=== PATIENT | female | born 1980 | race Caucasian/White ===

== ENCOUNTER 2021-12-17 10:57 | Emergency (ER) | payer OTHER, SELFPAY ==
[2021-12-17 11:07] VITALS: BP 118/85; PULSE 92; RESP 20; TEMP 36.8; O2SAT 98
--- NOTE | 2021-12-17 11:56 | ED.GENADULT ---
HPI - General Adult General Chief complaint: Upper Respiratory Infection Stated complaint: Bleeding tonsils, mouth sores,right side face sore Source: patient Mode of arrival: ambulatory Limitations: no limitations History of Present Illness HPI narrative: Patient presents for evaluation of sore throat since yesterday. She reports right-sided cervical lymphadenopathy and right-sided otalgia. No fever, chills, nausea, vomiting, respiratory symptoms. No recent sick contacts to her knowledge. She has been vaccinated for COVID. She further reports painful sores to the right side of her tongue the past 4 days. She indicates she recently had labs done and it sounds like she had a positive herpes antibody test. She has never had a cold sore or genital herpes outbreak before. She is concerned that tongue lesions were herpes. She has tried several mouthwashes without significant improvement in her symptoms or after. In the past she has had similar symptoms and has gargled with warm salt water which causes symptoms to go away. No additional complaints or concerns. Related Data Home Medications Medication Instructions Recorded Confirmed amitriptyline 100 mg tablet 30 mg PO DAILY 12/17/21 12/17/21 citalopram 20 mg tablet 20 mg PO DAILY 12/17/21 12/17/21 meloxicam 15 mg tablet 15 mg PO DAILY 12/17/21 12/17/21 tizanidine 2 mg tablet 2 mg PO BID 12/17/21 12/17/21 topiramate 50 mg tablet 50 mg PO BID 12/17/21 12/17/21 Allergies Allergy/AdvReac Type Severity Reaction Status Date / Time No Known Allergies Allergy Unknown Unverified 08/07/18 16:12 Review of Systems Review of Systems: CONSTITUTIONAL: Denies fever, chills, or sweats. EYES: Denies visual changes, redness, or discharge. ENT: Reports sore throat and right-sided otalgia. Reports painful sores to the right side of her tongue. Denies rhinorrhea and congestion CARDIOVASCULAR: Denies chest pain, palpitations, or edema. RESPIRATORY: Denies cough or dyspnea. GASTROINTESTINAL: Denies abdominal pain, nausea, vomiting, or diarrhea. GENITOURINARY: Denies dysuria or hematuria. SKIN: Denies rash or itching. MUSCULOSKELETAL: Denies back pain, joint pain, or myalgia. NEUROLOGIC: Denies headache, numbness, dizziness, or weakness. PSYCHIATRIC: Denies anxiety or depression. [facility] Past Medical History Medical History Anxiety Migraine Surgical History Surgical History History of bariatric surgery Family History Family History (Updated 12/17/21 @ 12:01 by FARHAD Garner, ) Mother Breast cancer Father COPD (chronic obstructive pulmonary disease) Social History Social History (Updated 12/17/21 @ 12:02 by FARHAD Garner, ) Substance use: never Living arrangements: with family Gender identity (if verbalized by the patient): Female Sexual Orientation (if Verbalized by the Patient): Straight or Heterosexual Spiritual care concerns: No Exam Narrative: GENERAL: Well-appearing, well-nourished, and in no acute distress. HEAD: Normocephalic, atraumatic. EYES: PERRLA and EOMI. ENT: Nares clear, no rhinorrhea or epistaxis. Mucous membranes moist. There are few raised and ulcerative lesions to the right lateral aspect of her tongue. Bilateral tonsillar enlargement and erythema. No exudate. Uvula is midline. Bilateral TMs pearly [place] nonbulging NECK: Supple. No adenopathy or masses. No carotid bruits or JVD CHEST: Clear to auscultation. No respiratory distress. No wheezes rales or rhonchi HEART: Regular rate and rhythm. No murmur heard. Normal peripheral pulses. ABDOMEN: Soft, nontender, nondistended, normal active bowel sounds. EXTREMITIES: Normal range of motion. No edema. SKIN: Warm, dry, no rash. NEURO: No focal deficits. Alert and oriented x3. PSYCH: Normal mood and affect. Course Course Emergency Course: This is
== END 2021-12-17 11:57 | disposition home or self-care (01) ==
PROVIDERS: Emergency Provider Nurse Practitioner
DX: J02.9 Acute pharyngitis, unspecified (principal); F41.9 Anxiety disorder, unspecified
CPT/HCPCS: 87081; 87255; 87880; 99203; G0463

== ENCOUNTER 2022-05-07 15:04 | Emergency (ER) | payer OTHER, SELFPAY ==
--- NOTE | 2022-05-07 15:09 | ED.URI ---
HPI - URI/Sore Throat General Chief Complaint: Upper Respiratory Infection Stated Complaint: upper respiratory Time Seen by Provider: 05/07/22 15:25 Source: patient and RN notes reviewed Mode of arrival: ambulatory Limitations: no limitations History of Present Illness HPI Narrative: 41-year-old female presents concern for 4 day history of runny nose, stuffy nose, cough. Reports persistent nagging cough. Reports she has taken multiple [id number] medications but relief of her symptoms. Reports exposure to her sister who had bronchitis. She reports chills and sweats. Denies measure temperature MD elicited complaint: cough and sore throat Related Data Home Medications Medication Instructions Recorded Confirmed amitriptyline 100 mg tablet 30 mg PO DAILY 12/17/21 05/07/22 citalopram 20 mg tablet 20 mg PO DAILY 12/17/21 05/07/22 meloxicam 15 mg tablet 15 mg PO DAILY 12/17/21 05/07/22 tizanidine 2 mg tablet 2 mg PO BID 12/17/21 05/07/22 topiramate 50 mg tablet 50 mg PO BID 12/17/21 05/07/22 Allergies Allergy/AdvReac Type Severity Reaction Status Date / Time No Known Allergies Allergy Unknown Unverified 05/07/22 15:31 Review of Systems Review of Systems: CONSTITUTIONAL: Reports malaise, chills, sweats EYES: Denies visual changes, redness, or discharge. ENT: Reports rhinorrhea, congestion, sore throat. Denies sinus pain, otalgia CARDIOVASCULAR: Denies chest pain, palpitations, or edema. RESPIRATORY: Reports cough. Denies dyspnea. GASTROINTESTINAL: Denies abdominal pain, nausea, vomiting, diarrhea SKIN: Denies rash or itching. MUSCULOSKELETAL: Reports myalgia. NEUROLOGIC: Reports headache. All systems reviewed & are unremarkable except as noted in HPI and below PMFSH Past Medical History Medical History (Updated 05/07/22 @ 15:42 by Shiela Bernal NP) Anxiety Migraine Surgical History Surgical History History of bariatric surgery Family History Family History (Updated 12/17/21 @ 12:01 by FARHAD Garner, BC) Mother Breast cancer Father COPD (chronic obstructive pulmonary disease) Social History Social History (Updated 12/17/21 @ 12:02 by Mele Harrell, [facility], ) Substance use: never Gender identity (if verbalized by the patient): Female Sexual Orientation (if Verbalized by the Patient): Straight or Heterosexual Spiritual care concerns: No Comments At time of signature, agree with nursing past medical, surgical, social and family history. There is no relevant family history pertinent to the presenting complaint Exam Narrative: GENERAL: Nontoxic-appearing and in no acute distress. HEAD: Normocephalic EYES: PERRLA, conjunctivae clear ENT: Nares clear, turbinates edematous and erythematous, clear discharge. Mucous membranes moist. TM pearly [place] with dull light reflex bilaterally; no tragal tenderness. Oropharynx not erythematous without lesions. Tonsils not enlarged and without exudate, no drooling, no hoarseness, no trismus, uvula midline. NECK: Supple. No lymphadenopathy CHEST: Scattered expiratory wheeze otherwise Clear to auscultation, breath sounds equal. No rhonchi, rales, or stridor. No respiratory distress, speaks in full sentences. HEART: Regular rate and rhythm. No murmur heard. SKIN: Warm, dry, no rash. NEURO: Alert and oriented x3. PSYCH: Normal mood and affect Course Course Emergency Course: Patient is aware of diagnosis, understands and agrees to treatment plan. Anticipatory guidance given. Patient agrees to follow-up as directed and is aware of reasons to seek care at the emergency department. Portions of this record may have been created with voice recognition software Level of Care: Express Care Visit Vital Signs Vital signs: Reviewed. MDM - URI/Sore Throat MDM Narrative Medical decision making narrative: Differential diagnosis considered: [place] virus, strep pharyngitis, allergic r
[2022-05-07 15:14] VITALS: BP 129/84; PULSE 96; RESP 20; TEMP 36.9; O2SAT 99
== END 2022-05-07 16:04 | disposition home or self-care (01) ==
PROVIDERS: Emergency Provider Nurse Practitioner; PCP Family Medicine
DX: J40 Bronchitis, not specified as acute or chronic (principal); Z20.822 Contact with and (suspected) exposure to COVID-19; F41.9 Anxiety disorder, unspecified
CPT/HCPCS: 87426; 87804; 99213; C9803; G0463

== ENCOUNTER 2022-08-15 19:07 | Emergency (ER) | payer OTHER, SELFPAY ==
--- NOTE | 2022-08-15 19:10 | ED.FEMALEGU ---
HPI - Female Genitourinary General Chief complaint: Urogenital-Female Stated complaint: Poss UTI Time Seen by Provider: 08/15/22 19:10 Source: patient and RN notes reviewed History of Present Illness HPI Narrative: Patient is a 41-year-old female who presents to urgent care with complaints of intermittent urinary frequency, dysuria, suprapubic pressure and urgency. Patient states that she felt like she had blood in the urine with pink colored urine. Patient states has been ongoing for 2 and half weeks however her father was passing and she did not have time to be evaluated. Patient denies any fever, nausea, vomiting, abdominal pain or low back pain. Patient has taken azo for her symptoms. No other acute complaints. Patient states that she ?always gets symptoms like this but improve with the azo and has never treated with antibiotics and ?. No acute distress noted. Patient aware of the plan of care. Some parts of this dictation were generated by voice recognition software and may contain typographical and/or grammatical inaccuracies. Related Data Home Medications Medication Instructions Recorded Confirmed amitriptyline 100 mg tablet 30 mg PO DAILY 12/17/21 08/15/22 citalopram 20 mg tablet 20 mg PO DAILY 12/17/21 08/15/22 tizanidine 2 mg tablet 2 mg PO BID 12/17/21 08/15/22 topiramate 50 mg tablet 50 mg PO BID 12/17/21 08/15/22 meloxicam 7.5 mg tablet 7.5 mg PO DAILY 08/15/22 08/15/22 omeprazole 20 mg capsule,delayed 20 mg PO DAILY 08/15/22 08/15/22 release Allergies Allergy/AdvReac Type Severity Reaction Status Date / Time No Known Allergies Allergy Unknown Unverified 08/15/22 19:13 Review of Systems Review of Systems: CONSTITUTIONAL: Denies fever, chills, or sweats. EYES: Denies visual changes, redness, or discharge. ENT: Denies rhinorrhea, congestion, sore throat, or otalgia. CARDIOVASCULAR: Denies chest pain, palpitations, or edema. RESPIRATORY: Denies cough or dyspnea. GASTROINTESTINAL: Denies abdominal pain, nausea, vomiting, or diarrhea. GENITOURINARY: Reports of urinary frequency dysuria, suprapubic pressure and urgency SKIN: Denies rash or itching. MUSCULOSKELETAL: Denies back pain, joint pain, or myalgia. NEUROLOGIC: Denies headache, numbness, or weakness. All other systems reviewed are negative, except as documented in HPI. [facility] Past Medical History Medical History (Updated 08/15/22 @ 19:39 by FARHAD Dee) Anxiety Migraine Surgical History Surgical History History of bariatric surgery Family History Family History (Updated 12/17/21 @ 12:01 by Mele Harrell, FARHAD, ) Mother Breast cancer Father COPD (chronic obstructive pulmonary disease) Social History Social History (Updated 12/17/21 @ 12:02 by FARHAD Garner, ) Substance use: never Living arrangements: with family Gender identity (if verbalized by the patient): Female Sexual Orientation (if Verbalized by the Patient): Straight or Heterosexual Spiritual care concerns: No Comments At the time of my signature, I reviewed and agree with the nursing past medical, surgical, social, and family history. There is no relevant family history pertinent to the patient complaint. Exam Narrative: GENERAL: This is a well-nourished, well-developed patient, in no apparent distress. HEAD: normocephalic, atraumatic. EYES: PERRL. Sclera clear/white. Vision is grossly intact. EARS: External ears normal NOSE: External nose normal with no obvious nasal discharge, nares without redness, no rhinorrhea. THROAT: Mucous membranes moist NECK: Neck supple GASTROINTESTINAL: Abdomen soft, non-tender, nondistended. Bowel sounds are active. No guarding. SKIN: warm, intact with no suspicious lesions or rash, good texture and turgor. NEURO: awake, alert, and oriented to person, place and time. There were no obvious focal neurologic abnormalities. EXTREMITIES: No c
[2022-08-15 19:12] VITALS: BP 141/89; PULSE 84; RESP 18; TEMP 36.8; O2SAT 99
== END 2022-08-15 20:00 | disposition home or self-care (01) ==
PROVIDERS: Emergency Provider Nurse Practitioner Family; PCP Family Medicine
DX: N30.90 Cystitis, unspecified without hematuria (principal); Z79.1 Long term (current) use of non-steroidal anti-inflammatories (NSAID)
CPT/HCPCS: 81003; 87086; 87088; 99213; G0463

== ENCOUNTER 2022-11-08 14:14 | Emergency (ER) | payer OTHER, SELFPAY ==
[2022-11-08 14:22] VITALS: BP 142/91; PULSE 86; RESP 18; TEMP 36.6; O2SAT 98
--- NOTE | 2022-11-08 14:24 | ED.URI ---
HPI - URI/Sore Throat General Chief Complaint: Upper Respiratory Infection Stated Complaint: Sore Throat Time Seen by Provider: 11/08/22 14:24 Source: patient, RN notes reviewed and old records reviewed Mode of arrival: ambulatory Limitations: no limitations History of Present Illness HPI Narrative: 42-year-old female presents to the [facility] with complaints of a sore throat for 5 days. Reports a small blister to the top of her mouth. Reports a history of fatigue this past week. Onset (ago): week(s) (1) Related Data Home Medications Medication Instructions Recorded Confirmed amitriptyline 100 mg tablet 30 mg PO DAILY 12/17/21 11/08/22 citalopram 20 mg tablet 20 mg PO DAILY 12/17/21 11/08/22 tizanidine 2 mg tablet 2 mg PO BID 12/17/21 11/08/22 topiramate 50 mg tablet 50 mg PO BID 12/17/21 11/08/22 meloxicam 7.5 mg tablet 7.5 mg PO DAILY 08/15/22 11/08/22 omeprazole 20 mg capsule,delayed 20 mg PO DAILY 08/15/22 11/08/22 release Allergies Allergy/AdvReac Type Severity Reaction Status Date / Time No Known Allergies Allergy Unknown Unverified 11/08/22 14:22 Review of Systems Review of Systems: All systems reviewed & are unremarkable except as noted in HPI and below Constitutional: Constitutional: Reports no additional constitutional complaints Eyes: Eyes: Reports no additional eye complaints ENT: Reports as per HPI Cardiovascular: Cardiovascular: Reports no additional cardiovascular complaints, Denies chest pain and Denies dyspnea Respiratory: Respiratory: Reports no additional respiratory complaints, Denies chest congestion, Denies cough and Denies dyspnea Gastrointestinal: Gastrointestinal: Reports no additional gastrointestinal complaints, Denies abdominal pain, Denies nausea and Denies vomiting Musculoskeletal: Musculoskeletal: Reports no additional musculoskeletal complaints Integumentary/Breasts: Skin/Breast: Reports system reviewed and no additional complaints, except as docu Neurologic: Reports system reviewed and no additional complaints, except as documented Psychiatric: Psychiatric: Reports no additional psychiatric complaints Allergic/Immunologic: Allergic/Immunologic: Reports no additional allergic/immunologic complaints PMFSH Past Medical History Medical History Anxiety Migraine Surgical History Surgical History History of bariatric surgery Family History Family History Mother Breast cancer Father COPD (chronic obstructive pulmonary disease) Social History Social History Substance use: never Living arrangements: with family Gender identity (if verbalized by the patient): Female Sexual Orientation (if Verbalized by the Patient): Straight or Heterosexual Spiritual care concerns: No Comments At the time of my signature, I reviewed and agree with the nursing past medical, surgical, social, and family history. There is no relevant family history pertinent to the patient complaint. Exam Const: General: cooperative, healthy appearing, comfortable, no acute distress, well developed, alert and well nourished Nutritional Appearance: well nourished and underweight Orientation/consciousness: patient oriented x3 Limitations: no limitations HENMT: Head: normal to inspection Ears: hearing grossly normal bilaterally, external ears normal, TM's normal bilaterally and EAC's normal Face/Nose/Sinus: Normal external nose present, Normal nares present, Normal nasal mucous membranes and turbinates present and normal facial exam Face and sinus: normal facial exam Mouth: Yes Normal oral and palatal mucosa present, Yes lip normal, Yes tongue normal and Yes moist mucous membranes Throat: uvula midline, posterior oropharynx abnormal erythema; no edema, no exudates and no la
[2022-11-08 14:29] VITALS: BP 142/91; PULSE 86; RESP 18; TEMP 36.6; O2SAT 98
== END 2022-11-08 15:00 | disposition home or self-care (01) ==
PROVIDERS: Emergency Provider Nurse Practitioner; PCP Family Medicine
DX: J02.9 Acute pharyngitis, unspecified (principal); F41.9 Anxiety disorder, unspecified
CPT/HCPCS: 36416; 86308; 87081; 87880; 99213; G0463

== ENCOUNTER 2023-04-30 18:25 | Emergency (ER) | payer OTHER, SELFPAY ==
[2023-04-30 18:37] VITALS: BP 145/100; PULSE 94; RESP 16; TEMP 36.2; O2SAT 100
--- NOTE | 2023-04-30 19:13 | ED.URI ---
HPI - URI/Sore Throat General Chief Complaint: Upper Respiratory Infection Stated Complaint: Sore Throat/Cough/Fever Time Seen by Provider: 04/30/23 19:14 Source: patient, RN notes reviewed and old records reviewed Mode of arrival: ambulatory Limitations: no limitations History of Present Illness HPI Narrative: 42-year-old female presents to the [facility] with 1 week of sore throat, feeling feverish, ear pain. States that she has tried [id number] products with no relief. States that she has been baby-sitting her grandchildren and they all have viruses that are lasting for weeks. She has states she is not any better with using any cold medicine. Related Data Home Medications Medication Instructions Recorded Confirmed amitriptyline 100 mg tablet 30 mg PO DAILY 12/17/21 11/08/22 citalopram 20 mg tablet 20 mg PO DAILY 12/17/21 11/08/22 tizanidine 2 mg tablet 2 mg PO BID 12/17/21 11/08/22 topiramate 50 mg tablet 50 mg PO BID 12/17/21 11/08/22 meloxicam 7.5 mg tablet 7.5 mg PO DAILY 08/15/22 11/08/22 omeprazole 20 mg capsule,delayed 20 mg PO DAILY 08/15/22 11/08/22 release topiramate 100 mg tablet mg 04/30/23 Allergies Allergy/AdvReac Type Severity Reaction Status Date / Time No Known Allergies Allergy Unknown Unverified 04/30/23 18:31 Review of Systems Review of Systems: All systems reviewed & are unremarkable except as noted in HPI and below Constitutional: Constitutional: Reports no additional constitutional complaints Eyes: Eyes: Reports no additional eye complaints ENT: Reports as per HPI and Reports sore throat Cardiovascular: Cardiovascular: Reports no additional cardiovascular complaints, Denies chest pain and Denies dyspnea Respiratory: Respiratory: Reports no additional respiratory complaints, Denies chest congestion, Denies cough and Denies dyspnea Gastrointestinal: Gastrointestinal: Reports no additional gastrointestinal complaints, Denies abdominal pain, Denies nausea and Denies vomiting Musculoskeletal: Musculoskeletal: Reports no additional musculoskeletal complaints Integumentary/Breasts: Skin/Breast: Reports system reviewed and no additional complaints, except as docu Neurologic: Reports system reviewed and no additional complaints, except as documented Psychiatric: Psychiatric: Reports no additional psychiatric complaints Allergic/Immunologic: Allergic/Immunologic: Reports no additional allergic/immunologic complaints PMFSH Past Medical History Medical History Anxiety Migraine Surgical History Surgical History History of bariatric surgery Family History Family History Mother Breast cancer Father COPD (chronic obstructive pulmonary disease) Social History Social History Substance use: never Living arrangements: with family Gender identity (if verbalized by the patient): Female Sexual Orientation (if Verbalized by the Patient): Straight or Heterosexual Spiritual care concerns: No Comments At the time of my signature, I reviewed and agree with the nursing past medical, surgical, social, and family history. There is no relevant family history pertinent to the patient complaint. Exam Const: General: cooperative, healthy appearing, comfortable, no acute distress, well developed, alert and well nourished Nutritional Appearance: well nourished and obese Orientation/consciousness: patient oriented x3 Limitations: no limitations HENMT: Head: normal to inspection Ears: hearing grossly normal bilaterally, external ears normal, TM normal on the left, EAC's normal and TM abnormal bulging on the right and wth effusion serous on the right; not erythematous and with no loss of landmarks Face/Nose/Sinus: Normal external nose present, Normal nares present, Nor
== END 2023-04-30 19:24 | disposition home or self-care (01) ==
PROVIDERS: Emergency Provider Nurse Practitioner; PCP Family Medicine
DX: J06.9 Acute upper respiratory infection, unspecified (principal); H65.01 Acute serous otitis media, right ear; F41.9 Anxiety disorder, unspecified
CPT/HCPCS: 87081; 87880; 99213; G0463

== ENCOUNTER 2024-03-24 13:31 | Emergency (ER) | payer OTHER, SELFPAY ==
[2024-03-24 13:40] VITALS: BP 123/62; PULSE 89; RESP 20; TEMP 36.6; O2SAT 99
--- NOTE | 2024-03-24 21:56 | ED_ITS ---
HPI - URI/Sore Throat General Chief Complaint: Upper Respiratory Infection Stated Complaint: Cough, Congestion Time Seen by Provider: 03/24/24 13:46 Source: patient, RN notes reviewed and old records reviewed Mode of arrival: ambulatory Limitations: no limitations History of Present Illness HPI Narrative: 43-year-old female to Express Care with complaint of cough, chills, sore throat, headache for 3 weeks. patient states she has attempted to use various nyxf-iob-qmwweel medications including NyQuil, DayQuil, Excedrin for symptoms With limited relief. Patient denies shortness of breath, difficulty swallowing, chest pain, GI complaints, allergies, pertinent medical history. Patient able to tolerate fluids by mouth. Patient resting uncomfortably in exam room, appears tired and acutely ill. Patient able to speak in complete sentences without difficulty. Respirations even and nonlabored. Patient in no acute distress. Related Data Home Medications Medication Instructions Recorded Confirmed amitriptyline 100 mg tablet 100 mg PO DAILY 12/17/21 03/24/24 tizanidine 2 mg tablet 2 mg PO TID 12/17/21 03/24/24 topiramate 50 mg tablet 50 mg PO BID 12/17/21 03/24/24 omeprazole 20 mg capsule,delayed 20 mg PO DAILY 08/15/22 03/24/24 release topiramate 100 mg tablet 100 mg PO DAILY 04/30/23 03/24/24 citalopram 40 mg tablet 40 mg PO DAILY 03/24/24 03/24/24 meloxicam 15 mg tablet 15 mg PO DAILY 03/24/24 03/24/24 Allergies Allergy/AdvReac Type Severity Reaction Status Date / Time No Known Allergies Allergy Unknown Verified 03/24/24 13:48 Review of Systems Review of Systems: All systems reviewed & are unremarkable except as noted in HPI and below Constitutional: Constitutional: Reports as per HPI, Reports chills and Reports headache(s) Eyes: Eyes: Denies no additional eye complaints ENT: Reports as per HPI and Reports sore throat Cardiovascular: Cardiovascular: Reports no additional cardiovascular complaints, Denies chest pain and Denies dyspnea Respiratory: Respiratory: Reports no additional respiratory complaints, Reports cough and Denies dyspnea Musculoskeletal: Musculoskeletal: Reports no additional musculoskeletal complaints Neurologic: Reports system reviewed and no additional complaints, except as documented Psychiatric: Psychiatric: Reports no additional psychiatric complaints PMFSH Past Medical History Medical History Anxiety Migraine Surgical History Surgical History History of bariatric surgery Family History Family History Mother Breast cancer Father COPD (chronic obstructive pulmonary disease) Social History Social History Substance use: never Living arrangements: with family Gender identity (if verbalized by the patient): Female Sexual Orientation (if Verbalized by the Patient): Straight or Heterosexual Spiritual care concerns: No Comments At the time of my signature, I reviewed and agree with the nursing past medical, surgical, social, and family history. There is no relevant family history pertinent to the patient complaint. Exam Const: General: cooperative, no acute distress, well developed, alert, ill appearing acutely, tired appearing, uncomfortable, well groomed and well nourished Nutritional Appearance: well nourished Orientation/consciousness: patient oriented x3 Limitations: no limitations HENMT: Head: normal to inspection Ears: external ears normal Face/Nose/Sinus: Normal external nose present, Normal nares present, normal facial exam, No erythema and No edema Face and sinus: normal facial exam, no erythema and no edema Mouth: Yes Normal oral and palatal mucosa present Eyes: General: appearance normal, both eyes and all related structures Neck: Neck: normal visual inspection, full ROM and no meningeal signs Lymphatic: no lymphadenopathy noted and no lymphedema noted Chest: Chest palpation & inspection: normal inspection of the chest Resp: Effort & Inspection: normal respiratory effort and able to speak in complete sentences Auscultation: crackles bilateral and diffuse Cardio: Jugular venous distension: no JVD Rate: regular rate Rhythm: regular rhythm Back/Spine/Pelvis: Cervical Spine: cervical ROM normal Skin: General skin exam: normal color, no rashes or lesions noted and turgor normal Neuro: General: patient oriented x3, gait normal, moves all extremities and no meningeal signs Speech: normal speech Gait exam (Neuro): Normal gait present Extrem: General: normal to inspection, full ROM and capillary refill normal Psych: Appearance: grossly normal and well kempt Course Course Emergency Course: Some parts of this dictation were generated by voice recognition software and may contain typographical and/or grammatical inaccuracies. Level of Care: Express Care Visit Vital Signs Vital signs: Vital Signs Temperature 36.6 C 03/24/24 13:40 Pulse Rate 89 03/24/24 13:40 Respiratory Rate 20 03/24/24 13:40 Blood Pressure 123/62 03/24/24 13:40 Pulse Oximetry 99 03/24/24 13:40 Oxygen Delivery Room Air 03/24/24 13:40 Temperature 36.6 C 03/24/24 13:40 Pulse Rate 89 03/24/24 13:40 Respiratory Rate 20 03/24/24 13:40 Blood Pressure 123/62 03/24/24 13:40 Pulse Oximetry 99 03/24/24 13:40 Oxygen Delivery Room Air 03/24/24 13:40 reviewed MDM - URI/Sore Throat MDM Narrative Medical decision making narrative: 43-year-old female to Express Care with complaint of cough, chills, sore throat, headache for 3 weeks. patient states she has attempted to use various fgwo-sql-ryvxjef medications including NyQuil, DayQuil, Excedrin for symptoms with limited relief. Patient denies shortness of breath, difficulty swallowing, chest pain, GI complaints, allergies, pertinent medical history. Patient able to tolerate fluids by mouth. Patient resting uncomfortably in exam room, appears tired and acutely ill. Patient able to speak in complete sentences without difficulty. Respirations even and nonlabored. Patient in no acute distress. On exam, diffuse crackles heard bilaterally. Consistent with pneumonia. Patient is sitting in exam room nontoxic in appearance. Patient appropriate for outpatient treatment and follow-up. Discharge instructions reviewed with patient, as well as provided in writing per nursing staff. The instructions also include specific and strict return/GO TO THE ER as well as f/u information. All questions have been answered, and the patient deny any further questions with discharge and discharge plan. Some parts of this dictation were generated by voice recognition software and may contain typographical and/or grammatical inaccuracies. Differential Diagnosis Differential diagnosis: Likely upper respiratory infection, croup, otitis media, sinusitis, viral infection, bronchitis, influenza and pharyngitis Discharge Plan Discharge Clinical Impression: Pneumonia Patient Disposition: Home, Self-Care Condition: Stable Instructions: Antibiotic Form Additional Instructions: -Alternate Tylenol and Motrin per package directions for fever or pain. -Antihistamine medication such as Benadryl at night and Zyrtec/Claritin/Deborah during the day can help improve symptoms. -Use Flonase twice a day for 5 days then daily to help reduce the inflammation and dry up your sinuses. -You can also use Sudafed or Mucinex. Be sure to drink plenty of water with these medications at least 8 ounces with every dose and it is important to drink 8 to 10 glasses of water per day. Water is a natural decongestant -Eat and drink things that are easy to swallow, like tea or soup, or popsicles. -Oral rinses such as: Salt water gargles and/or may use topical anesthetic (eg. Chloraseptic spray) or lozenges to relieve dryness or throat pain). -Frequent hand washing or hand network relations consultant is one of the best ways to prevent spread of infection. -Using a vaporizer or humidifier at night will also help thin secretions and help with coughing up phlegm. -Follow up with primary care provider in 2-3 days if condition is not improving; or seek ER visit if you have trouble breathing, cannot drink enough fluids, have muffled voice, difficulty opening your mouth, or severe swelling. Prescriptions: New amoxicillin-pot clavulanate 875-125 mg tablet 1 tablet PO Q12H 7 Days Qty: 14 0RF No Action omeprazole 20 mg capsule,delayed release(DR/EC) 20 mg PO DAILY citalopram 40 mg tablet 40 mg PO DAILY meloxicam 15 mg tablet 15 mg PO DAILY topiramate 50 mg tablet 50 mg PO BID amitriptyline 100 mg tablet 100 mg PO DAILY tizanidine 2 mg tablet 2 mg PO TID topiramate 100 mg tablet 100 mg PO DAILY Follow-up/Referrals: PHYSICIAN,EMISSIONS TECHNICIAN [Primary Care Provider] -
== END 2024-03-24 14:36 | disposition home or self-care (01) ==
PROVIDERS: Emergency Provider Nurse Practitioner Family
DX: J18.9 Pneumonia, unspecified organism (principal); F41.9 Anxiety disorder, unspecified
CPT/HCPCS: 99213; G0463

== ENCOUNTER 2024-06-30 14:01 | Emergency (ER) | payer SELFPAY ==
[2024-06-30 14:10] VITALS: BP 127/76; PULSE 87; RESP 20; TEMP 36.9; O2SAT 96
--- OUTSIDE RECORDS SUMMARY | 2024-06-30 14:13 | XMS_ITS | Encounter Summary ---
Author Organization [facility] Address [address] [place] [address] Phone Care Team Providers Care Dry Cell Assembly Machine Tender Name Role Phone Srini Arevalo MD Primary Care Provider [phone] Julio Alvarado MD Unavailable Bin Mccain APRN, FURNITURE FINISHER APPRENTICE Primary Care Pr ovider Reason for Visit * Reason Comments Medication Refill Encounter Details Date Type Department Care Team (Late st Contact Info) Description 02/26/2022 Refill [facility] [address] [place] [address] Srini Arevalo MD [address] [place] [address] Medication Refill Social History Tobacco Use Types Packs/Day Years Used Date Smoking Tobacco: Never Smokeless Tobacco: Never Alcohol Use Standard Drinks/Week Comments Yes 0 (1 standard drink = 0.6 oz pur e alcohol) Very rare PHQ-2 Answer Date Recorded Total Score - Questions 1-9 0 08/25 Education Answer Date Recorded What is the highest level of school you have completed or the highest degree you have received? 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 Requested Prescriptions Pending Prescriptions Disp Refills traMADol (ULTRAM) 50 MG Tablet [Pharmacy Med Name: TRAMADOL HCL 50MG TABLET] 20 Tablet 0 Sig: Take 1 Tablet by mouth every 6 hours as needed for Moderate or more severe pain. Not Delegated - Opioid Agonists Protocol Failed - 02/26/2022 12:12 PM Failed - This refill cannot be delegated Passed - Visit with relevant provider in past 12 months or upcoming 90 days Recent Visits Date Type Provider Dept 10/31/21 Office Visit [facility] 09/06[facility]21 Office Visit Jose Guadalupe Brown MD [facility] 08/07/21 Office Visit Bin Mccain APRN, CNP [facility] 08/01/21 Office Visit Beena Graf APRN, CNP [facility] 03/08/21 Office Visit Beena Graf APRN, CNP [facility] Showing recent visits within past 365 days and meeting all other requirements Future Appointments No visits were found meeting these conditions. Showing future appointments within next 90 days and meeting all other requirements documented in this encounter Plan of Treatment Upcoming Encounters Date Type Department Care Team (Late st Contact Info) Description 08/26/2024 2:45 PM CDT Office Visit [facility] - [facility] Medicine - [facility] [address] [place] [address] Bin Mccain APRN, FURNITURE FINISHER APPRENTICE [address] [address] 10/06/2024 1:30 PM CDT Office Visit [facility] - Family Medicine - [place] [address] [place] [address] Bin Mccain APRN, FURNITURE FINISHER APPRENTICE [address] [address] documented as of this encounter Visit Diagnoses Diagnosis Low back pain, unspecified back pain laterality, unspecified chronicity, unspecified whether sciatica present Closed fracture of coccyx, sequela documented in this encounter Additional Health Concerns Infection Onset Date Last Indicated Resolved Time COVID - 19 Confirmed 02/14/2022 02/14/2022 022 12:17 AM CDT COVID - 19 05/02/2023 05/02/2023 05/12/2023 12:1 6 AM SUPERVISOR COOPERAGE SHOP Assessment Noted Time PHQ-9 Depression Total Score: 0 09/07/19 22 12:46 PM CDT documented as of this encounter Care Teams Dry Cell Assembly Machine Tender Relationship Specialty Start Date End Date Srini Arevalo MD PCP - General Family Medicine 11/14/18 04/06/24 Bin Mccain APRN, FURNITURE FINISHER APPRENTICE [address] [address] PCP - General Advanced Practice Nurse 04/07/24 Julio Alvarado MD Consulting Physician Obstetrics & Gynecology 03/10/19 documented as of this encounter
--- OUTSIDE RECORDS SUMMARY | 2024-06-30 14:13 | XMS_ITS | Encounter Summary ---
Author Organization [facility] Address [address] 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 No / Unsure 07/10/2022 1:47 PM CABLE ARMORER OPERATOR documented as of this encounter Miscellaneous Notes * Telephone Encounter - Susan Cortes RN - 07/11/2022 11:44 AM CABLE ARMORER OPERATOR PDMP 06/09/22 #90 Medication failed the protocol, provider to review and approve the medication order if appropriate. Requested Prescriptions Pending Prescriptions Disp Refills tiZANidine (ZANAFLEX) 2 MG Tablet [Pharmacy Med Name: TIZANIDINE HCL 2MG TABLET] 90 Tablet 0 Sig: TAKE ONE (1) TABLET BY MOUTH THREE (3) TIMES DAILY Not Delegated - Muscle Relaxants Protocol Failed - 07/11/2022 8:56 AM Failed - This refill cannot be delegated Passed - Visit with relevant provider in past 12 months or upcoming 90 days Recent Visits Date Type Provider Dept 07/10/22 Office Visit Bin Mccain APRN, [facility] 10/31/21 Office Visit Srini Arevalo MD [facility] 09/06/21 Office Visit Jose Guadalupe Brown MD [facility] 08/07/21 Office Visit Bin Mccain APRN, [facility] 08/01/21 Office Visit Beena Graf APRN, [facility] Showing recent visits within past 365 days and meeting all other requirements Future Appointments Date Type Provider Dept 10/02/22 Appointment Srini Arevalo MD [facility] Showing future appointments within next 90 days and meeting all other requirements Passed - ALT less than 90 and AST less than 55 on record in past 12 months SGOT (AST) Date Value Ref Range Status 08/07/2021 19 <=32 U/L Final SGPT (ALT) Date Value Ref Range Status 08/07/2021 19 <=41 U/L Final E ARMORER OPERATOR documented in this encounter Plan of Treatment Upcoming Encounters Date Type Department Care Team (Late st Contact Info) Description 08/26/2024 2:45 PM CDT Office Visit [facility] [address] [place] [address] Bin Mccain APRN, ROENTGENOLOGY TEACHER [address] [address] 10/06/2024 1:30 PM CDT Office Visit [facility] [address] [place] [address] Bin Mccain APRN, ROENTGENOLOGY TEACHER #[address] [address] documented as of this encounter Visit Diagnoses Diagnosis Low back pain, unspecified back pain laterality, unspecified chronicity, unspecified whether sciatica present documented in this encounter Additional Health Concerns Infection Onset Date Last Indicated Resolved Time COVID - 19 05/02/2023 05/02/2023 05/12/2023 12:1 6 AM CABLE ARMORER OPERATOR Assessment Noted Time PHQ-9 Depression Total Score: 0 09/07/19 22 12:46 PM CDT documented as of this encounter Care Teams Scrap Iron Loader Relationship Specialty Start Date End Date Srini Arevalo MD PCP - General Family Medicine 11/14/18 04/06/24 Bin Mccain APRN, ROENTGENOLOGY TEACHER #[address] [address] PCP - General Advanced Practice Nurse 04/07/24 Julio Alvarado MD Consulting Physician Obstetrics & Gynecology 03/10/19 documented as of this encounter
--- OUTSIDE RECORDS SUMMARY | 2024-06-30 14:13 | XMS_ITS | Encounter Summary ---
Author Organization [facility] Address [address] 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 No / Unsure 12/11/2021 4:42 PM CDT documented as of this encounter Miscellaneous Notes * Telephone Encounter - Deidra Gibbons RN - 12/20/2021 3:57 PM CDT Medication failed the protocol, provider to review and approve the medication order if appropriate. Requested Prescriptions Pending Prescriptions Disp Refills tiZANidine (ZANAFLEX) 2 MG Tablet [Pharmacy Med Name: TIZANIDINE HCL 2MG TABLET] 90 Tablet 0 Sig: TAKE ONE (1) TABLET BY MOUTH THREE (3) TIMES DAILY Not Delegated - Muscle Relaxants Protocol Failed - 12/20/2021 11:51 AM Failed - This refill cannot be delegated Passed - Visit with relevant provider in past 12 months or upcoming 90 days Recent Visits Date Type Provider Dept 10/31/21 Office Visit Srini Arevalo MD [facility] 09/06/21 Office Visit Jose Guadalupe Brown MD [facility] 08/07/21 Office Visit Bin Mccain APRN, CNP [facility] 08/01/21 Office Visit Beena Graf APRN, CNP [facility] 03/08/21 Office Visit Beena Graf APRN, CNP [facility] Showing recent visits within past 365 [...] Range Status 08/07/2021 19 <=41 U/L Final documented in this encounter Plan of Treatment Upcoming Encounters Date Type Department Care Team (Late st Contact Info) Description 08/26/2024 2:45 PM CDT Office Visit [facility] [address] [place] [address] Bin Mccain APRN, LIQUOR MERCHANT [address] [address] 10/06/2024 1:30 PM CDT Office Visit [facility] [address] [place] [address] Bin Mccain APRN, LIQUOR MERCHANT [address] [address] documented as of this encounter Visit Diagnoses Diagnosis Low back pain, unspecified back pain laterality, unspecified chronicity, unspecified whether sciatica present documented in this encounter Additional Health Concerns Infection Onset Date Last Indicated Resolved Time COVID - 19 Confirmed 02/14/2022 02/14/2022 022 12:17 AM CDT COVID - 19 05/02/2023 05/02/2023 05/12/2023 12:1 6 AM ENTERPRISE ARCHITECT Assessment Noted Time PHQ-9 Depression Total Score: 0 09/07/19 22 12:46 PM CDT documented as of this encounter Care Teams Show Card Writer Relationship Specialty Start Date End Date Srini Arevalo MD PCP - General Family Medicine 11/14/18 04/06/24 Bin Mccain APRN, LIQUOR MERCHANT [address] [address] PCP - General Advanced Practice Nurse 04/07/24 Julio Alvarado MD Consulting Physician Obstetrics & Gynecology 03/10/19 documented as of this encounter
--- OUTSIDE RECORDS SUMMARY | 2024-06-30 14:13 | XMS_ITS | Encounter Summary ---
Author Organization [facility] Address [address] [place] [address] Phone Care Team Providers Care Clinical Study Manager Name Role Phone Srini Arevalo MD Primary Care Provider [phone] Julio Alvarado MD Unavailable [phone] Bin Mccain APRN, MECHANICAL ENGINEERING SPECIALIST Primary Care Pr ovider Reason for Visit * Reason Comments Medication Refill Encounter Details Date Type Department Care Team (Late st Contact Info) Description 02/20/2022 Refill [facility] - [place] [address]2 [place] [address] Beena Graf APRN, GERMAN [address] [address] Medication Refill Social History Tobacco Use Types [...] 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 Requested Prescriptions Pending Prescriptions Disp Refills meloxicam (MOBIC) 15 MG Tablet [Pharmacy Med Name: MELOXICAM 15MG TABLET] 90 Tablet 2 Sig: TAKE ONE (1) TABLET BY MOUTH DAILY. NSAIDs Protocol Passed - 02/20/2022 8:58 AM Passed - Normal serum creatinine in past 12 months CREATININE, BLOOD Date Value Ref Range Status 08/07/2021 0.62 0.60 - 1.10 mg/dL Final Passed - No positive test in the past 12 months or most recent test was negative Passed - Visit with relevant provider in past 12 months or upcoming 90 days Recent Visits Date Type Provider Dept 10/31/21 Office Visit Srini Arevalo MD [facility] 09/06/21 Office Visit Jose Guadalupe Brown MD [facility] 08/07/21 Office Visit Bin Mccain APRN, CNP [facility] [place] 08/01/21 Office Visit Beena Graf APRN, CNP [facility] 03/08/21 Office Visit Beena Graf APRN, GERMAN [facility] Showing recent visits within past 365 days and meeting all other requirements Future Appointments No visits were found meeting these conditions. Showing future appointments within next 90 days and meeting all other requirements Passed - No active on record Passed - No matching NSAID med order in past 45 days No matching medication orders between 01/06/2022 10:46 AM and 02/20/2022 10:46 AM Passed - AST less than 55 or ALT less than 90 in past 12 months SGOT (AST) Date Value Ref Range Status 08/07/2021 19 <=32 U/L Final SGPT (ALT) Date Value Ref Range Status 08/07/2021 19 <=41 U/L Final Passed - HGB greater than 10 or HCT greater than 30 in past 12 months HEMOGLOBIN (HGB) Date Value Ref Range Status 08/07/2021 14.2 12.0 - 15.8 g/dL Final HEMATOCRIT (HCT) Date Value Ref Range Status 08/07/2021 44.7 36.0 - 47.0 % Final documented in this encounter Plan of Treatment Upcoming Encounters Date Type Department Care Team (Late st Contact Info) Description 08/26/2024 2:45 PM CDT [facility] [place] [address] Bin Mccain APRN, MECHANICAL ENGINEERING SPECIALIST #[address] [address] 10/06/2024 1:30 PM CDT [facility] [place] [address] Bin Mccain APRN, MECHANICAL ENGINEERING SPECIALIST #[address] [address] documented as of this encounter Visit Diagnoses Diagnosis Low back pain, unspecified back pain laterality, unspecified chronicity, unspecified whether sciatica present documented in this encounter Additional Health Concerns Infection Onset Date Last Indicated Resolved Time COVID - 19 Confirmed 02/14/2022 02/14/2022 022 12:17 AM CDT COVID - 19 05/02/2023 05/02/2023 05/12/2023 12:1 6 AM LOGISTICS ADMINISTRATOR Assessment Noted Time PHQ-9 Depression Total Score: 0 09/07/19 22 12:46 PM CDT documented as of this encounter Care Teams Clinical Study Manager Relationship Specialty Start Date End Date Srini Arevalo MD PCP - General Family Medicine 11/14/18 04/06/24 Bin Mccain APRN, MECHANICAL ENGINEERING SPECIALIST #[address] [address] PCP - General Advanced Practice Nurse 04/07/24 Julio Alvarado MD Consulting Physician Obstetrics & Gynecology 03/10/19 documented as of this encounter
--- OUTSIDE RECORDS SUMMARY | 2024-06-30 14:13 | XMS_ITS | Encounter Summary ---
Author Organization [facility] Address [address] [facility] 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 Requested Prescriptions Pending Prescriptions Disp Refills amitriptyline (ELAVIL) 100 MG Tablet [Pharmacy Med Name: AMITRIPTYLINE HCL 100MG TABLET] 30 Tablet 2 Sig: TAKE ONE TABLET BY MOUTH AT BEDTIME Not Delegated - Tricyclic Agents Protocol Failed - 05/14/2022 2:29 PM Failed - This refill cannot be delegated Passed - Visit with relevant provider in past 12 months or upcoming 90 days Recent Visits Date Type Provider Dept 10/31/21 Office Visit Srini Arevalo MD [facility] 09/06/21 Office Visit Jose Guadalupe Brown MD [facility] 08/07/21 Office Visit Bin Mccain APRN, CNP [facility] 08/01/21 Office Visit Beena Graf APRN, CNP [facility] Showing recent visits within past 365 days and meeting all other requirements Future Appointments No visits were found meeting these conditions. Showing future appointments within next 90 days and meeting all other requirements NER TOUCH UP WORKER documented in this encounter Plan of Treatment Upcoming Encounters Date Type Department Care Team (Late st Contact Info) Description 08/26/2024 2:45 PM CDT Office Visit [facility] [address]2 [place] [address] Bin Mccain APRN, SURGERY TECH [id number] [address] 10/06/2024 1:30 PM CDT Office Visit [facility] [address] [place] [address] Bin Mccain APRN, SURGERY TECH #[address] [address] documented as of this encounter Visit Diagnoses Not on filedocumented in this encounter Additional Health Concerns Infection Onset Date Last Indicated Resolved Time COVID - 19 05/02/2023 05/02/2023 05/12/2023 12:1 6 AM CLEANER TOUCH UP WORKER Assessment Noted Time PHQ-9 Depression Total Score: 0 09/07/19 12:46 PM CDT documented as of this encounter Care Teams Instructor Decorating Relationship Specialty Start Date End Date Srini Arevalo MD PCP - General Family Medicine 11/14/18 04/06/24 Bin Mccain APRN, SURGERY TECH #[address] [address] PCP - General Advanced Practice Nurse 04/07/24 Julio Alvarado MD Consulting Physician Obstetrics & Gynecology 03/10/19 documented as of this encounter
--- OUTSIDE RECORDS SUMMARY | 2024-06-30 14:13 | XMS_ITS | Encounter Summary ---
Author Organization [facility] Address [address] 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 Requested Prescriptions Pending Prescriptions Disp Refills tiZANidine (ZANAFLEX) 2 MG Tablet [Pharmacy Med Name: TIZANIDINE HCL 2MG TABLET] 90 Tablet 0 Sig: TAKE ONE (1) TABLET BY MOUTH THREE (3) TIMES DAILY Not Delegated - Muscle Relaxants Protocol Failed - 01/17/2022 8:59 AM Failed - This refill cannot be delegated Passed - Visit with relevant provider in past 12 months or upcoming 90 days Recent Visits Date Type Provider Dept 10/31/21 [facility] Office Visit Jose Guadalupe [facility] 08/07/21 Office Visit Bin Mccain APRN, CNP [facility] 08/01/21 Office Visit Beena Graf APRN, [facility] 03/08/21 Office Visit Beena Graf APRN, MERCHANDISING STOCK ASSOCIATE [facility] Showing recent visits within past 365 days [...] Description 08/26/2024 2:45 PM CDT Office Visit [facility] - Family Medicine - [place] [address] [place] [address] Bin Mccain APRN, MERCHANDISING STOCK ASSOCIATE #[address] [address] 10/06/2024 1:30 PM CDT [facility] [place] [address] Bin Mccain APRN, MERCHANDISING STOCK ASSOCIATE #[address] [address] documented as of this encounter Visit Diagnoses Diagnosis Low back pain, unspecified back pain laterality, unspecified chronicity, unspecified whether sciatica present documented in this encounter Additional Health Concerns Infection Onset Date Last Indicated Resolved Time COVID - 19 Confirmed 02/14/2022 02/14/2022 022 12:17 AM CDT COVID - 19 05/02/2023 05/02/2023 05/12/2023 12:1 6 AM PRODUCT SAFETY 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
--- OUTSIDE RECORDS SUMMARY | 2024-06-30 14:13 | XMS_ITS | Encounter Summary ---
Author Organization [facility] Address [address] [facility] 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 No / Unsure 10/31/2021 5:03 PM CDT documented as of this encounter Miscellaneous Notes * Telephone Encounter - Deidra Gbibons RN - 11/16/2021 12:58 PM CDT Medication failed the protocol, provider to review and approve the medication order if appropriate. Requested Prescriptions Pending Prescriptions Disp Refills Topiramate 50 MG Tablet [Pharmacy Med Name: TOPIRAMATE 50MG TABLET] 60 Tablet 2 Sig: TAKE ONE (1) TABLET BY MOUTH TWO (2) TIMES DAILY. TAKE EACH DOSE WITH THE 100 MG TABLET TO EQUAL 150 MG PER DOSE. Not Delegated - Anticonvulsants Excluding Benzodiazepines Protocol Failed - 11/16/2021 9:09 AM Failed - This refill cannot be delegated Passed - Visit with relevant provider in past 12 months or upcoming 90 days Recent Visits Date Type Provider Dept 10/31/21 Office Visit Srini Arevalo MD [facility] 09/06/21 Office Visit Jose Guadalupe Brown MD [facility] 08/07/21 Office Visit Bin Mccain APRN, CNP [facility] 08/01/21 Office Visit Beena Graf APRN, CNP [facility] 03/08/21 Office Visit Beena Graf APRN, SALES TEAM MANAGER [facility] Show[facility] recent visits within past 365 days and meeting all other requirements Future Appointments No visits were found meeting these conditions. Showing future appointments within next 90 days and meeting all other requirements topiramate (TOPAMAX) 100 MG Tablet 60 Tablet 2 Sig: Take 1 Tablet by mouth 2 times daily. Take with the 50 mg tab twice daily There is no refill protocol information for this order documented in this encounter Plan of Treatment Upcoming Encounters Date Type Department Care Team ([facility] st Contact Info) Description 08/26/2024 2:45 PM CDT Office Visit [facility] [address] [place] [address] Bin Mccain APRN, SALES TEAM MANAGER #[address] [address] 10/06/2024 1:30 PM CDT Office Visit [facility] [address] [place] [address] Bin Mccain APRN, SALES TEAM MANAGER #[address] [address] documented as of this encounter Visit Diagnoses Diagnosis Migraine without status migrainosus, not intractable, unspecified migraine type documented in this encounter Additional Health Concerns Infection Onset Date Last Indicated Resolved Time COVID - 19 Confirmed 02/14/2022 02/14/2022 022 12:17 AM CDT COVID - 19 05/02/2023 05/02/2023 05/12/2023 12:1 6 AM ENVIRONMENTAL ADVISER Assessment Noted Time PHQ-9 Depression Total Score: 0 09/07/19 22 12:46 PM CDT documented as of this encounter Care Teams Waterproof Bag Cutting Machine Operator Relationship Specialty Start Date End Date Srini Arevalo MD PCP - General Family Medicine 11/14/18 04/06/24 Bin Mccain APRN, SALES TEAM MANAGER #[address] [address] PCP - General Advanced Practice Nurse 04/07/24 Julio Alvarado MD Consulting Physician Obstetrics & Gynecology 03/10/19 documented as of this encounter
--- OUTSIDE RECORDS SUMMARY | 2024-06-30 14:13 | XMS_ITS | Encounter Summary ---
Author Organization [facility] Address [address] [place] [place] [address] Phone Care Team Providers Care Automotive Professional Name Role Phone Srini Arevalo MD Primary Care Provider [phone] Julio Alvarado MD Unavailable [phone] Bin Mccain APRN, MACHINE TOOL REBUILDER Primary Care Pr ovider Reason for Visit * Reason Comments Medication Refill Encounter Details Date Type Department Care Team (Late st Contact Info) Description 05/09/2022 Refill 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 Requested Prescriptions Pending Prescriptions Disp Refills tiZANidine (ZANAFLEX) 2 MG Tablet [Pharmacy Med Name: TIZANIDINE HCL 2MG TABLET] 90 Tablet 0 Sig: TAKE ONE (1) TABLET BY MOUTH THREE (3) TIMES DAILY Not Delegated - Muscle Relaxants Protocol Failed - 05/09/2022 8:52 AM Failed - This refill cannot be delegated Passed - Visit with relevant provider in past 12 months or upcoming 90 days Recent Visits Date Type Provider Dept 10/31/21 Office Visit Srini Arevalo MD [facility] 09/06/21 Office Visit Jose Guadalupe Brown MD [facility] 08/07/21 [facility] Office Visit Beena Graf APRN, CNP [facility] Showing recent visits within past 365 days [...] Range Status 08/07/2021 19 <=41 U/L Final WHEELER documented in this encounter Plan of Treatment Upcoming Encounters Date Type Department Care Team (Late st Contact Info) Description 08/26/2024 2:45 PM CDT Office Visit [facility] - Family Medicine - [place] [address] [place] [address] Bin Mccain APRN, MACHINE TOOL REBUILDER #[address] [address] 10/06/2024 1:30 PM CDT [facility] Visit [facility] #2 [place] [address] Bin Mccain APRN, MACHINE TOOL REBUILDER #[address] [address] documented as of this encounter Visit Diagnoses Diagnosis Low back pain, unspecified back pain laterality, unspecified chronicity, unspecified whether sciatica present documented in this encounter Additional Health Concerns Infection Onset Date Last Indicated Resolved Time COVID - 05/02/2023 05/02/2023 05/12/2023 12:1 6 AM COKE WHEELER Assessment Noted Time PHQ-9 Depression Total Score: 0 09/07/19 12:46 PM CDT documented as of this encounter Care Teams Automotive Professional Relationship Specialty Start Date End Date Srini Arevalo MD PCP - General Family Medicine 11/14/18 04/06/24 Bin Mccain APRN, MACHINE TOOL REBUILDER #[address] [address] PCP - General Advanced Practice Nurse 04/07/24 Julio Alvarado MD Consulting Physician Obstetrics & Gynecology 03/10/19 documented as of this encounter
--- OUTSIDE RECORDS SUMMARY | 2024-06-30 14:13 | XMS_ITS | Clinical Summary ---
Author Organization [facility] [address] [facility] Address [address] [place] [address] Care Team Providers Care Emblem Drawer In Name Role Phone Robert Cano PT Unavailable Unavailab Srini Vital MD Primary Care Provider [phone] Carolina Escobar Unavailable [phone] Allergies No known active allergies Medications cholecalciferol (VITAMIN D3) 2,000 unit capsule one cap po daily 0 0 5 Active citalopram (CeleXA) 10 mg tablet Take 1 tablet (10 mg total) by mouth daily 30 tablet 9 Active acetaminophen-a spirin-caffeine (EXCEDRIN MIGRAINE) 250-250-65 mg per tablet Take by mouth Activ e amitriptyline (ELAVIL) 100 mg tablet Take 1 tablet (100 mg total) by mouth nightly 1 Active tiZANidine (ZANAFLEX) 2 mg tablet Take by mouth 3 (three) times a day as needed 1 Active topiramate (TOPAMAX) 100 mg tablet TAKE ONE TABLET BY MOUTH TWO TIMES A DAY (TAKE EACH DOSE WITH 50MG TABLET TO EQUAL 150MG) 1 Active meloxicam (MOBIC) 15 mg tablet Take 1 tablet (15 mg total) by mouth daily 2 Active nystatin powder Apply topically 3 (three) times a day 2 Active traMADoL (ULTRAM) 50 mg tablet 2 2 Active albuterol HFA (PROVENTIL HFA,VENTOLIN HFA,PROAIR HFA) 90 mcg/actuation inhaler 2 Active omeprazole (PriLOSEC) 20 mg capsule Take 1 capsule (20 mg total) by mouth daily 30 capsule 3 06/19/19 25 Discontinu ed(Therapy completed) Active Problems Problem Noted Date Diagnosed Date Loose body of left knee 06/19/2024 Primary osteoarthritis of left knee 06/19/2024 Dysphagia 07/26/2022 Assessment & Plan (07/26/2022 10:17 AM MILITARY COOK): I am going to order an upper GI to evaluate the passage through the esophagus to ensure no pathology was identified. I am also going to set her up for an EGD to look at the mucosal lining of the esophagus. I am going to preemptively put her on nystatin swish and swallow just in case this is a candidal infection which should help her symptoms quite soon. She is in understanding. Hiatal hernia 01/24/2021 Assessment & Plan (01/24/2021 9:08 AM CDT): The patient had a roughly 2 cm hiatal hernia found at the time of EGD. This will be addressed at the time of surgery. Complex tear of medial meniscus of right knee Overview (03/14/2020): Added automatically from request for surgery [id number] Morbid obesity with BMI of 40.0-44.9, adult 08/2019 Assessment & Plan (12/14/2021 8:58 AM CDT): We have discussed to continue to monitor her progress and work with her on meal planning. We have discussed that the body become stagnant with certain routines and that this needs to be varied to continue to lose her weight. She has done some intermittent fasting which has worked which is okay from my standpoint. We have also discussed going back to her preoperative diet. Exercise as tolerates but she is limited given her back pain. We will see her back in 6 months. Assessment & Plan (06/06/2021 9:35 AM MILITARY COOK): We have stressed the importance of how she eats and really listening to her body as she stated the only problem she has with eating is sometime she gets Uncomfortable/pain when eating too much. I have discussed testing her for any vitamin deficiencies given her overall fatigue but she wants to hold off for now. She will continue with a multivitamin with iron, calcium, vitamin-D and B12. We have also discussed going back to a liquid diet and just protein for a short time to jump start / refresh the body and get it out of its normal habits going forward. We have also discussed that she can return to any kind of activity she wants from an exercise standpoint unrestricted. This will also help with the weight loss. We will see her back in 6 months to reassess. Assessment & Plan (02/09/2021 2:19 PM CDT): It appears that she may have had a reaction to the Dermabond skin glue. I will call in a small course of antibiotics just to make sure there is no superficial skin infection. She will continue to advance her diet as laid out in the post bariatric teaching. Continue calcium, multivitamin and vitamin-D. Continue Pepcid for the 1st month. Okay for cardiovascular exercises but avoid heavy lifting until follow- up. We will see her back in 1 month. She will call sooner for any changes. Assessment & Plan (01/24/2021 9:09 AM CDT): We have gone back over her preoperative diet. She is in understanding. No further questions about the upcoming surgery. Pre-admission testing will be sent in. COVID test will be obtained. Consent to be signed. Assessment & Plan (12/15/2020 10:07 AM CDT): The patient has done extremely well having shown steady weight loss throughout the majority of the process. We have gone over her preop diet that she will start 2 weeks prior to surgery. She has an EGD this coming to evaluate for hiatal hernia and H pylori. Once this returns will submit everything to insurance for approval. We have gone over hospital stay and postoperative recovery. She is in understanding of the plan. Assessment & Plan (11/15/2020 2:04 PM CDT): The patient success came with trying to avoid sugar and carbohydrates. She will continue a form of keto diet for the next month going forward. Continue to exercise as tolerates. We will see her back next month. Assessment & Plan (10/18/2020 10:01 AM CDT): We have tried to stressed to the patient that she is consistently lost weight during the process and has shown good motivation. We discussed small changes each month and trying to do it all at once. She is going to try and work in another week of just clear liquids but this month I really want her to focus on not eating anything after dinner time. We will see her back in 1 month Assessment & Plan (09/15/2020 8:48 AM CDT): We have discussed eating habits as the patient typically will have breakfast and dinner. We have stressed the importance of trying to space out the meals for 5 times a day. We have discussed ensuring that the shakes and smoothies that she is doing is in lower carbohydrate and sugar content. We have also discussed trying to do may be a week of just liquids during the next month to see if this can help her lose little bit more weight as well. She is in understanding of the plan. We will see her back in 1 month. Assessment & Plan (08/04/2020 9:13 AM MILITARY COOK): The patient will continue on her current meal plan. She is trying to do 5-6 meals spaced throughout the day around 300 calories each limiting her carbohydrates. She seems extremely motivated and has done well so far. We have discussed again sleeve versus bypass given her mild reflux symptoms. She again once to stick with the sleeve. She does understand the possibility of worsening reflux afterwards. She is set to see the dietitian in the upcoming month and we will check in with psych further follow-up as well. Follow back up with us in 1 month Assessment & Plan (07/07/2020 9:12 AM MILITARY COOK): Given her good past success she would be a good candidate for weight loss surgery. I have gone over options of sleeve gastrectomy as well as gastric bypass. The patient is leaning towards the sleeve. I have discussed in length risks and benefits of both procedures to include anastomotic leak, internal hernia, vitamin deficiency, new or worsening reflux symptoms. I have discussed that given her reflux a bypass would likely be a better option. It seems that she still would prefer the sleeve and is going to think about this. During this time frame I will set up a referral to the dietitian as well as to psych. At some point either an EGD or upper GI will be performed to rule out hiatal hernia and will also test her for H pylori. We have encouraged her to obtain the food journal and calorie count and shoot for 15- 1600 a day. I have also encouraged a walking regimen of 20-30 minutes 3 times a week. She also states that she is set to join a gym. We will see her back in 4 weeks to reassess. Greater than 15 minutes was spent in counseling the patient with regards to her morbid obesity on diet and exercise. History of tear of ACL (anterior cruciate ligame nt) 01/29/2020 Complex tear of medial menis cus of right knee as current injury 01/29/2020 Pes anserine bursitis 01/29/2020 Meralgia paresthetica of right side 01/29/2020 Essential hypertension 12/15/2014 Overview (08/30/2016): Essential hypertension Assessment & Plan (12/15/2020 10:06 AM CDT): Continue current medical regimen Assessment & Plan (10/18/2020 10:00 AM CDT): Continue current medical regimen Assessment & Plan (09/15/2020 8:47 AM CDT): Continue current medical management Assessment & Plan (08/04/2020 9:12 AM MILITARY COOK): Continue current medical regimen Assessment & Plan (07/07/2020 9:10 AM MILITARY COOK): Continue current medical regimen Migraine 12/15/2014 Overview (08/30/2016): Migraine Adiposity 07/14/2014 Overview (08/31/2016): Obesity Low back pain 07/22/2012 Overview (08/31/2016): LUMBAGO Resolved Problems Problem Noted Date Diagnosed Date Resolved Date Pre-op testing 02/02/2021 02/09/2021 Heartburn 11/28/2020 01/24/2021 Overview (11/28/2020): Added automatically from request for surgery [id number] Encounters Date Type Department Care Team Description 06/19/2024 11:45 AM MILITARY COOK Ancillary Procedure [facility] Medical [facility] Imaging at [address] [phone] Acute pain of left knee 06/19/2024 11:30 AM MILITARY COOK Office Visit [facility] Orthopedic and Sports Medicine [address] [place] [phone] Bill Ziegler MD Primary osteoarthritis of left knee (Primary Dx); Acute pain of left knee; Acute internal derangement of left knee; Loose body of left knee 06/19/2024 Telephone [facility] Medical [facility] Orthopedic and Sports Medicine [address] [place] [phone] Bill Ziegler MD 06/08/2024 Telephone [facility] Sports Medicine and Primary Care at [address] [phone] Chioma Tian MA Referral Request 06/08/2024 Orders Only [facility] Sports Medicine and Primary Care at [address] [phone] Jose Guadalupe Ordonez DO Acute internal derangement of left knee (Primary Dx) 06/05/2024 4:00 PM MILITARY COOK - 06/05/2024 11:59 PM MILITARY COOK Hospital Encounter [facility] [address] [place] [address] Acute pain of left knee; Acute internal derangement of left knee Discharge Disposition: Discharge to home or self care 06/02/2024 Telephone [facility] Sports Medicine and Primary Care at [address] [phone] Berta Zuleta MA 05/29/2024 10:25 AM MILITARY COOK Ancillary Procedure [facility] Imaging at [address] [phone] Acute pain of left knee 05/29/2024 10:15 AM MILITARY COOK Office Visit [facility] Sports Medicine and Primary Care at [address] [phone] Jose Guadalupe Odronez, Acute pain of left knee (Primary Dx); Acute internal derangement of left knee 05/29/2024 Orders Only [facility] Sports Medicine and Primary Care at [address] [phone] Jose Guadalupe Ordonez, Acute pain of left knee (Primary Dx); Acute internal derangement of left knee from Last 3 Months Immunizations Name Administration Dates Next Due Influenza, Quadrivalent, Spl it, Preservative Free, Intramuscular 03/04/2018 Influenza, Trivalent, IM (MDV) 02/23/2013 Moderna SARS-CoV-2 Monovalent Vaccination (12+ Y RS) 09/16/2020,08/19/2020 Surgical History Surgery Date Site/Laterality Comments MENISCECTOMY 03/24/2020 Right GASTRECTOMY 02/01/2021 Medical History Medical History Date Comments Insomnia insomnia Gastroesophageal reflux disease GERD Hx Other Medical Headache, migra ine Hypertension Hypertension Arthritis Arthritis; Comme nts: DNT 12/16/2014 - Gastric reflux Migraines Osteoarthritis Motion sickness Obesity Hiatal hernia Family History Medical History Relation Name Comments No Known Problems Brother 1 No Known Problems Brother 2 Coronary artery disease Father Titi nary artery disease, premature; Hypertension Father Hypertension; Breast cancer Mother Cancer, breast ; Autoimmune disease Sister 1 Tiffanie Skin cancer Sister 1 Tiffanie Cancer, skin; No Known Problems Sister 2 Cancer Neg Hx Relation Name Status Comments Brother 1 Alive Brother 2 Alive Father Alive Mother Alive Sister 1 Tiffanie Alive Sister 2 Alive Social History Tobacco Use Types Packs/Day Years Used Date Smoking Tobacco: Never Smokeless Tobacco: Never Tobacco Cessation:Counseling Given: Not Answered Alcohol Use Standard Drinks/Week Comments No 0 (1 standard drink = 0.6 oz pur e alcohol) AUDIT-C Answer Date Recorded Q1: How often do you have a drink containing alcohol? Never 07/30/2022 Q2: How many drinks containi ng alcohol do you have on a typical day when you are drinking? Patient does not drink 3 Q3: How often do you have si x or more drinks on one occasion? Never 07/30/2022 PHQ-2 Answer Date Recorded PHQ-2 Score 0 01/15/2019 Comments No Sex and Gender Information Value Date Recorded Sex Assigned at Not on file Legal Sex Female 11:00 AM MILITARY COOK Gender Identity Female 09/14/2020 10:59 AM CDT Sexual Orientation Straight 09/14/2020 10 :59 AM CDT Obstetrics History Last Filed Vital Signs Vital Sign Reading Time Taken Comments Blood Pressure 117/77 06/19/2024 12:26 PM MILITARY COOK Pulse 86 06/19/2024 12:26 PM MILITARY COOK Temperature 37.1 ??C (98.7 ??F) 07/31/2022 2:28 PM CS T Respiratory Rate 16 07/31/2022 2:28 PM MILITARY COOK Oxygen Saturation 99% 07/31/2022 2:28 PM MILITARY COOK Inhaled Oxygen Concentration - - Weight 118.9 kg (262 lb 1.6 oz) 025 12:26 PM MILITARY COOK Height 172.7 cm (5' 8 ) 06/19/2024 12:2 6 PM MILITARY COOK Body Mass Index 39.85 06/19/2024 12:26 PM MILITARY COOK Plan of Treatment Health Maintenance Due Date Last Done Comments Cervical Cancer Screening 1979 Hepatitis C Screening 1979 Varicella Vaccines (1 of 2 - 13+ 2-dose series) 10/13/1992 Hepatitis B Screening 10/13/1997 Regular Well Visit/Exam 18-64 10/13/1997 Depression Screening 03/20/2019 03/20/2018, 03/04/2018, 11/04/2017, Additional history exists Covid-19 Vaccine ( season) 2024 09/16/2020, 08/19/2020 Influenza Vaccine (#1) 2024 3, 07/10/2022, 02/18/2020, Additional history exists Breast Cancer Screening-Mammogram 07/03/2024 07/03/2023, 07/03/2023, 12/11/2021, Additional history exists DTaP/Tdap/Td Vaccine (4 - Td or Tdap) 09/07/2032 09/07/2022, 03/03/2021, 11/14/2018 HPV Vaccines Aged Out No longer eligi ble based on patient's age to complete this topic Pneumococcal vaccine <65 Aged Out No longer eligible based on patient's age to complete this topic Procedures Procedure Name Priority Date/Time Associated Diagnosis Comments XR PELVIS 1 OR 2 VIEWS Schedule Routine, Read Routine (OP Routine) 06/19/2024 11:48 AM MILITARY COOK Acute pain of left knee MRI KNEE LEFT WO CONTRAST Schedule Routine, Read Routine (OP Routine) 06/05/2024 4:38 PM MILITARY COOK Acute pain of left knee Acute internal derangement of left knee XR KNEE LEFT 4 OR MORE VIEWS Schedule Routine, Read Routine (OP Routine) 05/29/2024 10:32 AM MILITARY COOK Acute pain of left knee from Last 3 Months Results * XR Pelvis 1 or 2 Views (06/19/2024 11:48 AM MILITARY COOK) Anatomical Region Laterality Modality Body, Pelvis N/A Digital Radiogra phy Narrative 06/19/2024 12:51 PM MILITARY COOK AP pelvis shows mild degenerative changes bilateral hips cam lesion bilaterally no fractures us Bill Ziegler MD IMG XR PROCEDURES Final Resu lt * MRI Knee Left WO Contrast (06/05/2024 4:38 PM MILITARY COOK) Anatomical Region Laterality Modality Lower Extremities Left Magnetic Reson ance 06/05/2024 4:53 PM MILITARY COOK Narrative 06/05/2024 4:58 PM MILITARY COOK EXAM DESCRIPTION: MRI KNEE LEFT WO CONTRAST REASON FOR STUDY: Left knee Pain ?? Left knee pain, no known injury. Posterior pain began 2 weeks ago. Tenderness ?? The tenderness is located in the medial joint line, lateral joint line and patella. Crepitus: positive ?? TECHNIQUE: Multiplanar, multisequence MRI of the ??left ??knee was performed ?? without contrast. COMPARISON: May 29, 2024 FINDINGS: Joint and Bursae: ??There is a small joint effusion. ??Small Joshi's cyst. ??No intra-articular plica. Bones: ??No fracture. Cartilage: ?Patellofemoral: ??Mild chondromalacia ?Medial compartment: ??Mild chondromalacia ?Lateral Compartment: ??Mild chondromalacia Ligaments: ??The anterior cruciate ligament appears diminutive in size and may represent a sequelae of prior high-grade injury., PCL, MCL and lateral collateral ligament complex are intact. Extensor Mechanism: ??The quadriceps and patellar tendons are intact. Tendons/Soft tissues: ??The popliteus tendon is intact. The musculature is intact without evidence of tear. The popliteal neurovascular bundle is normal. Medial Meniscus: ??The medial meniscus is intact. Lateral Meniscus: ??The lateral meniscus is intact. IMPRESSION: Anterior cruciate ligament appears diminutive in size and may represent a sequelae of prior high-grade injury. Intact appearing PCL, MCL and lateral collateral ligament complex. Intact appearing menisci. Mild tricompartmental chondromalacia. Small joint effusion. Small Joshi's cyst. THIS IS AN ELECTRONICALLY VERIFIED FINAL REPORT 06/05/2024 4:58 PM - Electronically signed by ??Rafal Dougherty M.D. JA: TANYA Blanco: ??06/05/2024 4:58 PM T: ??06/05/2024 4:58 PM Report ID: [id number] Reading Location: ??[id number] Procedure Note Rafal Dougherty MD - 06/05/2024 EXAM DESCRIPTION: MRI KNEE LEFT WO CONTRAST REASON FOR STUDY: Left knee Pain Left knee pain, no known injury. Posterior pain began 2 weeks ago.Tenderness The tenderness is located in the medial joint line, lateral joint line and patella. Crepitus: positive TECHNIQUE: Multiplanar, multisequence MRI of the left knee was performed without contrast. COMPARISON: May 29, 2024 FINDINGS: Joint and Bursae: There is a small joint effusion. Small Joshi's cyst.No intra-articular plica. Bones: No fracture. Cartilage: Patellofemoral: Mild chondromalacia Medial compartment: Mild chondromalacia Lateral Compartment: Mild chondromalacia Ligaments: The anterior cruciate ligament appears diminutive in size andmay represent a sequelae of prior high-grade injury., PCL, MCL and lateral collateral ligament complex are intact. Extensor Mechanism: The quadriceps and patellar tendons are intact. Tendons/Soft tissues: The popliteus tendon is intact. The musculature is intact without evidence of tear. The popliteal neurovascular bundle isnormal. Medial Meniscus: The medial meniscus is intact. Lateral Meniscus: The lateral meniscus is intact. IMPRESSION: Anterior cruciate ligament appears diminutive in size and may represent a sequelae of prior high-grade injury. Intact appearing PCL, MCL and lateral collateral ligament complex. Intact appearing menisci. Mild tricompartmental chondromalacia. Small joint effusion. Small Joshi's cyst. THIS IS AN ELECTRONICALLY VERIFIED FINAL REPORT 06/05/2024 4:58 PM - Electronically signed by Rafal Dougherty M.D. JA: TANYA Report ID: [id number] Reading Location: [place] [address] Jose Guadalupe Ordonez DO IMG MRI PROCEDURES Fin al Result * XR Knee Left 4 or More Views (05/29/2024 10:32 AM MILITARY COOK) Anatomical Region Laterality Modality Lower Extremities, Knee Left Digital Radiography 05/30/2024 3:04 PM MILITARY COOK Narrative 05/30/2024 3:06 PM MILITARY COOK EXAM DESCRIPTION: XR KNEE LEFT 4 OR MORE VIEWS REASON FOR STUDY: pain ?? Pt complains of posterior and inferior knee pain for a few weeks. No known injury or prior surgery ? FINDINGS: Four views submitted with comparison 06/30/2014. No acute fractures are identified. ??Alignment is normal. ??There is mild tricompartmental left knee osteoarthritis. ??Small effusion is present. IMPRESSION: Mild tricompartmental left knee osteoarthritis with a small effusion. THIS IS AN ELECTRONICALLY VERIFIED FINAL REPORT 05/30/2024 3:06 PM - Electronically signed by ??Jsoe Guadalupe Corbin M.D. D: ??05/30/2024 3:06 PM T: Report ID: [id number] Reading Location: ??[id number] Procedure Note Jose Guadalupe Corbin MD - 05/30/2024 EXAM DESCRIPTION: XR KNEE LEFT 4 OR MORE VIEWS REASON FOR STUDY: pain Pt complains of posterior and inferior knee pain for a few weeks. No known injury or prior surgery FINDINGS: Four views submitted with comparison 06/30/2014. No acute fractures are identified. Alignment is normal. There is mild tricompartmental left knee osteoarthritis. Small effusion is present. IMPRESSION: Mild tricompartmental left knee osteoarthritis with a small effusion. THIS IS AN ELECTRONICALLY VERIFIED FINAL REPORT 05/30/2024 3:06 PM - Electronically signed by Jose Guadalupe Corbin M.D. T: Report ID: [id number] Reading Location: [id number] Jose Guadalupe Ordonez DO IMG XR PROCEDURES Marva l Result from Last 3 Months Insurance [facility] Advance Directives For more information, please contact: [phone] * Full Code (Latest Code Status on File) Date Activated Date Inactivated Comments 07/31/2022 1:13 PM 07/31/2022 6:45 PM * Full Code Date Activated Date Inactivated Comments 07/31/2022 1:13 PM 07/31/2022 1:13 PM * Full Code Date Activated Date Inactivated Comments 02/01/2021 11:29 AM 02/03/2021 3:43 PM * Full Code Date Activated Date Inactivated Comments 12/20/2020 12:38 PM 12/20/2020 6:12 PM Care Teams Emblem Drawer In Relationship Specialty Start Date End Date Srini Arevalo MD 2 [facility] [address] [address] PCP - General Family Medicine 01/29/20 Meiser, Robert Edward, PT Physical Therapist Physical Therapy 07/14/19 Carolina Escobar PA 2 [facility] [place] [id number] Physician Portable Grinding Machine Operator Orthopedic Surgery 03/24/20
--- OUTSIDE RECORDS SUMMARY | 2024-06-30 14:13 | XMS_ITS | Encounter Summary ---
Author Organization [facility] Address [address] 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 Requested Prescriptions Pending Prescriptions Disp Refills citalopram (CeleXA) 20 MG Tablet [Pharmacy Med Name: CITALOPRAM HYDROBROMIDE 20MG TABLET] 90 Tablet1 Sig: TAKE ONE (1) TABLET BY MOUTH DAILY. Citalopram (Celexa) (6 Month Refill Only) Protocol Passed - 01/22/2022 9:38 AM Passed - No test in the past 12 months or most recent test was negative Passed - No active on record Passed - Citalopram dose is less than or equal to 40mg / day Passed - Visit with relevant provider in past 6 months or upcoming 90 days Recent Visits Date Type Provider Dept 10/31/21 Office Visit Srini Arevalo MD [facility] [place] 09/06/21 Office Visit Jose Guadalupe Brown MD [facility] [place] 08/07/21 Office Visit Bin Mccain APRN, CNP [facility] [place] 08/01/21 Office Visit Beena Graf APRN, GERMAN [facility] Showing recent visits within past 182 days and meeting all other requirements Future Appointments No visits were found meeting these conditions. Showing future appointments within next 90 days and meeting all other requirements Passed - Patient has established therapy with Citalopram for at least 6 months Passed - Has an encounter in the past 6 months with a depression, anxiety, adjustment disorder, OCD, or PTSD visit diagnosis documented in this encounter Plan of Treatment Upcoming Encounters Date Type Department Care Team (Late st Contact Info) Description 08/26/2024 2:45 PM CDT Office Visit [facility] - Family Medicine - [place] [address] [place] [id number] iBn Mccain APRN, CONSTRUCTION CONTRACTOR [id number] [address] 10/06/2024 1:30 PM CDT Office Visit [facility] [address] [place] [address] Bin Mccain APRN, CONSTRUCTION CONTRACTOR #[id number] [address] documented as of this encounter Visit Diagnoses Diagnosis Anxiety Anxiety state, unspecified documented in this encounter Additional Health Concerns Infection Onset Date Last Indicated Resolved Time COVID - 19 Confirmed 02/14/2022 02/14/2022 022 12:17 AM CDT COVID - 19 05/02/2023 05/02/2023 05/12/2023 12:1 6 AM LIBRARY SERVICES DEAN Assessment Noted Time PHQ-9 Depression Total Score: 0 09/07/19 22 12:46 PM CDT documented as of this encounter Care Teams Cougar Hunter Relationship Specialty Start Date End Date Srini Arevalo MD PCP - General Family Medicine 11/14/18 04/06/24 Bin Mccain APRN, CONSTRUCTION CONTRACTOR #[address] [address] PCP - General Advanced Practice Nurse 04/07/24 Julio Alvarado MD Consulting Physician Obstetrics & Gynecology 03/10/19 documented as of this encounter
--- OUTSIDE RECORDS SUMMARY | 2024-06-30 14:13 | XMS_ITS | Encounter Summary ---
Author Organization [facility] Address [address] 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 Requested Prescriptions Pending Prescriptions Disp Refills topiramate (TOPAMAX) 100 MG Tablet [Pharmacy Med Name: TOPIRAMATE 100MG TABLET] 60 Tablet 2 Sig: TAKE ONE (1) TABLET BY MOUTH TWO (2) TIMES DAILY. TAKE WITH THE 50 MG TAB TWICE DAILY Not Delegated - Anticonvulsants Excluding Benzodiazepines Protocol Failed - 03/12/2022 10:39 AM Failed - This refill cannot be delegated Passed - Visit with relevant provider in past 12 months or upcoming 90 days Recent Visits Date Type Provider Dept 10/31/21 Office Visit [facility] 09/06/21 Office [facility] 08/07[facility]21 Office Visit Bin Mccain APRN, CNP [facility] [place] 08/01/21 Office Visit Beena Graf APRN, CNP [facility] Showing recent visits within past 365 days and meeting all other requirements Future Appointments No visits were found meeting these conditions. Showing future appointments within next 90 days and meeting all other requirements documented in this encounter Plan of Treatment Upcoming Encounters Date Type Department Care Team (Late st Contact Info) Description 08/26/2024 2:45 PM CDT Office Visit [facility] - [place] [address] [place] [address] Bin Mccain APRN, HOTEL OPERATION MANAGER #[address] [address] 10/06/2024 1:30 PM CDT Office Visit [facility] - Family [facility] #2 [place] [address] Bin Mccain APRN, HOTEL OPERATION MANAGER #[address] [address] documented as of this encounter Visit Diagnoses Diagnosis Migraine without status migrainosus, not intractable, unspecified migraine type documented in this encounter Additional Health Concerns Infection Onset Date Last Indicated Resolved Time COVID - 19 05/02/2023 05/02/2023 05/12/2023 12:1 6 AM MENAGERIE CARETAKER Assessment Noted Time PHQ-9 Depression Total Score: 0 09/07/19 12:46 PM CDT documented as of this encounter Care Teams Press Breaker Relationship Specialty Start Date End Date Srini Arevalo MD PCP - General Family Medicine 11/14/18 04/06/24 Bin Mccain APRN, HOTEL OPERATION MANAGER #[address] [address] PCP - General Advanced Practice Nurse 04/07/24 Julio Alvarado MD Consulting Physician Obstetrics & Gynecology 03/10/19 documented as of this encounter
--- OUTSIDE RECORDS SUMMARY | 2024-06-30 14:13 | XMS_ITS | Encounter Summary ---
Author Organization [facility] Address [address] [facility] [place] [address] Phone Care Team Providers Care Census Clerk Name Role Phone Srini Arevalo MD Primary Care Provider [phone] Julio Alvarado MD Unavailable Bin Mccain APRN, ACOUSTICAL INSTALLER Primary Care Pr ovider Reason for Visit * Reason Comments Medication Refill Encounter Details Date Type Department Care Team (Late st Contact Info) Description 06/24/2023 Refill [facility] - [facility] Medicine [facility] [address]2 [place] [address] Sirni Arevalo MD [address]1 [place] [address] Medication Refill Social History Tobacco Use Types Packs/Day Years Used Date Smoking Tobacco: Never Smokeless Tobacco: Never Alcohol Use Standard Drinks/Week Comments Not Currently 0 (1 standard drink = 0.6 oz [...] 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 Requested Prescriptions Pending Prescriptions Disp Refills tiZANidine (ZANAFLEX) 2 MG Tablet [Pharmacy Med Name: TIZANIDINE HCL 2MG TABLET] 90 Tablet 0 Sig: TAKE ONE (1) TABLET BY MOUTH THREE (3) TIMES DAILY Not Delegated - Muscle Relaxants Protocol Failed - 06/24/2023 5:16 PM Failed - This refill cannot be delegated Passed - Visit with relevant provider in past 12 months or upcoming 90 days Recent Visits Date Type Provider Dept 03/08/23 [facility]/08[facility]23 Office [facility] [place] 10/02/22 Office Visit [facility] 07/10[facility]22 Office Visit Bin Mccain APRN, GERMAN [facility] Showing recent visits within past 365 days and meeting all other requirements Future Appointments No visits were found meeting these conditions. Showing future appointments within next 90 days and meeting all other requirements Passed - ALT less than 90 and AST less than 55 on record in past 12 months SGOT (AST) Date Value Ref Range Status 03/14/2023 13 5 - 34 U/L Final SGPT (ALT) Date Value Ref Range Status 03/14/2023 10 0 - 55 U/L Final AL MANAGEMENT TRAINEE documented in this encounter Plan of Treatment Upcoming Encounters Date Type Department Care Team (Late st Contact Info) Description 08/26/2024 2:45 PM CDT Office Visit [facility] - Family Medicine - [place] [address] [place] [address] Bin Mccain APRN, ACOUSTICAL INSTALLER #[address] [address] 10/06/2024 1:30 PM CDT Office Visit [facility] [address] [place] [address] Bin Mccain APRN, ACOUSTICAL INSTALLER #[address] [address] documented as of this encounter Goals Goal Patient Goal Type Associated Problems Recent Progress Patient-Stated? Author My father in July. I think it would help to talk to someone. I want to learn how to live without him. Behavioral Health On track( 024 2:38 PM RENTAL MANAGEMENT TRAINEE) Yes Maria Isabel Hickey LCSW Note: Goal/Objective: Improve coping and decrease symptoms of grief related to her father's . Anticipated Time Frame for Goal Completion: 6 months Goal Reviewed with: patient Readiness to change: Ready to change Department associated with goal: [facility] Steps to achieve goal: 1. will attend at least 6 counseling sessions either individual and/or group 1x/mo, engaging in each session by verbalizing and processing thoughts and feelings related to grief and loss. 2. will report reduced feelings of guilt and resentment. 3. will identify and implement at least two outlets for grief and or coping skills to aid in managing problematic responses to grief. documented as of this encounter Visit Diagnoses Diagnosis Low back pain, unspecified back pain laterality, unspecified chronicity, unspecified whether sciatica present documented in this encounter Additional Health Concerns Assessment Noted Time PHQ-9 Depression Total Score: 0 09/07/19 22 12:46 PM CDT documented as of this encounter Care Teams Census Clerk Relationship Specialty Start Date End Date Srini Arevalo MD PCP - General Family Medicine 11/14/18 04/06/24 Bin Mccain, JARVIS, ACOUSTICAL INSTALLER #[address] [address] PCP - General Advanced Practice Nurse 04/07/24 Julio Alvarado MD Consulting Physician Obstetrics & Gynecology 03/10/19 documented as of this encounter
--- OUTSIDE RECORDS SUMMARY | 2024-06-30 14:13 | XMS_ITS | Encounter Summary ---
Author Organization [facility] Address [address] [facility] 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 Not on file documented as of this encounter Miscellaneous Notes * Telephone Encounter - Deidra Gibbons RN - 06/24/2023 3:18 PM CST Medication failed the protocol, provider [...] - Anticonvulsants Excluding Benzodiazepines Protocol Failed - 06/24/2023 8:56 AM Failed - This refill cannot be delegated Passed - Visit with relevant provider in past 12 months or upcoming 90 days Recent Visits Date Type Provider Dept 03/08/23 Procedure Visit Srini Arevalo MD [facility] 02/08/23 Office Visit Srini Arevalo MD [facility] 10/02/22 Office Visit Srini Arevalo MD [facility] 07/10/22 Office Visit Bin Mccain APRN, COMMODITY SUPERVISOR [facility] Showing recent visits within past 365 days and meeting all other requirements Future Appointments No visits were found meeting these conditions. Showing future appointments within next 90 days and meeting all other requirements topiramate (TOPAMAX) 100 MG Tablet [Pharmacy Med Name: TOPIRAMATE 100MG TABLET] 60 Tablet 2 Sig: TAKE ONE (1) TABLET BY MOUTH TWO (2) TIMES DAILY. TAKE WITH THE 50 MG TAB TWICE DAILY Not Delegated - Anticonvulsants Excluding Benzodiazepines Protocol Failed - 06/24/2023 8:56 AM Failed - This refill cannot be delegated Passed - Visit with relevant provider in past 12 months or upcoming 90 days Recent Visits Date Type Provider Dept 03/08/23 Procedure Visit Srini Arevalo MD [facility] 02/08/23 Office Visit Srini Arevalo MD [facility] 10/02/22 Office Visit Srini Arevalo MD [facility] 07/10/22 Office Visit Bin Mccain APRN, GERMAN [facility] Showing recent visits within past 365 days and meeting all other requirements Future Appointments No visits were found meeting these conditions. Showing future appointments within next 90 days and meeting all other requirements AL DECORATOR documented in this encounter Plan of Treatment Upcoming Encounters Date Type Department Care Team (Late st Contact Info) Description 08/26/2024 2:45 PM CDT Office Visit [facility] #2 [place] [address] Bin Mccain APRN, COMMODITY SUPERVISOR [address] [place] [address] 10/06/2024 1:30 PM CDT Office Visit [facility] [address] [place] [address] Bin Mccain APRN, GERMAN [address]2 [facility] [address] [place] [address] documented as of this encounter Goals Goal Patient Goal Type Associated Problems Recent Progress Patient-Stated? Author My father in July. I think it would help to talk to someone. I want to learn how to live without him. Behavioral Health On track( 024 2:38 PM FLORAL DECORATOR) Yes Maria Isabel Hickey, GROMMET MACHINE OPERATOR Note: Goal/Objective: Improve coping and decrease symptoms of grief related to her father's . Anticipated Time Frame for Goal Completion: 6 months Goal Reviewed with: patient Readiness to change: Ready to change Department associated with goal: [facility] Steps to achieve goal: [...] documented as of this encounter Care Teams Institution Director Relationship Specialty Start Date End Date Srini Arevalo MD PCP - General Family Medicine 11/14/18 04/06/24 Bin Mccain, CUTTING MACHINE OFFBEARER, COMMODITY SUPERVISOR #[address] [address] PCP - General Advanced Practice Nurse 04/07/24 Jluio Alvarado MD Consulting Physician Obstetrics & Gynecology 03/10/19 documented as of this encounter
--- OUTSIDE RECORDS SUMMARY | 2024-06-30 14:13 | XMS_ITS | Encounter Summary ---
Author Organization [facility] Address [address] [facility] 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 The 50 mg tabs were ordered yesterday. Medication failed the protocol, provider to review and approve the medication order if appropriate. Requested Prescriptions Pending Prescriptions Disp Refills topiramate (TOPAMAX) 100 MG Tablet [Pharmacy Med Name: TOPIRAMATE 100MG TABLET] 60 Tablet 2 Sig: TAKE ONE (1) TABLET BY MOUTH TWO (2) TIMES DAILY. TAKE WITH THE 50 MG TAB TWICE DAILY Not Delegated - Anticonvulsants Excluding Benzodiazepines Protocol Failed - 03/13/2022 7:24 PM Failed - This refill cannot be delegated Passed - Visit with relevant provider in past 12 months or upcoming 90 days Recent Visits Date Type Provider Dept 10/31/21 Office Visit Srini Arevalo MD [facility] 09/06/21 Office Visit Jose Guadalupe Brown MD [facility] 08/07/21 Office Visit Bin Mccain APRN, CNP [facility] [place] 08/01/21 Office Visit Beena Graf APRN, [facility] Showing recent visits within past 365 days and meeting all other requirements Future Appointments No visits were found meeting these conditions. Showing future appointments within next 90 days and meeting all other requirements tiZANidine (ZANAFLEX) 2 MG Tablet [Pharmacy Med Name: TIZANIDINE HCL 2MG TABLET] 90 Tablet 0 Sig: TAKE ONE (1) TABLET BY MOUTH THREE (3) TIMES DAILY Not Delegated - Muscle Relaxants Protocol Failed - 03/13/2022 7:24 PM Failed - This refill cannot be delegated Passed - Visit with relevant provider in past 12 months or upcoming 90 days Recent Visits Date Type Provider Dept 10/31/21 Office Visit Srini Arevalo MD [facility] 09/06/21 Office Visit Jose Guadalupe Brown MD [facility] 08/07/21 Office Visit AdánBin love APRN, CNP [facility] [place] 08/01/21 Office Visit Lesia BeenaJARVIS CNP [facility] Showing recent visits within past 365 days [...] Description 08/26/2024 2:45 PM CDT Office Visit [facility] [place] [address] Bin Mccain APRN, HAND PAINTER #[address] [address] 10/06/2024 1:30 PM CDT Office Visit [facility] [address] [place] [address] Bin Mccain APRN, HAND PAINTER #[address] [address] documented as of this encounter Visit Diagnoses Diagnosis Migraine without status migrainosus, not intractable, unspecified migraine type Low back pain, unspecified back pain laterality, unspecified chronicity, unspecified whether sciatica present documented in this encounter Additional Health Concerns Infection Onset Date Last Indicated Resolved Time COVID - 19 05/02/2023 05/02/2023 05/12/2023 12:1 6 AM CLAIM AGENT Assessment Noted Time PHQ-9 Depression Total Score: 0 09/07/19 12:46 PM CDT documented as of this encounter Care Teams Coat Presser Relationship Specialty Start Date End Date Srini Arevalo MD PCP - General Family Medicine 11/14/18 04/06/24 Bin Mccain, ROTOR PLATE WASHER, HAND PAINTER #[address] [address] PCP - General Advanced Practice Nurse 04/07/24 Julio Alvarado MD Consulting Physician Obstetrics & Gynecology 03/10/19 documented as of this encounter
--- OUTSIDE RECORDS SUMMARY | 2024-06-30 14:13 | XMS_ITS | Encounter Summary ---
Author Organization [facility] Address [address] [facility] 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 Requested Prescriptions Pending Prescriptions Disp Refills meloxicam (MOBIC) 15 MG Tablet [Pharmacy Med Name: MELOXICAM 15MG TABLET] 90 Tablet 1 Sig: TAKE ONE (1) TABLET BY MOUTH DAILY. NSAIDs Protocol Passed - 08/09/2023 8:09 AM Passed - Normal serum creatinine in past 12 months CREATININE, BLOOD Date Value Ref Range Status 03/14/2023 0.91 0.60 - 1.00 mg/dL Final Passed - No positive test in the past 12 months or most recent test was negative Passed - Visit with relevant provider in past 12 months or upcoming 90 days Recent Visits Date Type Provider Dept 03/08/23 Procedure Visit Srini Arevalo MD [facility] 02/08/23 Office Visit Srini Arevalo MD [facility] 10/02/22 Office Visit Srini [facility]val[facility] MD [facility] Showing recent visits within past 365 days and meeting all other requirements Future Appointments No visits were found meeting these conditions. Showing future appointments within next 90 days and meeting all other requirements Passed - No active on record Passed - No matching NSAID med order in past 45 days No matching medication orders between 06/25/2023 12:21 PM and 08/09/2023 12:21 PM Passed - AST less than 55 or ALT less than 90 in past 12 months SGOT (AST) Date Value Ref Range Status 03/14/2023 13 5 - 34 U/L Final SGPT (ALT) Date Value Ref Range Status 03/14/2023 10 0 - 55 U/L Final Passed - HGB greater than 10 or HCT greater than 30 in past 12 months HEMOGLOBIN (HGB) Date Value Ref Range Status 03/14/2023 13.1 12.0 - 15.8 g/dL Final HEMATOCRIT (HCT) Date Value Ref Range Status 03/14/2023 41.7 36.0 - 47.0 % Final documented in this encounter Plan of Treatment Upcoming Encounters Date Type Department Care Team (Late st Contact Info) Description 08/26/2024 2:45 PM CDT Office Visit [facility] [place] [address] Bin Mccain APRN, SENIOR MORTGAGE LOAN PROCESSOR #2 [facility] [address] [place] [address] 10/06/2024 1:30 PM CDT Office Visit [facility]2 [place] [address] Bin Mccain APRN, SENIOR MORTGAGE LOAN PROCESSOR [address] [place] [address] documented as of this encounter Goals Goal Patient Goal Type Associated Problems Recent Progress Patient-Stated? Author My father in July. I think it would help to talk to someone. I want to learn how to live without him. Behavioral Health On track( 024 2:38 PM PHP WEBSITE DEVELOPER) Yes Maria Isabel Hickey, SUPERVISOR ELECTRONIC COILS Note: Goal/Objective: Improve coping and decrease symptoms of grief related to her father's . Anticipated Time Frame for Goal Completion: 6 months Goal Reviewed with: patient Readiness to change: Ready to change Department associated with goal: [facility] Steps to achieve goal: [...] documented as of this encounter Care Teams Chiropractor Sole Practitioner Relationship Specialty Start Date End Date Srini Arevalo MD PCP - General Family Medicine 11/14/18 04/06/24 Bin Mccain, DRAPERY COUNSELOR, SENIOR MORTGAGE LOAN PROCESSOR #[address] [address] PCP - General Advanced Practice Nurse 04/07/24 Julio Alvarado MD Consulting Physician Obstetrics & Gynecology 03/10/19 documented as of this encounter
--- OUTSIDE RECORDS SUMMARY | 2024-06-30 14:13 | XMS_ITS | Encounter Summary ---
Author Organization [facility] Address [address] [facility] 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 No / Unsure 09/06/2021 12:43 PM CDT documented as of this encounter Miscellaneous Notes * Telephone Encounter - Minerva Alford RN - 09/26/2021 11:21 AM CDT Medication failed the protocol, provider to review and approve the medication order if appropriate. Requested Prescriptions Pending Prescriptions Disp Refills tiZANidine (ZANAFLEX) 2 MG Tablet [Pharmacy Med Name: TIZANIDINE HCL 2MG TABLET] 90 Tablet 0 Sig: TAKE ONE (1) TABLET BY MOUTH THREE (3) TIMES DAILY Not Delegated - Muscle Relaxants Protocol Failed - 09/26/2021 9:07 AM Failed - This refill cannot be delegated Passed - Visit with relevant provider in past 12 months or upcoming 90 days Recent Visits Date Type Provider Dept 09/06/21 Office Visit Jose Guadalupe Brown MD [facility] 08/07/21 Office Visit Bin Mccain APRN, GERMAN [facility] 08/01/21 Office Visit Beena Graf APRN, GER[facility] 03/08/21 Office Visit Beena Graf APR[facility], STONE POLISHER [facility] Show[facility] recent visits within past 365 days and meeting all other requirements Future Appointments Date Type Provider Dept 10/31/21 Appointment Srini [facility] MD [facility] Showing future appointments within next 90 [...] Description 08/26/2024 2:45 PM CDT [facility] [place] [address] Bin Mccain APRN, STONE POLISHER #[address] [address] 10/06/2024 1:30 PM CDT Office [facility] [place] [address] Bin Mccain APRN, STONE POLISHER #[address] [address] documented as of this encounter Visit Diagnoses Diagnosis Low back pain, unspecified back pain laterality, unspecified chronicity, unspecified whether sciatica present documented in this encounter Additional Health Concerns Infection Onset Date Last Indicated Resolved Time COVID - 19 Confirmed 02/14/2022 02/14/2022 022 12:17 AM CDT COVID - 19 05/02/2023 05/02/2023 05/12/2023 12:1 6 AM DIVISIONAL MERCHANDISING MANAGER Assessment Noted Time PHQ-9 Depression Total Score: 0 09/07/19 22 12:46 PM CDT documented as of this encounter Care Teams Jeep Mechanic Relationship Specialty Start Date End Date Srini Arevalo MD PCP - General Family Medicine 11/14/18 04/06/24 Bin Mccain APRN, STONE POLISHER #[address] [address] PCP - General Advanced Practice Nurse 04/07/24 Julio Alvarado MD Consulting Physician Obstetrics & Gynecology 03/10/19 documented as of this encounter
--- OUTSIDE RECORDS SUMMARY | 2024-06-30 14:13 | XMS_ITS | Encounter Summary ---
Author Organization [facility] Address [address] [facility] [facility] 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 Requested Prescriptions Pending Prescriptions Disp Refills tiZANidine (ZANAFLEX) 2 MG Tablet [Pharmacy Med Name: TIZANIDINE HCL 2MG TABLET] 90 Tablet 0 Sig: TAKE ONE (1) TABLET BY MOUTH THREE (3) TIMES DAILY Not Delegated - Muscle Relaxants Protocol Failed - 02/14/2022 8:52 AM Failed - This refill cannot be delegated Passed - Visit with relevant provider in past 12 months or upcoming 90 days Recent Visits Date Type Provider Dept 10/31/21 Office Visit Sr[facility] 09/06/21 Office Visit Jose Guadalupe Brown MD [facility] 08/07/21 Office Visit Bin Mccain APRN, CNP [facility] 08/01/21 Office Visit Beena Graf APRN, CNP [facility] 03/08/21 Office Visit Beena Graf APRN, GERMAN [facility] Showing recent visits within past 365 days [...] Description 08/26/2024 2:45 PM CDT Office Visit [facility] - [facility] - [place] #2 [place] [address] Bin Mccain APRN, EDUCATION DEPARTMENT REGISTRAR #[address] [address] 10/06/2024 1:30 PM CDT Office Visit [facility] [address]2 [place] [address] Bin Mccain APRN, EDUCATION DEPARTMENT REGISTRAR #[address] [address] documented as of this encounter Visit Diagnoses Diagnosis Low back pain, unspecified back pain laterality, unspecified chronicity, unspecified whether sciatica present documented in this encounter Additional Health Concerns Infection Onset Date Last Indicated Resolved Time COVID - 19 Confirmed 02/14/2022 02/14/2022 022 12:17 AM CDT COVID - 19 05/02/2023 05/02/2023 05/12/2023 12:1 6 AM BLUEPRINT PROCESSOR Assessment Noted Time PHQ-9 Depression Total Score: 0 09/07/19 22 12:46 PM CDT documented as of this encounter Care Teams Slackman Relationship Specialty Start Date End Date Srini Arevalo MD PCP - General Family Medicine 11/14/18 04/06/24 Bin Mccain APRN, EDUCATION DEPARTMENT REGISTRAR #[address] [address] PCP - General Advanced Practice Nurse 04/07/24 Julio Alvarado MD Consulting Physician Obstetrics & Gynecology 03/10/19 documented as of this encounter
--- OUTSIDE RECORDS SUMMARY | 2024-06-30 14:13 | XMS_ITS | Encounter Summary ---
Author Organization [facility] Address [address] [facility] 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 Not on file documented as of this encounter Miscellaneous Notes * Telephone Encounter - Susan Cortes RN - 06/07/2022 9:42 AM SOIL SORT WORKER Medication failed the protocol, provider to review [...] - Anticonvulsants Excluding Benzodiazepines Protocol Failed - 06/07/2022 9:06 AM Failed - This refill cannot be [...] [facility] 08/01/21 Office Visit Beena Graf APRN, [facility] Showing recent visits within past 365 [...] Delegated - Muscle Relaxants Protocol Failed - 06/07/2022 9:06 AM Failed - This refill cannot be delegated Passed - Visit with relevant provider in past 12 months or upcoming 90 days Recent Visits Date Type Provider Dept 10/31/21 Office Visit Srini Arevalo MD [facility] 09/06/21 Office Visit Jose Guadalupe Brown MD [facility] 08/07/21 Office Visit Bin Mccain APRN, CNP [facility] 08/01/21 Office Visit Beena Graf APRN, AGER TENDER [facility] Showing recent visits within past 365 [...] Range Status 08/07/2021 19 <=41 U/L Final SORT WORKER documented in this encounter Plan of Treatment Upcoming Encounters Date Type Department Care Team (Late st Contact Info) Description 08/26/2024 2:45 PM CDT [facility] [place] [address] Bin Mccain APRN, AGER TENDER #[address] [address] 10/06/2024 1:30 PM CDT Office Visit [facility] [place] [address] Bin Mccain APRN, AGER TENDER #[address] [address] documented as of this encounter Visit Diagnoses Diagnosis Low back pain, unspecified back pain laterality, unspecified chronicity, unspecified whether sciatica present documented in this encounter Additional Health Concerns Infection Onset Date Last Indicated Resolved Time COVID - 19 05/02/2023 05/02/2023 05/12/2023 12:1 6 AM SOIL SORT WORKER Assessment Noted Time PHQ-9 Depression Total Score: 0 09/07/19 12:46 PM CDT documented as of this encounter Care Teams Rounder Hand Relationship Specialty Start Date End Date Srini Arevalo MD PCP - General Family Medicine 11/14/18 04/06/24 Bin Mccain APRN, AGER TENDER #[address] [address] PCP - General Advanced Practice Nurse 04/07/24 Julio Alvarado MD Consulting Physician Obstetrics & Gynecology 03/10/19 documented as of this encounter
--- OUTSIDE RECORDS SUMMARY | 2024-06-30 14:13 | XMS_ITS | Referral Summary ---
Author Organization [facility] [address] [facility] Address [address] [place] [address] Care Team Providers Care Jewelry Bearing Maker Name Role Phone Fernandapercy Robert Lynn PT Unavailable Unavailab Srini Vital MD Primary Care Provider [phone] Carolina Escobar Unavailable [phone] Encounters Date Type Department Care Team Description 06/19/2024 Telephone [facility] Orthopedic and Sports Medicine [address] [place] [address] Bill Ziegler MD 06/19/2024 11:45 AM COURTESY BOOTH CASHIER Ancillary Procedure [facility] Imaging at [address] [address] Acute pain of left knee 06/19/2024 11:30 AM COURTESY BOOTH CASHIER Office Visit [facility] Orthopedic and Sports Medicine [address] [place] [address] Bill Ziegler MD Primary osteoarthritis of left knee (Primary Dx); Acute pain of left knee; Acute internal derangement of left knee; Loose body of left knee 06/08/2024 Telephone [facility] Medical [facility] Sports Medicine and Primary Care at [address] [address] Chioma Tian MA Referral Request 06/08/2024 Orders Only [facility] Sports Medicine and Primary Care at [address] [place] [address] Jose Guadalupe Ordonez DO Acute internal derangement of left knee (Primary Dx) 06/05/2024 4:00 PM COURTESY BOOTH CASHIER - 06/05/2024 11:59 PM COURTESY BOOTH CASHIER Hospital Encounter [facility] [address] [place] [address] Acute pain of left knee; Acute internal derangement of left knee Discharge Disposition: Discharge to home or self care 06/02/2024 Telephone [facility] Medical Group Sports Medicine and Primary Care at [address] [address] Berta Zuleta MA 05/29/2024 Orders Only [facility] Group Sports Medicine and Primary Care at [address] [place] [address] Jose Guadalupe Ordonez, Acute pain of left knee (Primary Dx); Acute internal derangement of left knee 05/29/2024 10:25 AM COURTESY BOOTH CASHIER Ancillary Procedure [facility] Medical Group Imaging at [address] [address] Acute pain of left knee 05/29/2024 10:15 AM COURTESY BOOTH CASHIER Office Visit [facility] Sports Medicine and Primary Care at [address] [place] [address] Jose Guadalupe Ordonez, Acute pain of left knee (Primary Dx); Acute internal derangement of left knee from Last 3 Months Allergies No known active allergies Medications cholecalciferol [...] 07/26/2022 Assessment & Plan (07/26/2022 10:17 AM COURTESY BOOTH CASHIER): I am going to order an upper [...] (03/14/2020): Added automatically from request for surgery [id number] Morbid obesity with BMI of 40.0-44.9, adult 090 08/2019 Assessment & Plan (12/14/2021 8:58 AM [...] months. Assessment & Plan (06/06/2021 9:35 AM COURTESY BOOTH CASHIER): We have stressed the importance of how [...] month. Assessment & Plan (08/04/2020 9:13 AM COURTESY BOOTH CASHIER): The patient will continue on her current [...] month Assessment & Plan (07/07/2020 9:12 AM COURTESY BOOTH CASHIER): Given her good past success she would [...] management Assessment & Plan (08/04/2020 9:12 AM COURTESY BOOTH CASHIER): Continue current medical regimen Assessment & Plan (07/07/2020 9:10 AM COURTESY BOOTH CASHIER): Continue current medical regimen Migraine 12/15/2014 Overview (08/30/2016): Migraine Adiposity 07/14/2014 Overview (08/31/2016): Obesity Low back pain 07/22/2012 Overview (08/31/2016): LUMBAGO Resolved Problems Problem Noted Date Diagnosed Date Resolved Date Pre-op testing 02/02/2021 02/09/2021 Heartburn 11/28/2020 01/24/2021 Overview (11/28/2020): Added automatically from request for surgery [id number] Immunizations Name Administration Dates Next Due Influenza, Quadrivalent, Spl it, Preservative Free, Intramuscular 03/04/2018 Influenza, Trivalent, IM (MDV) 02/23/2013 Moderna SARS-CoV-2 Monovalent Vaccination (12+ Y RS) 09/16/2020,08/19/2020 Social History Tobacco Use Types Packs/Day Years [...] you are drinking? Patient does not drink Q3: How often do you have si x or more drinks on one occasion? Never 07/30/2022 PHQ-2 Answer Date Recorded PHQ-2 Score 0 01/15/2019 Comments No Sex and Gender Information Value Date Recorded Sex Assigned at Not on file Legal Sex Female 11:00 AM COURTESY BOOTH CASHIER Gender Identity Female 09/14/2020 10:59 AM CDT Sexual Orientation Straight 09/14/2020 10 :59 AM CDT Last Filed Vital Signs Vital Sign Reading Time Taken Comments Blood Pressure 117/77 06/19/2024 12:26 PM COURTESY BOOTH CASHIER Pulse 86 06/19/2024 12:26 PM COURTESY BOOTH CASHIER Temperature 37.1 ??C (98.7 ??F) 07/31/2022 2:28 PM CS T Respiratory Rate 16 07/31/2022 2:28 PM COURTESY BOOTH CASHIER Oxygen Saturation 99% 07/31/2022 2:28 PM COURTESY BOOTH CASHIER Inhaled Oxygen Concentration - - Weight 118.9 kg (262 lb 1.6 oz) 025 12:26 PM COURTESY BOOTH CASHIER Height 172.7 cm (5' 8 ) 06/19/2024 12:2 6 PM COURTESY BOOTH CASHIER Body Mass Index 39.85 06/19/2024 12:26 PM COURTESY BOOTH CASHIER Plan of Treatment Not on file Procedures Procedure Name Priority Date/Time Associated Diagnosis Comments XR PELVIS 1 OR 2 VIEWS Schedule Routine, Read Routine (OP Routine) 06/19/2024 11:48 AM COURTESY BOOTH CASHIER Acute pain of left knee MRI KNEE LEFT WO CONTRAST Schedule Routine, Read Routine (OP Routine) 06/05/2024 4:38 PM COURTESY BOOTH CASHIER Acute pain of left knee Acute internal derangement of left knee XR KNEE LEFT 4 OR MORE VIEWS Schedule Routine, Read Routine (OP Routine) 05/29/2024 10:32 AM COURTESY BOOTH CASHIER Acute pain of left knee from Last 3 Months Results * XR Pelvis 1 or 2 Views (06/19/2024 11:48 AM COURTESY BOOTH CASHIER) Anatomical Region Laterality Modality Body, Pelvis N/A Digital Radiogra phy Narrative 06/19/2024 12:51 PM COURTESY BOOTH CASHIER AP pelvis shows mild degenerative changes bilateral hips cam lesion bilaterally no fractures us Bill Ziegler MD IMG XR PROCEDURES Final Resu lt * MRI Knee Left WO Contrast (06/05/2024 4:38 PM COURTESY BOOTH CASHIER) Anatomical Region Laterality Modality Lower Extremities Left Magnetic Reson ance 06/05/2024 4:53 PM COURTESY BOOTH CASHIER Narrative 06/05/2024 4:58 PM COURTESY BOOTH CASHIER EXAM DESCRIPTION: MRI KNEE LEFT WO CONTRAST [...] PM T: ??06/05/2024 4:58 PM Report ID: [id number] Reading Location: ??[id number] Procedure Note Rafal Dougherty MD - 06/05/2024 [...] Rafal Dougherty M.D. JA: TANYA Report ID: [id number] Reading Location: [id number] Jose Guadalupe Ordonez DO IMG MRI PROCEDURES Fin al Result * XR Knee Left 4 or More Views (05/29/2024 10:32 AM COURTESY BOOTH CASHIER) Anatomical Region Laterality Modality Lower Extremities, Knee Left Digital Radiography 05/30/2024 3:04 PM COURTESY BOOTH CASHIER Narrative 05/30/2024 3:06 PM COURTESY BOOTH CASHIER EXAM DESCRIPTION: XR KNEE LEFT 4 OR [...] 05/30/2024 3:06 PM - Electronically signed by ??Jose Guadalupe Corbin M.D. D: ??05/30/2024 3:06 PM T: Report ID: [id number] Reading Location: ??[id number] Procedure Note Jose Guadalupe Corbin MD - [...] Jose Guadalupe Corbin M.D. T: Report ID: [id number] Reading Location: [id number] Jose Guadalupe Ordonez DO IMG XR PROCEDURES Marva l Result from Last 3 Months Insurance [facility] Advance Directives For more information, please contact: [phone] * Full Code (Latest Code Status on File) Date Activated Date Inactivated Comments 07/31/2022 1:13 PM 07/31/2022 6:45 PM * Full Code Date Activated Date Inactivated Comments 07/31/2022 1:13 PM 07/31/2022 1:13 PM * Full Code Date Activated Date Inactivated Comments 02/01/2021 11:29 AM 02/03/2021 3:43 PM * Full Code Date Activated Date Inactivated Comments 12/20/2020 12:38 PM 12/20/2020 6:12 PM Care Teams Jewelry Bearing Maker Relationship Specialty Start Date End Date Srini Arevalo MD [address] [place] [address] [address] PCP - General Family Medicine 01/29/20 Robert Cano, PT Physical Therapist Physical Therapy 07/14/19 Carolina Escobar PA [address] [place] [address] [address] Physician Health Specialist Orthopedic Surgery 03/24/20
--- OUTSIDE RECORDS SUMMARY | 2024-06-30 14:13 | XMS_ITS | Encounter Summary ---
Author Organization [facility] Address [address] 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 Requested Prescriptions Pending Prescriptions Disp Refills amitriptyline (ELAVIL) 100 MG Tablet [Pharmacy Med Name: AMITRIPTYLINE HYDROCHLORIDE 100MG TABLET] 30 Tablet 2 Sig: TAKE ONE TABLET BY MOUTH AT BEDTIME Not Delegated - Tricyclic Agents Protocol Failed - 07/02/2023 9:40 AM Failed - This refill cannot be delegated Passed - Visit with relevant provider in past 12 months or upcoming 90 days Recent Visits Date Type Provider Dept 03/08/23 Procedure Visit Srini Arevalo MD [facility] 02/08/23 Office Visit Srini Arevalo MD [facility] 10/02/22 Office Visit Srini Arevalo MD [facility] 07/10/22 Office Visit Bin Mccain APRN, GERMAN [facility] Showing recent visits within past 365 days and meeting all other requirements Future Appointments No visits were found meeting these conditions. Showing future appointments within next 90 days and meeting all other requirements CTOR OF GOVERNMENT SALES documented in this encounter Plan of Treatment Upcoming Encounters Date Type Department Care Team (Late st Contact Info) Description 08/26/2024 2:45 PM CDT Office Visit [facility] [address]2 [place] [address] Bin Mccain APRN, ORANGE PEEL OPERATOR #[address] [address] 10/06/2024 1:30 PM CDT Office Visit [facility]2 [place] [address] Bin Mccain APRN, ORANGE PEEL OPERATOR #2 [facility] [place] [address] documented as of this encounter Goals Goal Patient Goal Type Associated Problems Recent Progress Patient-Stated? Author My father in July. I think it would help to talk to someone. I want to learn how to live without him. Behavioral Health On track( 024 2:38 PM DIRECTOR OF GOVERNMENT SALES) Yes Maria Isabel Hickey LCSW Note: Goal/Objective: Improve coping and decrease symptoms of grief related to her father's . Anticipated Time Frame for Goal Completion: 6 months Goal Reviewed with: patient Readiness to change: Ready to change Department associated with goal: [facility] Steps to achieve goal: [...] filedocumented in this encounter Additional Health Concerns Assessment Noted Time PHQ-9 Depression Total Score: 0 09/07/19 22 12:46 PM CDT documented as of this encounter Care Teams Assistant Professor Of Geography Relationship Specialty Start Date End Date Srini Arevalo MD PCP - General Family Medicine 11/14/18 04/06/24 Bin Mccain APRN, ORANGE PEEL OPERATOR #2 [facility] [place] [address] PCP - General Advanced Practice Nurse 04/07/24 Julio Alvarado MD Consulting Physician Obstetrics & Gynecology 03/10/19 documented as of this encounter
--- OUTSIDE RECORDS SUMMARY | 2024-06-30 14:13 | XMS_ITS | Encounter Summary ---
Author Organization [facility] Address [address] [facility] 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 LEAF GILDER * Telephone Encounter - Deidra Gibbons RN - 06/22/2022 1:53 PM CST Last aprt in October 2021 - PDMP 03/01/22 for 5 days Medication failed the protocol, provider to review and approve the medication order if appropriate. Requested Prescriptions Pending Prescriptions Disp Refills traMADol (ULTRAM) 50 MG Tablet [Pharmacy Med Name: TRAMADOL HCL 50MG TABLET] 20 Tablet 0 Sig: TAKE ONE (1) TABLET BY MOUTH EVERY SIX (6) HOURS NEEDED FOR MODERATE OR MORE SEVERE PAIN. Not Delegated - Opioid Agonists Protocol Failed - 06/22/2022 12:03 PM Failed - This refill cannot be delegated Passed - Visit with relevant provider in past 12 months or upcoming 90 days Recent Visits Date Type Provider Dept 10/31/21 Office Visit Srini Arevalo MD [facility] 09/06/21 Office Visit Jose Guadalupe Brown MD [facility] 08/07/21 Office Visit Bin Mccain APRN, CNP [facility] 08/01/21 Office Visit Beena Graf APRN, CNP [facility] Showing recent visits within past 365 days and meeting all other requirements Future Appointments No visits were found meeting these conditions. Showing future appointments within next 90 days and meeting all other requirements LEAF GILDER documented in this encounter Plan of Treatment Upcoming Encounters Date Type Department Care Team (Late st Contact Info) Description 08/26/2024 2:45 PM CDT Office Visit [facility] [address]2 [place] [address] Bin Mccain APRN, JUDICIAL CLERK #[address] [address] 10/06/2024 1:30 PM CDT Office Visit [facility] [address]2 [place] [address] Bin Mccain APRN, JUDICIAL CLERK #[address] [address] documented as of this encounter Visit Diagnoses Diagnosis Low back pain, unspecified back pain laterality, unspecified chronicity, unspecified whether sciatica present Closed fracture of coccyx, sequela documented in this encounter Additional Health Concerns Infection Onset Date Last Indicated Resolved Time COVID - 19 05/02/2023 05/02/2023 05/12/2023 12:1 6 AM GOLD LEAF GILDER Assessment Noted Time PHQ-9 Depression Total Score: 0 09/07/19 22 12:46 PM CDT documented as of this encounter Care Teams Opto Mechanical Engineer Relationship Specialty Start Date End Date Srini Arevalo MD PCP - General Family Medicine 11/14/18 04/06/24 Bin Mccain APRN, JUDICIAL CLERK #[address] [address] PCP - General Advanced Practice Nurse 04/07/24 Julio Alvarado MD Consulting Physician Obstetrics & Gynecology 03/10/19 documented as of this encounter
--- OUTSIDE RECORDS SUMMARY | 2024-06-30 14:13 | XMS_ITS | Encounter Summary ---
Author Organization [facility] Address [address] [facility] 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 Requested Prescriptions Pending Prescriptions Disp Refills citalopram (CeleXA) 40 MG Tablet [Pharmacy Med Name: CITALOPRAM HYDROBROMIDE 40MG TABLET] 90 Tablet3 Sig: Take 1 Tablet by mouth daily. Citalopram (Celexa) (6 Month Refill Only) Protocol Failed - 08/03/2023 1:55 PM Failed - Has an encounter in the past 6 months with a depression, anxiety, adjustment disorder, OCD, or PTSD visit diagnosis Passed - No test in the past [...] [facility] 02/08/23 Office Visit Srini Arevalo MD [facility] [place] Showing recent visits within past 182 days and meeting all other requirements Future Appointments No visits were found meeting these conditions. Showing future appointments within next 90 days and meeting all other requirements Passed - Patient has established therapy with Citalopram for at least 6 months documented in this encounter Plan of Treatment Upcoming Encounters Date Type Department Care Team (Late st Contact Info) Description 08/26/2024 2:45 PM CDT Office Visit [facility] - Family Medicine - [place] [address] [place] [address] Bin cMcain, SCRAPER OPERATOR, FILM LIBRARIAN #[address] [address] 10/06/2024 1:30 PM CDT Office Visit [facility] - Family [facility] #2 [place] [address] Bin Mccain, JARVIS, FILM LIBRARIAN #[address] [address] documented as of this encounter Goals Goal Patient Goal Type Associated Problems Recent Progress Patient-Stated? Author My father in July. I think it would help to talk to someone. I want to learn how to live without him. Behavioral Health On track( 024 2:38 PM FUNERAL SERVICE APPRENTICE) Yes Maria Isabel Hickey LCSW Note: Goal/Objective: Improve coping and decrease symptoms of grief related to her father's . Anticipated Time Frame for Goal Completion: 6 months Goal Reviewed with: patient Readiness to change: Ready to change Department associated with goal: [facility] Steps to achieve [...] as of this encounter Visit Diagnoses Diagnosis Reactive depression Dysthymic disorder Anxiety Anxiety state, unspecified documented in this encounter Additional Health Concerns Assessment Noted Time PHQ-9 Depression Total Score: 0 09/07/19 22 12:46 PM CDT documented as of this encounter Care Teams Instructor Bus Trolley And Taxi Relationship Specialty Start Date End Date Srini Arevalo MD PCP - General Family Medicine 11/14/18 04/06/24 Bin Mccain, JARVIS, FILM LIBRARIAN #[address] [address] PCP - General Advanced Practice Nurse 04/07/24 Julio Alvarado MD Consulting Physician Obstetrics & Gynecology 03/10/19 documented as of this encounter
--- OUTSIDE RECORDS SUMMARY | 2024-06-30 14:13 | XMS_ITS | Encounter Summary ---
Author Organization [facility] Address [address] [facility] 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 Requested Prescriptions Pending Prescriptions Disp Refills amitriptyline (ELAVIL) 100 MG Tablet [Pharmacy Med Name: AMITRIPTYLINE HCL 100MG TABLET] 30 Tablet 2 Sig: TAKE ONE TABLET BY MOUTH AT BEDTIME Not Delegated - Tricyclic Agents Protocol Failed - 02/13/2022 8:56 AM Failed - This refill cannot be delegated Passed - Visit with relevant provider in past 12 months or upcoming 90 days Recent Visits Date Type Provider Dept 10/31/21 Office Visit Srini Arevalo MD [facility] 09/06/21 Office Visit Jose Guadalupe Brown MD [facility] 08/07/21 Office Visit Bin Mccain APRN, CNP [facility] 08/01/21 Office Visit Beena Graf APRN, CNP [facility] 03/08/21 Office Visit [facility], CNP [facility] Show[facility] recent visits within past 365 days and meeting all other requirements Future Appointments No visits were found meeting these conditions. Showing future appointments within next 90 days and meeting all other requirements documented in this encounter Plan of Treatment Upcoming Encounters Date Type Department Care Team (Late st Contact Info) Description 08/26/2024 2:45 PM CDT Office Visit [facility] - Family Medicine - [place] [address] [place] [address] Bin Mccain APRN, GERMAN #[address] [address] 10/06/2024 1:30 PM CDT Office Visit [facility] - [facility] - [place] [address]2 [place] [address] Bin Mccain APRN, TELETYPIST [address] [address] documented as of this encounter Visit Diagnoses Not on filedocumented in this encounter Additional Health Concerns Infection Onset Date Last Indicated Resolved Time COVID - 19 Confirmed 02/14/2022 02/14/2022 022 12:17 AM CDT COVID - 19 05/02/2023 05/02/2023 05/12/2023 12:1 6 AM 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
--- OUTSIDE RECORDS SUMMARY | 2024-06-30 14:13 | XMS_ITS | Encounter Summary ---
Author Organization [facility] Address [address] [facility] 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 No / Unsure 10/31/2021 5:03 PM CDT documented as of this encounter Miscellaneous Notes * Telephone Encounter - Deidra Gibbons RN - 11/23/2021 8:24 AM CDT Patient reported she was taking this 10/31/21 documented in this encounter Plan of Treatment Upcoming Encounters Date Type Department Care Team (Late st Contact Info) Description 08/26/2024 2:45 PM CDT Office Visit [facility] #2 [place] [address] Bin Mccain APRN, MANAGER INTERFACE #[address] [address] 10/06/2024 1:30 PM CDT Office Visit [facility] #2 [place] [address] Bin Mccain APRN, MANAGER INTERFACE #[address] [address] documented as of this encounter Visit Diagnoses Not on filedocumented in this encounter Additional Health Concerns Infection Onset Date Last Indicated Resolved Time COVID - 19 Confirmed 02/14/2022 02/14/2022 022 12:17 AM CDT COVID - 19 05/02/2023 05/02/2023 05/12/2023 12:1 6 AM LICENSED MARINE ENGINEER Assessment Noted Time PHQ-9 Depression Total Score: 0 09/07/19 22 12:46 PM CDT documented as of this encounter Care Teams Book Repairer Relationship Specialty Start Date End Date Srini Arevalo MD PCP - General Family Medicine 11/14/18 04/06/24 Bin Mccain APRN, MANAGER INTERFACE #2 [place] [address] PCP - General Advanced Practice Nurse 04/07/24 Julio Alvarado MD Consulting Physician Obstetrics & Gynecology 03/10/19 documented as of this encounter
--- OUTSIDE RECORDS SUMMARY | 2024-06-30 14:13 | XMS_ITS | Encounter Summary ---
Author Organization [facility] Address [address] [facility] 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 Requested Prescriptions Pending Prescriptions Disp Refills traMADol (ULTRAM) 50 MG Tablet [Pharmacy Med Name: TRAMADOL HYDROCHLORIDE 50MG TABLET] 20 Tablet 0 Sig: TAKE ONE (1) TABLET BY MOUTH EVERY SIX (6) HOURS NEEDED FOR MODERATE OR MORE SEVERE PAIN. Not Delegated - Opioid Agonists Protocol Failed - 07/29/2023 12:55 PM Failed - This refill cannot be delegated Passed - Visit with relevant provider in past 12 months or upcoming 90 days Recent Visits Date Type Provider Dept 03/08/23 Procedure Visit Srini Arevalo MD [facility] 02/08/23 Office Visit Srini Arevalo MD [facility] 10/02/22 Office Visit [facility] Show[facility] recent visits within past 365 days and meeting all other requirements Future Appointments No visits were found meeting these conditions. Showing future appointments within next 90 days and meeting all other requirements CTOR OF RESOURCE DEVELOPMENT documented in this encounter Plan of Treatment Upcoming Encounters Date Type Department Care Team (Late st Contact Info) Description 08/26/2024 2:45 PM CDT Office Visit [facility] #2 [place] [address] Bin Mccain APRN, WEB OPERATIONS MANAGER #[address] [address] 10/06/2024 1:30 PM CDT Office Visit [facility] #2 [place] [address] Bin Mccain APRN, WEB OPERATIONS MANAGER #[address] [address] documented as of this encounter Goals Goal Patient Goal Type Associated Problems Recent Progress Patient-Stated? Author My father in July. I think it would help to talk to someone. I want to learn how to live without him. Behavioral Health On track( 024 2:38 PM DIRECTOR OF RESOURCE DEVELOPMENT) Yes Maria Isabel Hickey, APPLICATIONS ANALYST Note: Goal/Objective: Improve coping and decrease symptoms of grief related to her father's . Anticipated Time Frame for Goal Completion: 6 months Goal Reviewed with: patient Readiness to change: Ready to change Department associated with goal: [facility] Steps to achieve goal: [...] as of this encounter Visit Diagnoses Diagnosis Chronic pain syndrome documented in this encounter Additional Health Concerns Assessment Noted Time PHQ-9 Depression Total Score: 0 09/07/19 22 12:46 PM CDT documented as of this encounter Care Teams Private Secretary Relationship Specialty Start Date End Date Srini Arevalo MD PCP - General Family Medicine 11/14/18 04/06/24 Bin Mccain APRN, WEB OPERATIONS MANAGER #[address] [address] PCP - General Advanced Practice Nurse 04/07/24 Julio Alvarado MD Consulting Physician Obstetrics & Gynecology 03/10/19 documented as of this encounter
--- OUTSIDE RECORDS SUMMARY | 2024-06-30 14:13 | XMS_ITS | Encounter Summary ---
Author Organization [facility] Address [address] [facility] 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 Requested Prescriptions Pending Prescriptions Disp Refills tiZANidine (ZANAFLEX) 2 MG Tablet [Pharmacy Med Name: TIZANIDINE HCL 2MG TABLET] 90 Tablet 0 Sig: TAKE ONE (1) TABLET BY MOUTH THREE (3) TIMES DAILY Not Delegated - Muscle Relaxants Protocol Failed - 04/11/2022 8:30 AM Failed - This refill cannot be delegated Passed - Visit with relevant provider in past 12 months or upcoming 90 days Recent Visits Date Type Provider Dept 10/31/21 Office Visit Srini Arevalo MD [facility] 09/06/21 Office Visit Jose Guadalupe Brown MD [facility] 08/07/21 Office Visit Bin Mccain APRN, CNP [facility] 08/01/21 Office Visit Beena Graf APRN, CNP [facility] Showing recent visits within past 365 days [...] Range Status 08/07/2021 19 <=41 U/L Final INE OPERATOR PACKAGING documented in this encounter Plan of Treatment Upcoming Encounters Date Type Department Care Team (Late st Contact Info) Description 08/26/2024 2:45 PM CDT Office Visit [facility] - Family Medicine - [place] [address]2 [place] [address] Bin Mccain APRN, ABORIGINAL LIAISON OFFICER #[address] [address] 10/06/2024 1:30 PM CDT [facility] Visit [facility] #2 [place] [address] Bin Mccain APRN, ABORIGINAL LIAISON OFFICER #[address] [address] documented as of this encounter Visit Diagnoses Diagnosis Low back pain, unspecified back pain laterality, unspecified chronicity, unspecified whether sciatica present documented in this encounter Additional Health Concerns Infection Onset Date Last Indicated Resolved Time COVID - 05/02/2023 05/02/2023 05/12/2023 12:1 6 AM MACHINE OPERATOR PACKAGING Assessment Noted Time PHQ-9 Depression Total Score: 0 09/07/19 12:46 PM CDT documented as of this encounter Care Teams Vise Hand Relationship Specialty Start Date End Date Srini Arevalo MD PCP - General Family Medicine 11/14/18 04/06/24 Bin Mccain APRN, ABORIGINAL LIAISON OFFICER #[address] [address] PCP - General Advanced Practice Nurse 04/07/24 Julio Alvarado MD Consulting Physician Obstetrics & Gynecology 03/10/19 documented as of this encounter
--- OUTSIDE RECORDS SUMMARY | 2024-06-30 14:13 | XMS_ITS | Encounter Summary ---
Author Organization [facility] Address [address] [facility] 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 No / Unsure 10/31/2021 5:03 PM CDT documented as of this encounter Miscellaneous Notes * Telephone Encounter - Deidra Gibbons RN - 11/21/2021 9:35 AM CDT Medication failed the protocol, provider to review and approve the medication order if appropriate. Requested Prescriptions Pending Prescriptions Disp Refills amitriptyline (ELAVIL) 100 MG Tablet [Pharmacy Med Name: AMITRIPTYLINE HCL 100MG TABLET] 30 Tablet 2 Sig: TAKE ONE TABLET BY MOUTH AT BEDTIME Not Delegated - Tricyclic Agents Protocol Failed - 11/20/2021 9:14 AM Failed - This refill cannot be delegated Passed - Visit with relevant provider in past 12 months or upcoming 90 days Recent Visits Date Type Provider Dept 10/31/21 Office Visit [facility] 09/06/21 Office Visit Jose Guadalupe Brown MD [facility] 08/07/21 Office Visit Bin Mccain APRN, CNP [facility] 08/01/21 Office Visit Beena Graf APRN, CNP [facility] 03/08/21 Office Visit Beena Graf APRN, CNP [facility] Showing recent visits within past 365 days and meeting all other requirements Future Appointments No visits were found meeting these conditions. Showing future appointments within next 90 days and meeting all other requirements documented in this encounter Plan of Treatment Upcoming Encounters Date Type Department Care Team (Late st Contact Info) Description 08/26/2024 2:45 PM CDT Office Visit [facility] - Family Medicine - [place] [address] [place] [id number] Bin Mccain APRN, HELP DESK ADMINISTRATOR [address] [address] 10/06/2024 1:30 PM CDT Office Visit [facility] - [facility] - [place] [address] [place] [address] Bin Mccain APRN, HELP DESK ADMINISTRATOR #[address] [address] documented as of this encounter Visit Diagnoses Not on filedocumented in this encounter Additional Health Concerns Infection Onset Date Last Indicated Resolved Time COVID - 19 Confirmed 02/14/2022 02/14/2022 022 12:17 AM CDT COVID - 19 05/02/2023 05/02/2023 05/12/2023 12:1 6 AM IT PROJECT COORDINATOR Assessment Noted Time PHQ-9 Depression Total Score: 0 09/07/19 22 12:46 PM CDT documented as of this encounter Care Teams Family Day Carer Relationship Specialty Start Date End Date Srini Arevalo MD PCP - General Family Medicine 11/14/18 04/06/24 Bin Mccain APRN, HELP DESK ADMINISTRATOR #[address] [address] PCP - General Advanced Practice Nurse 04/07/24 Julio Alvarado MD Consulting Physician Obstetrics & Gynecology 03/10/19 documented as of this encounter
--- OUTSIDE RECORDS SUMMARY | 2024-06-30 14:13 | XMS_ITS | Encounter Summary ---
Author Organization [facility] Address [address] [facility] 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 Requested Prescriptions Pending Prescriptions Disp Refills tiZANidine (ZANAFLEX) 2 MG Tablet [Pharmacy Med Name: TIZANIDINE HCL 2MG TABLET] 90 Tablet 0 Sig: TAKE ONE (1) TABLET BY MOUTH THREE (3) TIMES DAILY Not Delegated - Muscle Relaxants Protocol Failed - 10/24/2021 8:51 AM Failed - This refill cannot be delegated Passed - Visit with relevant provider in past 12 months or upcoming 90 days Recent Visits Date Type Provider Dept 09/06/21 Office Visit [facility] 08/07/21 Office Visit Bin Mccain APRN, CNP [facility] 08/01/21 Office Visit Beena Graf APRN, CNP [facility] 03/08/21 Office Visit [facility] Showing recent visits within past 365 days and meeting all other requirements Future Appointments Date Type Provider Dept 10/31/21 Appointment Srini Arevalo MD [facility] Showing future appointments within next 90 days [...] 08/26/2024 2:45 PM CDT Office Visit [facility] - Family Medicine - [place] [address] [place] [address] Bin Mccain APRN, CARPET LAYER #[address] [address] 10/06/2024 1:30 PM CDT Office Visit [facility] - [facility] [place] [place] [address] [place] [address] Bin Mccain APRN, CARPET LAYER #[address] [address] documented as of this encounter Visit Diagnoses Diagnosis Low back pain, unspecified back pain laterality, unspecified chronicity, unspecified whether sciatica present documented in this encounter Additional Health Concerns Infection Onset Date Last Indicated Resolved Time COVID - 19 Confirmed 02/14/2022 02/14/2022 022 12:17 AM CDT COVID - 19 05/02/2023 05/02/2023 05/12/2023 12:1 6 AM COLORING ROOM MAN Assessment Noted Time PHQ-9 Depression Total Score: 0 09/07/19 22 12:46 PM CDT documented as of this encounter Care Teams Assistant County Attorney Relationship Specialty Start Date End Date Srini Arevalo MD PCP - General Family Medicine 11/14/18 04/06/24 Bin Mccain APRN, CARPET LAYER #[address] [address] PCP - General Advanced Practice Nurse 04/07/24 Julio Alvarado MD Consulting Physician Obstetrics & Gynecology 03/10/19 documented as of this encounter
--- OUTSIDE RECORDS SUMMARY | 2024-06-30 14:13 | XMS_ITS | Encounter Summary ---
Author Organization [facility] Address [address] [facility] 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 No / Unsure 10/31/2021 5:03 PM CDT documented as of this encounter Miscellaneous Notes * Telephone Encounter - Deidra Gibbons RN - 11/22/2021 9:36 AM CDT Medication failed the protocol, provider to review and approve the medication order if appropriate. Requested Prescriptions Pending Prescriptions Disp Refills tiZANidine (ZANAFLEX) 2 MG Tablet [Pharmacy Med Name: TIZANIDINE HCL 2MG TABLET] 90 Tablet 0 Sig: TAKE ONE (1) TABLET BY MOUTH THREE (3) TIMES DAILY Not Delegated - Muscle Relaxants Protocol Failed - 11/21/2021 9:16 AM Failed - This refill cannot be [...] 03/08/21 Office Visit Beena Graf APRN, CNP [facility] Showing recent visits within past [...] Description 08/26/2024 2:45 PM CDT Office Visit [facility] [address]2 [place] [address] Bin Mccain APRN, ENGRAVED ROLLER INSPECTOR #[address] [address] 10/06/2024 1:30 PM CDT Office Visit [facility] [address] [place] [address] Bin Mccain APRN, ENGRAVED ROLLER INSPECTOR #[address] [address] documented as of this encounter Visit Diagnoses Diagnosis Low back pain, unspecified back pain laterality, unspecified chronicity, unspecified whether sciatica present documented in this encounter Additional Health Concerns Infection Onset Date Last Indicated Resolved Time COVID - 19 Confirmed 02/14/2022 02/14/2022 022 12:17 AM CDT COVID - 19 05/02/2023 05/02/2023 05/12/2023 12:1 6 AM TRIM MOUNTER Assessment Noted Time PHQ-9 Depression Total Score: 0 09/07/19 22 12:46 PM CDT documented as of this encounter Care Teams Cable Armorer Relationship Specialty Start Date End Date Srini Arevalo MD PCP - General Family Medicine 11/14/18 04/06/24 Bin Mccain APRN, ENGRAVED ROLLER INSPECTOR #[address] [address] PCP - General Advanced Practice Nurse 04/07/24 Julio Alvarado MD Consulting Physician Obstetrics & Gynecology 03/10/19 documented as of this encounter
--- OUTSIDE RECORDS SUMMARY | 2024-06-30 14:13 | XMS_ITS | Encounter Summary ---
Author Organization [facility] Address [address] 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 Requested Prescriptions Pending Prescriptions Disp Refills tiZANidine (ZANAFLEX) 2 MG Tablet [Pharmacy Med Name: TIZANIDINE HCL 2MG TABLET] 90 Tablet 0 Sig: TAKE ONE (1) TABLET BY MOUTH THREE (3) TIMES DAILY Not Delegated - Muscle Relaxants Protocol Failed - 07/24/2023 6:26 PM Failed - This refill cannot be delegated Passed - Visit with relevant provider in past 12 months or upcoming 90 days Recent Visits Date Type Provider Dept 03/08/23 Procedure Visit Srini Arevalo MD [facility] 02/08/23 Office Visit Srini Arevalo MD [facility] 10/02/22 Office Visit Srini Arevalo MD [facility] Showing recent visits within past 365 [...] 10 0 - 55 U/L Final AL HEALTH TECHNICIAN documented in this encounter Plan of Treatment Upcoming Encounters Date Type Department Care Team (Late st Contact Info) Description 08/26/2024 2:45 PM CDT [facility] Visit [facility] - [place] [address] [place] [address] Bin Mccain, MEDICAL ORDERLY, IT SALES EXECUTIVE #[address] [address] 10/06/2024 1:30 PM CDT Office Visit [facility] - Family Medicine - [place] [address] [place] [address] Bin Mccain APRN, IT SALES EXECUTIVE #[address] [address] documented as of this encounter Goals Goal Patient Goal Type Associated Problems Recent Progress Patient-Stated? Author My father in July. I think it would help to talk to someone. I want to learn how to live without him. Behavioral Health On track( 024 2:38 PM ANIMAL HEALTH TECHNICIAN) Yes Maria Isabel Hickey LCSW Note: Goal/Objective: Improve coping and decrease symptoms of grief related to her father's . Anticipated Time Frame for Goal Completion: 6 months Goal Reviewed with: patient Readiness to change: Ready to change Department associated with goal: [facility] Steps to achieve [...] documented as of this encounter Care Teams Supervisor Belt And Link Assembly Relationship Specialty Start Date End Date Srini Arevalo MD PCP - General Family Medicine 11/14/18 04/06/24 Bin Mccain, MEDICAL ORDERLY, IT SALES EXECUTIVE #[address] [address] PCP - General Advanced Practice Nurse 04/07/24 Julio Alvarado MD Consulting Physician Obstetrics & Gynecology 03/10/19 documented as of this encounter
--- OUTSIDE RECORDS SUMMARY | 2024-06-30 14:14 | XMS_ITS | Encounter Summary ---
Author Organization [facility] Address [address] [place] [address] Phone Care Team Providers Care Packer Operator Automatic Name Role Phone Srini Arevalo MD Primary Care Provider Julio Alvarado MD Unavailable [phone] Bin Mccain APRN, ROSE GRADER Primary Care Pr ovider Reason for Visit * Reason Comments Medication Refill Encounter Details Date Type Department Care Team (Late st Contact Info) Description 04/07/2021 Refill [facility] [address] [place] [address] Srini Arevalo MD [address] [place] [address] Medication Refill Social History Tobacco Use Types Packs/Day Years Used Date Smoking Tobacco: Never Smokeless Tobacco: Never Alcohol Use Standard Drinks/Week Comments Yes 0 (1 standard drink = 0.6 oz pur e alcohol) Very rare PHQ-2 Answer Date Recorded Total Score - Questions 1-9 0 02/24 Sexually Active Control Partners Comments Yes Natural Family Planning Male Comments No Sex and Gender Information Value Date Recorded Sex Assigned at Not on file Legal Sex Female 12:05 AM CDT Gender Identity Not on file Sexual Orientation Not on file 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 No / Unsure 03/08/2021 12:20 PM CDT documented as of this encounter Miscellaneous Notes * Telephone Encounter - Deidra Gibbons RN - 04/07/2021 11:39 AM CST Medication failed the protocol, provider to review and approve the medication order if appropriate. Requested Prescriptions Pending Prescriptions Disp Refills Topiramate 50 MG Tablet [Pharmacy Med Name: TOPIRAMATE 50 MG TAB 50 Tablet] 60 Tablet 2 Sig: TAKE ONE TABLET BY MOUTH TWO TIMES A DAY (TAKE EACH DOSE WITH 100MG TABLET TO EQUAL 150MG) Not Delegated - Anticonvulsants Protocol Failed - 04/07/2021 8:39 AM Failed - This refill cannot be delegated Passed - Visit with relevant provider in past 12 months or upcoming 90 days Recent Visits Date Type Provider Dept 03/08/21 Office Visit Beena Gra[facility] Showing recent visits within past 365 days and meeting all other requirements Future Appointments No visits were found meeting these conditions. Showing future appointments within next 90 days and meeting all other requirements topiramate (TOPAMAX) 100 MG Tablet [Pharmacy Med Name: TOPIRAMATE 100 MG TAB 100 Tablet] 60 Tablet 2 Sig: TAKE ONE TABLET BY MOUTH TWO TIMES A DAY (TAKE EACH DOSE WITH 50MG TABLET TO EQUAL 150MG) Not Delegated - Anticonvulsants Protocol Failed - 04/07/2021 8:39 AM Failed - This refill cannot be delegated Passed - Visit with relevant provider in past 12 months or upcoming 90 days Recent Visits Date Type Provider Dept 03/08/21 Office Visit Beena Graf APRN, [facility] Showing recent visits within past 365 days and meeting all other requirements Future Appointments No visits were found meeting these conditions. Showing future appointments within next 90 days and meeting all other requirements RDS AND TAPE RECORDINGS ENGINEER documented in this encounter Plan of Treatment Upcoming Encounters Date Type Department Care Team (Late st Contact Info) Description 08/26/2024 2:45 PM CDT Office Visit [facility] - Family Medicine - [place] [address] [place] [address] Bin Mccain APRN, ROSE GRADER [address] [address] 10/06/2024 1:30 PM CDT [facility] Visit [facility] [place] [facility] [place] [address] Bin Mccain APRN, ROSE GRADER #[address] [address] documented as of this encounter Visit Diagnoses Diagnosis Migraine without status migrainosus, not intractable, unspecified migraine type documented in this encounter Additional Health Concerns Infection Onset Date Last Indicated Resolved Time COVID - 19 Confirmed 02/14/2022 02/14/2022 022 12:17 AM CDT COVID - 19 05/02/2023 05/02/2023 05/12/2023 12:1 6 AM RECORDS AND TAPE RECORDINGS ENGINEER Assessment Noted Time PHQ-9 Depression Total Score: 0 03/08/20 12:34 PM CDT documented as of this encounter Care Teams Packer Operator Automatic Relationship Specialty Start Date End Date Srini Arevalo MD PCP - General Family Medicine 11/14/18 04/06/24 Bin Mccain APRN, ROSE GRADER #[address] [address] PCP - General Advanced Practice Nurse 04/07/24 Julio Alvarado MD Consulting Physician Obstetrics & Gynecology 03/10/19 documented as of this encounter
--- OUTSIDE RECORDS SUMMARY | 2024-06-30 14:14 | XMS_ITS | Clinical Summary ---
Author Organization [facility] Address [address] [place] [address] Phone Care Team Providers Care Dinker Name Role Phone Julio Alvarado MD Unavailable [phone] Bin Mccain APRN, WELDER G[employer]GST[employer] ARC Primary Care Pr ovider Allergies No known active allergies Medications Cholecalciferol (VITAMIN D3) 2000 units Tablet Take by mouth daily. Active Aspirin-Acetamino phen-Caffeine (EXCEDRIN PO) Take by mouth. A ctive Pseudoephedrine-A PAP-DM (DAYQUIL PO) Take by mouth. Activ e Pseudoeph-Doxylam ine-DM-APAP (NYQUIL PO) Take by mouth as needed. Active Multiple Vitamin (MULTIVITAMIN PO) Take by mouth. Active citalopram (CeleXA) 40 MG TabletIndications :Reactive depression,Anxiet y TAKE 1 TABLET BY MOUTH DAILY. 90 Tablet 3 024 Active meloxicam (MOBIC) 15 MG TabletIndications :Low back pain, unspecified back pain laterality, unspecified chronicity, unspecified whether sciatica present TAKE ONE (1) TABLET BY MOUTH DAILY. 90 Tablet 1 024 Active Additional Information Patient taking differently: 15 mg Oral DAILY, Reported on 04/07/2024 topiramate (TOPAMAX) 100 MG TabletIndications :Migraine without status migrainosus, not intractable, unspecified migraine type TAKE ONE (1) TABLET BY MOUTH TWO (2) TIMES DAILY. TAKE WITH THE 50 MG TAB TWICE DAILY 180 Tablet 3 024 Active Topiramate 50 MG Tablet TAKE ONE (1) TABLET BY MOUTH TWO (2) TIMES DAILY. TAKE EACH DOSE WITH THE 100 MG TABLET TO EQUAL 150 MG PER DOSE. 180 Tablet 3 024 Active amitriptyline (ELAVIL) 100 MG Tablet Take 1 Tablet by mouth nightly. 90 Tablet 3 025 Active tiZANidine (ZANAFLEX) 2 MG TabletIndications :Low back pain, unspecified back pain laterality, unspecified chronicity, unspecified whether sciatica present TAKE ONE (1) TABLET BY MOUTH THREE (3) TIMES DAILY 90 Tablet 025 Active traMADol (ULTRAM) 50 MG TabletIndications :Degeneration of intervertebral disc of lumbar region with discogenic back pain and lower extremity pain TAKE 1 TABLET BY MOUTH EVERY SIX (6) HOURS NEEDED FOR MODERATE OR MORE SEVERE PAIN. 20 Tablet 025 Active tiZANidine (ZANAFLEX) 2 MG TabletIndications :Low back pain, unspecified back pain laterality, unspecified chronicity, unspecified whether sciatica present TAKE ONE (1) TABLET BY MOUTH THREE (3) TIMES DAILY 90 Tablet 024 2024 Discontinued amitriptyline (ELAVIL) 100 MG Tablet TAKE ONE TABLET BY MOUTH AT BEDTIME 30 Tablet 2 024 2024 Discontinued traMADol (ULTRAM) 50 MG TabletIndications :Degeneration of intervertebral disc of lumbar region with discogenic back pain and lower extremity pain Take 1 Tablet by mouth every 6 hours as needed for Moderate or more severe pain. 20 Tablet 024 2024 Discontinued Active Problems Problem Noted Date Diagnosed Date Major depressive disorder, recurrent episode, mi ld 04/29/2024 Reactive depression 08/22/2022 Grief 08/22/2022 Hiatal hernia 01/24/2021 Overview (08/02/2021): Last Assessment & Plan: The patient had a roughly 2 cm hiatal hernia found at the time of EGD. This will be addressed at the time of surgery. Complex tear of medial menis cus of right knee as current injury 01/29/2020 Overview (08/02/2021): Added automatically from request for surgery [id number] History of tear of ACL (anterior cruciate ligame nt) 01/29/2020 Meralgia paresthetica of right side 01/29/2020 Pes anserine bursitis 01/29/2020 GERD (gastroesophageal reflux disease) 9 Migraines 11/14/2018 Anxiety 11/14/2018 Fracture of coccyx 03/01/2018 High blood pressure 12/15/2014 Overview (11/14/2018): Essential hypertension Unknown and unspecified causes of morbidity 11/25 Overview (08/02/2021): Migraine Adiposity 07/14/2014 Overview (11/14/2018): Obesity Resolved Problems Problem Noted Date Diagnosed Date Resolved Date Unknown and unspecified causes of morbidity 12/15/2014 12/21/2019 Overview (11/14/2018): Migraine Encounters Date Type Department Care Team Description 06/22/2024 [facility] [address] [place] [phone] Bin Mccain APRN, GERMAN Pre-Operative Exam (/) 06/03[facility] [address] [place] [phone] Bin Mccain APRN, [employer] Medication Refill 06/03/2024 Refill [facility] [address] [place] [phone] Bin Mccain APRN, WEL[employer] ARC Medication Refill 04/29/2024 1:45 PM CRUTCH MAKER [facility] [address] [place] [phone] Maria Isabel Hickey, VISUAL EFFECTS EDITOR Major depressive disorder, recurrent episode, mild (HCC) (Primary Dx); Anxiety; Grief Discharge Disposition: Discharged to home or Selfcare 04/29/2024 Travel 04/13/2024 Telephone [facility] [address] [place] [phone] Bin Mccain APRN, GERMAN Results 04/07/2024 1:44 PM CRUTCH MAKER - 04/07/2024 11:59 PM CRUTCH MAKER [facility] [address] [place] [address] Bin Mccain APRN, GERMAN Discharge Disposition: Discharged to home or Selfcare 04/07/2024 1:00 PM CRUTCH MAKER Office Visit [facility] [address] [place] [phone] Bin Mccain APRN, GERMAN Lower respiratory infection (Primary Dx); Primary hypertension; Vaginal candidiasis; Hyperglycemia; Degeneration of intervertebral disc of lumbar region with discogenic back pain and lower extremity pain; Other long term care administrator (current) drug therapy; Screening for lipid disorders Discharge Disposition: Discharged to home or Selfcare 04/07/2024 Travel 04/07/2024 [facility] [address] [place] [address] Srini Arevalo MD Medication Refill 04/06/2024 Telephone [facility] [address] [place] [phone] Bin Mccain APRN, GERMAN 04/04/2024 Refill [facility] [address] [place] [address] Srini Arevalo MD Medication Refill 03/31/2024 Travel 03/31/2024 Nurse Triage [facility] Call [facility] [address] [place] [phone] Srini Arevalo MD Appointment; Advice Only; Pneumonia; Cough; Dizziness; Headache from Last 3 Months Immunizations Immunization Administration Dates Next Due Influenza Vaccine, Quadrivalent, PF 01/25,07/10/2022,02/18/2020,2018,03/04/2018 Influenza, Seasonal, Injecta ble, Undefined 02/23/2013 TDAP Vaccine 09/07/2022,03/03/2021,11/14/2018 Family History Medical History Relation Name Comments Migraines Brother 1 tee No Known Problems Brother 2 Emphysema Father Buster Heart Attack Father Buster Other-comment Father Buster progressive ey e disease Keratoconus Breast Cancer Mother Carlos Migraines Mother Carlos Other-comment Mother Carlos Fibromyalgia Migraines Sister 1 Honey Other-comment Sister 1 Honey Fibromyalgia Skin Cancer Sister 1 Honey Migraines Sister 2 Tiffanie Relation Name Status Comments Brother 1 tee Alive Brother 2 Alive Father Buster Mother Carlos Alive Sister 1 Honey Alive Sister 2 Tiffanie Alive Social History Tobacco Use Types Packs/Day Years Used Date Smoking Tobacco: Never Smokeless Tobacco: Never Tobacco Cessation:Counseling Given: No Alcohol Use Standard Drinks/Week Comments Yes 0 (1 standard drink = 0.6 oz pur e alcohol) Very rare [facility] Utilities Answer Date Recorded In the past 12 months has [employer] electric, gas, oil, or water [employer] threatened to shut off services in your home? Yes 03/31/2024 Social Connection and Isolat ion Panel [NHANES] Answer Date Recorded In a typical week, how many times do you talk on the phone with family, friends, or neighbors? More than three times a week 03/31/2024 How often do you get togethe r with friends or relatives? More than three times a week 03/31/2024 How often do you attend chur ch or pentecostalism services? Never 03/31/2024 Do you belong to any clubs o r organizations such as adventist groups, unions, fraternal or athletic groups, or school groups? No 03/31/2024 How often do you attend meet ings of the clubs or organizations you belong to? Never 03/31/2024 Are you , , di vorced, , never , or living with a partner? 03/31/2024 AUDIT-C Answer Date Recorded Q1: How often do you have a drink containing alc ohol? Monthly or less 03/31/2024 Q2: How many drinks containi ng alcohol do you have on a typical day when you are drinking? 1 or 2 03/31/2024 Q3: How often do you have si x or more drinks on one occasion? Never 03/31/2024 Overall Financial Resource Strain (CARDIA) Answe r Date Recorded How hard is it for you to pa y for the very basics like food, housing, medical care, and heating? Not very hard 03/31/2024 PHQ-2 Answer Date Recorded Total Score - Questions 1-9 0 03/27 [facility]at [facility] - Occupational Stress Questionnaire Answer Date Recorded Do you feel stress - tense, restless, nervous, or anxious, or unable to sleep at night because your mind is troubled all the time - these days? Only a little 03/31/2024 Exercise Vital Sign Answer Date Recorde d On average, how many days pe r week do you engage in moderate to strenuous exercise (like a brisk walk)? 0 days 03/31/2024 On average, how many minutes do you engage in exercise at this level? 0 min 03/31/2024 Hunger Vital Sign Answer Date Recorded Within the past 12 months, y ou worried that your food would run out before you got the money to buy more. Never true Within the past 12 months, t he food you bought just didn't last and you didn't have money to get more. Sometimes true 09/2023 PRAPARE - Transportation Answer Date Re corded In the past 12 months, has l ack of transportation kept you from medical appointments or from getting medications? No 09/2023 In the past 12 months, has l ack of transportation kept you from meetings, work, or from getting things needed for daily living? No 03/31/2024 Housing Stability Vital Sign Answer Jovanny e Recorded In the last 12 months, was t here a time when you were not able to pay the mortgage or rent on time? No 03/31/2024 In the past 12 months, how m any times have you moved where you were living? 0 03/31/2024 At any time in the past 12 m [facility], were you homeless or living in a half-way (including now)? No 03/31/2024 Education Answer Date Recorded What is the [...] Industry Job Start Date Job End Date [employer] Not on file Not on file Not on file Last Filed Vital Signs Vital Sign Reading Time Taken Comments Blood Pressure 134/76 04/07/2024 1:14 PM CRUTCH MAKER Pulse 72 04/07/2024 1:14 PM CRUTCH MAKER Temperature 36.2 ??C (97.2 ??F) 04/07/2024 1:14 PM CS T Respiratory Rate 16 04/07/2024 1:14 PM CRUTCH MAKER Oxygen Saturation 98% 04/07/2024 1:14 PM CRUTCH MAKER Inhaled Oxygen Concentration - - Weight 118.8 kg (262 lb) 04/07/2024 1:14 PM CRUTCH MAKER Height 172.7 cm (5' 8 ) 04/07/2024 1:14 PM CRUTCH MAKER Body Mass Index 39.84 04/07/2024 1:14 PM CRUTCH MAKER Plan of Treatment Upcoming Encounters Date Type Department Care Team (Late st Contact Info) Description 08/26/2024 2:45 PM CDT Office Visit [facility] [address] [place] [phone] Bin Mccain, JARVIS, [employer] [address] [address] 10/06/2024 1:30 PM CDT Office Visit [facility] [address] [place] [phone] Bin Mccain APRN, [employer] [address] [address] Health Maintenance Due Date Last Done Comments Hepatitis B Immunization (1 of 3 - 19+ 3-dose series) 10/13/1998 Influenza Immunization (#1) 01/26/202401/25, 07/10/2022, 02/18/2020, Additional history exists Mammogram 07/03/2024 07/03/2023, 11/24, 12/08/2018 Pap Smear 11/01/2024 11/01/2021 Cervical Cancer Screening (CCS) 11/01/2026 HPV/Cotest 11/01/2026 11/01/2021 Td Immunization Every 10 Years (Adults With 1 Tdap) 09/07/2032 09/07/2022, 03/03/2021, 11/14/2018 Respiratory Syncytial Virus (RSV) Immunization (Adult) (1 - 1-dose 75+ series) 10/13/2054 SARS-COV-2 Immunization Discontinued 06/26/19, 09/16/2020, 08/19/2020 Hepatitis C Virus (HCV) Screening Completed 09/07/2022, 12/01/2021 Discussion re Starting/Frequency of Mammograms Completed 07/03/2023, 12/11/2021, 12/08/2018 Meningococcal Immunization (ACWY) Aged Out No longer eligible based on patient's age to complete this topic Pneumococcal Immunization Combined Aged Out No longer eligible based on patient's age to complete this topic Rotavirus Immunization Aged Out No lo nger eligible based on patient's age to complete this topic Goals Goal Patient Goal Type Associated Problems Recent Progress Patient-Stated? Author My father in July. I think it would help to talk to someone. I want to learn how to live without him. Behavioral Health On track(2023 2:38 PM CRUTCH MAKER) Yes Maria Isabel Hickey, VISUAL EFFECTS EDITOR Note: Goal/Objective: Improve coping and decrease symptoms of grief related to her father's . Anticipated Time Frame for Goal Completion: 6 months Goal Reviewed with: patient Readiness to change: Ready to change Department associated with goal: [facility] Steps to achieve goal: [...] aid in managing problematic responses to grief. [facility] No Maria Isabel Hickey, VISUAL EFFECTS EDITOR Note: Goal/Objective: Improve emotional self care and interpersonal self care. Anticipated Time Frame for Goal Completion: 6 months Goal Reviewed with: patient Readiness to change: Ready to change Department associated with goal: [facility] Steps to achieve goal: will identify at least two warning signs self care is being neglected. will identify at least two boundaries that may help to improve opportunities for self-care. will identify at least two ways/skills/habits of self-care believed to have a positive outcome on overall wellbeing. will implement at least two changes (boundaries and/or skills/habits of self- care). Will attend at least 1x monthly, at least 6 individual or group sessions Procedures Procedure Name Priority Date/Time Associated Diagnosis Comments XR CHEST 2 VIEWS Routine 04/07/2024 1:57 PM CRUTCH MAKER Lower respiratory infection BLAKE SCREENING BILATERAL DIGITAL W CAD W SAM Routine 07/03/2023 12:21 PM CRUTCH MAKER Breast cancer screening by mammogram HEPATITIS PANEL ACUTE (AHP) STAT 09/07/2022 8:08 PM CDT HUMAN PAPILLOMA VIRUS (HPV) Routine 11/01/2021 7:22 AM CDT Encounter for screening for human papillomavirus (HPV) PATHOLOGY CYTOLOGY LEGAL OFFICER Routine 11/01/2021 7:22 AM CDT Encounter for gynecological examination (general) (routine) without abnormal findings from Last 3 Months or Most Recently Relevant to Health Maintenance Results * XR CHEST 2 VIEWS (04/07/2024 1:57 PM CRUTCH MAKER) Anatomical Region Laterality Modality Chest N/A Digital Radiogra phy 04/11/2024 2:51 PM CRUTCH MAKER Impressions 04/11/2024 2:54 PM CRUTCH MAKER IMPRESSION: No acute cardiopulmonary abnormality. Narrative 04/11/2024 2:54 PM CRUTCH MAKER EXAM DESCRIPTION: XR CHEST 2 VIEWS REASON FOR STUDY: dry cough, SOB x 3 weeks. denies chest pain. non-smoker ?? TECHNIQUE: There are 2 ??radiographic view(s) of the chest. COMPARISON: Prior exam 05/02/2023 and 03/14/2023 FINDINGS: LUNGS: ??Pulmonary vascularity appears normal. ??No infiltrate or effusion. ??Costophrenic angles are sharp. ?? HEART/MEDIASTINUM: ??Cardiac silhouette normal in size. Mediastinal and hilar contours appear normal. LINES/TUBES: ??None. BONES: ??Moderate spondylosis thoracic spine. THIS IS AN ELECTRONICALLY VERIFIED FINAL REPORT 04/11/2024 2:51 PM - Electronically signed by ??Tee HINOJOSA: ASHISH D: ??04/11/2024 2:51 PM T: ??04/11/2024 2:51 PM Report ID: [id number] Reading Location: ??[id number] Procedure Note Tee Palmer MD - 04/11/2024 EXAM DESCRIPTION: XR CHEST 2 VIEWS REASON FOR STUDY: dry cough, SOB x 3 weeks. denies chest pain. non-smoker TECHNIQUE: There are 2 radiographic view(s) of the chest. COMPARISON: Prior exam 05/02/2023 and 03/14/2023 FINDINGS: LUNGS: Pulmonary vascularity appears normal. No infiltrate or effusion. Costophrenic angles are sharp. HEART/MEDIASTINUM: Cardiac silhouette normal in size. Mediastinal and hilar contours appear normal. LINES/TUBES: None. BONES: Moderate spondylosis thoracic spine. THIS IS AN ELECTRONICALLY VERIFIED FINAL REPORT 04/11/2024 2:51 PM - Electronically signed by Tee HINOJOSA: ASHISH Report ID: [id number] Reading Location: [id number] IMPRESSION: No acute cardiopulmonary abnormality. Bin Mccain APRN, WELDER G[employer] TUNGSTEN ARC IMG DIAGNOSTIC O RDERABLES Final Result * BLAKE SCREENING BILATERAL DIGITAL W CAD W SAM (07/03/2023 12:21 PM CRUTCH MAKER) Anatomical Region Laterality Modality breast Bilateral Mammography 07/03/2023 1:32 PM CRUTCH MAKER Narrative 07/04/2023 8:13 AM CRUTCH MAKER - BLAKE SCREENING BILATERAL DIGITAL W CAD W SAM BILATERAL DIGITAL SCREENING MAMMOGRAM 3D/2D WITH CAD WITH MEDIOLATERAL OBLIQUE CRANIOCAUDAL: 07/03/2023 The study was acquired using digital technology and interpreted from soft copy. Current study was also evaluated with Samplify SystemsD version 7.2. 2D digital mammographic views, as well as 3D digital tomosynthesis were performed in the CC and MLO projections. ?? CLINICAL: Routine screening. Patient has no complaints. No personal history of cancer. Mother with postmenopausal breast cancer, with recent diagnosis of metastatic disease. Two maternal aunts had breast cancer. ?? COMPARISONS: Comparison is made to exams dated: ??12/11/2021 and 12/08/2018 [facility]. ?? BREAST TISSUE:There are scattered fibroglandular densities in both breasts. ?? FINDINGS: No significant masses, calcifications, or other findings are seen in either breast. ?? There has been no significant interval change. IMPRESSION: BI-RAD 1 NEGATIVE There is no mammographic evidence of malignancy. A 1 year screening mammogram is recommended. ?? A letter will be sent to the patient with these results. The patient will be entered into a reminder system with a target due date of 1 year for her next screening exam. Electronically signed by: Christy Matson M.D. ? ab/lizeth:07/03/2023 16:07:54 ?? Category Consultant(s): Bruna ?? RT Simone(Sita)(Elio), [facility] letter sent: Normal Exam ?? Reading location: [facility] BI-RADS: 1 Negative Procedure Note Christy Matson MD - 07/04/2023 - BLAKE SCREENING BILATERAL DIGITAL W CAD W SAM BILATERAL DIGITAL SCREENING MAMMOGRAM 3D/2D WITH CAD WITH MEDIOLATERAL OBLIQUE CRANIOCAUDAL: 07/03/2023 The study was acquired using digital technology and interpreted from soft copy. Current study was also evaluated with ICAD version 7.2. 2D digital mammographic views, as well as 3D digital tomosynthesis were performed in the CC and MLO projections. CLINICAL: Routine screening. Patient has no complaints. No personal history of cancer. Mother with postmenopausal breast cancer, with recent diagnosis of metastatic disease. Two maternal aunts had breast cancer. COMPARISONS: Comparison is made to exams dated: 12/11/2021 and 12/08/2018 [facility]. BREAST TISSUE:There are scattered fibroglandular densities in both breasts. FINDINGS: No significant masses, calcifications, or other findings are seen in either breast. There has been no significant interval change. IMPRESSION: BI-RAD 1 NEGATIVE There is no mammographic evidence of malignancy. A 1 year screening mammogram is recommended. A letter will be sent to the patient with these results. The patient will be entered into a reminder system with a target due date of 1 year for her next screening exam. Electronically signed by: Christy rowan/lizeth:07/03/2023 16:07:54 Category Consultant(s): RT Lee(R)(M), [facility] letter sent: Normal Exam Reading location: [facility] BI-RADS: 1 Negative us Srini Arevalo MD IMG MAMMO ORDERABLES Final Resul t * Hepatitis Panel Acute (AHP) (09/07/2022 8:08 PM CDT) HEPATITIS A IGM ANTIBODY NON DETECTED NON DETECTED [facility] [id number] 09/08/2022 4:28 PM CDT [facility] Comment: IGM Antibodies to HAV not detected. ??Does not exclude early acute or recovered HAV infection. HEP B CORE AB (IGM) NON DETECTED NON DETECTED [facility] [id number] 09/08/2022 4:28 PM CDT [facility] Comment:IGM anti-HBC not det ected. Does not exclude the possibility of exposure to or infection with HBV. HEPATITIS B SURFACE ANTIGEN NON DETECTED NON DETECTED [facility] [id number] B 09/08/2022 4:28 PM CDT [facility] Comment:A nonreactive test r esult does not exclude the possibility of exposure to or infection with Hepatitis B virus. A nonreactive test result in individuals with prior exposure to hepatitis B may be due to antigen levels below the detection limit of this assay or lack of antigen reactivity to the antibodies in this assay. hepatitis C antibody 0.07 <1 S/CO [facility] [id number] B 09/08/2022 4:28 PM CDT [facility] Comment: Signal/Cutoff ratio ??< 0.79 is Nondetected Signal/Cutoff ratio 0.80-0.99 is Grayzone Signal/Cutoff ratio > 0.99 is Detected Supplemental assays are recommended if signal/cutoff ratio is >/=1.00. ??Signal/cutoff ratio result >/= 5.00 is 97% predictive of positivity for recombinant immunoblot assay (RIBA) and will be reported to the [place] Department of Public Health as required. Blood Venipuncture / Unknown 09/07/2022 8:08 PM CDT 09/07/2022 8:20 PM CDT us Mele Hampton PAC HEMATOLOGY ORDERABLE S Final Result [facility] [address] [place] [address], * PATHOLOGY CYTOLOGY LEGAL OFFICER (11/01/2021 7:22 AM CDT) SPECIMEN ADEQUACY Satisfactory for evaluation. Endocervical/transf ormation zone component is present. 11/28/2021 10:52 AM CDT [facility] DESCRIPTIVE DIAGNOSIS NEGATIVE FOR INTRAEPITHELIAL LESIONS OR MALIGNANCY. 11/28/2021 10:52 AM CDT [facility] Reflex if ASCUS? Yes 11/28/2021 10:52 AM CDT [facility] Automated Examination This sample was not evaluated by the automated imaging and review system due to technical and/or biologic factor(s). The case was screened, reviewed, and finalized by a seconds grader and/or pathologist. 11/28/2021 10:52 AM CDT [facility] Disclaimer The PAP smear is a screening test designed to detect cancerous or precancerous cells of the uterine cervix. It is one of the best means available for detection of cervical cancer but still carries an inherent false-negative rate. The consequences of a false-negative PAP result can be minimized by adhering to current screening guidelines. The following are general guidelines recommended by the ACS, ASCP, ASCCP, and ACOG: PAP testing is recommended every three years for women 21-29, Co-Testing , a PAP test in conjunction with an HPV (Human Papillomavirus) test for women ages 30-65, and no PAP or HPV testing for women under the age of 21 or older than 65 unless clinically indicated. 11/28/2021 10:52 AM CDT [facility] Other (Cervix/Endocerv ix) Non-Phlebotomy Collection / Unknown 11/01/2021 7:22 AM CDT 11/01/2021 7:22 AM CDT us Srini Arevalo MD PATHOLOGY/CYTOLOGY ORDERABLES Fi nal Result [facility] [address] [place] [address], * HUMAN PAPILLOMA VIRUS (HPV) (11/01/2021 7:22 AM CDT) HPV OTHER HIGH RISK TYPES, PCR NEGATIVE NEGATIVE 11/02/2021 3:59 PM CDT [facility] Comment: The following Other High Risk types were not detected: 31, 33, 35, 39, 45, 51, 52, 56, 58, 59, 66, and 68. A negative high-risk HPV result does not exclude the possibility of future cytologic HSIL or underlying CIN2-3 or cancer. The presence of PCR inhibitors may cause false negative or invalid results. If concentrations of whole blood in the sample exceed 1.5% (dark red or brown coloration) in PreservCyt solution, there is a likelihood of obtaining a false-negative result. HPV TYPE 16 NEGATIVE NEGATIVE 11/02/2021 3:59 PM CDT [facility] Comment: A negative high-risk HPV result does not exclude the possibility of future cytologic HSIL or underlying CIN2-3 or cancer. The presence of PCR inhibitors may cause false negative or invalid results. If concentrations of whole blood in the sample exceed 1.5% (dark red or brown coloration) in PreservCyt solution, there is a likelihood of obtaining a false-negative result. HPV TYPE 18 NEGATIVE NEGATIVE 11/02/2021 3:59 PM CDT [facility] Comment: A negative high-risk HPV result does not exclude the possibility of future cytologic HSIL or underlying CIN2-3 or cancer. The presence of PCR inhibitors may cause false negative or invalid results. If concentrations of whole blood in the sample exceed 1.5% (dark red or brown coloration) in PreservCyt solution, there is a likelihood of obtaining a false-negative result. HPV ORDER BE USED FOR SCREENING OR DIAGNOSTIC SCREENING 11/02/2021 3:59 PM CDT [facility] Other Non-Phlebotomy Collection / Unknown 11/01/2021 7:22 AM CDT 11/01/2021 7:22 AM CDT Narrative [facility] - 11/02/2021 3:59 PM CDT Performed by Real-Time Polymerase Chain Reaction (PCR) on the Brien Lucila 4800. This assay has been validated for use with post-aliquot samples from the [employer] T5000 processor. Srini Arevalo MD LAB SEND OUTS Final Result [facility] [address] [place] [address], [facility] [address] [place] [address] from Last 3 Months or Most Recently Relevant to Health Maintenance Insurance MEDICAID PELLETIER Care Teams Dinker Relationship Specialty Start Date End Date Bin Mccain APRN, WELDER GAS TUNGSTEN ARC [address] [address] PCP - General Advanced Practice Nurse 04/07/24 Julio Alvarado MD Consulting Physician Obstetrics & Gynecology 03/10/19
--- OUTSIDE RECORDS SUMMARY | 2024-06-30 14:14 | XMS_ITS | Encounter Summary ---
Author Organization [facility] Address [address] 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 No / Unsure 03/08/2021 12:20 PM CDT documented as of this encounter Miscellaneous Notes * Telephone Encounter - Mica Valerio RN - 03/06/2021 8:13 AM CDT Medication failed the protocol, provider to review and approve the medication order if appropriate. Requested Prescriptions Pending Prescriptions Disp Refills hydroCHLOROthiazide 12.5 MG Tablet [Pharmacy Med Name: HYDROCHLOROTHIAZIDE 12.5 MG 12.5 Tablet] 90 Tablet 0 Sig: TAKE ONE TABLET BY MOUTH EVERY DAY Diuretics Protocol Failed - 03/06/2021 8:11 AM Failed - Serum potassium on record in past 12 months POTASSIUM Date Value Ref Range Status 02/18/2020 3.8 3.5 - 5.1 mmol/L Final Failed - Serum sodium on record in past 12 months SODIUM Date Value Ref Range Status 02/18/2020 138 136 - 144 mmol/L Final Failed - Visit with relevant provider in past 12 months or upcoming 90 days Recent Visits No visits were found meeting these conditions. Showing recent visits within past 365 days and meeting all other requirements Future Appointments No visits were found meeting these conditions. Showing future appointments within next 90 days and meeting all other requirements Failed - GFR on record in past 12 months GFR, EST. NONAFRICAN Date Value Ref Range Status 02/18/2020 >60 >=60 Final Passed - Blood pressure on record in past 12 months Clinician-entered: BP Readings from Last 3 Encounters: 03/03/21 115/68 02/18/20 126/86 12/21/19 128/88 Patient-entered: No data recorded documented in this encounter Plan of Treatment Upcoming Encounters Date Type Department Care Team (Late st Contact Info) Description 08/26/2024 2:45 PM CDT [facility] [address] [place] [address] Bin Mccain, GRAB OPERATOR, TMD TEACHER [address] [address] 10/06/2024 1:30 PM CDT Office Visit [facility] - [facility] - [place] [address] [place] [address] Bin Mccain APRN, TMD TEACHER #[address] [address] documented as of this encounter Visit Diagnoses Not on filedocumented in this encounter Additional Health Concerns Infection Onset Date Last Indicated Resolved Time COVID - 19 Confirmed 02/14/2022 02/14/2022 022 12:17 AM CDT COVID - 19 05/02/2023 05/02/2023 05/12/2023 12:1 6 AM WAITER/WAITRESS THIRD CLASS Assessment Noted Time PHQ-9 Depression Total Score: 0 03/10/20 3:00 PM CDT documented as of this encounter Care Teams Hearing Therapy Teacher Relationship Specialty Start Date End Date Srini Arevalo MD PCP - General Family Medicine 11/14/18 04/06/24 Bin Mccain APRN, TMD TEACHER #[address] [address] PCP - General Advanced Practice Nurse 04/07/24 Julio Alvarado MD Consulting Physician Obstetrics & Gynecology 03/10/19 documented as of this encounter
--- OUTSIDE RECORDS SUMMARY | 2024-06-30 14:14 | XMS_ITS | Encounter Summary ---
Author Organization [facility] Address [address] 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 Not on file documented as of this encounter Miscellaneous Notes * Telephone Encounter - Deidra Gibbons RN - 02/12/2024 9:59 AM CDT duplicate documented in this encounter Plan of Treatment Upcoming Encounters Date Type Department Care Team (Late st Contact Info) Description 08/26/2024 2:45 PM CDT Office Visit [facility] [place] [address] [facility] [address] Bin Mccain APRN, RIB TRIM SEPARATOR [address]2 [facility] [address] [place] [address] 10/06/2024 1:30 PM CDT Office Visit [facility] [place] [facility] [address] [facility] [address] Bni Mccain APRN, RIB TRIM SEPARATOR #2 [facility] [address] [place] [address] documented as of this encounter Goals Goal Patient Goal Type Associated Problems Recent Progress Patient-Stated? Author My father in July. I think it would help to talk to someone. I want to learn how to live without him. Behavioral Health On track( 024 2:38 PM ELECTRIC ARC WELDER) Yes Maria Isabel Hickey LCSW Note: Goal/Objective: Improve coping and decrease symptoms of grief related to her father's . Anticipated Time Frame for Goal Completion: 6 months Goal Reviewed with: patient Readiness to change: Ready to change Department associated with goal: [facility] Steps to achieve goal: [...] documented as of this encounter Care Teams Coding Support Specialist Relationship Specialty Start Date End Date Srini Arevalo MD PCP - General Family Medicine 11/14/18 04/06/24 Bin Mccain APRN, RIB TRIM SEPARATOR [address] [address] PCP - General Advanced Practice Nurse 04/07/24 Julio Alvarado MD Consulting Physician Obstetrics & Gynecology 03/10/19 documented as of this encounter
--- OUTSIDE RECORDS SUMMARY | 2024-06-30 14:14 | XMS_ITS | Encounter Summary ---
Author Organization [facility] Address [address] [place] [address] Phone Care Team Providers Care Senior Software Developer Name Role Phone Srini Arevalo MD Primary Care Provider Julio Alvarado MD Unavailable [phone] Bin Mccain APRN, EDGE BANDER HAND Primary Care Pr ovider Reason for Visit * Reason Comments Medication Refill Encounter Details Date Type Department Care Team (Late st Contact Info) Description 06/03/2020 Refill [facility] [address] [place] [address] Srini Arevalo MD [address] [place] [address] Medication Refill Social History Tobacco Use Types Packs/Day Years Used Date Smoking Tobacco: Never Smokeless Tobacco: Never Alcohol Use Standard Drinks/Week Comments Yes 0 (1 standard drink = 0.6 oz pur e alcohol) Very rare PHQ-2 Answer Date Recorded PHQ-2 Score 0 01/21/2019 Sexually Active Control Partners Comments Yes Natural Family Planning Male Comments No Sex and Gender Information Value Date Recorded Sex Assigned at Not on file Legal Sex Female 12:05 AM CDT Gender Identity Not on file Sexual Orientation Not on file 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 Requested Prescriptions Pending Prescriptions Disp Refills traMADol (ULTRAM) 50 MG Tablet [Pharmacy Med Name: TRAMADOL 50MG TABLETS] 45 Tab Sig: TAKE 1 TABLET BY MOUTH EVERY 6 HOURS NEEDED FOR MODERATE TO SEVERE PAIN Not Delegated - Analgesics: Opioid Agonists Failed - 06/03/2020 6:28 PM Failed - This refill cannot be delegated Passed - Valid encounter within last 6 months Past Office Visits Recent Outpatient Visits 3 months ago Recurrent pain of right knee [facility] - Cheryle Bailon PAC 5 months ago Class 3 severe obesity due to excess calories with serious comorbidity and body mass index (BMI) of 50.0 to 59.9 in adult ([facility]) [facility] Srini Stevens MD 1 year ago Low back pain, unspecified back pain laterality, unspecified chronicity, unspecified whether sciatica present [facility] - Srini Miller MD 1 year ago Annual visit for general adult medical examination with abnormal findings [facility] Srini Stevens MD Upcoming Appointments AUTOMATIC MOUNTER - Recent and Past Visits Recent Visits Date Type Provider Dept 02/18/20 Office Visit Cheryle Munguia PAC [facility] 12/21/19 Office Visit Srini Arevalo MD [facility] 03/10/19 Office Visit [facility] Showing recent visits within past 460 days with a meds authorizing provider and meeting all other requirements Future Appointments No visits were found meeting these conditions. Showing future appointments within next 90 days with a meds authorizing provider and meeting all other requirements SLICING MACHINE TENDER documented in this encounter Plan of Treatment Upcoming Encounters Date Type Department Care Team (Late st Contact Info) Description 08/26/2024 2:45 PM CDT [place] [facility] [place] [facility] [place] [address] Bin Mccain APRN, EDGE BANDER HAND [address] [address] 10/06/2024 1:30 PM CDT [facility] [place] [facility] [place] [facility] [place] [address] Bin Mccain APRN, EDGE BANDER HAND #[address] [address] documented as of this encounter Visit Diagnoses Diagnosis Low back pain, unspecified back pain laterality, unspecified chronicity, unspecified whether sciatica present Closed fracture of coccyx, sequela documented in this encounter Additional Health Concerns Infection Onset Date Last Indicated Resolved Time COVID - 19 Confirmed 02/14/2022 02/14/2022 022 12:17 AM CDT COVID - 19 05/02/2023 05/02/2023 05/12/2023 12:1 6 AM ROLL SLICING MACHINE TENDER Assessment Noted Time PHQ-9 Depression Total Score: 0 03/10/20 19 3:00 PM CDT documented as of this encounter Care Teams Senior Software Developer Relationship Specialty Start Date End Date Srini Arevalo MD PCP - General Family Medicine 11/14/18 04/06/24 Bin Mccain APRN, EDGE BANDER HAND #[address] [address] PCP - General Advanced Practice Nurse 04/07/24 Julio Alvarado MD Consulting Physician Obstetrics & Gynecology 03/10/19 documented as of this encounter
--- OUTSIDE RECORDS SUMMARY | 2024-06-30 14:14 | XMS_ITS | Encounter Summary ---
Author Organization [facility] Address [address] [place] [address] Phone Care Team Providers Care Wire Rope Fabrication Supervisor Name Role Phone Sim Trujillo MD Primary Care Provider [phone] Julio Alvarado MD Unavailable Bin Mccain APRN, LAN SUPPORT SPECIALIST Primary Care Pr ovider Reason for Visit * Reason Comments Medication Refill Encounter Details Date Type Department Care Team (Late st Contact Info) Description 01/28/2020 Refill [facility] [address] [place] [address] Sim Trujillo MD [address] [place] [address] Medication Refill Social History Tobacco Use Types [...] 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 Medication Dispense History (from 10/01/2019 to 01/28/2020) Phentermine HCl Dispensed Written Strength Quantity Refills Days Supply Provider Pharmacy PHENTERMINE HCL 12/23/2019 12/21/2019 37.5 MG 30 0 30 , SIM TRUJILLO MD traMADol HCl Dispensed Written Strength Quantity Refills Days Supply Provider Pharmacy TRAMADOL 12/21/2019 12/07/2019 50MG 17 0 4 , SIM TRUJILLO MD TRAMADOL 12/07/2019 12/07/2019 50MG 28 0 7 , SIM TRUJILLO MD External Sources Source Last Checked for Updates Status [facility] 01/28/2020 4:26 PM History Response Filed documented in this encounter Plan of Treatment Upcoming Encounters Date Type Department Care Team (Late st Contact Info) Description 08/26/2024 2:45 PM CDT Office Visit [facility] [place] [place] [address] Bin Mccain APRN, LAN SUPPORT SPECIALIST #[address] [address] 10/06/2024 1:30 PM CDT Office [facility] [place] [place] [address] Bin Mccain APRN, LAN SUPPORT SPECIALIST #[address] [address] documented as of this encounter Visit Diagnoses Diagnosis Class 3 severe obesity due to excess calories with serious comorbidity and body mass index (BMI) of 50.0 to 59.9 in adult (HCC) Low back pain, unspecified back pain laterality, unspecified chronicity, unspecified whether sciatica present Closed fracture of coccyx, sequela documented in this encounter Additional Health Concerns Infection Onset Date Last Indicated Resolved Time COVID - 19 Confirmed 02/14/2022 02/14/2022 022 12:17 AM CDT COVID - 19 05/02/2023 05/02/2023 05/12/2023 12:1 6 AM INSOLE TAPE STITCHER UCO Assessment Noted Time PHQ-9 Depression Total Score: 0 03/10/20 3:00 PM CDT documented as of this encounter Care Teams Wire Rope Fabrication Supervisor Relationship Specialty Start Date End Date Sim Trujillo MD PCP - General Family Medicine 11/14/18 04/06/24 Bin Mccain APRN, LAN SUPPORT SPECIALIST #[address] [address] PCP - General Advanced Practice Nurse 04/07/24 Julio Alvarado MD Consulting Physician Obstetrics & Gynecology 03/10/19 documented as of this encounter
--- OUTSIDE RECORDS SUMMARY | 2024-06-30 14:14 | XMS_ITS | Encounter Summary ---
Author Organization [facility] Address [address] [facility] [place] [address] Phone Care Team Providers Care Superintendent Pier Name Role Phone Srini Arevalo MD Primary Care Provider Julio Alvarado MD Unavailable Bin Mccain APRN, STATE EPIDEMIOLOGIST Primary Care Pr ovider Reason for Visit * Reason Comments Medication Refill Encounter Details Date Type Department Care Team (Late st Contact Info) Description 08/31/2021 Refill [facility] [address] [place] [address] Srini Arevalo MD [address] [place] [address] Medication Refill Social History Tobacco Use Types Packs/Day Years Used Date Smoking Tobacco: Never Smokeless Tobacco: Never Alcohol Use Standard Drinks/Week Comments Yes 0 (1 standard drink = 0.6 oz pur e alcohol) Very rare PHQ-2 Answer Date Recorded Total Score - Questions 1-9 0 02/24 Education Answer Date Recorded What is the [...] 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 No / Unsure 08/07/2021 11:43 AM CDT documented as of this encounter Miscellaneous Notes * Telephone Encounter - Deidra Gibbons RN - 08/31/2021 11:13 AM CDT Medication failed the protocol, provider to review and approve the medication order if appropriate. Requested Prescriptions Pending Prescriptions Disp Refills topiramate (TOPAMAX) 100 MG Tablet [Pharmacy Med Name: TOPIRAMATE 100MG TABLET] 60 Tablet 2 Sig: TAKE ONE TABLET BY MOUTH TWO TIMES a DAY (TAKE EACH DOSE WITH 50MG TABLET TO EQUAL 150MG) Not Delegated - Anticonvulsants Excluding Benzodiazepines Protocol Failed - 08/31/2021 10:30 AM Failed - This refill cannot be delegated Passed - Visit with relevant provider in past 12 months or upcoming 90 days Recent Visits Date Type Provider Dept 08/07/21 Office Visit Bin Mccain APRN, CNP [facility] 08/01/21 Office Visit Beena Graf APRN, [facility] 03/08/21 Office Visit Beena Graf APRN, [facility] Showing recent visits within past 365 days and meeting all other requirements Future Appointments Date Type Provider Dept 10/31/21 Appointment Srini Arevalo MD [facility] Showing future appointments within next 90 days and meeting all other requirements amitriptyline (ELAVIL) 100 MG Tablet [Pharmacy Med Name: AMITRIPTYLINE HCL 100MG TABLET] 30 Tablet 2 Sig: TAKE ONE TABLET BY MOUTH AT BEDTIME Not Delegated - Tricyclic Agents Protocol Failed - 08/31/2021 10:30 AM Failed - This refill cannot be delegated Passed - Visit with relevant provider in past 12 months or upcoming 90 days Recent Visits Date Type Provider Dept 08/07/21 Office Visit Bin Mccain APRN, [facility] 08/01/21 Office Visit [facility] 03/08/21 [facility] Show[facility] recent visits within past 365 days and meeting all other requirements Future Appointments Date Type Provider Dept 10/31/21 Appointment Srini Are[address] [facility] Showing future appointments within next 90 days and meeting all other requirements Topiramate 50 MG Tablet 60 Tablet 2 Sig: Take 1 Tablet by mouth 2 times daily. Take each dose with the 100 mg tablet to equal 150 mg per dose. There is no refill protocol information for this order documented in this encounter Plan of Treatment Upcoming Encounters Date Type Department Care Team (Late st Contact Info) Description 08/26/2024 2:45 PM CDT Office Visit [facility] [place] [address] [place] [address] Bin Mccain APRN, STATE EPIDEMIOLOGIST #[address] [address] 10/06/2024 1:30 PM CDT Office Visit [facility] [address] [place] [address] Bin Mccain APRN, STATE EPIDEMIOLOGIST #[address] [address] documented as of this encounter Visit Diagnoses Diagnosis Migraine without status migrainosus, not intractable, unspecified migraine type documented in this encounter Additional Health Concerns Infection Onset Date Last Indicated Resolved Time COVID - 19 Confirmed 02/14/2022 02/14/2022 022 12:17 AM CDT COVID - 19 05/02/2023 05/02/2023 05/12/2023 12:1 6 AM BROWNFIELD PROGRAM COORDINATOR Assessment Noted Time PHQ-9 Depression Total Score: 0 03/08/20 12:34 PM CDT documented as of this encounter Care Teams Superintendent Pier Relationship Specialty Start Date End Date Srini Arevalo MD PCP - General Family Medicine 11/14/18 04/06/24 Bin Mccain APRN, STATE EPIDEMIOLOGIST [address] [place] [address] PCP - General Advanced Practice Nurse 04/07/24 Julio Alvarado MD Consulting Physician Obstetrics & Gynecology 03/10/19 documented as of this encounter
--- OUTSIDE RECORDS SUMMARY | 2024-06-30 14:14 | XMS_ITS | Encounter Summary ---
Author Organization [facility] Address [address] [facility] 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 Requested Prescriptions Pending Prescriptions Disp Refills tiZANidine (ZANAFLEX) 2 MG Tablet [Pharmacy Med Name: TIZANIDINE HCL 2MG TABLET] 90 Tablet 0 Sig: TAKE ONE (1) TABLET BY MOUTH THREE (3) TIMES DAILY Not Delegated - Muscle Relaxants Protocol Failed - 08/22/2023 9:05 AM Failed - This refill cannot be delegated Passed - Visit with relevant provider in past 12 months or upcoming 90 days Recent Visits Date Type Provider Dept 03/08/23 [facility] Office Visit Srini Arevalo MD [facility] 10/02/22 Office Visit Srini Arevalo MD [facility] Showing recent visits within past 365 [...] 03/14/2023 10 0 - 55 U/L Final documented in this encounter Plan of Treatment Upcoming Encounters Date Type Department Care Team (Late st Contact Info) Description 08/26/2024 2:45 PM CDT Office Visit [facility] - [place] [address] [place] [address] Bin Mccain, [employer], AQUATIC FACILITY MANAGER #[address] [address] 10/06/2024 1:30 PM CDT Office Visit [facility] - [facility] - [place] [address] [place] [address] Bin Mccain APRN, AQUATIC FACILITY MANAGER #[address] [address] documented as of this encounter Goals Goal Patient Goal Type Associated Problems Recent Progress Patient-Stated? Author My father in July. I think it would help to talk to someone. I want to learn how to live without him. Behavioral Health On track( 024 2:38 PM EARLY CHILDHOOD LEAD TEACHER) Yes Maria Isabel Hickey LCSW Note: Goal/Objective: Improve coping and decrease symptoms of grief related to her father's . Anticipated Time Frame for Goal Completion: 6 months Goal Reviewed with: patient Readiness to change: Ready to change Department associated with goal: [facility] Steps to achieve goal: [...] documented as of this encounter Care Teams Order Clerk Relationship Specialty Start Date End Date Srini Arevalo MD PCP - General Family Medicine 11/14/18 04/06/24 Bin Mccain, JARVIS, AQUATIC FACILITY MANAGER #[address] [address] PCP - General Advanced Practice Nurse 04/07/24 Julio Alvarado MD Consulting Physician Obstetrics & Gynecology 03/10/19 documented as of this encounter
--- OUTSIDE RECORDS SUMMARY | 2024-06-30 14:14 | XMS_ITS | Encounter Summary ---
Author Organization [facility] Address [address] [facility] 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 No / Unsure 04/02/2023 1:54 PM PATIENT CARE SPECIALIST documented as of this encounter Miscellaneous Notes * Telephone Encounter - Deidra Gibbons RN - 04/02/2023 4:52 PM CST PDMP 01/11/23 Medication failed the protocol, provider to review and approve the medication order if appropriate. Requested Prescriptions Pending Prescriptions Disp Refills traMADol (ULTRAM) 50 MG Tablet [Pharmacy Med Name: TRAMADOL HCL 50MG TABLET] 20 Tablet 0 Sig: TAKE ONE (1) TABLET BY MOUTH EVERY SIX (6) HOURS NEEDED FOR MODERATE OR MORE SEVERE PAIN. Not Delegated - Opioid Agonists Protocol Failed - 04/02/2023 4:17 PM Failed - This refill cannot be delegated Passed - Visit with relevant provider in past 12 months or upcoming 90 days Recent Visits Date Type Provider Dept 03/08/23 Procedure Visit Srini Arevalo MD [facility] 02/08/23 Office Visit Srini Arevalo MD [facility] 10/02/22 Office Visit Srini Arevalo MD [facility] 07/10/22 Office Visit Bin Mccain APRN, GERMAN [facility] Showing recent visits within past 365 days and meeting all other requirements Future Appointments No visits were found meeting these conditions. Showing future appointments within next 90 days and meeting all other requirements ENT CARE SPECIALIST documented in this encounter Plan of Treatment Upcoming Encounters Date Type Department Care Team (Late st Contact Info) Description 08/26/2024 2:45 PM CDT Office Visit [facility] - Family Medicine - [place] [address] [place] [id number] Bin Mccain APRN, SUPERVISOR CASE LOADING [address] [address] 10/06/2024 1:30 PM CDT Office Visit [facility] - Family Medicine - [place] [address] [place] [address] Bin Mccain, PERSONAL LINES INSURANCE AGENT, SUPERVISOR CASE LOADING [address] [place] [address] [address] documented as of this encounter Goals Goal Patient Goal Type Associated Problems Recent Progress Patient-Stated? Author My father in July. I think it would help to talk to someone. I want to learn how to live without him. Behavioral Health On track( 024 2:38 PM PATIENT CARE SPECIALIST) Yes Maria Isabel Hickey LCSW Note: Goal/Objective: Improve coping and decrease symptoms of grief related to her father's . Anticipated Time Frame for Goal Completion: 6 months Goal Reviewed with: patient Readiness to change: Ready to change Department associated with goal: [facility] Steps to achieve goal: [...] 19 05/02/2023 05/02/2023 05/12/2023 12:1 6 AM PATIENT CARE SPECIALIST Assessment Noted Time PHQ-9 Depression Total Score: 0 09/07/19 22 12:46 PM CDT documented as of this encounter Care Teams Gem Stone Cutter Relationship Specialty Start Date End Date Srini Arevalo MD PCP - General Family Medicine 11/14/18 04/06/24 Bin Mccain APRN, SUPERVISOR CASE LOADING [address] [address] PCP - General Advanced Practice Nurse 04/07/24 Julio Alvarado MD Consulting Physician Obstetrics & Gynecology 03/10/19 documented as of this encounter
--- OUTSIDE RECORDS SUMMARY | 2024-06-30 14:14 | XMS_ITS | Encounter Summary ---
Author Organization [facility] Address [address] 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 Medication failed the protocol, provider to review [...] - Anticonvulsants Excluding Benzodiazepines Protocol Failed - 07/08/2021 9:25 AM Failed - This refill cannot be delegated Passed - Visit with relevant provider in past 12 months or upcoming 90 days Recent Visits Date Type Provider Dept 03/08/21 Office Visit Beena Graf APRN, CNP [facility] Showing recent visits within past 365 days and meeting all other requirements Future Appointments No visits were found meeting these conditions. Showing future appointments within next 90 days and meeting all other requirements NG DISORDER PSYCHOLOGIST documented in this encounter Plan of Treatment Upcoming Encounters Date Type Department Care Team (Late st Contact Info) Description 08/26/2024 2:45 PM CDT Office Visit [facility] [address] [place] [address] Bin Mccain APRN, ECHOCARDIOGRAPHY TECH #[address] [address] 10/06/2024 1:30 PM CDT Office Visit [facility] [address] [place] [address] Bin Mccain APRN, ECHOCARDIOGRAPHY TECH #[address] [address] documented as of this encounter Visit Diagnoses Diagnosis Migraine without status migrainosus, not intractable, unspecified migraine type documented in this encounter Additional Health Concerns Infection Onset Date Last Indicated Resolved Time COVID - 19 Confirmed 02/14/2022 02/14/2022 022 12:17 AM CDT COVID - 19 05/02/2023 05/02/2023 05/12/2023 12:1 6 AM EATING DISORDER PSYCHOLOGIST Assessment Noted Time PHQ-9 Depression Total Score: 0 03/08/20 12:34 PM CDT documented as of this encounter Care Teams Flasher Adjuster Relationship Specialty Start Date End Date Srini Arevalo MD PCP - General Family Medicine 11/14/18 04/06/24 Bin Mccain APRN, ECHOCARDIOGRAPHY TECH #[address] [address] PCP - General Advanced Practice Nurse 04/07/24 Julio Alvarado MD Consulting Physician Obstetrics & Gynecology 03/10/19 documented as of this encounter
--- OUTSIDE RECORDS SUMMARY | 2024-06-30 14:14 | XMS_ITS | Encounter Summary ---
Author Organization [facility] Address [address] [place] [address] Phone Care Team Providers Care Top Lift And Automatic Window Repairer Name Role Phone Julio Alvarado MD Unavailable [phone] Bin Mccain APRN, SENIOR WRITER Primary Care Pr ovider Reason for Visit * Reason Onset Date Comments Pre-Operative Exam 06/22/2024 Encounter Details Date Type Department Care Team (Late st Contact Info) Description 06/22/2024 Telephone [facility] [address] [place] [address] Bin Mccain APRN, SENIOR WRITER [address] [address] Pre-Operative Exam (/) Social History Tobacco Use Types Packs/Day Years Used Date Smoking Tobacco: Never Smokeless Tobacco: Never Alcohol Use Standard Drinks/Week Comments Yes 0 (1 standard drink = 0.6 oz pur e alcohol) Very rare [facility] Utilities Answer Date Recorded In the past 12 months has [employer] electric, gas, oil, or water company threatened to shut off services in your [...] often do you attend chur ch or moravian services? Never 03/31/2024 Do you belong to any clubs o r organizations such as christianity groups, unions, fraternal or athletic groups, or [...] Total Score - Questions 1-9 0 03/27 [facility] - Occupational Stress Questionnaire Answer Date [...] any time in the past 12 m [facility], were you homeless or living in a residential (including now)? 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 Appt scheduled SLITTER * Telephone Encounter - Bin Mccain APRN, CNP - 06/22/2024 4:49 PM CST Needs OV SLITTER * Telephone Encounter - Stephan Salinas RN - 06/22/2024 4:32 PM CST S: pre op exam B: see below A: Patient calling and states she needs left knee surgery. She is wanting an arthroscopy per Dr. Ziegler. States she was told Bin may be able to fill out a form and fax clearance to their office. They told her they can get her in possibly within 1 to 2 weeks. She wants to know if he can do this, or if he needs to see her in the office first. She has the form with her and can email or drop it off at office. R: Informed caller that RN will send a note to the office and call back. Please review and advise Thanks. SLITTER documented in this encounter Plan of Treatment Upcoming Encounters Date Type Department Care Team (Late st Contact Info) Description 08/26/2024 2:45 PM CDT Office Visit [facility] [place] [place] [address] [place] [address] Bin Mccain APRN, SENIOR WRITER [address] [address] 10/06/2024 1:30 PM CDT Office Visit [facility] [place] [place] [address] [place] [address] Bin Mccain APRN, SENIOR WRITER [address] [address] documented as of this encounter Goals Goal Patient Goal Type Associated Problems Recent Progress Patient-Stated? Author My father in July. I think it would help to talk to someone. I want to learn how to live without him. Behavioral Health On track(2023 2:38 PM REEL SLITTER) Yes Maria Isabel Hickey, HANANE Note: Goal/Objective: Improve coping and decrease symptoms of grief related to her father's . Anticipated Time Frame for Goal Completion: 6 months Goal Reviewed with: patient Readiness to change: Ready to change Department associated with goal: [facility] Steps to achieve goal: [...] Boundaries Behavioral Health No Maria Isabel Hickey, BUILD ENGINEER Note: Goal/Objective: Improve emotional self care and interpersonal self care. Anticipated Time Frame for Goal Completion: 6 months Goal Reviewed with: patient Readiness to change: Ready to change Department associated with goal: [facility] Steps to achieve goal: [...] at least 6 individual or group sessions documented as of this encounter Visit Diagnoses Not on filedocumented in this encounter Additional Health Concerns Assessment Noted Time PHQ-9 Depression Total Score: 0 04/07/20 24 12:58 PM REEL SLITTER documented as of this encounter Care Teams Top Lift And Automatic Window Repairer Relationship Specialty Start Date End Date Bin Mccain APRN, SENIOR WRITER [address] [address] PCP - General Advanced Practice Nurse 04/07/24 Julio Alvarado MD Consulting Physician Obstetrics & Gynecology 03/10/19 documented as of this encounter
--- OUTSIDE RECORDS SUMMARY | 2024-06-30 14:14 | XMS_ITS | Patient Health Summary ---
Author Organization [facility] Address [address] [facility] [place] [address] Care Team Providers Care Cord Splicer Name Role Phone Srini Arevalo MD Primary Care Provider Note from [facility],non-owned Affiliates and Associated Physician Practices is amultiple site organization consisting of ambulatory clinics and hospital sitesin [place], [place], [place] and [place]. This disclosure is being madepursuant to the Care Everywhere program and may not contain all information available regarding this patient. Last updated 18.[facility] [employer] Allergies No known active allergies Medications * Be aware that medications may not be up to date on this document. Alwaysverify current medications with the patient. * omeprazole EC (PRILOSEC OTC) 20 MG tablet * Vitamin D3, cholecalciferol, 50 MCG (1999) tablet Take by mouth once daily * citalopram (CELEXA) 10 MG tablet(Started 03/10/2019) Take 10 mg by mouth once daily * hydroCHLOROthiazide (MICROZIDE) 12.5 MG capsule(Started 04/13/2019) * indomethacin (INDOCIN) 50 MG capsule(Started 04/13/2019) TAKE ONE CAPSULE BY MOUTH THREE TIMES DAILY * traMADol (ULTRAM) 50 MG tablet(Started 03/10/2019) Take 50 mg by mouth Active Problems No known active problems Social History Tobacco Use Types Packs/Day Years Used Date Smoking Tobacco: Never Smokeless Tobacco: Never Sex and Gender Information Value Date Recorded Sex Assigned at Not on file Gender Identity Not on file Sexual Orientation Not on file Last Filed Vital Signs Vital Sign Reading Time Taken Comments Blood Pressure - - Pulse - - Temperature - - Respiratory Rate - - Oxygen Saturation - - Inhaled Oxygen Concentration - - Weight 147.6 kg (325 lb 4.8 oz) 05/11/2019 8:44 AM KINDER TEACHER Height 172.7 cm (5' 8 ) 04/21/2019 9:33 AM KINDER TEACHER Body Mass Index 49.46 04/21/2019 9:33 AM KINDER TEACHER Procedures * SARS-COV-2 (COVID-19) IN HOUSE(Performed 11/16/2019) * XR SPINE ENTIRE 2 OR 3VW(Performed 05/11/2019) Performed for Low back pain radiating to right lower extremity * MRI LUMBAR SPINE WO CONTRAST(Performed 05/11/2019) Performed for Low back pain radiating to right lower extremity * XR SACRUM AND COCCYX(Performed 04/21/2019) Performed for Sacral pain Results * SARS-COV-2 (COVID-19) IN HOUSE (11/16/2019 4:30 PM CDT) COVID-19 PCR Not detected Not detected, Invalid 11/17/2019 8:52 PM CDT [facility] Microbiology SPECIMEN FROM NASOPHARYNGEAL STRUCTURE / Unknown Collection / Unknown 11/16/2019 4:30 PM CDT 11/17/2019 11:56 AM CDT Narrative [facility] - 11/17/2019 8:52 PM CDT This Real Time RT-PCR assay was developed and its performance characteristics determined by [facility]. This test has been authorized by the Food and Drug administration (FDA)under an Emergency Use Authorization (EUA). This test has been validated in accordance with the FDA's guidance document Policy for Diagnostic Testing in Laboratories Certified to perform High Complexity Testing under CLIA prior to Emergency Use Authorization for Coronavirus Disease-2019 during the Public Health Emergency issued on July 25, 2019. FDA independent review of this validation is pending. This test is only authorized for the duration of time the declaration that circumstances exist justifying the authorization of emergency use of in vitro diagnostic tests for detection of SARS-CoV-2 virus and/or diagnosis of COVID-19 infection under section 564(b)(1) of the Act, 21 U.S.C 360bbb-3 (b)(1), unless the authorization is terminated or revoked sooner. Rocco Andres Hanko MD LAB - MICROBIOLOGY ORDERABLES [facility]CRO[facility] [address] [place], [place] [address], [facility] [phone] * XR SPINE ENTIRE 2 OR 3VW (05/11/2019 8:40 AM KINDER TEACHER) Anatomical Region Laterality Modality Radiographic Paece ging 05/11/2019 12:3 1 PM KINDER TEACHER Impressions 05/11/2019 12:33 PM KINDER TEACHER IMPRESSION: Mild scoliotic curvature of less than 10 degrees. This report was electronically signed by VALERIY BLAKE MD ??on 05/11/2019 12:33 PM . Narrative 05/11/2019 12:33 PM KINDER TEACHER Exam: ??XR SPINE ENTIRE 2 view History: ??M54.5: Low back pain radiating to right lower extremity Comparison: None. Findings: Image quality is poor due to the body habitus. There is mild thoracolumbar levocurvature measuring less than 10 degrees. There is no sagittal or coronal plane imbalance. Mild degenerative disc disease is seen. Procedure Note Valeriy Blake MD - 05/11/2019 Exam: XR SPINE ENTIRE 2 view History: M54.5: Low back pain radiating to right lower extremity Comparison: None. Findings: Image quality is poor due to the body habitus. There is mildthoracolumbar levocurvature measuring less than 10 degrees. There is no sagittal or coronal plane imbalance. Mild degenerative disc disease is seen. IMPRESSION: Mild scoliotic curvature of less than 10 degrees. This report was electronically signed by VALERIY BLAKE MD on 05/11/2019 12:33 PM . Aidee Pedersen MD DIAGNOSTIC IMAGING O RDERABLES * MRI LUMBAR SPINE WO CONTRAST (05/11/2019 6:55 AM KINDER TEACHER) Anatomical Region Laterality Modality Spine Magnetic Resonan ce 05/11/2019 1:46 PM KINDER TEACHER Impressions 05/11/2019 1:49 PM KINDER TEACHER IMPRESSION: Lower lumbar spine degenerative changes, that do not cause significant spinal stenosis. This report was electronically signed by SARAHY AVILA ??on 05/11/2019 1:49 PM . Narrative 05/11/2019 1:49 PM KINDER TEACHER EXAMINATION: Magnetic resonance imaging (MRI) of the lumbar spine without contrast HISTORY: M54.5: Low back pain radiating to right lower extremity TECHNIQUE: MRI of the lumbar spine was performed without contrast according to standard protocol. FINDINGS: Normal alignment. Intervertebral disc space heights are grossly maintained. L5-S1 disc desiccation. Vertebral body heights are maintained. Nonpathologic marrow signal, including no abnormal marrow edema. Conus terminates at L1 level, and has normal caliber and signal. Filum and cauda equina appear unremarkable. Paraspinal space appears unremarkable. Mild induration involving the subcutaneous fat of the lower back. T12-L1 to L3-4: No significant spinal stenosis. L4-5: Bilateral facet arthropathy. No significant spinal stenosis. L5-S1: Focal right paracentral annular fissure. Mild bilateral facet arthropathy. No significant spinal stenosis. Procedure Note Sarahy Avila MD - 05/11/2019 EXAMINATION: Magnetic resonance imaging (MRI) of the lumbar spinewithout contrast HISTORY: M54.5: Low back pain radiating to right lower extremity TECHNIQUE: MRI of the lumbar spine was performed without contrast according to standard protocol. FINDINGS: Normal alignment. Intervertebral disc space heights are grossly maintained. L5-S1 disc desiccation. Vertebral body heights are maintained. Nonpathologic marrow signal, including no abnormal marrow edema. Conus terminates at L1 level, and has normal caliber and signal. Filumand cauda equina appear unremarkable. Paraspinal space appears unremarkable. Mild induration involving the subcutaneous fat of the lower back. T12-L1 to L3-4: No significant spinal stenosis. L4-5: Bilateral facet arthropathy. No significant spinal stenosis. L5-S1: Focal right paracentral annular fissure. Mild bilateral facet arthropathy. No significant spinal stenosis. IMPRESSION: Lower lumbar spine degenerative changes, that do not cause significant spinal stenosis. This report was electronically signed by SARAHY AVILA on 05/11/20191:49 PM . Maria Eugenia Ness MD MR ORDERABLES * XR SACRUM AND COCCYX (04/21/2019 9:30 AM KINDER TEACHER) Anatomical Region Laterality Modality Spine Radiographic Peace ging 04/21/2019 10:0 7 AM KINDER TEACHER Impressions 04/21/2019 10:08 AM KINDER TEACHER IMPRESSION: No displaced fracture identified. This report was electronically signed by VALERIY BLAKE MD ??on 04/21/2019 10:08 AM . Narrative 04/21/2019 10:08 AM KINDER TEACHER Exam: ??XR SACRUM AND COCCYX 2 view History: ??M53.3: Sacral pain Comparison: None. Findings: No displaced sacrococcygeal fracture is seen. The sacroiliac joints appear normal. Procedure Note Valeriy Blake MD - 04/21/2019 Exam: XR SACRUM AND COCCYX 2 view History: M53.3: Sacral pain Comparison: None. Findings: No displaced sacrococcygeal fracture is seen. The sacroiliac jointsappear normal. IMPRESSION: No displaced fracture identified. This report was electronically signed by VALERIY BLAKE MD on 04/21/2019 10:08 AM . Izzy Briseno MD DIAGNOSTIC IMAGING ORDERABLES Care Teams Cord Splicer Relationship Specialty Start Date End Date Srini Arevalo MD PCP - General 04/21/19
--- OUTSIDE RECORDS SUMMARY | 2024-06-30 14:14 | XMS_ITS | Encounter Summary ---
Author Organization [facility] Address [address] [facility] 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 No / Unsure 03/08/2023 12:23 AM CDT documented as of this encounter Miscellaneous Notes * Telephone Encounter - Deidra Gibbons RN - 03/08/2023 1:41 PM CDT Medication failed the protocol, provider to review and approve the medication order if appropriate. Requested Prescriptions Pending Prescriptions Disp Refills tiZANidine (ZANAFLEX) 2 MG Tablet [Pharmacy Med Name: TIZANIDINE HCL 2MG TABLET] 90 Tablet 0 Sig: TAKE ONE (1) TABLET BY MOUTH THREE (3) TIMES DAILY Not Delegated - Muscle Relaxants Protocol Failed - 03/08/2023 8:59 AM Failed - This refill cannot be delegated Passed - Visit with relevant provider in past 12 months or upcoming 90 days Recent Visits Date Type Provider Dept 02/08/23 Office Visit Srini Arevalo MD [facility] 10/02/22 Office Visit Srini Arevalo MD [facility] 07/10/22 Office Visit Bin Mccain APRN, CHUCKER [facility] Show[facility] recent visits within past 365 days and meeting all other requirements Today's Visits Date Type Provider Dept 03/08/23 Procedure Visit Srini Arevalo MD [facility] Showing today's visits and meeting all other requirements Future Appointments No visits were found meeting these conditions. Showing future appointments within next 90 days and meeting all other requirements Passed - ALT less than 90 and AST less than 55 on record in past 12 months SGOT (AST) Date Value Ref Range Status 02/08/2023 16 5 - 34 U/L Final SGPT (ALT) Date Value Ref Range Status 02/08/2023 13 0 - 55 U/L Final documented in this encounter Plan of Treatment Upcoming Encounters Date Type Department Care Team (Late st Contact Info) Description 08/26/2024 2:45 PM CDT Office Visit [facility] [address]2 [place] [address] Bin Mccain APRN, CHUCKER #2 [facility] [address] [place] [address] 10/06/2024 1:30 PM CDT Office Visit [facility]2 [place] [address] Bin Mccain APRN, CHUCKER #2 [facility] [address] [place] [address] documented as of this encounter Goals Goal Patient Goal Type Associated Problems Recent Progress Patient-Stated? Author My father in July. I think it would help to talk to someone. I want to learn how to live without him. Behavioral Health On track( 024 2:38 PM MECHANICAL ASSEMBLY TECHNICIAN) Yes Maria Isabel Hickey, HANANE Note: Goal/Objective: Improve coping and decrease symptoms of grief related to her father's . Anticipated Time Frame for Goal Completion: 6 months Goal Reviewed with: patient Readiness to change: Ready to change Department associated with goal: [facility] Steps to achieve [...] 19 05/02/2023 05/02/2023 05/12/2023 12:1 6 AM MECHANICAL ASSEMBLY TECHNICIAN Assessment Noted Time PHQ-9 Depression Total Score: 0 09/07/19 22 12:46 PM CDT documented as of this encounter Care Teams Principal Java Software Engineer Relationship Specialty Start Date End Date Srini Arevalo MD PCP - General Family Medicine 11/14/18 04/06/24 Bin Mccain, SUPERVISOR [employer], CHUCKER [address]2 [place] [id number] PCP - General Advanced Practice Nurse 04/07/24 Julio Alvarado MD Consulting Physician Obstetrics & Gynecology 03/10/19 documented as of this encounter
--- OUTSIDE RECORDS SUMMARY | 2024-06-30 14:14 | XMS_ITS | Encounter Summary ---
Author Organization [facility] Address [address] 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 Medication failed the protocol, provider to review and approve the medication orderif appropriate. Requested Prescriptions Pending Prescriptions Disp Refills Topiramate 50 MG Tablet [Pharmacy Med Name: TOPIRAMATE 50MG TABLET] 60 Tablet 2 Sig: TAKE ONE (1) TABLET BY MOUTH TWO (2) TIMES DAILY. TAKE EACH DOSE WITH THE 100 MG TABLET TO EQUAL 150 MG PER DOSE. Not Delegated - Anticonvulsants Excluding Benzodiazepines Protocol Failed - 09/19/2023 9:04 AM Failed - This refill cannot be delegated Passed - Visit with relevant provider in past 12 months or upcoming 90 days Recent Visits Date Type Provider Dept 03/08/23 Procedure Visit Srini Arevalo MD [facility] 02/08/23 Office Visit Srini Arevalo MD [facility] 10/02/22 Office Visit Srini Arevalo MD [facility] Showing recent visits within past 365 days [...] - Anticonvulsants Excluding Benzodiazepines Protocol Failed - 09/19/2023 9:04 AM Failed - This refill cannot be delegated Passed - Visit with relevant provider in past 12 months or upcoming 90 days Recent Visits Date Type Provider Dept 03/08/23 Procedure Visit Srini Arevalo MD [facility] 02/08/23 Office Visit Srini Arevalo MD [facility] 10/02/22 Office Visit Srini Arevalo MD [facility] Showing recent visits within past 365 days and meeting all other requirements Future Appointments No visits were found meeting these conditions. Showing future appointments within next 90 days and meeting all other requirements documented in this encounter Plan of Treatment Upcoming Encounters Date Type Department Care Team (Late st Contact Info) Description 08/26/2024 2:45 PM CDT Office Visit [facility] #2 [facility] [place] [address] Bin Mccain APRN, PECAN GROWER #2 [facility] [address] [place] [address] 10/06/2024 1:30 PM CDT Office Visit [facility] #2 [facility] [address] Bin Mccain APRN, PECAN GROWER [address] [place] [address] documented as of this encounter Goals Goal Patient Goal Type Associated Problems Recent Progress Patient-Stated? Author My father in July. I think it would help to talk to someone. I want to learn how to live without him. Behavioral Health On track( 024 2:38 PM LIME KILN AND RECAUSTICIZING OPERATOR) Yes Maria Isabel Hickey, YIELD ANALYST Note: Goal/Objective: Improve coping and decrease symptoms of grief related to her father's . Anticipated Time Frame for Goal Completion: 6 months Goal Reviewed with: patient Readiness to change: Ready to change Department associated with goal: [facility] Steps to [...] documented as of this encounter Care Teams Administrative Dietitian Relationship Specialty Start Date End Date Srini Arevalo MD PCP - General Family Medicine 11/14/18 04/06/24 Bin Mccain, TOP SCREW, PECAN GROWER #[address] [address] PCP - General Advanced Practice Nurse 04/07/24 Julio Alvarado MD Consulting Physician Obstetrics & Gynecology 03/10/19 documented as of this encounter
--- OUTSIDE RECORDS SUMMARY | 2024-06-30 14:14 | XMS_ITS | Encounter Summary ---
Author Organization [facility] Address [address] 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 Not on file documented as of this encounter Miscellaneous Notes * Telephone Encounter - Deidra Gibbons RN - 05/09/2021 3:54 PM CST Last fill date 05/09/21 for 30 days STONE POLISHER documented in this encounter Plan of Treatment Upcoming Encounters Date Type Department Care Team (Late st Contact Info) Description 08/26/2024 2:45 PM CDT Office Visit [facility] #2 [facility] [address] Bin Mccain APRN, ORDER ENTRY TECHNICIAN #[address] [address] 10/06/2024 1:30 PM CDT Office Visit [facility] [address]2 [place] [address] Bin Mccain APRN, ORDER ENTRY TECHNICIAN #[address] [address] documented as of this encounter Visit Diagnoses Not on filedocumented in this encounter Additional Health Concerns Infection Onset Date Last Indicated Resolved Time COVID - 19 Confirmed 02/14/2022 02/14/2022 022 12:17 AM CDT COVID - 19 05/02/2023 05/02/2023 05/12/2023 12:1 6 AM TOMBSTONE POLISHER Assessment Noted Time PHQ-9 Depression Total Score: 0 03/08/20 12:34 PM CDT documented as of this encounter Care Teams Metal Annealer Relationship Specialty Start Date End Date Srini Arevalo MD PCP - General Family Medicine 11/14/18 04/06/24 Bin Mccain APRN, ORDER ENTRY TECHNICIAN #[address] [address] PCP - General Advanced Practice Nurse 04/07/24 Julio Alvarado MD Consulting Physician Obstetrics & Gynecology 03/10/19 documented as of this encounter
--- OUTSIDE RECORDS SUMMARY | 2024-06-30 14:14 | XMS_ITS | Encounter Summary ---
Author Organization [facility] Address [address] [facility] 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 No / Unsure 04/02/2023 1:54 PM HOME APPRAISER documented as of this encounter Miscellaneous Notes * Telephone Encounter - Deidra Gibbons RN - 04/08/2023 1:42 PM CST Medication failed the protocol, provider to review and approve the medication order if appropriate. Requested Prescriptions Pending Prescriptions Disp Refills tiZANidine (ZANAFLEX) 2 MG Tablet [Pharmacy Med Name: TIZANIDINE HCL 2MG TABLET] 90 Tablet 0 Sig: TAKE ONE (1) TABLET BY MOUTH THREE (3) TIMES DAILY Not Delegated - Muscle Relaxants Protocol Failed - 04/08/2023 9:22 AM Failed - This refill cannot be delegated Passed - Visit with relevant provider in past 12 months or upcoming 90 days Recent Visits Date Type Provider Dept 03/08/23 Procedure Visit Srini Arevalo MD [facility] 02/08/23 Office Visit Srini Arevalo MD [facility] 10/02/22 Office Visit Srini Arevalo MD [facility] 07/10/22 Office Visit Bin Mccain APRN, PST MANAGER [facility] Showing recent visits within past 365 [...] 03/14/2023 10 0 - 55 U/L Final APPRAISER documented in this encounter Plan of Treatment Upcoming Encounters Date Type Department Care Team (Late st Contact Info) Description 08/26/2024 2:45 PM CDT Office Visit [facility] #2 [place] [address] Bin Mccain APRN, PST MANAGER [facility] [address] [place] [address] 10/06/2024 1:30 PM CDT Office Visit [facility] #2 [facility] [place] [address] Bin Mccain APRN, PST MANAGER #[facility] [address] [place] [address] documented as of this encounter Goals Goal Patient Goal Type Associated Problems Recent Progress Patient-Stated? Author My father in July. I think it would help to talk to someone. I want to learn how to live without him. Behavioral Health On track( 024 2:38 PM HOME APPRAISER) Yes Maria Isabel Hickey LCSW Note: Goal/Objective: Improve coping and decrease symptoms of grief related to her father's . Anticipated Time Frame for Goal Completion: 6 months Goal Reviewed with: patient Readiness to change: Ready to change Department associated with goal: [facility] Steps [...] 19 05/02/2023 05/02/2023 05/12/2023 12:1 6 AM HOME APPRAISER Assessment Noted Time PHQ-9 Depression Total Score: 0 04/13/20 22 12:46 PM CDT documented as of this encounter Care Teams Flooring Installer Relationship Specialty Start Date End Date Srini Arevalo MD PCP - General Family Medicine 11/14/18 04/06/24 Bin Mccain APRN, PST MANAGER #2 [place] [address] PCP - General Advanced Practice Nurse 04/07/24 Julio Alvarado MD Consulting Physician Obstetrics & Gynecology 03/10/19 documented as of this encounter
--- OUTSIDE RECORDS SUMMARY | 2024-06-30 14:14 | XMS_ITS | Encounter Summary ---
Author Organization [facility] Address [address] [facility] 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 Requested Prescriptions Pending Prescriptions Disp Refills tiZANidine (ZANAFLEX) 2 MG Tablet [Pharmacy Med Name: TIZANIDINE HCL 2MG TABLET] 90 Tablet 0 Sig: TAKE ONE (1) TABLET BY MOUTH THREE (3) TIMES DAILY Not Delegated - Muscle Relaxants Protocol Failed - 05/08/2023 8:46 AM Failed - This refill cannot be delegated Passed - Visit with relevant provider in past 12 months or upcoming 90 days Recent Visits Date Type Provider Dept 03/08/23 [facility]/02/22 [facility] Visit [facility]10[facility]22 Office Visit Bin Mccain APRN, GERMAN [facility] Showing recent visits within past 365 [...] 03/14/2023 10 0 - 55 U/L Final E AND CENTER MARKER documented in this encounter Plan of Treatment Upcoming Encounters Date Type Department Care Team (Late st Contact Info) Description 08/26/2024 2:45 PM CDT Office Visit [facility] - Family Medicine - [place] #2 [place] [address] Bin Mccain APRN, NAPHTHALENE OPERATOR HELPER [address] [place] [address] 10/06/2024 1:30 PM CDT Office Visit [facility] - Family Medicine [facility] #2 [place] [address] Bin Mccain, KEY MAKER, NAPHTHALENE OPERATOR HELPER #[address] [address] documented as of this encounter Goals Goal Patient Goal Type Associated Problems Recent Progress Patient-Stated? Author My father in July. I think it would help to talk to someone. I want to learn how to live without him. Behavioral Health On track( 024 2:38 PM GRADE AND CENTER MARKER) Yes Maria Isabel Hickey, HEEL BUFFER Note: Goal/Objective: Improve coping and decrease symptoms of grief related to her father's . Anticipated Time Frame for Goal Completion: 6 months Goal Reviewed with: patient Readiness to change: Ready to change Department associated with goal: [facility] Steps [...] 19 05/02/2023 05/02/2023 05/12/2023 12:1 6 AM GRADE AND CENTER MARKER Assessment Noted Time PHQ-9 Depression Total Score: 0 09/07/19 22 12:46 PM CDT documented as of this encounter Care Teams Surfboard Designer Relationship Specialty Start Date End Date Srini Arevalo MD PCP - General Family Medicine 11/14/18 04/06/24 Bin Mccain APRN, NAPHTHALENE OPERATOR HELPER #[address] [address] PCP - General Advanced Practice Nurse 04/07/24 Julio Alvarado MD Consulting Physician Obstetrics & Gynecology 03/10/19 documented as of this encounter
--- OUTSIDE RECORDS SUMMARY | 2024-06-30 14:14 | XMS_ITS | Encounter Summary ---
Author Organization [facility] Address [address] [facility] [place] [address] Care Team Providers Care Bath House Attendant Name Role Phone Srini Arevalo MD Primary Care Provider [phone] Encounter Details Date Type Department Care Team (Late st Contact Info) Description 11/17/2019 Lab Requisition [facility] [address] [place] [address] Rocco Ness MD Social History Tobacco Use Types Packs/Day Years Used Date Smoking Tobacco: Never Smokeless Tobacco: Never Sex and Gender Information Value Date Recorded Sex Assigned at Not on file Gender Identity Not on file Sexual Orientation Not on file documented as of this encounter Plan of Treatment Not on file documented as of this encounter Procedures Procedure Name Priority Date/Time Associated Diagnosis Comments SARS-COV-2 (COVID-19) IN HOUSE Routine 11/16/2019 4:30 PM CDT documented in this encounter Results * SARS-COV-2 (COVID-19) IN HOUSE (11/16/2019 4:30 PM CDT) COVID-19 PCR Not detected Not detected, Invalid 11/17/2019 8:52 PM CDT [facility] MICROBIOLOGY Microbiology SPECIMEN FROM NASOPHARYNGEAL STRUCTURE / Unknown Collection / Unknown 11/16/2019 4:30 PM CDT 11/17/2019 11:56 AM CDT Narrative [facility] MICROBIOLOGY - 11/17/2019 8:52 PM CDT This Real Time RT-PCR assay was developed and its performance characteristics determined by [facility]. This test has been authorized [...] authorization is terminated or revoked sooner. Rocco Ness MD LAB - MICROBIOLOGY ORDERABLES [facility] [address] [place], [address] [phone] documented in this encounter Visit Diagnoses Not on filedocumented in this encounter Additional Health Concerns Infection Onset Date Last Indicated Resolved Time COVID-19 Under Investigation 11/16/2019 11/16/2019 11/17/2019 8:52 PM CDT documented as of this encounter Care Teams Bath House Attendant Relationship Specialty Start Date End Date Srini Arevalo MD PCP - General 04/21/19 documented as of this encounter
--- OUTSIDE RECORDS SUMMARY | 2024-06-30 14:14 | XMS_ITS | Encounter Summary ---
Author Organization [facility] Address [address] 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 No / Unsure 09/07/2022 5:39 PM CDT documented as of this encounter Plan of Treatment Upcoming Encounters Date Type Department Care Team (Late st Contact Info) Description 08/26/2024 2:45 PM CDT Office Visit [facility] [place] [address] Bin Mccain APRN, BUSINESS EXCELLENCE LEADER #[address] [address] 10/06/2024 1:30 PM CDT Office Visit [facility] [place] [address] Bin Mccain APRN, BUSINESS EXCELLENCE LEADER #[address] [address] documented as of this encounter Goals Goal Patient Goal Type Associated Problems Recent Progress Patient-Stated? Author My father in July. I think it would help to talk to someone. I want to learn how to live without him. Behavioral Health On track( 024 2:38 PM CRYPTANALYST) Yes Maria Isabel Hickey, UPKEEP MECHANIC Note: Goal/Objective: Improve coping and decrease symptoms of grief related to her father's . Anticipated Time Frame for Goal Completion: 6 months Goal Reviewed with: patient Readiness to change: Ready to change Department associated with goal: [facility]AV[facility] HE[facility] Steps to [...] 19 05/02/2023 05/02/2023 05/12/2023 12:1 6 AM CRYPTANALYST Assessment Noted Time PHQ-9 Depression Total Score: 0 09/07/19 12:46 PM CDT documented as of this encounter Care Teams Inspector Optical Instrument Relationship Specialty Start Date End Date Srini Arevalo MD PCP - General Family Medicine 11/14/18 04/06/24 Bin Mccain APRN, BUSINESS EXCELLENCE LEADER #[address] [address] PCP - General Advanced Practice Nurse 04/07/24 Julio Alvarado MD Consulting Physician Obstetrics & Gynecology 03/10/19 documented as of this encounter
--- OUTSIDE RECORDS SUMMARY | 2024-06-30 14:14 | XMS_ITS | Encounter Summary ---
Author Organization [facility] Address [address] [place] 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 Not on file documented as of this encounter Miscellaneous Notes * Telephone Encounter - Deidra Gibbons RN - 03/07/2022 9:09 AM CDT Medication failed the protocol, provider [...] - Anticonvulsants Excluding Benzodiazepines Protocol Failed - 03/06/2022 8:59 AM Failed - This refill cannot be delegated Passed - Visit with relevant provider in past 12 months or upcoming 90 days Recent Visits Date Type Provider Dept 10/31/21 Office Visit [facility] 09/06/21 Office Visit Jose Guadalupe Brown MD [facility] [place] 08/07/21 Office Visit Bin Mccain APRN, CNP [facility] 08/01/21 Office Visit Beena Graf APRN, CNP [facility] 03/08/21 Office Visit Beena Graf APRN, CNP [facility] Showing recent visits within past 365 days and meeting all other requirements Future Appointments No visits were found meeting these conditions. Showing future appointments within next 90 days and meeting all other requirements documented in this encounter Plan of Treatment Upcoming Encounters Date Type Department Care Team (Late st Contact Info) Description 08/26/2024 2:45 PM CDT Office Visit [facility] - [facility] Medicine - [place] [address] [place] [address] Bin Mccain APRN, REGISTERED VETERINARY TECHNICIAN #[address] [address] 10/06/2024 1:30 PM CDT Office Visit [facility] - Family [facility] [address] [place] [address] Bin Mccain APRN, REGISTERED VETERINARY TECHNICIAN #[address] [address] documented as of this encounter Visit Diagnoses Not on filedocumented in this encounter Additional Health Concerns Infection Onset Date Last Indicated Resolved Time COVID - 19 Confirmed 02/14/2022 02/14/2022 022 12:17 AM CDT COVID - 19 05/02/2023 05/02/2023 05/12/2023 12:1 6 AM SHOE FOLDER Assessment Noted Time PHQ-9 Depression Total Score: 0 09/07/19 22 12:46 PM CDT documented as of this encounter Care Teams Bridge Instructor Relationship Specialty Start Date End Date Srini Arevalo MD PCP - General Family Medicine 11/14/18 04/06/24 Bin Mccain APRN, REGISTERED VETERINARY TECHNICIAN #[address] [address] PCP - General Advanced Practice Nurse 04/07/24 Julio Alvarado MD Consulting Physician Obstetrics & Gynecology 03/10/19 documented as of this encounter
--- OUTSIDE RECORDS SUMMARY | 2024-06-30 14:14 | XMS_ITS | Encounter Summary ---
Author Organization [facility] Address [address] [facility] 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 No / Unsure 11/05/2022 11:53 PM CDT documented as of this encounter Miscellaneous Notes * Telephone Encounter - Deidra Gibbons RN - 11/08/2022 8:21 AM CDT Signed 2 days ago (11/06/2022): tiZANidine (ZANAFLEX) 2 MG Tablet Sig: TAKE ONE (1) TABLET BY MOUTH THREE (3) TIMES DAILY Disp: 90 Tablet ? Refills: 0 Signed by: Srini Arevalo MD [facility] * Telephone Encounter - Arleen Latham RN - 11/07/2022 2:58 PM CDT Duplicate documented in this encounter Plan of Treatment Upcoming Encounters Date Type Department Care Team (Late st Contact Info) Description 08/26/2024 2:45 PM CDT Office Visit [facility] [address] [place] [id number] Bin Mccain APRN, BLANKET BINDER #[address] [address] 10/06/2024 1:30 PM CDT Office Visit [facility] [address] [place] [phone] Bin Mccain, IMAGER, BLANKET BINDER #[address] [address] documented as of this encounter Goals Goal Patient Goal Type Associated Problems Recent Progress Patient-Stated? Author My father in July. I think it would help to talk to someone. I want to learn how to live without him. Behavioral Health On track( 024 2:38 PM PRACTICE ADMINISTRATOR) Yes Maria Isabel Hickey, TEAROOM HOSTESS Note: Goal/Objective: Improve coping and decrease symptoms [...] 19 05/02/2023 05/02/2023 05/12/2023 12:1 6 AM PRACTICE ADMINISTRATOR Assessment Noted Time PHQ-9 Depression Total Score: 0 09/07/19 22 12:46 PM CDT documented as of this encounter Care Teams Physician Internist Relationship Specialty Start Date End Date Srini Arevalo MD PCP - General Family Medicine 11/14/18 04/06/24 Bin Mccain, IMAGER, BLANKET BINDER #[address] [address] PCP - General Advanced Practice Nurse 04/07/24 Julio Alvarado MD Consulting Physician Obstetrics & Gynecology 03/10/19 documented as of this encounter
--- OUTSIDE RECORDS SUMMARY | 2024-06-30 14:14 | XMS_ITS | Encounter Summary ---
Author Organization [facility] Address [address] [place] [address] Phone Care Team Providers Care Bicycle Designer Name Role Phone Srini Arevalo MD Primary Care Provider [phone] Julio Alvarado MD Unavailable [phone] Bin Mccain APRN, SENIOR ADMINISTRATIVE SERVICES OFFICER Primary Care Pr ovider Reason for Visit * Reason Comments Medication Refill Encounter Details Date Type Department Care Team (Late st Contact Info) Description 05/08/2021 Refill [facility] [address] [place] [address] Srini Arevalo MD [address]1 [place] [address] Medication Refill Social History Tobacco Use Types [...] 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 Medication failed the protocol, provider to review and approve the medication order if appropriate. Requested Prescriptions Pending Prescriptions Disp Refills traMADol (ULTRAM) 50 MG Tablet [Pharmacy Med Name: TRAMADOL HCL 50 MG TAB 50 Tablet] 20 Tablet 0 Sig: TAKE 1 TABLET BY MOUTH EVERY 6 HOURS NEEDED FOR MODERATE OR MORE SEVERE PAIN. MUST BE SEEN TO HAVE FURTHER REFILLS. Not Delegated - Opioid Agonists Protocol Failed - 05/09/2021 11:15 AM Failed - This refill cannot be delegated Passed - Visit with relevant provider in past 12 months or upcoming 90 days Recent Visits Date Type Provider Dept 03/08/21 Office Visit Beena Graf APRN, CNP [facility] Showing recent visits within past 365 days and meeting all other requirements Future Appointments No visits were found meeting these conditions. Showing future appointments within next 90 days and meeting all other requirements ONAL SECRETARY documented in this encounter Plan of Treatment Upcoming Encounters Date Type Department Care Team (Late st Contact Info) Description 08/26/2024 2:45 PM CDT Office Visit [facility] [place] [address] Bin Mccain APRN, SENIOR ADMINISTRATIVE SERVICES OFFICER #[address] [address] 10/06/2024 1:30 PM CDT Office Visit [facility] [place] [address] Bin Mccain APRN, SENIOR ADMINISTRATIVE SERVICES OFFICER #[address] [address] documented as of this encounter Visit Diagnoses Diagnosis Low back pain, unspecified back pain laterality, unspecified chronicity, unspecified whether sciatica present Closed fracture of coccyx, sequela documented in this encounter Additional Health Concerns Infection Onset Date Last Indicated Resolved Time COVID - 19 Confirmed 02/14/2022 02/14/2022 022 12:17 AM CDT COVID - 19 05/02/2023 05/02/2023 05/12/2023 12:1 6 AM NATIONAL SECRETARY Assessment Noted Time PHQ-9 Depression Total Score: 0 03/08/20 12:34 PM CDT documented as of this encounter Care Teams Bicycle Designer Relationship Specialty Start Date End Date Srini Arevalo MD PCP - General Family Medicine 11/14/18 04/06/24 Bin Mccain, MACHINE SORTER, SENIOR ADMINISTRATIVE SERVICES OFFICER [address] [place] [id number] PCP - General Advanced Practice Nurse 04/07/24 Julio Alvarado MD Consulting Physician Obstetrics & Gynecology 03/10/19 documented as of this encounter
--- OUTSIDE RECORDS SUMMARY | 2024-06-30 14:14 | XMS_ITS | Encounter Summary ---
Author Organization [facility] Address [address] 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 Not on file documented as of this encounter Miscellaneous Notes * Telephone Encounter - Leanne North RN - 09/14/2019 3:37 PM CDT Requested Prescriptions Pending Prescriptions Disp Refills traMADol (ULTRAM) 50 MG Tablet [Pharmacy Med Name: TRAMADOL 50MG TABLETS] 45 Tab 0 Sig: TAKE 1 TABLET BY MOUTH EVERY 6 HOURS NEEDED FOR PAIN Not Delegated - Analgesics: Opioid Agonists Failed - 09/14/2019 2:56 PM Failed - Valid encounter within last 6 months Past Office Visits Recent Outpatient Visits 6 months ago Low back pain, unspecified back pain laterality, unspecified chronicity, unspecified whether sciatica present [facility] Srini Arevalo MD 10 months ago Annual visit for general adult medical examination with abnormal findings [facility] Srini Arevalo MD Upcoming Appointments Failed - This refill cannot be delegated documented in this encounter Plan of Treatment Upcoming Encounters Date Type Department Care Team (Late st Contact Info) Description 08/26/2024 2:45 PM CDT Office Visit [facility] [address]2 [place] [address] Bin Mccain APRN, BOX TRUCK DRIVER #[address] [address] 10/06/2024 1:30 PM CDT Office Visit [facility] [address] [place] [address] Bin Mccain APRN, BOX TRUCK DRIVER #[address] [address] documented as of this encounter Visit Diagnoses Diagnosis Low back pain, unspecified back pain laterality, unspecified chronicity, unspecified whether sciatica present Closed fracture of coccyx, sequela documented in this encounter Additional Health Concerns Infection Onset Date Last Indicated Resolved Time COVID - 19 11/16/2019 11/16/2019 11/20/2019 3:23 AM CDT COVID - 19 Confirmed 02/14/2022 02/14/2022 022 12:17 AM CDT COVID - 19 05/02/2023 05/02/2023 05/12/2023 12:1 6 AM ELECTRICAL CAD TECHNICIAN Assessment Noted Time PHQ-9 Depression Total Score: 0 03/10/20 3:00 PM CDT documented as of this encounter Care Teams Supervisor Pressing Department Relationship Specialty Start Date End Date Srini Arevalo MD PCP - General Family Medicine 11/14/18 04/06/24 Bin Mccain, SALES PRODUCT MANAGER, BOX TRUCK DRIVER #[address] [address] PCP - General Advanced Practice Nurse 04/07/24 Julio Alvarado MD Consulting Physician Obstetrics & Gynecology 03/10/19 documented as of this encounter
--- OUTSIDE RECORDS SUMMARY | 2024-06-30 14:14 | XMS_ITS | Encounter Summary ---
Author Organization [facility] Address [address] [facility] 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 Requested Prescriptions Pending Prescriptions Disp Refills amitriptyline (ELAVIL) 100 MG Tablet [Pharmacy Med Name: AMITRIPTYLINE HYDROCHLORIDE 100MG TABLET] 30 Tablet 2 Sig: TAKE ONE TABLET BY MOUTH AT BEDTIME Not Delegated - Tricyclic Agents Protocol Failed - 09/16/2023 9:06 AM Failed - This refill cannot be delegated Passed - Visit with relevant provider in past 12 months or upcoming 90 days Recent Visits Date Type Provider Dept 03/08/23 Procedure Visit Srini Arevalo MD [facility] 02/08/23 Office Visit Srini Arevalo MD [facility] 10/02/22 Office Visit Srini Arevalo MD [facility] [place] Showing recent visits within past [...] [facility] [address] [place] [address] Bin Mccain APRN, QUALITY TECHNICIAN FIBERGLASS #[address] [address] 10/06/2024 1:30 PM CDT Office Visit [facility] [address]2 [place] [address] Bin Mccain APRN, QUALITY TECHNICIAN FIBERGLASS #2 [facility] [place] [address] documented as of this encounter Goals Goal Patient Goal Type Associated Problems Recent Progress Patient-Stated? Author My father in July. I think it would help to talk to someone. I want to learn how to live without him. Behavioral Health On track( 024 2:38 PM ASSOCIATE QUALITY ENGINEER) Yes Maria Isabel Hickey LCSW Note: Goal/Objective: Improve coping and decrease symptoms of grief related to her father's . Anticipated Time Frame for Goal Completion: 6 months Goal Reviewed with: patient Readiness to change: Ready to change Department associated with goal: [facility] Steps [...] documented as of this encounter Care Teams Trust Administrator Relationship Specialty Start Date End Date Srini Arevalo MD PCP - General Family Medicine 11/14/18 04/06/24 Bin Mccain APRN, QUALITY TECHNICIAN FIBERGLASS #2 [facility] [place] [address] PCP - General Advanced Practice Nurse 04/07/24 Julio Alvarado MD Consulting Physician Obstetrics & Gynecology 03/10/19 documented as of this encounter
--- OUTSIDE RECORDS SUMMARY | 2024-06-30 14:14 | XMS_ITS | Encounter Summary ---
Author Organization [facility] Address [address] [facility] [place] [place] [address] Phone Care Team Providers Care Vegetable Cook Name Role Phone Srini Arevalo MD Primary Care Provider Julio Alvarado MD Unavailable Bin Mccain APRN, BIOLOGICAL SCIENTIST Primary Care Pr ovider Reason for Visit * Reason Comments Medication Refill Encounter Details Date Type Department Care Team (Late st Contact Info) Description 10/08/2022 Refill [facility] Family Medicine 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 No / Unsure 10/02/2022 12:41 PM CDT documented as of this encounter Miscellaneous Notes * Telephone Encounter - Deidra Gibbons RN - 10/08/2022 3:55 PM CDT PDMP Tramadol 07/10/22 Medication failed the protocol, provider to review and approve the medication order if appropriate. Requested Prescriptions Pending Prescriptions Disp Refills traMADol (ULTRAM) 50 MG Tablet [Pharmacy Med Name: TRAMADOL HCL 50MG TABLET] 20 Tablet 0 Sig: TAKE ONE (1) TABLET BY MOUTH EVERY SIX (6) HOURS NEEDED FOR MODERATE OR MORE SEVERE PAIN. Not Delegated - Opioid Agonists Protocol Failed - 10/08/2022 11:10 AM Failed - This refill cannot be delegated Passed - Visit with relevant provider in past 12 months or upcoming 90 days Recent Visits Date Type Provider Dept 10/02/22 Office Visit Srini Arevalo MD [facility] 07/10/22 Office Visit Bin Mccain APRN, GERMAN [facility] 10/31/21 Office Visit [facility] Showing recent visits within past 365 [...] Delegated - Muscle Relaxants Protocol Failed - 10/08/2022 11:10 AM Failed - This refill cannot be delegated Passed - Visit with relevant provider in past 12 months or upcoming 90 days Recent Visits Date Type Provider Dept 10/02/22 Office Visit Srini Arevalo MD [facility] 07/10/22 Office Visit AdánBin love APRN, CNP [facility] 10/31/21 Office Visit Sr[facility] [place] Showing recent visits within past 365 days and meeting all other requirements Future Appointments No visits were found meeting these conditions. Showing future appointments within next 90 days and meeting all other requirements Passed - ALT less than 90 and AST less than 55 on record in past 12 months SGOT (AST) Date Value Ref Range Status 10/02/2022 14 <=32 U/L Final SGPT (ALT) Date Value Ref Range Status 10/02/2022 15 <=41 U/L Final amitriptyline (ELAVIL) 100 MG Tablet [Pharmacy Med Name: AMITRIPTYLINE HCL 100MG TABLET] 30 Tablet 2 Sig: TAKE ONE TABLET BY MOUTH AT BEDTIME Not Delegated - Tricyclic Agents Protocol Failed - 10/08/2022 11:10 AM Failed - This refill cannot be delegated Passed - Visit with relevant provider in past 12 months or upcoming 90 days Recent Visits Date Type Provider Dept 10/02/22 Office Visit Srini Arevalo MD [facility] 07/10/22 Office Visit Bin Mccain APRN, CNP [facility] 10/31/21 Office Visit Srini Arevalo MD [facility] [place] Showing recent visits within past 365 days and meeting all other requirements Future Appointments No visits were found meeting these conditions. Showing future appointments within next 90 days and meeting all other requirements documented in this encounter Plan of Treatment Upcoming Encounters Date Type Department Care Team (Late st Contact Info) Description 08/26/2024 2:45 PM CDT Office Visit [facility] [address]2 [place] [address] Bin Mccain APRN, GERMAN [address] [address] 10/06/2024 1:30 PM CDT Office Visit [facility] [address] [place] [address] Bin Mccain APRN, BIOLOGICAL SCIENTIST #2 [facility] [place] [address] documented as of this encounter Goals Goal Patient Goal Type Associated Problems Recent Progress Patient-Stated? Author My father in July. I think it would help to talk to someone. I want to learn how to live without him. Behavioral Health On track( 024 2:38 PM WEDDING CAKE DESIGNER) Yes Maria Isabel Hickey LCSW Note: Goal/Objective: Improve coping and decrease symptoms of grief related to her father's . Anticipated Time Frame for Goal Completion: 6 months Goal Reviewed with: patient Readiness to change: Ready to change Department associated with goal: [facility] Steps to achieve [...] encounter Visit Diagnoses Diagnosis Chronic pain syndrome Low back pain, unspecified back pain laterality, unspecified chronicity, unspecified whether sciatica present documented in this encounter Additional Health Concerns Infection Onset Date Last Indicated Resolved Time COVID - 19 05/02/2023 05/02/2023 05/12/2023 12:1 6 AM WEDDING CAKE DESIGNER Assessment Noted Time PHQ-9 Depression Total Score: 0 09/07/19 22 12:46 PM CDT documented as of this encounter Care Teams Vegetable Cook Relationship Specialty Start Date End Date Srini Arevalo MD PCP - General Family Medicine 11/14/18 04/06/24 Bin Mccain APRN, BIOLOGICAL SCIENTIST #2 [facility] [place] [address] PCP - General Advanced Practice Nurse 04/07/24 Julio Alvarado MD Consulting Physician Obstetrics & Gynecology 03/10/19 documented as of this encounter
--- OUTSIDE RECORDS SUMMARY | 2024-06-30 14:14 | XMS_ITS | Encounter Summary ---
Author Organization [facility] Address [address] [facility] [place] 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 No / Unsure 02/08/2023 10:09 AM CDT documented as of this encounter Miscellaneous Notes * Telephone Encounter - Deidra Gibbons RN - 02/08/2023 1:36 PM CDT Signed Yesterday (02/07/2023): tiZANidine (ZANAFLEX) 2 MG Tablet Sig: TAKE ONE (1) TABLET BY MOUTH THREE (3) TIMES DAILY Disp: 90 Tablet ? Refills: 0 Signed by: Srini Arevalo MD [facility] documented in this encounter Plan of Treatment Upcoming Encounters Date Type Department Care Team (Late st Contact Info) Description 08/26/2024 2:45 PM CDT Office Visit [facility] [place] [address] Bin Mccain APRN, CRYPTOLOGIC SUPERVISOR #[address] [address] 10/06/2024 1:30 PM CDT Office Visit [facility] [address] [place] [address] Bin Mccain APRN, CRYPTOLOGIC SUPERVISOR #[address] [address] documented as of this encounter Goals Goal Patient Goal Type Associated Problems Recent Progress Patient-Stated? Author My father in July. I think it would help to talk to someone. I want to learn how to live without him. Behavioral Health On track( 024 2:38 PM FAMILY ADVOCATE) Yes Maria Isabel Hickey LCSW Note: Goal/Objective: Improve coping and decrease symptoms of grief related to her father's . Anticipated Time Frame for Goal Completion: 6 months Goal Reviewed with: patient Readiness to change: Ready to change Department associated with goal: [facility] Steps to achieve [...] 19 05/02/2023 05/02/2023 05/12/2023 12:1 6 AM FAMILY ADVOCATE Assessment Noted Time PHQ-9 Depression Total Score: 0 09/07/19 22 12:46 PM CDT documented as of this encounter Care Teams Summer Nanny Relationship Specialty Start Date End Date Srini Arevalo MD PCP - General Family Medicine 11/14/18 04/06/24 Bin Mccain, STUDIO ARTIST, CRYPTOLOGIC SUPERVISOR #[address] [address] PCP - General Advanced Practice Nurse 04/07/24 Julio Alvarado MD Consulting Physician Obstetrics & Gynecology 03/10/19 documented as of this encounter
--- OUTSIDE RECORDS SUMMARY | 2024-06-30 14:14 | XMS_ITS | Encounter Summary ---
Author Organization [facility] Address [address] [facility] 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 No / Unsure 02/08/2023 10:09 AM CDT documented as of this encounter Miscellaneous Notes * Telephone Encounter - Luz Elena Isaac RN - 02/07/2023 1:58 PM CDT Medication failed the protocol, provider to review and approve the medication order if appropriate. Requested Prescriptions Pending Prescriptions Disp Refills tiZANidine (ZANAFLEX) 2 MG Tablet [Pharmacy Med Name: TIZANIDINE HCL 2MG TABLET] 90 Tablet 0 Sig: TAKE ONE (1) TABLET BY MOUTH THREE (3) TIMES DAILY Not Delegated - Muscle Relaxants Protocol Failed - 02/07/2023 9:15 AM Failed - This refill cannot be delegated Passed - Visit with relevant provider in past 12 months or upcoming 90 days Recent Visits Date Type Provider Dept 10/02/22 Office Visit Srini Arevalo MD [facility] [place] 07/10/22 Office Visit Bin Mccain APRN, TRANSPORTATION MANAGER [facility] Showing recent visits within past 365 days and meeting all other requirements Future Appointments Date Type Provider Dept 02/08/23 Appointment Srini Arevalo MD [facility] [place] Showing future appointments within next 90 days and meeting all other requirements Passed - ALT less than 90 and AST less than 55 on record in past 12 months SGOT (AST) Date Value Ref Range Status 10/02/2022 14 <=32 U/L Final SGPT (ALT) Date Value Ref Range Status 10/02/2022 15 <=41 U/L Final documented in this encounter Plan of Treatment Upcoming Encounters Date Type Department Care Team (Late st Contact Info) Description 08/26/2024 2:45 PM CDT Office Visit [facility] - Family Medicine - [place] [address] [place] [address] Bin Mccain APRN, TRANSPORTATION MANAGER #2 [facility] [address] [place] [address] 10/06/2024 1:30 PM CDT Office Visit [facility] - Family Medicine - [place] [address] [facility] [place] [address] Bin Mccain APRN, TRANSPORTATION MANAGER #2 [facility] [address] [place] [address] documented as of this encounter Goals Goal Patient Goal Type Associated Problems Recent Progress Patient-Stated? Author My father in July. I think it would help to talk to someone. I want to learn how to live without him. Behavioral Health On track( 024 2:38 PM HYDRAULIC BOOM OPERATOR) Yes Maria Isabel Hickey LCSW Note: Goal/Objective: Improve coping and decrease symptoms of grief related to her father's . Anticipated Time Frame for Goal Completion: 6 months Goal Reviewed with: patient Readiness to change: Ready to change Department associated with goal: [facility] Steps to achieve [...] 19 05/02/2023 05/02/2023 05/12/2023 12:1 6 AM HYDRAULIC BOOM OPERATOR Assessment Noted Time PHQ-9 Depression Total Score: 0 09/07/19 22 12:46 PM CDT documented as of this encounter Care Teams Milking Machine Mechanic Relationship Specialty Start Date End Date Srini Arevalo MD PCP - General Family Medicine 11/14/18 04/06/24 Bin Mccain, HOSPITALIST, TRANSPORTATION MANAGER #[address] [address] PCP - General Advanced Practice Nurse 04/07/24 Julio Alvarado MD Consulting Physician Obstetrics & Gynecology 03/10/19 documented as of this encounter
--- OUTSIDE RECORDS SUMMARY | 2024-06-30 14:14 | XMS_ITS | Clinical Summary ---
Author Organization [facility] Address [address] [place] [address] Care Team Providers Care Belt Worker Name Role Phone Srini Arevalo MD Primary Care Provider [phone] Source Comments [facility],non-owned Affiliates and Associated Physician Practices is amultiple site organization consisting of ambulatory clinics and hospital sitesin [place], [place], [place] and [place]. This disclosure is being madepursuant to the Care Everywhere program and may not contain all information available regarding this patient. Last updated 18.[facility] Allergies No known active allergies Medications * Be aware that medications may not be up to date on this document. Alwaysverify current medications with the patient. Medication Sig Dispensed Refills Start Date End Date Status omeprazole EC (PRILOSEC OTC) 20 MG tablet Active Vitamin D3, cholecalciferol, 50 MCG (1999 UT) tablet Take by mouth once daily Active citalopram (CELEXA) 10 MG tablet Take 10 mg by mouth once daily 03/10/2019 Active hydroCHLOROthiazide (MICROZIDE) 12.5 MG capsule 04/13/2019 Active indomethacin (INDOCIN) 50 MG capsule TAKE ONE CAPSULE BY MOUTH THREE TIMES DAILY 04/13/2019 Active traMADol (ULTRAM) 50 MG tablet Take 50 mg by mouth 03/10/2019 Active Active Problems No known active problems Social [...] (325 lb 4.8 oz) 05/11/2019 8:44 AM BUILDING SERVICES COORDINATOR Height 172.7 cm (5' 8 ) 04/21/2019 9:33 AM BUILDING SERVICES COORDINATOR Body Mass Index 49.46 04/21/2019 9:33 AM BUILDING SERVICES COORDINATOR Plan of Treatment Health Maintenance Due Date Last Done Comments LIPID TESTING 1979 PAP SMEAR 1979 HIV SCREENING 10/13/1994 HEPATITIS C SCREENING 10/09/1997 DTAP/TDAP/TD VACCINES (1 - Tdap) 10/13/1998 HEPATITIS B VACCINE (1 of 3 - 19+ 3-dose series) 10/13/1998 MAMMOGRAM 12/08/2020 12/08/2018 COVID-19 VACCINE ( - 2023-2 5 season) 2024 INFLUENZA VACCINE (#1) 2024 05/06/2019 DEPRESSION SCREENING 05/27/2024 ZOSTER VACCINE (1 of 2) 10/13/2029 HIB VACCINE Aged Out No longer eligi ble based on patient's age to complete this topic HPV VACCINE Aged Out No longer eligi ble based on patient's age to complete this topic MENINGOCOCCAL (Group B) VACCINE Aged Out No longer eligible based on patient's age to complete this topic MENINGOCOCCAL VACCINE Aged Out No rachel igor eligible based on patient's age to complete this topic PNEUMOCOCCAL VACCINE Aged Out No long er eligible based on patient's age to complete this topic Care Teams Belt Worker Relationship Specialty Start Date End Date Srini Arevalo MD PCP - General 04/21/19
--- OUTSIDE RECORDS SUMMARY | 2024-06-30 14:14 | XMS_ITS | Encounter Summary ---
Author Organization [facility] Address [address] 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 Requested Prescriptions Pending Prescriptions Disp Refills topiramate (TOPAMAX) 100 MG Tablet [Pharmacy Med Name: TOPIRAMATE 100 MG TAB 100 Tablet] 60 Tablet 2 Sig: TAKE ONE TABLET BY MOUTH TWO TIMES A DAY (TAKE EACH DOSE WITH 1 50MG TABLET TO EQUAL 150MG) [facility]: Anticonvulsants Passed - 10/11/2020 8:50 AM Passed - Valid encounter within last 12 months Past Office Visits Recent Outpatient Visits 7 months ago Recurrent pain of right knee [facility] - Cheryle Bailon PAC 9 months ago Class 3 severe obesity due to excess calories with serious comorbidity and body mass index (BMI) of 50.0 to 59.9 in adult ([facility]) [facility] Srini Stevens MD 1 year ago Low back pain, unspecified back pain laterality, unspecified chronicity, unspecified whether sciatica present [facility] - Srini Miller MD 1 year ago Annual visit for general adult medical examination with abnormal findings [facility] Srini Stevens MD Upcoming Appointments [employer] SALES REPRESENTATIVE - Recent and Past Visits Recent Visits Date Type Provider Dept 02/18/20 Office Visit Cheryle Munguia PAC [facility] 12/21/19 Office Visit Srini Arevalo MD [facility] Showing recent visits within past 460 days with a meds authorizing provider and meeting all other requirements Future Appointments No visits were found meeting these conditions. Showing future appointments within next 90 days with a meds authorizing provider and meeting all other requirements Topiramate 50 MG Tablet [Pharmacy Med Name: TOPIRAMATE 50 MG TAB 50 Tablet] 60 Tablet 2 Sig: TAKE ONE TABLET BY MOUTH TWO TIMES A DAY (TAKE EACH DOSE WITH 1 100MG TABLET TO EQUAL 150MG) [facility]: Anticonvulsants Passed - 10/11/2020 8:50 AM Passed - Valid encounter within last 12 months Past Office Visits Recent Outpatient Visits 7 months ago Recurrent pain of right knee [facility] [place], KEL[place] 9 months ago Class 3 severe obesity due to excess calories with serious comorbidity and body mass index (BMI) of 50.0 to 59.9 in adult ([facility]) [facility] Srini Stevens MD 1 year ago Low back pain, unspecified back pain laterality, unspecified chronicity, unspecified whether sciatica present [facility] Srini Stevens MD 1 year ago Annual visit for general adult medical examination with abnormal findings [facility] Srini Stevens MD Upcoming Appointments [employer] SALES REPRESENTATIVE - Recent and Past Visits Recent Visits Date Type Provider Dept 02/18/20 Office Visit Cheryle Munguia, KELIN [facility] 12/21/19 Office Visit Srini Arevalo MD [facility] Showing recent visits within past 460 days with a meds authorizing provider and meeting all other requirements Future Appointments No visits were found meeting these conditions. Showing future appointments within next 90 days with a meds authorizing provider and meeting all other requirements documented in this encounter Plan of Treatment Upcoming Encounters Date Type Department Care Team (Late st Contact Info) Description 08/26/2024 2:45 PM CDT Office Visit [facility] [place] [address] Bin Mccain APRN, MARITIME ENGINEER #[address] [address] 10/06/2024 1:30 PM CDT Office Visit [facility] [address] [place] [address] Bin Mccain APRN, MARITIME ENGINEER #[address] [address] documented as of this encounter Visit Diagnoses Diagnosis Migraine without status migrainosus, not intractable, unspecified migraine type documented in this encounter Additional Health Concerns Infection Onset Date Last Indicated Resolved Time COVID - 19 Confirmed 02/14/2022 02/14/2022 022 12:17 AM CDT COVID - 19 05/02/2023 05/02/2023 05/12/2023 12:1 6 AM SUPERVISOR PASTE PLANT Assessment Noted Time PHQ-9 Depression Total Score: 0 03/10/20 3:00 PM CDT documented as of this encounter Care Teams Cutting Torch Operator Relationship Specialty Start Date End Date Srini Arevalo MD PCP - General Family Medicine 11/14/18 04/06/24 Bin Mccain, MANUAL ARTS TEACHER, MARITIME ENGINEER #[address] [address] PCP - General Advanced Practice Nurse 04/07/24 Julio Alvarado MD Consulting Physician Obstetrics & Gynecology 03/10/19 documented as of this encounter
--- OUTSIDE RECORDS SUMMARY | 2024-06-30 14:14 | XMS_ITS | Encounter Summary ---
Author Organization [facility] Address [address] 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 Requested Prescriptions Pending Prescriptions Disp Refills amitriptyline (ELAVIL) 100 MG Tablet [Pharmacy Med Name: AMITRIPTYLINE HCL 100 MG TA 100 Tablet] 30Tablet 2 Sig: TAKE ONE TABLET BY MOUTH AT BEDTIME Not Delegated - Tricyclic Agents Protocol Failed - 06/08/2021 8:42 AM Failed - This refill cannot be delegated Passed - Visit with relevant provider in past 12 months or upcoming 90 days Recent Visits Date Type Provider Dept 03/08/21 Office Visit Beena Graf APRN, [facility] Showing recent visits within past 365 days and meeting all other requirements Future Appointments No visits were found meeting these conditions. Showing future appointments within next 90 days and meeting all other requirements meloxicam (MOBIC) 15 MG Tablet [Pharmacy Med Name: MELOXICAM 15 MG TAB 15 Tablet] 30 Tablet 2 Sig: TAKE ONE TABLET BY MOUTH ONE TIME DAILY NSAIDs Protocol Failed - 06/08/2021 8:42 AM Failed - Normal serum creatinine in past 12 months CREATININE, BLOOD Date Value Ref Range Status 02/18/2020 0.91 0.60 - 1.10 mg/dL Final Failed - AST less than 55 or ALT less than 90 in past 12 months SGOT (AST) Date Value Ref Range Status 02/18/2020 14 <=32 U/L Final SGPT (ALT) Date Value Ref Range Status 02/18/2020 16 <=33 U/L Final Failed - HGB greater than 10 or HCT greater than 30 in past 12 months HEMOGLOBIN (HGB) Date Value Ref Range Status 02/18/2020 14.1 12.0 - 15.8 g/dL Final HEMATOCRIT (HCT) Date Value Ref Range Status 02/18/2020 45.3 36.0 - 47.0 % Final Passed - No positive test in the past 12 months or most recent test was negative Passed - Visit with relevant provider in past 12 months or upcoming 90 days Recent Visits Date Type Provider Dept 03/08/21 Office Visit Beena Graf APRN, [facility] Showing recent visits within past 365 days and meeting all other requirements Future Appointments No visits were found meeting these conditions. Showing future appointments within next 90 days and meeting all other requirements Passed - No active on record Passed - No matching NSAID med order in past 45 days No matching medication orders between 04/24/2021 3:51 PM and 06/08/2021 3:51 PM tiZANidine (ZANAFLEX) 2 MG Tablet [Pharmacy Med Name: TIZANIDINE HCL 2 MG TABS 2 Tablet] 90 Tablet 2 Sig: TAKE 1 TABLET BY MOUTH THREE TIMES A DAY NEEDED. Not Delegated - Muscle Relaxants Protocol Failed - 06/08/2021 8:42 AM Failed - This refill cannot be delegated Failed - ALT less than 90 and AST less than 55 on record in past 12 months SGOT (AST) Date Value Ref Range Status 02/18/2020 14 <=32 U/L Final SGPT (ALT) Date Value Ref Range Status 02/18/2020 16 <=33 U/L Final Passed - Visit with relevant provider in past 12 months or upcoming 90 days Recent Visits Date Type Provider Dept 03/08/21 Office Visit Beena Graf APRN, TANK CAR INSPECTOR [facility] Showing recent visits within past 365 days and meeting all other requirements Future Appointments No visits were found meeting these conditions. Showing future appointments within next 90 days and meeting all other requirements VIORAL SERVICES TECH documented in this encounter Plan of Treatment Upcoming Encounters Date Type Department Care Team (Late st Contact Info) Description 08/26/2024 2:45 PM CDT Office Visit [facility] [address] [place] [address] Bin Mccain APRN, TANK CAR INSPECTOR #[address] [address] 10/06/2024 1:30 PM CDT Office Visit [facility] [address] [place] [address] Bin Mccain APRN, TANK CAR INSPECTOR #[address] [address] documented as of this encounter Visit Diagnoses Not on filedocumented in this encounter Additional Health Concerns Infection Onset Date Last Indicated Resolved Time COVID - 19 Confirmed 02/14/2022 02/14/2022 022 12:17 AM CDT COVID - 19 05/02/2023 05/02/2023 05/12/2023 12:1 6 AM BEHAVIORAL SERVICES TECH Assessment Noted Time PHQ-9 Depression Total Score: 0 03/08/20 12:34 PM CDT documented as of this encounter Care Teams Wash House Supervisor Relationship Specialty Start Date End Date Srini Arevalo MD PCP - General Family Medicine 11/14/18 04/06/24 Bin Mccain, COLLEGE SCOUTING COORDINATOR, TANK CAR INSPECTOR [address] [place] [address] [address] PCP - General Advanced Practice Nurse 04/07/24 Julio Alvarado MD Consulting Physician Obstetrics & Gynecology 03/10/19 documented as of this encounter
--- OUTSIDE RECORDS SUMMARY | 2024-06-30 14:14 | XMS_ITS | Encounter Summary ---
Author Organization [facility] Address [address] 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 Is to be seen Q 4 months due to being on the tramadol. [facility] policy and I willget in trouble if she does not do this. * Telephone Encounter - Minerva Alford RN - 08/24/2020 8:51 AM CDT Medication failed the protocol, provider to review and approve the medication order if appropriate.Last OV 02/18/20, last UDS 12/21/19, PDMP reviewed. Requested Prescriptions Pending Prescriptions Disp Refills traMADol (ULTRAM) 50 MG Tablet [Pharmacy Med Name: TRAMADOL HCL 50 MG TAB 50 Tablet] 45 Tablet 0 Sig: Take 1 tablet by mouth every 6 hours as needed for moderate to severe pain. Not Delegated - Analgesics: Opioid Agonists Failed - 08/24/2020 8:51 AM Failed - Valid encounter within last 6 months Past Office Visits Recent Outpatient Visits 6 months ago Recurrent pain of right knee [facility] - [facility]enna[facility]heryle Dominique PAC 8 months ago Class 3 severe obesity due to excess calories with serious comorbidity and body mass index (BMI) of 50.0 to 59.9 in adult ([facility]) [facility] Srini Stevens MD 1 year ago Low back pain, unspecified back pain laterality, unspecified chronicity, unspecified whether sciatica present [facility] - Srini Miller MD 1 year ago Annual visit for general adult medical examination with abnormal findings [facility] Srini Stevens MD Upcoming Appointments HEALTH SCIENCE WRITER - Recent and Past Visits Recent Visits Date Type Provider Dept 02/18/20 Office Visit Cheryle Munguia, KELIN [facility] 12/21/19 Office Visit Srini Arevalo MD [facility] Showing recent visits within past 460 days with a meds authorizing provider and meeting all other requirements Future Appointments No visits were found meeting these conditions. Showing future appointments within next 90 days with a meds authorizing provider and meeting all other requirements Failed - This refill cannot be delegated documented in this encounter Plan of Treatment Upcoming Encounters Date Type Department Care Team (Late st Contact Info) Description 08/26/2024 2:45 PM CDT Office Visit [facility] [place] [address] [place] [address] Bin Mccain APRN, FIBROUS PLASTERER #[address] [address] 10/06/2024 1:30 PM CDT Office Visit [facility] [place] [address] [facility] [address] Bin Mccain APRN, FIBROUS PLASTERER #[address] [address] documented as of this encounter Visit Diagnoses Diagnosis Low back pain, unspecified back pain laterality, unspecified chronicity, unspecified whether sciatica present Closed fracture of coccyx, sequela documented in this encounter Additional Health Concerns Infection Onset Date Last Indicated Resolved Time COVID - 19 Confirmed 02/14/2022 02/14/2022 022 12:17 AM CDT COVID - 19 05/02/2023 05/02/2023 05/12/2023 12:1 6 AM THREAD SPOOLER Assessment Noted Time PHQ-9 Depression Total Score: 0 03/10/20 19 3:00 PM CDT documented as of this encounter Care Teams Civil Manager Relationship Specialty Start Date End Date Srini Arevalo MD PCP - General Family Medicine 11/14/18 04/06/24 Bin Mccain APRN, GERMAN #[address] [address] PCP - General Advanced Practice Nurse 04/07/24 Julio Alvarado MD Consulting Physician Obstetrics & Gynecology 03/10/19 documented as of this encounter
--- OUTSIDE RECORDS SUMMARY | 2024-06-30 14:14 | XMS_ITS | Encounter Summary ---
Author Organization [facility] Address [address] 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 No / Unsure 03/14/2023 2:16 PM CDT documented as of this encounter Miscellaneous Notes * Telephone Encounter - Luz Elena Isaac RN - 03/11/2023 9:31 AM CDT Dispensed Days Supply Quantity Provider Pharmacy TIZANIDINE 2MG TAB 03/08/2023 30 90 Tablet Srini Arevalo MD [facility]... Already dispensed to patient 03/08/23 documented in this encounter Plan of Treatment Upcoming Encounters Date Type Department Care Team (Late st Contact Info) Description 08/26/2024 2:45 PM CDT Office Visit [facility] [place] [address] [place] [address] Bin Mccain APRN, ADJUSTER LEADER #[address] [address] 10/06/2024 1:30 PM CDT Office Visit [facility] [place] [address] [place] [address] Bin Mccain APRN, ADJUSTER LEADER #[address] [address] documented as of this encounter Goals Goal Patient Goal Type Associated Problems Recent Progress Patient-Stated? Author My father in July. I think it would help to talk to someone. I want to learn how to live without him. Behavioral Health On track( 024 2:38 PM ACCOUNTS PAYABLE ADMINISTRATOR) Yes Varble, Maria Isabel A, DONOR SERVICES TECHNICIAN Note: Goal/Objective: Improve coping and decrease symptoms of grief related to her father's . Anticipated Time Frame for Goal Completion: 6 months Goal Reviewed with: patient Readiness to change: Ready to change Department associated with goal: [facility] Steps to achieve [...] 19 05/02/2023 05/02/2023 05/12/2023 12:1 6 AM ACCOUNTS PAYABLE ADMINISTRATOR Assessment Noted Time PHQ-9 Depression Total Score: 0 09/07/19 22 12:46 PM CDT documented as of this encounter Care Teams Foil Cutter Relationship Specialty Start Date End Date Srini Arevalo MD PCP - General Family Medicine 11/14/18 04/06/24 Bin Mccain APRN, ADJUSTER LEADER [address] [place] [address] PCP - General Advanced Practice Nurse 04/07/24 Julio Alvarado MD Consulting Physician Obstetrics & Gynecology 03/10/19 documented as of this encounter
--- OUTSIDE RECORDS SUMMARY | 2024-06-30 14:14 | XMS_ITS | Encounter Summary ---
Author Organization [facility] Address [address] 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 Requested Prescriptions Pending Prescriptions Disp Refills traMADol (ULTRAM) 50 MG Tablet [Pharmacy Med Name: TRAMADOL HCL 50 MG TAB 50 Tablet] 45 Tablet Sig: TAKE 1 TABLET BY MOUTH EVERY 6 HOURS NEEDED FOR MODERATE TO SEVERE PAIN. [facility] Not Delegated - Analgesics: Opioid Agonists Failed - 12/14/2020 3:05 PM Failed - Valid encounter within last 6 months Past Office Visits Recent Outpatient Visits 10 months ago Recurrent pain of right knee [facility] - Cheryle Bailon PAC 11 months ago Class 3 severe obesity due to excess calories with serious comorbidity and body mass index (BMI) of 50.0 to 59.9 in adult ([facility]) [facility] Srini Stevens MD 1 year ago Low back pain, unspecified back pain laterality, unspecified chronicity, unspecified whether sciatica present [facility] Srini Stevens MD 2 years ago Annual visit for general adult medical examination with abnormal findings [facility] Srini Stevens MD Upcoming Appointments ADULT MANAGER - Recent and Past Visits Recent Visits Date Type Provider Dept 02/18/20 Office Visit Cheryle Munguia PAC [facility] 12/21/19 Office Visit Srini Arevalo MD [facility] Showing recent visits within past 460 days [...] Description 08/26/2024 2:45 PM CDT Office Visit [facility] [address] [place] [address] Bin Mccain APRN, STAFF ANTISUBMARINE OFFICER #[address] [address] 10/06/2024 1:30 PM CDT Office Visit [facility] [place] [address] [place] [address] Bin Mccain APRN, STAFF ANTISUBMARINE OFFICER #[address] [address] documented as of this encounter Visit Diagnoses Diagnosis Low back pain, unspecified back pain laterality, unspecified chronicity, unspecified whether sciatica present Closed fracture of coccyx, sequela documented in this encounter Additional Health Concerns Infection Onset Date Last Indicated Resolved Time COVID - 19 Confirmed 02/14/2022 02/14/2022 022 12:17 AM CDT COVID - 19 05/02/2023 05/02/2023 05/12/2023 12:[address] PROJECT MANAGER Assessment Noted Time PHQ-9 Depression Total Score: 0 03/10/20 3:00 PM CDT documented as of this encounter Care Teams Power Saw Mechanic Relationship Specialty Start Date End Date Srini Arevalo MD PCP - General Family Medicine 11/14/18 04/06/24 Bin Mccain APRN, STAFF ANTISUBMARINE OFFICER #[address] [address] PCP - General Advanced Practice Nurse 04/07/24 Julio Alvarado MD Consulting Physician Obstetrics & Gynecology 03/10/19 documented as of this encounter
--- OUTSIDE RECORDS SUMMARY | 2024-06-30 14:14 | XMS_ITS | Referral Summary ---
Author Organization [email or web address] Address [address] [place] [address] Care Team Providers Care Wool Washing Machine Operator Name Role Phone Srini Arevalo MD Primary Care Provider [phone] Source Comments [email or web address],non-owned Affiliates and Associated Physician Practices is amultiple site organization consisting of ambulatory clinics and hospital sitesin [place], [place], [place] and [place]. This disclosure is being madepursuant to the Care Everywhere program and may not contain all information available regarding this patient. Last updated 18.[email or web address] Allergies No known active allergies Medications * [...] (325 lb 4.8 oz) 05/11/2019 8:44 AM AGRICULTURAL EDUCATION TEACHER Height 172.7 cm (5' 8 ) 04/21/2019 9:33 AM AGRICULTURAL EDUCATION TEACHER Body Mass Index 49.46 04/21/2019 9:33 AM AGRICULTURAL EDUCATION TEACHER Plan of Treatment Not on file Care Teams Wool Washing Machine Operator Relationship Specialty Start Date End Date Srini Arevalo MD PCP - General 04/21/19
--- OUTSIDE RECORDS SUMMARY | 2024-06-30 14:14 | XMS_ITS | Encounter Summary ---
Author Organization [facility] Address [address] 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 Not on file Not on file documented as of this encounter Plan of Treatment Upcoming Encounters Date Type Department Care Team (Late st Contact Info) Description 08/26/2024 2:45 PM CDT Office Visit [facility] [place] [address] [place] [address] Bin Mccain APRN, AIRCRAFT SERVICER #[address] [address] 10/06/2024 1:30 PM CDT Office Visit [facility] [address] [place] [address] Bin Mccain APRN, AIRCRAFT SERVICER #[address] [address] documented as of this encounter Goals Goal Patient Goal Type Associated Problems Recent Progress Patient-Stated? Author My father in July. I think it would help to talk to someone. I want to learn how to live without him. Behavioral Health On track( 024 2:38 PM TAPPER SHANK) Yes Maria Isabel Hickey, DOG OBEDIENCE INSTRUCTOR Note: Goal/Objective: Improve coping and decrease symptoms of grief related to her father's . Anticipated Time Frame for Goal Completion: 6 months Goal Reviewed with: patient Readiness to change: Ready to change Department associated with goal: [facility] Steps to achieve goal: [...] documented as of this encounter Care Teams Messenger Copy Relationship Specialty Start Date End Date Srini Arevalo MD PCP - General Family Medicine 11/14/18 04/06/24 Bin Mccain APRN, AIRCRAFT SERVICER #[address] [address] PCP - General Advanced Practice Nurse 04/07/24 Julio Alvarado MD Consulting Physician Obstetrics & Gynecology 03/10/19 documented as of this encounter
--- OUTSIDE RECORDS SUMMARY | 2024-06-30 14:14 | XMS_ITS | Encounter Summary ---
Author Organization [facility] Address [address] 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 No / Unsure 03/08/2021 12:20 PM CDT documented as of this encounter Miscellaneous Notes * Telephone Encounter - Deidra Gibbons RN - 03/10/2021 3:54 PM CDT New Rx's for you - last prescribed by Champ Mckeon MD - ortho? Medication failed the protocol, provider to review and approve the medication order if appropriate. Requested Prescriptions Pending Prescriptions Disp Refills meloxicam (MOBIC) 15 MG Tablet [Pharmacy Med Name: MELOXICAM 15 MG TAB 15 Tablet] 30 Tablet 2 Sig: TAKE ONE TABLET BY MOUTH ONE TIME DAILY NSAIDs Protocol Failed - 03/10/2021 3:54 PM Failed - Normal serum creatinine in past 12 months CREATININE, BLOOD Date Value Ref Range Status 02/18/2020 0.91 0.60 - 1.10 mg/dL Final Failed - No matching NSAID med order in past 45 days Matching medication order placed on 03/08/2021 12:44 PM Order [id number]: meloxicam (Mobic) 15 MG Tablet (For orders placed between 01/24/2021 3:54 PM and 03/10/2021 3:54 PM) Failed - AST less than 55 or [...] Type Provider Dept 03/08/21 Office Visit Beena Graf, GIRLS TENNIS COACH, DIRECTOR OF OPERATIONS FOR THERAPY [facility] Showing recent visits within past 365 days and meeting all other requirements Future Appointments No visits were found meeting these conditions. Showing future appointments within next 90 days and meeting all other requirements Passed - No active on record tiZANidine (ZANAFLEX) 2 MG Tablet [Pharmacy Med Name: TIZANIDINE HCL 2 MG TAB 2 Tablet] 90 Tablet 2 Sig: TAKE 1 TABLET BY MOUTH THREE TIMES A DAY NEEDED. Not Delegated - Muscle Relaxants Protocol Failed - 03/10/2021 3:54 PM Failed - This refill cannot be [...] Date Type Provider Dept 03/08/21 Office Visit [facility]ena Graf AP[facility] Show[facility] recent visits within past 365 days and meeting all other requirements Future Appointments No visits were found meeting these conditions. Showing future appointments within next 90 days and meeting all other requirements amitriptyline (ELAVIL) 100 MG Tablet [Pharmacy Med Name: AMITRIPTYLINE HCL 100 MG TA 100 Tablet] 30 Tablet 2 Sig: TAKE ONE TABLET BY MOUTH AT BEDTIME [facility] Not Delegated - Psychiatry: Antidepressants - Heterocyclics (TCAs) Failed - 03/10/2021 3:54 PM Failed - This refill cannot be delegated Passed - Valid encounter within last 12 months Past Office Visits Recent Outpatient Visits 2 days ago [facility] 1 year ago Recurrent pain of right knee [facility] - Cheryle Bailon PAC 1 year ago Class 3 severe obesity due to excess calories with serious comorbidity and body mass index (BMI) of50.0 to 59.9 in adult ([facility]) [facility] Srini Stevens MD 2 years ago Low back pain, unspecified back pain laterality, unspecified chronicity, unspecified whether sciatica present [facility] Srini Stevens MD 2 years ago Annual visit for general adult medical examination with abnormal findings [facility] Srini Arevalo MD Upcoming Appointments Future Appointments In 2 weeks Lab, [facility] PHYSICIAN [facility], [facility] CASH APPLICATIONS SPECIALIST - Recent and Past Visits Recent Visits Date Type Provider Dept 03/08/21 Office Visit Beena Graf APN, DIRECTOR OF OPERATIONS FOR THERAPY [facility] 02/18/20 Office Visit [facility]unguia PAC [facility] 12/21/19 Office Visit Srini Arevalo MD [facility] Showing recent visits within past 460 days with a meds authorizing provider and meeting all other requirements Future Appointments No visits were found meeting these conditions. Showing future appointments within next 90 days with a meds authorizing provider and meeting all other requirements Passed - Last BP in normal range BP Readings from Last 1 Encounters: 03/08/21 128/82 documented in this encounter Plan of Treatment Upcoming Encounters Date Type Department Care Team (Late st Contact Info) Description 08/26/2024 2:45 PM CDT Office Visit [facility] [address] [place] [address] Bin Mccain APRN, DIRECTOR OF OPERATIONS FOR THERAPY #[address] [address] 10/06/2024 1:30 PM CDT Office Visit [facility] [address] [place] [address] Bin Mccain APRN, DIRECTOR OF OPERATIONS FOR THERAPY #[address] [address] documented as of this encounter Visit Diagnoses Not on filedocumented in this encounter Additional Health Concerns Infection Onset Date Last Indicated Resolved Time COVID - 19 Confirmed 02/14/2022 02/14/2022 022 12:17 AM CDT COVID - 19 05/02/2023 05/02/202305/1205/12/2023 12:1 6 AM MECHANICAL STRIPER Assessment Noted Time PHQ-9 Depression Total Score: 0 03/08/20 12:34 PM CDT documented as of this encounter Care Teams Rubberizing Mechanic Relationship Specialty Start Date End Date Srini Arevalo MD PCP - General Family Medicine 11/14/18 04/06/24 Bin Mccain APRN, DIRECTOR OF OPERATIONS FOR THERAPY #[address] [address] PCP - General Advanced Practice Nurse 04/07/24 Julio Alvarado MD Consulting Physician Obstetrics & Gynecology 03/10/19 documented as of this encounter
--- OUTSIDE RECORDS SUMMARY | 2024-06-30 14:14 | XMS_ITS | Encounter Summary ---
Author Organization [facility] Address [address] 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 Requested Prescriptions Pending Prescriptions Disp Refills topiramate (TOPAMAX) 100 MG Tablet [Pharmacy Med Name: TOPIRAMATE 100 MG TAB 100 Tablet] 60 Tablet 2 Sig: TAKE ONE TABLET BY MOUTH TWO TIMES A DAY (TAKE EACH DOSE WITH 1 50MG TABLET TO EQUAL 150MG) [facility]: Anticonvulsants Passed - 01/09/2021 8:28 AM Passed - Valid encounter within last 12 months Past Office Visits Recent Outpatient Visits 10 months ago Recurrent pain of right knee [facility] - Cheryle Bailon PAC 1 year ago Class 3 severe obesity due to excess calories with serious comorbidity and body mass index (BMI) of 50.0 to 59.9 in adult ([facility]) [facility] Srini Stevens MD 1 year ago Low back pain, unspecified back pain laterality, unspecified chronicity, unspecified whether sciatica present [facility] Srini Stevens MD 2 years ago Annual visit for general adult medical examination with abnormal findings [facility] Srini Stevens MD Upcoming Appointments VP OUTCOMES - Recent and Past Visits Recent Visits Date Type Provider Dept 02/18/20 Office Visit Cheryle Munguia PAC [facility] 12/21/19 Office Visit Srini Arevalo MD [facility] Showing recent visits within past 460 days [...] WITH 1 100MG TABLET TO EQUAL 150MG) [facility]: Anticonvulsants Passed - 01/09/2021 8:28 AM Passed - Valid encounter within last 12 months Past Office Visits Recent Outpatient Visits 10 months ago [facility] Lidia[facility] KELIN 1 year ago Class 3 severe obesity due to excess calories with serious comorbidity and body mass index (BMI) of 50.0 to 59.9 in adult ([facility]) [facility] Srini Stevens MD 1 year ago Low back pain, unspecified back pain laterality, unspecified chronicity, unspecified whether sciatica present [facility] Srini Stevens MD 2 years ago Annual visit for general adult medical examination with abnormal findings [facility] Srini Stevens MD Upcoming Appointments VP OUTCOMES - Recent and Past Visits Recent Visits Date Type Provider Dept 02/18/20 Office Visit Cheryle Munguia PAC [facility] 12/21/19 Office Visit Srini Arevalo MD [facility] Showing recent visits within past 460 days [...] PM CDT Office Visit [facility] [address] [place] [address] Bin Mccain APRN, GAS COMPRESSOR TURBINE OPERATOR #[address] [address] 10/06/2024 1:30 PM CDT Office Visit [facility] [address] [place] [address] Bin Mccain APRN, GAS COMPRESSOR TURBINE OPERATOR #[address] [address] documented as of this encounter Visit Diagnoses Diagnosis Migraine without status migrainosus, not intractable, unspecified migraine type documented in this encounter Additional Health Concerns Infection Onset Date Last Indicated Resolved Time COVID - 19 Confirmed 02/14/2022 02/14/2022 022 12:17 AM CDT COVID - 19 05/02/2023 05/02/2023 05/12/2023 12:1 6 AM CLEANING AND WASHING EQUIPMENT OPERATOR Assessment Noted Time PHQ-9 Depression Total Score: 0 03/10/20 19 3:00 PM CDT documented as of this encounter Care Teams Waistline Joiner Relationship Specialty Start Date End Date Srini Arevalo MD PCP - General Family Medicine 11/14/18 04/06/24 Bin Mccain APRN, GAS COMPRESSOR TURBINE OPERATOR #[address] [address] PCP - General Advanced Practice Nurse 04/07/24 Julio Alvarado MD Consulting Physician Obstetrics & Gynecology 03/10/19 documented as of this encounter
--- OUTSIDE RECORDS SUMMARY | 2024-06-30 14:14 | XMS_ITS | Encounter Summary ---
Author Organization [facility] Address [address] 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 Requested Prescriptions Pending Prescriptions Disp Refills hydroCHLOROthiazide 12.5 MG Tablet [Pharmacy Med Name: HCTZ 12.5MG TAB 12.5 Tablet] 90 Tablet 1 Sig: TAKE ONE TABLET BY MOUTH EVERY DAY Diuretics Protocol Failed - 06/02/2021 8:36 AM Failed - Serum potassium on record in past 12 months POTASSIUM Date Value Ref Range Status 02/18/2020 3.8 3.5 - 5.1 mmol/L Final Failed - Serum sodium on record in past 12 months SODIUM Date Value Ref Range Status 02/18/2020 138 136 - 144 mmol/L Final Failed - GFR on record in past 12 months GFR, EST. NONAFRICAN Date Value Ref Range Status 02/18/2020 >60 >=60 Final Passed - Blood pressure on record in past 12 months Clinician-entered: BP Readings from Last 3 Encounters: 03/08/21 128/82 03/03/21 115/68 02/18/20 126/86 Patient-entered: No data recorded Passed - Visit with relevant provider in past 12 months or upcoming 90 days Recent Visits Date Type Provider Dept 03/08/21 Office Visit Beena Graf APRN, CDC ASSOCIATE [facility] Showing recent visits within past 365 days and meeting all other requirements Future Appointments No visits were found meeting these conditions. Showing future appointments within next 90 days and meeting all other requirements ETING SENIOR RECRUITER documented in this encounter Plan of Treatment Upcoming Encounters Date Type Department Care Team (Late st Contact Info) Description 08/26/2024 2:45 PM CDT [facility] [place] [address] Bin Mccain APRN, CDC ASSOCIATE [address] [place] [address] [address] 10/06/2024 1:30 PM CDT [facility] [place] [facility] [place] [address] Bin Mccain APRN, CDC ASSOCIATE #[address] [address] documented as of this encounter Visit Diagnoses Not on filedocumented in this encounter Additional Health Concerns Infection Onset Date Last Indicated Resolved Time COVID - 19 Confirmed 02/14/2022 02/14/2022 022 12:17 AM CDT COVID - 19 05/02/2023 05/02/2023 05/12/2023 12:1 6 AM MARKETING SENIOR RECRUITER Assessment Noted Time PHQ-9 Depression Total Score: 0 03/08/20 12:34 PM CDT documented as of this encounter Care Teams Pie Bottomer Relationship Specialty Start Date End Date Srini Arevalo MD PCP - General Family Medicine 11/14/18 04/06/24 Bin Mccain APRN, CDC ASSOCIATE #[address] [address] PCP - General Advanced Practice Nurse 04/07/24 Julio Alvarado MD Consulting Physician Obstetrics & Gynecology 03/10/19 documented as of this encounter
--- OUTSIDE RECORDS SUMMARY | 2024-06-30 14:14 | XMS_ITS | Encounter Summary ---
Author Organization [facility] Address [address] 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 Requested Prescriptions Pending Prescriptions Disp Refills traMADol (ULTRAM) 50 MG Tablet [Pharmacy Med Name: TRAMADOL HYDROCHLORIDE 50MG TABLET] 20 Tablet 0 Sig: TAKE ONE (1) TABLET BY MOUTH EVERY SIX (6) HOURS NEEDED FOR MODERATE OR MORE SEVERE PAIN. Not Delegated - Opioid Agonists Protocol Failed - 08/29/2023 9:01 AM Failed - This refill cannot be delegated Passed - Visit with relevant provider in past 12 months or upcoming 90 days Recent Visits Date Type Provider Dept 03/08/23 Procedure Visit Srini Arevalo MD [facility] 02/08/23 Office Visit Srini Arevalo MD [facility] 10/02/22 [facility] Show[facility] recent visits within past 365 days and meeting all other requirements Future Appointments No visits were found meeting these conditions. Showing future appointments within next 90 days and meeting all other requirements documented in this encounter Plan of Treatment Upcoming Encounters Date Type Department Care Team (Late st Contact Info) Description 08/26/2024 2:45 PM CDT Office Visit [facility] [address] [place] [address] Bin Mccain APRN, DIRECTOR INTERNAL AUDIT [id number] [address] 10/06/2024 1:30 PM CDT Office Visit [facility] [address] [place] [address] Bin Mccain APRN, DIRECTOR INTERNAL AUDIT [address]2 [facility] [place] [address] documented as of this encounter Goals Goal Patient Goal Type Associated Problems Recent Progress Patient-Stated? Author My father in July. I think it would help to talk to someone. I want to learn how to live without him. Behavioral Health On track( 024 2:38 PM COTTON PULLER) Yes Maria Isabel Hickey LCSW Note: Goal/Objective: Improve coping and decrease symptoms of grief related to her father's . Anticipated Time Frame for Goal Completion: 6 months Goal Reviewed with: patient Readiness to change: Ready to change Department associated with goal: [facility] Steps to achieve [...] documented as of this encounter Care Teams Oceanic Sciences Professor Relationship Specialty Start Date End Date Srini Arevalo MD PCP - General Family Medicine 11/14/18 04/06/24 Bin Mccain APRN, DIRECTOR INTERNAL AUDIT [address] [facility] [place] [address] PCP - General Advanced Practice Nurse 04/07/24 Julio Alvarado MD Consulting Physician Obstetrics & Gynecology 03/10/19 documented as of this encounter
--- OUTSIDE RECORDS SUMMARY | 2024-06-30 14:14 | XMS_ITS | Encounter Summary ---
Author Organization [facility] Address [address] 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 Requested Prescriptions Pending Prescriptions Disp Refills citalopram (CeleXA) 20 MG Tablet [Pharmacy Med Name: CITALOPRAM HBR 20 MG TABLET 20 Tablet] 90 Tablet 1 Sig: TAKE ONE TABLET BY MOUTH EVERY DAY Citalopram (Celexa) (6 Month Refill Only) Protocol Failed - 12/23/2020 1:42 PM Failed - Visit with relevant provider in past 6 months or upcoming 90 days Recent Visits No visits were found meeting these conditions. Showing recent visits within past 182 days and meeting all other requirements Future Appointments No visits were found meeting these conditions. Showing future appointments within next 90 days and meeting all other requirements Failed - Has an encounter in the past 6 months with a depression, anxiety, adjustment disorder, OCD, or PTSD visit diagnosis Passed - No test in the past 12 months or most recent test was negative Passed - No active on record Passed - Citalopram dose is less than or equal to 40mg / day Passed - Patient has established therapy with Citalopram for at least 6 months documented in this encounter Plan of Treatment Upcoming Encounters Date Type Department Care Team (Late st Contact Info) Description 08/26/2024 2:45 PM CDT Office Visit [facility] [address] [place] [address] Bin Mccain APRN, ADVERTISING SPECIALIST #[address] [address] 10/06/2024 1:30 PM CDT Office Visit [facility] [address] [place] [address] Bin Mccain APRN, ADVERTISING SPECIALIST #[address] [address] documented as of this encounter Visit Diagnoses Diagnosis Anxiety Anxiety state, unspecified documented in this encounter Additional Health Concerns Infection Onset Date Last Indicated Resolved Time COVID - 19 Confirmed 02/14/2022 02/14/2022 022 12:17 AM CDT COVID - 19 05/02/2023 05/02/2023 05/12/2023 12:1 6 AM CREW MANAGER Assessment Noted Time PHQ-9 Depression Total Score: 0 03/10/20 3:00 PM CDT documented as of this encounter Care Teams Net Developer With [employer] Relationship Specialty Start Date End Date Srini Arevalo MD PCP - General Family Medicine 11/14/18 04/06/24 Bin Mccain APRN, ADVERTISING SPECIALIST #[address] [address] PCP - General Advanced Practice Nurse 04/07/24 Julio Alvarado MD Consulting Physician Obstetrics & Gynecology 03/10/19 documented as of this encounter
--- OUTSIDE RECORDS SUMMARY | 2024-06-30 14:15 | XMS_ITS | Encounter Summary ---
Author Organization [facility] Address [address] 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 tiZANidine HCl Dispensed Days Supply Quantity Provider Pharmacy TIZANIDINE 2MG TAB 12/16/2023 30 90 Tablet Srini Arevalo MD [facility]... TIZANIDINE 2MG TAB 11/19/2023 30 90 Tablet Srini Arevalo MD [facility]... TIZANIDINE 2MG TAB 10/22/2023 30 90 Tablet Srini Arevalo MD [facility] Bet... documented in this encounter Plan of Treatment Upcoming Encounters Date Type Department Care Team (Late st Contact Info) Description 08/26/2024 2:45 PM CDT Office Visit [facility] [address] [place] [address] Bin Mccain APRN, HOCKEY SCOUT [address] [address] 10/06/2024 1:30 PM CDT Office Visit [facility] [address] [place] [address] Bin Mccain APRN, HOCKEY SCOUT #[address] [address] documented as of this encounter Goals Goal Patient Goal Type Associated Problems Recent Progress Patient-Stated? Author My father in July. I think it would help to talk to someone. I want to learn how to live without him. Behavioral Health On track( 024 2:38 PM CAR BRACER) Yes Maria Isabel Hickey, DIESEL MECHANIC HELPER Note: Goal/Objective: Improve coping and decrease symptoms of grief related to her father's . Anticipated Time Frame for Goal Completion: 6 months Goal Reviewed with: patient Readiness to change: Ready to change Department associated with goal: [facility] Steps to achieve [...] documented as of this encounter Care Teams Cartography Technician Relationship Specialty Start Date End Date Srini Arevalo MD PCP - General Family Medicine 11/14/18 04/06/24 Bin Mccain APRN, HOCKEY SCOUT [address] [address] PCP - General Advanced Practice Nurse 04/07/24 Julio Alvarado MD Consulting Physician Obstetrics & Gynecology 03/10/19 documented as of this encounter
--- OUTSIDE RECORDS SUMMARY | 2024-06-30 14:15 | XMS_ITS | Encounter Summary ---
Author Organization [facility] Address [address] 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 No / Unsure 11/16/2019 1:02 PM CDT documented as of this encounter Miscellaneous Notes * Telephone Encounter - Mica Champion RN - 12/07/2019 12:49 PM CDT Requested Prescriptions Pending Prescriptions Disp Refills citalopram (CELEXA) 20 MG Tablet [Pharmacy Med Name: CITALOPRAM 20MG TABLETS] 90 Tab 0 Sig: Take 1 Tab by mouth daily. APPOINTMENT NEEDED FOR FURTHER REFILLS Not Delegated - Psychiatry: Antidepressants Failed - 12/02/2019 3:49 PM Failed - This refill cannot be delegated Passed - Valid encounter within last 12 months Past Office Visits Recent Outpatient Visits 9 months ago Low back pain, unspecified back pain laterality, unspecified chronicity, unspecified whether sciatica present [facility] Srini Arevalo MD 1 year ago Annual visit for general adult medical examination with abnormal findings [facility] Srini Arevalo MD Upcoming Appointments traMADol (ULTRAM) 50 MG Tablet [Pharmacy Med Name: TRAMADOL 50MG TABLETS] 45 Tab 0 Sig: TAKE 1 TABLET BY MOUTH EVERY 6 HOURS NEEDED FOR PAIN Not Delegated - Analgesics: Opioid Agonists Failed - 12/02/2019 3:49 PM Failed - Valid encounter within last 6 months Past Office Visits Recent Outpatient Visits 9 months ago Low back pain, unspecified back pain laterality, unspecified chronicity, unspecified whether sciatica present [facility] Srini Arevalo MD 1 year ago Annual visit for general adult medical examination with abnormal findings [facility] Srini Arevalo MD Upcoming Appointments Failed - This refill cannot be delegated documented in this encounter Plan of Treatment Upcoming Encounters Date Type Department Care Team (Late st Contact Info) Description 08/26/2024 2:45 PM CDT Office Visit [facility] - [place] [address] [place] [address] Bin Mccain APRN, SUPERVISOR TELEPHONE ANSWERING SERVICE #[address] [address] 10/06/2024 1:30 PM CDT Office Visit [facility] [place] [place] [address] [place] [address] Bin Mccain APRN, SUPERVISOR TELEPHONE ANSWERING SERVICE #[address] [address] documented as of this encounter Visit Diagnoses Diagnosis Low back pain, unspecified back pain laterality, unspecified chronicity, unspecified whether sciatica present Closed fracture of coccyx, sequela documented in this encounter Additional Health Concerns Infection Onset Date Last Indicated Resolved Time COVID - 19 Confirmed 02/14/2022 02/14/2022 022 12:17 AM CDT COVID - 19 05/02/2023 05/02/2023 05/12/2023 12:1 6 AM OPEN HEARTH WORKER Assessment Noted Time PHQ-9 Depression Total Score: 0 03/10/20 3:00 PM CDT documented as of this encounter Care Teams Business Solutions Director Relationship Specialty Start Date End Date Srini Arevalo MD PCP - General Family Medicine 11/14/18 04/06/24 Bin Mccain APRN, SUPERVISOR TELEPHONE ANSWERING SERVICE #[address] [address] PCP - General Advanced Practice Nurse 04/07/24 Julio Alvarado MD Consulting Physician Obstetrics & Gynecology 03/10/19 documented as of this encounter
--- OUTSIDE RECORDS SUMMARY | 2024-06-30 14:15 | XMS_ITS | Encounter Summary ---
Author Organization [facility] Address [address] [place] [address] Phone Care Team Providers Care Foxer Name Role Phone Srini Arevalo MD Primary Care Provider Julio Alvarado MD Unavailable Bin Mccain APRN, SLAB GRINDER Primary Care Pr ovider Reason for Visit * Reason Comments Medication Refill Encounter Details Date Type Department Care Team (Late st Contact Info) Description 01/08/2023 Refill [facility] [address]2 [place] [address] Srini Arevalo MD [address] [place] [address] Medication Refill Social History Tobacco Use Types [...] Industry Job Start Date Job End Date [employer] Not on file Not on file Not on file COVID-19 Exposure Response Date Recorded In the last 10 days, have yo u been in contact with someone who was confirmed or suspected to have Coronavirus/COVID-19? No / Unsure 12/11/2022 11:42 AM CDT documented as of this encounter Miscellaneous Notes * Telephone Encounter - Luz Elena Isaac RN - 01/08/2023 9:07 AM CDT Medication failed the protocol, provider to review and approve the medication order if appropriate. Requested Prescriptions Pending Prescriptions Disp Refills tiZANidine (ZANAFLEX) 2 MG Tablet [Pharmacy Med Name: TIZANIDINE HCL 2MG TABLET] 90 Tablet 0 Sig: TAKE ONE (1) TABLET BY MOUTH THREE (3) TIMES DAILY Not Delegated - Muscle Relaxants Protocol Failed - 01/08/2023 8:46 AM Failed - This refill cannot be delegated Passed - Visit with relevant provider in past 12 months or upcoming 90 days Recent Visits Date Type Provider Dept 10/02/22 Office Visit Srini Arevalo MD [facility] 07/10/22 Office Visit Bin Mccain APRN, CNP [facility] Showing recent visits within past 365 days [...] Delegated - Tricyclic Agents Protocol Failed - 01/08/2023 8:46 AM Failed - This refill cannot be delegated Passed - Visit with relevant provider in past 12 months or upcoming 90 days Recent Visits Date Type Provider Dept 10/02/22 Office Visit Srini Arevalo MD [facility] 07/10/22 Office Visit Bin Mccain APRN, CNP [facility] Showing recent visits within past 365 days and meeting all other requirements Future Appointments No visits were found meeting these conditions. Showing future appointments within next 90 days and meeting all other requirements documented in this encounter Plan of Treatment Upcoming Encounters Date Type Department Care Team (Late st Contact Info) Description 08/26/2024 2:45 PM CDT Office Visit [facility] [place] [address] [place] [address] Bin Mccain APRN, SLAB GRINDER [address] [address] 10/06/2024 1:30 PM CDT Office Visit [facility] [address] [place] [address] Bin Mccain APRN, GERMAN [address] [place] [address] documented as of this encounter Goals Goal Patient Goal Type Associated Problems Recent Progress Patient-Stated? Author My father in July. I think it would help to talk to someone. I want to learn how to live without him. Behavioral Health On track( 024 2:38 PM AUTOMATIC PROFILE SANDER OPERATOR) Yes Maria Isabel Hickey, [employer] SALESPERSON Note: Goal/Objective: Improve coping and decrease symptoms of grief related to her father's . Anticipated Time Frame for Goal Completion: 6 months Goal Reviewed with: patient Readiness to change: Ready to change Department associated with goal: [facility] Steps to achieve goal: [...] 19 05/02/2023 05/02/2023 05/12/2023 12:1 6 AM AUTOMATIC PROFILE SANDER OPERATOR Assessment Noted Time PHQ-9 Depression Total Score: 0 09/07/19 12:46 PM CDT documented as of this encounter Care Teams Foxer Relationship Specialty Start Date End Date Srini Arevalo MD PCP - General Family Medicine 11/14/18 04/06/24 Bin Mccain, METAL TILE SETTER, SLAB GRINDER #[address] [address] PCP - General Advanced Practice Nurse 04/07/24 Julio Alvarado MD Consulting Physician Obstetrics & Gynecology 03/10/19 documented as of this encounter
--- OUTSIDE RECORDS SUMMARY | 2024-06-30 14:15 | XMS_ITS | Encounter Summary ---
Author Organization [facility] Address [address] [place] [address] Phone Care Team Providers Care Lead Business Analyst Name Role Phone Srini Arevalo MD Primary Care Provider Julio Alvarado MD Unavailable [phone] Bin Mccain APRN, FASTENER TECHNOLOGIST Primary Care Pr ovider Reason for Visit * Reason Comments Medication Refill Encounter Details Date Type Department Care Team (Late st Contact Info) Description 11/21/2023 Refill 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 Not on file documented as of this encounter Miscellaneous Notes * Telephone Encounter - Deidra Gibbons RN - 11/21/2023 11:29 AM CDT Signed 2 days ago (11/19/2023): tiZANidine (ZANAFLEX) 2 MG Tablet Sig: TAKE ONE (1) TABLET BY MOUTH THREE (3) TIMES DAILY Disp: 90 Tablet Refills: 0 Signed by: Srini Arevalo MD [facility] documented in this encounter Plan of Treatment Upcoming Encounters Date Type Department Care Team (Late st Contact Info) Description 08/26/2024 2:45 PM CDT Office Visit [facility] [address] [place] [address] Bin Mccain APRN, FASTENER TECHNOLOGIST #[address] [address] 10/06/2024 1:30 PM CDT Office Visit [facility] [address] [place] [address] Bin Mccain APRN, FASTENER TECHNOLOGIST #[address] [address] documented as of this encounter Goals Goal Patient Goal Type Associated Problems Recent Progress Patient-Stated? Author My father in July. I think it would help to talk to someone. I want to learn how to live without him. Behavioral Health On track( 024 2:38 PM APPLIED BEHAVIOR SPECIALIST) Yes Maria Isabel Hickey LCSW Note: Goal/Objective: Improve coping and decrease symptoms of grief related to her father's . Anticipated Time Frame for Goal Completion: 6 months Goal Reviewed with: patient Readiness to change: Ready to change Department associated with goal: [facility] Steps to [...] documented as of this encounter Care Teams Lead Business Analyst Relationship Specialty Start Date End Date Srini Arevalo MD PCP - General Family Medicine 11/14/18 04/06/24 Bin Mccain, JARVIS, FASTENER TECHNOLOGIST #[address] [address] PCP - General Advanced Practice Nurse 04/07/24 Julio Alvarado MD Consulting Physician Obstetrics & Gynecology 03/10/19 documented as of this encounter
--- OUTSIDE RECORDS SUMMARY | 2024-06-30 14:15 | XMS_ITS | Encounter Summary ---
Author Organization [facility] Address [address] 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 Requested Prescriptions Pending Prescriptions Disp Refills traMADol (ULTRAM) 50 MG Tablet [Pharmacy Med Name: TRAMADOL HYDROCHLORIDE 50MG TABLET] 20 Tablet 0 Sig: TAKE ONE (1) TABLET BY MOUTH EVERY SIX (6) HOURS NEEDED FOR MODERATE OR MORE SEVERE PAIN. Not Delegated - Opioid Agonists Protocol Failed - 10/09/2023 12:45 PM Failed - This refill cannot be delegated Passed - Visit with relevant provider in past 12 months or upcoming 90 days Recent Visits Date Type Provider Dept 03/08/23 Procedure Visit Srini Arevalo MD [facility] 02/08/23 [facility] Showing recent visits within past [...] CDT Office Visit [facility] [address] [place] [address] Bin Mccain APRN, INWEAVER #[address] [address] 10/06/2024 1:30 PM CDT Office Visit [facility] [address]2 [place] [address] Bin Mccain APRN, INWEAVER [address] [facility] [place] [address] documented as of this encounter Goals Goal Patient Goal Type Associated Problems Recent Progress Patient-Stated? Author My father in July. I think it would help to talk to someone. I want to learn how to live without him. Behavioral Health On track( 024 2:38 PM AUDITING SPECIALIST) Yes Maria Isabel Hickey LCSW Note: Goal/Objective: Improve coping and decrease symptoms of grief related to her father's . Anticipated Time Frame for Goal Completion: 6 months Goal Reviewed with: patient Readiness to change: Ready to change Department associated with goal: [facility] Steps to [...] documented as of this encounter Care Teams Manager Six Sigma Relationship Specialty Start Date End Date Srini Arevalo MD PCP - General Family Medicine 11/14/18 04/06/24 Bin Mccain APRN, INWEAVER [address] [facility] [place] [address] PCP - General Advanced Practice Nurse 04/07/24 Julio Alvarado MD Consulting Physician Obstetrics & Gynecology 03/10/19 documented as of this encounter
--- NOTE | 2024-06-30 14:29 | ED_ITS ---
HPI - URI/Sore Throat General Chief Complaint: Upper Respiratory Infection Stated Complaint: cough/headache Source: patient Mode of arrival: ambulatory Limitations: no limitations History of Present Illness HPI Narrative: 43-year-old female presented for complaint of sinus congestion and drainage, and hacking cough keeping her up at night. onset 2 weeks. Denies sob, wheezing,n/v/d/f/c. Taking DayQuil, NyQuil, Robitussin and Excedrin for symptoms. Related Data Home Medications ?Medication ?Instructions ?Recorded ?Confirmed ?Last Taken ?Type amitriptyline 100 mg tablet 100 mg PO DAILY 12/17/21 03/24/24 Unknown History tizanidine 2 mg tablet 2 mg PO TID 12/17/21 03/24/24 Unknown History topiramate 50 mg tablet 50 mg PO BID 12/17/21 03/24/24 Unknown History omeprazole 20 mg capsule,delayed 20 mg PO DAILY 08/15/22 03/24/24 Unknown History release topiramate 100 mg tablet 100 mg PO DAILY 04/30/23 03/24/24 Unknown History citalopram 40 mg tablet 40 mg PO DAILY 03/24/24 03/24/24 Unknown History meloxicam 15 mg tablet 15 mg PO DAILY 03/24/24 03/24/24 Unknown History Allergies Allergy/AdvReac Type Severity Reaction Status Date / Time No Known Allergies Allergy Unknown Verified 06/30/24 14:16 Review of Systems Review of Systems: CONSTITUTIONAL: Denies body aches, fever, chills, or sweats. EYES: Denies visual changes, redness, or discharge. ENT: Reports rhinorrhea, congestion, denies sore throat, or otalgia. CARDIOVASCULAR: Denies chest pain, palpitations, or edema. RESPIRATORY: Reports cough, Denies sob, wheezing. GASTROINTESTINAL: Denies abdominal pain, nausea, vomiting, or diarrhea. SKIN: Denies rash, itching, or wounds. MUSCULOSKELETAL: Denies back pain, joint pain, or myalgia. NEUROLOGIC: Denies headache, numbness, tingling, or weakness. PSYCH: Denies depression or anxiety. All systems reviewed & are unremarkable except as noted in HPI and below PMFSH Past Medical History Medical History Migraine Anxiety Surgical History Surgical History History of bariatric surgery Family History Family History Mother Breast cancer Father COPD (chronic obstructive pulmonary disease) Social History Social History Substance use: never Living arrangements: with family Gender identity (if verbalized by the patient): Female Sexual Orientation (if Verbalized by the Patient): Straight or Heterosexual Spiritual care concerns: No Comments At time of signature, I have reviewed and agree with nursing past medical, surgical, social and family history unless otherwise noted. Please see nursing chart for further information. There is no relevant family history pertinent to the presenting complaint Exam Narrative: GENERAL: Well-appearing, in no acute distress. EYES: EOMI. No redness or drainage. Conjunctivae normal. ENT: Mucous membranes pink and moist. No rhinorrhea. TMs normal bilaterally. Throat normal. Uvula midline. NECK: Normal AROM. Supple. CHEST: No respiratory distress. lungs clear to all godoy. occasional harsh nonproductive cough noted HEART: Regular rate and rhythm. No murmur appreciated. SKIN: Warm, dry, no rash. Capillary refill normal. Normal skin turgor. NEURO: Alert and oriented x3. Gait steady. PSYCH: Normal affect. Course Course Emergency Course: Patient is aware of diagnosis, understands and agrees to treatment plan. Anticipatory guidance given. Patient agrees to follow-up as directed and is aware of reasons to seek care at the emergency department. Portions of this record may have been created with voice recognition software Level of Care: Express Care Visit Vital Signs Vital signs: Vital Signs Temperature 98.4 F 06/30/24 14:10 Pulse Rate 87 06/30/24 14:10 Respiratory Rate 20 06/30/24 14:10 Blood Pressure 127/76 06/30/24 14:10 Pulse Oximetry 96 06/30/24 14:10 Oxygen Delivery Room Air 06/30/24 14:10 Temperature 98.4 F 06/30/24 14:10 Pulse Rate 87 06/30/24 14:10 Respiratory Rate 20 06/30/24 14:10 Blood Pressure 127/76 06/30/24 14:10 Pulse Oximetry 96 06/30/24 14:10 Oxygen Delivery Room Air 06/30/24 14:10 MDM - URI/Sore Throat MDM Narrative Medical decision making narrative: Discussed physical exam findings. Advised supportive measures and signs/symptoms to go to the ER. Pt is appropriate for outpt treatment and f/u. Differential Diagnosis Differential diagnosis: Likely upper respiratory infection, otitis media, sinusitis, viral infection, bronchitis and pharyngitis Discharge Plan Discharge Clinical Impression: Bronchitis Sinusitis Qualifiers: Sinusitis location: unspecified location Chronicity: acute Recurrence: non- recurrent Qualified Code(s): J01.90 - Acute sinusitis, unspecified Patient Disposition: Home, Self-Care Condition: Stable Instructions: Antibiotic Form, Acute Bronchitis (ED) Additional Instructions: Acute bronchitis can be contagious because it is usually caused by infection with a virus or bacteria. It is usually for a few days but you can be contagious for up to one week. Avoid crowds until you do not have a fever and symptoms are improved Take medication as directed Recommendations: Flonase spray and Zyrtec (or Claritin/Deborah) over the counter Cough syrup may cause drowsiness; avoid driving or take it at night time. Tylenol 1000mg every 8 hours as needed for pain Symptomatic treatment includes: rest, fluids, and increase humidity of the air at home. Follow up with your primary care provider as needed in 1 week Go to the ER for worsening symptoms or concerns Patient Language: Upper Sorbian Prescriptions: New benzonatate 200 mg capsule 200 mg PO TID PRN (Reason: cough) Qty: 20 0RF prednisone 50 mg tablet 50 mg PO DAILY Qty: 5 0RF amoxicillin-pot clavulanate 875-125 mg tablet 1 tablet PO Q12H 7 Days Qty: 14 0RF No Action omeprazole 20 mg capsule,delayed release(DR/EC) 20 mg PO DAILY citalopram 40 mg tablet 40 mg PO DAILY meloxicam 15 mg tablet 15 mg PO DAILY topiramate 50 mg tablet 50 mg PO BID amitriptyline 100 mg tablet 100 mg PO DAILY tizanidine 2 mg tablet 2 mg PO TID topiramate 100 mg tablet 100 mg PO DAILY Follow-up/Referrals: PHYSICIAN NOT ON STAFF,NONSTAFF [Primary Care Provider] -
== END 2024-06-30 14:49 | disposition home or self-care (01) ==
PROVIDERS: Emergency Provider Nurse Practitioner Family
DX: J40 Bronchitis, not specified as acute or chronic (principal); J01.90 Acute sinusitis, unspecified; F41.9 Anxiety disorder, unspecified
CPT/HCPCS: 99213; G0463

== ENCOUNTER 2025-05-18 16:42 | Emergency (ER) | payer OTHER, SELFPAY ==
--- OUTSIDE RECORDS SUMMARY | 2025-05-18 16:45 | XMS_ITS | Encounter Summary ---
Author Organization [facility] Address [address] [place] [address] Phone Care Team Providers Care Finger Waver Name Role Phone Srini Arevalo MD Primary Care Provider Julio Alvarado MD Unavailable [phone] Bin Mccain APRN, TIEING MACHINE OPERATOR Primary Care Pr ovider Reason for Visit * Reason Comments Medication Refill Encounter Details Date Type Department Care Team (Late st Contact Info) Description 02/12/2024 Refill [facility] [address] [place] [address] Srini Arevalo MD [address] [place] [address] Medication Refill Social History Tobacco [...] 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 Author My father in July. I think it would help to talk to someone. I want to learn how to live without him. Behavioral Health On track( 024 2:38 PM HAND WASHER) Yes Maria Isabel Hickey LCSW Note: Goal/Objective: Improve coping and decrease symptoms of grief related to her father's . Anticipated Time Frame for Goal Completion: 6 months Goal Reviewed with: patient Readiness to change: Ready to change Department associated with goal: [facility] Steps to [...] Last Indicated Resolved Time COVID - 19 01/18/2025 01/18/2025 01/18/2025 11:1 1 AM CDT Assessment Noted Time PHQ-9 Depression Total Score: 0 09/07/19 22 12:46 PM CDT documented as of this encounter Care Teams Finger Waver Relationship Specialty Start Date End Date Srini Arevalo MD PCP - General Family Medicine 11/14/18 04/06/24 Bin Mccain APRN, TIEING MACHINE OPERATOR #[address] [address] PCP - General Advanced Practice Nurse 04/07/24 Julio Alvarado MD Consulting Physician Obstetrics & Gynecology 03/10/19 documented as of this encounter
--- OUTSIDE RECORDS SUMMARY | 2025-05-18 16:45 | XMS_ITS | Encounter Summary ---
Author Organization [facility] Address [address] [place] [address] Phone Care Team Providers Care Dragline Operator Name Role Phone Srini Arevalo MD Primary Care Provider [phone] Julio Alvarado MD Unavailable [phone] Bin Mccain APRN, IRRIGATION SYSTEM OPERATOR Primary Care Pr ovider Reason for Visit * Reason Comments Medication Refill Encounter Details Date Type Department Care Team (Late st Contact Info) Description 11/20/2021 Refill [facility] #[address] [place] [address] Srini Arevalo MD [address] [place] [address] Medication Refill Social History Tobacco [...] 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 Showing future appointments within next 90 days and meeting all other requirements documented in this encounter Plan of Treatment Not on file documented as of this encounter Visit Diagnoses Not on filedocumented in this encounter Additional Health Concerns Infection Onset Date Last Indicated Resolved Time COVID - 19 Confirmed 02/14/2022 02/14/2022 022 12:17 AM CDT COVID - 05/02/2023 05/02/2023 05/12/2023 12:1 6 AM VOLLEYBALL PLAYER COVID - 19 01/18/2025 01/18/2025 01/18/2025 11:1 1 AM CDT Assessment Noted Time PHQ-9 Depression Total Score: 0 09/07/19 12:46 PM CDT documented as of this encounter Care Teams Dragline Operator Relationship Specialty Start Date End Date Srini Arevalo MD PCP - General Family Medicine 11/14/18 04/06/24 Bin Mccain, MARKET RESEARCH WORKER, IRRIGATION SYSTEM OPERATOR #[address] [address] PCP - General Advanced Practice Nurse 04/07/24 Julio Alvarado MD Consulting Physician Obstetrics & Gynecology 03/10/19 documented as of this encounter
--- OUTSIDE RECORDS SUMMARY | 2025-05-18 16:45 | XMS_ITS | Encounter Summary ---
Author Organization [facility] Address [address] [place] [address] Phone Care Team Providers Care Senior Sharepoint Architect Name Role Phone Srini Arevalo MD Primary Care Provider [phone] Julio Alvarado MD Unavailable [phone] Bin Mccain APRN, NETWORK DEVELOPMENT COORDINATOR Primary Care Pr ovider Reason for Visit * Reason Comments Medication Refill Encounter Details Date Type Department Care Team (Late st Contact Info) Description 08/31/2021 Refill [facility] [address] [place] [address] Srini Arevalo MD [address] [place] [address] Medication Refill Social History Tobacco [...] 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
--- OUTSIDE RECORDS SUMMARY | 2025-05-18 16:45 | XMS_ITS | Encounter Summary ---
Author Organization [facility] Address [address] [place] [address] Phone Care Team Providers Care Picture Framer Name Role Phone Srini Arevalo MD Primary Care Provider Julio Alvarado MD Unavailable [phone] Bin Mccain APRN, WOOD GRINDER OPERATOR Primary Care Pr ovider Reason for Visit * Reason Comments Medication Refill Encounter Details Date Type Department Care Team (Late st Contact Info) Description 05/09/2021 Refill [facility] [address] [place] [address] Srini Arevalo MD [address] [place], [place] [id number] Medication Refill Social History Tobacco Use Types [...] Industry Job Start Date Job End Date [employer] Not on file Not on file Not on file documented as of this encounter Miscellaneous Notes * Telephone Encounter - Sehr, Deidra L, RN - 05/09/2021 3:54 PM CST Last fill date 05/09/21 for 30 days CAL SCIENTIST documented in this encounter Plan of Treatment Not on file documented as of this encounter Visit Diagnoses Not on filedocumented in this encounter Additional Health Concerns Infection Onset Date Last Indicated Resolved Time COVID - 19 Confirmed 02/14/2022 02/14/2022 022 12:17 AM CDT COVID - 19 05/02/2023 05/02/2023 05/12/2023 12:1 6 AM OPTICAL SCIENTIST COVID - 19 01/18/2025 01/18/2025 01/18/2025 11:1 1 AM CDT Assessment Noted Time PHQ-9 Depression Total Score: 0 03/08/20 12:34 PM CDT documented as of this encounter Care Teams Picture Framer Relationship Specialty Start Date End Date Srini Arevalo MD PCP - General Family Medicine 11/14/18 04/06/24 Bin Mccain APRN, WOOD GRINDER OPERATOR #[address] [address] PCP - General Advanced Practice Nurse 04/07/24 Julio Alvarado MD Consulting Physician Obstetrics & Gynecology 03/10/19 documented as of this encounter
--- OUTSIDE RECORDS SUMMARY | 2025-05-18 16:45 | XMS_ITS | Encounter Summary ---
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 file Not [...] WITH 1 50MG TABLET TO EQUAL 150MG) [employer] Neurology: Anticonvulsants Passed - 01/09/2021 8:28 AM Passed - Valid encounter within last 12 months Past Office Visits Recent Outpatient Visits 10 months ago Recurrent pain of right knee [facility] - Cheryle Bailon PAC 1 year ago Class 3 severe obesity due to excess calories with serious comorbidity and body mass index (BMI) of 50.0 to 59.9 in adult ([facility]) [facility] Srini Stevens MD 1 year ago Low back pain, unspecified back pain laterality, unspecified chronicity, unspecified whether sciatica present [facility] Srini Stevens MD 2 years ago Annual visit for general adult medical examination with abnormal findings [facility] Srini Stevens MD Upcoming Appointments SALES SPECIALIST - Recent and Past Visits Recent Visits Date Type Provider Dept 02/18/20 Office Visit Cheryle Munguia PAC [facility] 12/21/19 Office Visit Srini Arevalo MD [facility] Showing recent visits within past 460 days [...] months ago Recurrent pain of right knee [facility] - LipanCheryle Dominique, [facility] 1 year ago Class 3 severe obesity due to excess calories with serious comorbidity and body mass index (BMI) of 50.0 to 59.9 in adult ([facility]) [facility] Srini Stevens MD 1 year ago Low back pain, unspecified back pain laterality, unspecified chronicity, unspecified whether sciatica present [facility] Srini Stevens MD 2 years ago Annual visit for general adult medical examination with abnormal findings [facility] Srini Stevens MD Upcoming Appointments SALES SPECIALIST - Recent and Past Visits Recent Visits Date Type Provider Dept 02/18/20 Office Visit Cheryle Munguia, KELIN [facility] 12/21/19 Office Visit Srini Arevalo MD [facility] Showing recent visits within past 460 days [...] 19 05/02/2023 05/02/2023 05/12/2023 12:1 6 AM 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
--- OUTSIDE RECORDS SUMMARY | 2025-05-18 16:45 | XMS_ITS | Encounter Summary ---
Author Organization [facility] Address [address] [place] [address] Phone Care Team Providers Care Career Based Intervention Coordinator Name Role Phone Julio Alvarado MD Unavailable Bin Mccain APRN, REFERENCE INVESTIGATOR Primary Care Pr ovider Reason for Visit * Reason Onset Date Comments Appointment 01/18/2025 Cough 01/18/2025 Encounter Details Date Type Department Care Team (Late st Contact Info) Description 01/18/2025 Nurse Triage [facility] [address] [place] [address] Bin Mccain, JARVIS, REFERENCE INVESTIGATOR #[address] [address] Appointment; Cough Social History Tobacco Use Types Packs/Day Years Used Date Smoking Tobacco: Never Smokeless Tobacco: Never Alcohol Use Standard Drinks/Week Comments Yes 0 (1 standard drink = 0.6 oz pur e alcohol) Very rare [facility] Utilities Answer Date Recorded In the past 12 months has [employer] electric, gas, oil, or water company threatened to shut off services in your home? Yes 03/31/2024 Social Connection and Isolation Panel Answer Date Recorded In a typical week, how many times do you talk on the phone with family, friends, or neighbors? More than three times a week 03/31/2024 How often do you get togethe r with friends or relatives? More than three times a week 03/31/2024 How often do you attend chur ch or roman catholic services? Never 03/31/2024 Do you belong to any clubs o r organizations such as restorationism groups, unions, fraternal or athletic groups, or [...] Recorded Total Score - Questions 1-9 0 12/26 [facility] - Occupational Stress Questionnaire Answer Date [...] any time in the past 12 m [place], were you homeless or living in a prison (including now)? 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 with cough and fever BACKGROUND: Patient contacting PCP office. Patient reports a cough and fever that started a couple weeks ago. ASSESSMENT: Symptom Description / Location: Fever 01/17/25 Constant productive cough with yellow mucous Body aches Headache Difficulty breathing Treatment / Response: dayquil, Nyquil, benadryl with no relief. Pain ratin/10 headache (severe), 6/10 body aches (moderate) DENIES: Coughing up blood, difficulty breathing RECOMMENDATION: Caller agreeable to highest disposition listed: Callback by PCP within 1 Hour, See in Office or Video Visit Today. Care advice provided per triage guideline. Caller verbalized understanding. Appointment Scheduled. All Patient Appointments Date & Time Provider Department Dept Phone 01/18/2025 11:00 AM [place] [facility] - Family Medicine [facility] [phone] Although highest disposition is Callback by PCP within 1 hour, patient was requesting appointment to be seen. Discussed utilizing Xamarin to: E-check in prior to upcoming appointment - Reason for Disposition: SEVERE coughing spells (e.g., whooping sound after coughing, vomiting after coughing) SEVERE headache (e.g., excruciating) and has had severe headaches before . Protocols Used: Cauhtjxq-V-OP Cough-A-OH See care advice and disposition for Guideline. First positive answer recorded, all responses to prior questions were negative. If symptoms increase, change or if new symptoms develop, call your health care provider or call back. Recommendations were based on caller information and is not a diagnosis. Verified and reviewed all triage information with caller. * Telephone Encounter - Natalie Doe - 01/18/2025 9:30 AM CDT Symptoms: Cough, Fever Outcome: Transfer to director of community services queue Reason: Wheezing (high-pitched whistling sound) The caller accepted this outcome. Caller Denied: * Choked on something * Can't stand (unless normally can't stand) * Acting confused * Trouble breathing through the mouth documented in this encounter Plan of Treatment Not on file documented as of this encounter Goals Goal Patient Goal Type Associated Problems Recent Progress Patient-Stated? Author My father in July. I think it would help to talk to someone. I want to learn how to live without him. Behavioral Health On track(2023 2:38 PM VOICE PROFESSOR) Yes Maria Isabel Hickey LCSW Note: Goal/Objective: [...] Boundaries Behavioral Health No Maria Isabel Hickey, HAND SPRING REPAIRER Note: Goal/Objective: Improve emotional self care and [...] Noted Time PHQ-9 Depression Total Score: 0 01/19/20 10:49 AM CDT documented as of this encounter Care Teams Career Based Intervention Coordinator Relationship Specialty Start Date End Date Bin Mccain APRN, REFERENCE INVESTIGATOR #[address] [address] PCP - General Advanced Practice Nurse 04/07/24 Julio Alvarado MD Consulting Physician Obstetrics & Gynecology 03/10/19 documented as of this encounter
--- OUTSIDE RECORDS SUMMARY | 2025-05-18 16:45 | XMS_ITS | Encounter Summary ---
Author Organization [facility] Address [address] [place] [address] Phone Care Team Providers Care Double Corner Cutter Name Role Phone Srini Arevalo MD Primary Care Provider [phone] Julio Alvarado MD Unavailable [phone] Bin Mccain APRN, COMPONENT OVERHAUL OPERATOR Primary Care Pr ovider Reason for Visit * Reason Comments Medication Refill Encounter Details Date Type Department Care Team (Late st Contact Info) Description 11/16/2021 Refill [facility] [address] [place] [address] Srini Arevalo MD [address] [place] [address] Medication Refill Social History Tobacco [...] 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 No / Unsure 10/31/2021 5:03 PM CDT documented as of this encounter Miscellaneous Notes * Telephone Encounter - Deidra Gibbons RN - 11/16/2021 12:58 PM CDT Medication [...] Dept 10/31/21 Office Visit Srini Arevalo MD [facility] 09/06/21 Office Visit Jose Guadalupe Brown MD [facility] 08/07/21 Office Visit Bin Mccain APRN, GERMAN [facility] 08/01/21 Office Visit Beena Graf APRN, CNP [facility] [place] 03/08/21 [facility] Showing recent visits within past 365 days [...] 19 05/02/2023 05/02/2023 05/12/2023 12:1 6 AM SHELL MOLDING ROLLER BLAST OPERATOR COVID - 01/18/2025 01/18/2025 01/18/2025 11:1 1 AM CDT Assessment Noted Time PHQ-9 Depression Total Score: 0 09/07/19 12:46 PM CDT documented as of this encounter Care Teams Double Corner Cutter Relationship Specialty Start Date End Date Srini Arevalo MD PCP - General Family Medicine 11/14/18 04/06/24 Bin Mccain, DEHYDRATING PRESS OPERATOR, COMPONENT OVERHAUL OPERATOR #[address] [address] PCP - General Advanced Practice Nurse 04/07/24 Julio Alvarado MD Consulting Physician Obstetrics & Gynecology 03/10/19 documented as of this encounter
--- OUTSIDE RECORDS SUMMARY | 2025-05-18 16:45 | XMS_ITS | Encounter Summary ---
Author Organization [facility] Address [address] [place] [address] Phone Care Team Providers Care Rental Sales Representative Name Role Phone Julio Alvarado MD Unavailable Bin Mccain APRN, MANAGER PROFESSIONAL DEVELOPMENT Primary Care Pr ovider Encounter Details Date Type Department Care Team (Late st Contact Info) Description 01/18/2025 Telephone [facility] [address] [place] [address] Bin Mccain, JARVIS, MANAGER PROFESSIONAL DEVELOPMENT [address] [address] Social History Tobacco Use Types Packs/Day Years Used Date Smoking Tobacco: Never Smokeless Tobacco: Never Alcohol Use Standard Drinks/Week Comments Yes 0 (1 standard drink = 0.6 oz pur e alcohol) Very rare [facility] Utilities Answer Date Recorded In the past 12 months has [employer] electric, gas, oil, or water company threatened [...] week 03/31/2024 How often do you attend [facility] or baptist services? Never 03/31/2024 Do you belong to any clubs o r organizations such as catholic groups, unions, fraternal or athletic groups, or [...] Total Score - Questions 1-9 0 12/26 [facility] - Occupational Stress Questionnaire Answer Date Recorded [...] any time in the past 12 m ont, were you homeless or living in a [facility] (including now)? 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 Caller Denied: * Choked on something * Can't stand (unless normally can't stand) * Acting confused * Trouble breathing through the mouth * Any trouble breathing * Wheezing (high-pitched whistling sound) documented in this encounter Plan of Treatment Not on file documented as of this encounter Goals Goal Patient Goal Type Associated Problems Recent Progress Patient-Stated? Author My father in July. I think it would help to talk to someone. I want to learn how to live without him. Behavioral Health On track(2023 2:38 PM DIRECTOR OF INDIVIDUAL GIVING) Yes Maria Isabel Hickey LCSW Note: Goal/Objective: Improve coping and decrease symptoms of grief related to her father's . Anticipated Time Frame for Goal Completion: 6 months Goal Reviewed with: patient Readiness to change: Ready to change Department associated with goal: [facility] Steps to [...] Boundaries Behavioral Health No Maria Isabel Hickey, DIRECT MARKETING INTERN Note: Goal/Objective: Improve emotional self care and interpersonal self care. Anticipated Time Frame for Goal Completion: 6 months Goal Reviewed with: patient Readiness to change: Ready to change Department associated with goal: [facility] Steps to [...] documented as of this encounter Care Teams Rental Sales Representative Relationship Specialty Start Date End Date Bin Mccain APRN, MANAGER PROFESSIONAL DEVELOPMENT #[address] [address] PCP - General Advanced Practice Nurse 04/07/24 Julio Alvarado MD Consulting Physician Obstetrics & Gynecology 03/10/19 documented as of this encounter
--- OUTSIDE RECORDS SUMMARY | 2025-05-18 16:45 | XMS_ITS | Encounter Summary ---
Author Organization [facility] Address [address] [place] [address] Phone Care Team Providers Care Financial Services Auditor Name Role Phone Srini Arevalo MD Primary Care Provider [phone] Julio Alvarado MD Unavailable [phone] Bin Mccain APRN, REHABILITATION SERVICES COORDINATOR Primary Care Pr ovider Reason for Visit * Reason Comments Medication Refill Encounter Details Date Type Department Care Team (Late st Contact Info) Description 04/02/2023 Refill [facility] [address] [place] [address] Srini Arevalo MD [address] [place] [address] Medication Refill Social History Tobacco [...] 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 No / Unsure 04/02/2023 1:54 PM PATIENT SUPPORT ASSISTANT documented as of this encounter Miscellaneous Notes [...] Type Provider Dept 03/08/23 Procedure Visit Srini rAevalo MD [facility] 02/08/23 Office Visit Srini Arevalo MD [facility] 10/02/22 Office Visit Srini Arevalo MD [facility] 07/10/22 Office Visit Bin Mccain APRN, REHABILITATION SERVICES COORDINATOR [facility] Showing recent visits within past 365 days and meeting all other requirements Future Appointments No visits were found meeting these conditions. Showing future appointments within next 90 days and meeting all other requirements ENT SUPPORT ASSISTANT documented in this encounter Plan of Treatment Not on file documented as of this encounter Goals Goal Patient Goal Type Associated Problems Recent Progress Patient-Stated? Author My father in July. I think it would help to talk to someone. I want to learn how to live without him. Behavioral Health On track( 024 2:38 PM PATIENT SUPPORT ASSISTANT) Yes [place], Maria Isabel A, SUPERVISOR CUSTOMER COMPLAINT SERVICE Note: Goal/Objective: Improve coping and decrease symptoms [...] - 05/02/2023 05/02/2023 05/12/2023 12:1 6 AM PATIENT SUPPORT ASSISTANT COVID - 01/18/2025 01/18/2025 01/18/2025 11:1 1 AM CDT Assessment Noted Time PHQ-9 Depression Total Score: 0 09/07/19 12:46 PM CDT documented as of this encounter Care Teams Financial Services Auditor Relationship Specialty Start Date End Date Srini Arevalo MD PCP - General Family Medicine 11/14/18 04/06/24 Bin Mccain, QUARRY WORKER, REHABILITATION SERVICES COORDINATOR #[address] [address] PCP - General Advanced Practice Nurse 04/07/24 Julio Alvarado MD Consulting Physician Obstetrics & Gynecology 03/10/19 documented as of this encounter
--- OUTSIDE RECORDS SUMMARY | 2025-05-18 16:45 | XMS_ITS | Encounter Summary ---
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 Showing future appointments within next 90 days and meeting all other requirements T MGR documented in this encounter Plan of Treatment Not on file documented as of this encounter Visit Diagnoses Not on filedocumented in this encounter Additional Health Concerns Infection Onset Date Last Indicated Resolved Time COVID - 19 Confirmed 02/14/2022 02/14/2022 022 12:17 AM CDT COVID - 19 05/02/2023 05/02/2023 05/12/2023 12:1 6 AM EVENT MGR COVID - 19 01/18/2025 01/18/2025 01/18/2025 11:1 1 AM CDT Assessment Noted Time PHQ-9 Depression Total Score: 0 03/08/20 12:34 PM CDT documented as of this encounter Care Teams Front Counter Clerk Relationship Specialty Start Date End Date Srini Arevalo MD PCP - General Family Medicine 11/14/18 04/06/24 Bin Mccain, CALENDERER, LENS GRINDER AND POLISHER #[address] [address] PCP - General Advanced Practice Nurse 04/07/24 Julio Alvarado MD Consulting Physician Obstetrics & Gynecology 03/10/19 documented as of this encounter
--- OUTSIDE RECORDS SUMMARY | 2025-05-18 16:45 | XMS_ITS | Encounter Summary ---
Author Organization [facility] Address [address] [place] [address] Phone Care Team Providers Care Commissions Specialist Name Role Phone Srini Arevalo MD Primary Care Provider [phone] Julio Alvarado MD Unavailable [phone] Bin Mccain APRN, PATTERN DESIGNER Primary Care Pr ovider Reason for Visit * Reason Comments Medication Refill Encounter Details Date Type Department Care Team (Late st Contact Info) Description 06/03/2020 Refill [facility] [address] [place] [address] Srini Arevalo MD [address] [place] [address] Medication Refill Social History Tobacco [...] 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 on file Not on file documented as of this encounter Miscellaneous Notes * Telephone Encounter - Clendenen, Minerva, RN - 06/04/2020 2:52 PM CST Medication [...] months ago Recurrent pain of right knee [facility] - Cheryle Bailon PAC 5 months ago Class 3 severe obesity due to excess calories with serious comorbidity and body mass index (BMI) of 50.0 to 59.9 in adult ([facility] - Srini Miller MD 1 year ago Low back pain, unspecified back pain laterality, unspecified chronicity, unspecified whether sciatica present [facility] - Srini Miller MD 1 year ago Annual visit for general adult medical examination with abnormal findings [facility] Srini Stevens MD Upcoming Appointments BOW STAPLER - Recent and Past Visits Recent Visits Date Type Provider Dept 02/18/20 Office Visit Cheryle Munguia PAC [facility] 12/21/19 Office Visit Srini Arevalo MD [facility] 03/10/19 [facility] Visit [facility] Showing recent visits within past 460 days with a meds authorizing provider and meeting all other requirements Future Appointments No visits were found meeting these conditions. Showing future appointments within next 90 days with a meds authorizing provider and meeting all other requirements AND CO FOUNDER documented in this encounter Plan of Treatment [...] 19 05/02/2023 05/02/2023 05/12/2023 12:1 6 AM CEO AND CO FOUNDER COVID - 01/18/2025 01/18/2025 01/18/2025 11:1 1 AM CDT Assessment Noted Time PHQ-9 Depression Total Score: 0 03/10/20 3:00 PM CDT documented as of this encounter Care Teams Commissions Specialist Relationship Specialty Start Date End Date Srini Arevalo MD PCP - General Family Medicine 11/14/18 04/06/24 Bin Mccain, ABORIGINAL COMMUNITY COUNCIL MEMBER, PATTERN DESIGNER #[address] [address] PCP - General Advanced Practice Nurse 04/07/24 Julio Alvarado MD Consulting Physician Obstetrics & Gynecology 03/10/19 documented as of this encounter
--- OUTSIDE RECORDS SUMMARY | 2025-05-18 16:45 | XMS_ITS | Encounter Summary ---
Author Organization [facility] Address [address] [place] [address] Phone Care Team Providers Care Delta System Freight Car Cleaner Name Role Phone Srini Arevalo MD Primary Care Provider Julio Alvarado MD Unavailable [phone] Bin Mccain APRN, ACCURACY EXPERT Primary Care Pr ovider Reason for Visit * Reason Comments Medication Refill Encounter Details Date Type Department Care Team (Late st Contact Info) Description 03/11/2023 [facility]ill [facility] [address]2 [place] [address] Srini Arevalo MD [address] [place] [address] Medication Refill Social History Tobacco [...] 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 Already dispensed to patient 03/08/23 documented in this encounter Plan of Treatment Not on file documented as of this encounter Goals Goal Patient Goal Type Associated Problems Recent Progress Patient-Stated? Author My father in July. I think it would help to talk to someone. I want to learn how to live without him. Behavioral Health On track( 024 2:38 PM MARKETING OPERATIONS SPECIALIST) Yes Maria Isabel Hickey, PHP LAMP DEVELOPER Note: Goal/Objective: Improve coping and decrease symptoms [...] 05/02/2023 05/02/2023 05/12/2023 12:1 6 AM MARKETING OPERATIONS SPECIALIST COVID - 01/18/2025 01/18/2025 01/18/2025 11:1 1 AM CDT Assessment Noted Time PHQ-9 Depression Total Score: 0 09/07/19 12:46 PM CDT documented as of this encounter Care Teams Delta System Freight Car Cleaner Relationship Specialty Start Date End Date Srini Arevalo MD PCP - General Family Medicine 11/14/18 04/06/24 Bin Mccain APRN, ACCURACY EXPERT #[address] [address] PCP - General Advanced Practice Nurse 04/07/24 Julio Alvarado MD Consulting Physician Obstetrics & Gynecology 03/10/19 documented as of this encounter
--- OUTSIDE RECORDS SUMMARY | 2025-05-18 16:45 | XMS_ITS | Encounter Summary ---
Author Organization [facility] Address [address] [place] [address] Phone Care Team Providers Care Rn Otolaryngology Name Role Phone Srini Arevalo MD Primary Care Provider [phone] Julio Alvarado MD Unavailable [phone] Bin Mccain APRN, COAT FINISHER Primary Care Pr ovider Reason for Visit * Reason Comments Medication Refill Encounter Details Date Type Department Care Team (Late st Contact Info) Description 11/21/2021 Refill [facility] - [facility] [address]2 [place] [address] Srini Arevalo MD [address] [place] [address] Medication Refill Social History Tobacco [...] 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 Not [...] 03/08/21 Office Visit Beena Graf APRN, G[facility] Showing recent visits within past 365 days [...] 19 05/02/2023 05/02/2023 05/12/2023 12:1 6 AM YARD GOODS SALESPERSON COVID - 01/18/2025 01/18/2025 01/18/2025 11:1 1 AM CDT Assessment Noted Time PHQ-9 Depression Total Score: 0 09/07/19 12:46 PM CDT documented as of this encounter Care Teams Rn Otolaryngology Relationship Specialty Start Date End Date Srini Arevalo MD PCP - General Family Medicine 11/14/18 04/06/24 Bin Mccain APRN, COAT FINISHER #[address] [address] PCP - General Advanced Practice Nurse 04/07/24 Julio Alvarado MD Consulting Physician Obstetrics & Gynecology 03/10/19 documented as of this encounter
--- OUTSIDE RECORDS SUMMARY | 2025-05-18 16:45 | XMS_ITS | Encounter Summary ---
Author Organization [facility] Address [address] [place] [address] Phone Care Team Providers Care Public Health Advisor Name Role Phone Srini Arevalo MD Primary Care Provider Julio Alvarado MD Unavailable [phone] Bin Mccain APRN, FOREST FIRE WARDEN Primary Care Pr ovider Reason for Visit * Reason Comments Medication Refill Encounter Details Date Type Department Care Team (Late st Contact Info) Description 03/12/2024 Refill [facility] Medicine [facility] #2 [place] [address] Srini Arevalo MD [address] [place] [address] Medication Refill Social History Tobacco [...] 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 Anticipated Time Frame for Goal Completion: 6 months Goal Reviewed with: patient Readiness to change: Ready to change Department associated with goal: [facility]IORAL HE[facility] Steps to achieve [...] documented as of this encounter Care Teams Public Health Advisor Relationship Specialty Start Date End Date Srini Arevalo MD PCP - General Family Medicine 11/14/18 04/06/24 Bin Mccain APRN, FOREST FIRE WARDEN [address] [place] [address] PCP - General Advanced Practice Nurse 04/07/24 Julio Alvarado MD Consulting Physician Obstetrics & Gynecology 03/10/19 documented as of this encounter
--- OUTSIDE RECORDS SUMMARY | 2025-05-18 16:45 | XMS_ITS | Encounter Summary ---
Author Organization [facility] Address [address] [place] [address] Phone Care Team Providers Care Engineer Design And Construction Name Role Phone Srini Arevalo MD Primary Care Provider [phone] Julio Alvarado MD Unavailable [phone] Bin Mccain APRN, ASSOCIATE PROFESSOR OF MANAGEMENT Primary Care Pr ovider Reason for Visit * Reason Comments Medication Refill Encounter Details Date Type Department Care Team (Late st Contact Info) Description 02/08/2023 Refill [facility] - Family Medicine [facility] [address]2 [place] [address] Srini Arevalo MD [address] [place] [address] Medication Refill Social History Tobacco [...] 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 Anticipated Time Frame for Goal Completion: 6 months Goal Reviewed with: patient Readiness to change: Ready to change Department associated with goal: [facility]AVIORAL HE[facility] Steps to achieve goal: [...] 19 05/02/2023 05/02/2023 05/12/2023 12:1 6 AM REAL ESTATE PORTFOLIO MANAGER COVID - 01/18/2025 01/18/2025 01/18/2025 11:1 1 AM CDT Assessment Noted Time PHQ-9 Depression Total Score: 0 09/07/19 12:46 PM CDT documented as of this encounter Care Teams Engineer Design And Construction Relationship Specialty Start Date End Date Srini Arevalo MD PCP - General Family Medicine 11/14/18 04/06/24 Bin Mccain APRN, ASSOCIATE PROFESSOR OF MANAGEMENT #[address] [address] PCP - General Advanced Practice Nurse 04/07/24 Julio Alvarado MD Consulting Physician Obstetrics & Gynecology 03/10/19 documented as of this encounter
--- OUTSIDE RECORDS SUMMARY | 2025-05-18 16:45 | XMS_ITS | Encounter Summary ---
Author Organization [facility] Address [address] [place] [address] Phone Care Team Providers Care Licensed Professional Counselor Name Role Phone Srini Arevalo MD Primary Care Provider [phone] Julio Alvarado MD Unavailable [phone] Bin Mccain APRN, SUPERINTENDENT MAINTENANCE AIRPORTS Primary Care Pr ovider Reason for Visit * Reason Comments Medication Refill Encounter Details Date Type Department Care Team (Late st Contact Info) Description 02/07/2023 Refill [facility] - Family Medicine [facility] [address] [place] [address] Srini Arevalo MD [address] [place] [address] Medication Refill Social History [...] 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 Not [...] Dept 10/02/22 Office Visit Srini Arevalo MD [facility] 07/10/22 Office Visit Bin Mccain APRN, SUPERINTENDENT MAINTENANCE AIRPORTS [facility] Showing recent visits within past 365 days and meeting all other requirements Future Appointments Date Type Provider Dept 02/08/23 Appointment Srini Arevalo MD [facility] Showing future appointments within next 90 [...] Behavioral Health On track( 024 2:38 PM FURNITURE RESTORER) Yes Maria Isabel Hickey, NETWORK CONTRACT MANAGER Note: Goal/Objective: Improve coping and decrease symptoms of grief related to her father's . Anticipated Time Frame for Goal Completion: 6 months Goal Reviewed with: patient Readiness to change: Ready to change Department associated with goal: [facility] BE[facility]AV[facility] HE[facility] Steps to achieve [...] 19 05/02/2023 05/02/2023 05/12/2023 12:1 6 AM FURNITURE RESTORER COVID - 19 01/18/2025 01/18/2025 01/18/2025 11:1 1 AM CDT Assessment Noted Time PHQ-9 Depression Total Score: 0 09/07/19 22 12:46 PM CDT documented as of this encounter Care Teams Licensed Professional Counselor Relationship Specialty Start Date End Date Srini Arevalo MD PCP - General Family Medicine 11/14/18 04/06/24 Bin Mccain, WAREHOUSE ASSOCIATE DRIVER, SUPERINTENDENT MAINTENANCE AIRPORTS #[address] [address] PCP - General Advanced Practice Nurse 04/07/24 Julio Alvarado MD Consulting Physician Obstetrics & Gynecology 03/10/19 documented as of this encounter
--- OUTSIDE RECORDS SUMMARY | 2025-05-18 16:45 | XMS_ITS | Encounter Summary ---
Author Organization [facility] Address [address] [place] [address] Phone Care Team Providers Care Continuous Still Operator Name Role Phone Srini Arevalo MD Primary Care Provider Julio Alvarado MD Unavailable [phone] Bin Mccain APRN, COLD MOLDING PRESS OPERATOR Primary Care Pr ovider Reason for Visit * Reason Comments Medication Refill Encounter Details Date Type Department Care Team (Late st Contact Info) Description 12/19/2023 Refill [facility] - Family Medicine [facility] [address] [place] [address] Srini Arevalo MD [address] [place] [address] Medication Refill Social History Tobacco [...] 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 tiZANidine HCl Dispensed Days Supply Quantity Provider Pharmacy TIZANIDINE 2MG TAB 12/16/2023 30 90 Tablet Srini Arevalo MD [facility] Bet... TIZANIDINE 2MG TAB 11/19/2023 30 90 Tablet Srini Arevalo MD [facility] Bet... TIZANIDINE 2MG TAB 10/22/2023 30 90 Tablet Srini Arevalo MD [facility] Bet... documented in this encounter Plan of Treatment Not on file documented as of this encounter Goals Goal Patient Goal Type Associated Problems Recent Progress Patient-Stated? Author My father in July. I think it would help to talk to someone. I want to learn how to live without him. Behavioral Health On track( 024 2:38 PM LEAD RUBY ON RAILS DEVELOPER) Yes Maria Isabel Hickey, PANTOGRAPH I ENGRAVER Note: Goal/Objective: Improve coping and decrease symptoms of grief related to her father's . Anticipated Time Frame for Goal Completion: 6 months Goal Reviewed with: patient Readiness to change: Ready to change Department associated with goal: [facility] Steps to achieve [...] documented as of this encounter Care Teams Continuous Still Operator Relationship Specialty Start Date End Date Srini Arevalo MD PCP - General Family Medicine 11/14/18 04/06/24 Bin Mccain APRN, COLD MOLDING PRESS OPERATOR #[address] [address] PCP - General Advanced Practice Nurse 04/07/24 Julio Alvarado MD Consulting Physician Obstetrics & Gynecology 03/10/19 documented as of this encounter
--- OUTSIDE RECORDS SUMMARY | 2025-05-18 16:45 | XMS_ITS | Encounter Summary ---
Author Organization [facility] Address [address] [place] [address] Phone Care Team Providers Care Digital Media Planner Name Role Phone Srini Arevalo MD Primary Care Provider [phone] Julio Alvarado MD Unavailable [phone] Bin Mccain APRN, AVIONICS TEST TECHNICIAN Primary Care Pr ovider Reason for Visit * Reason Comments Medication Refill Encounter Details Date Type Department Care Team (Late st Contact Info) Description 03/06/2021 Refill [facility] [address] [place] [address] Srini Arevalo MD [address] [place], [place] [id number] Medication Refill Social History Tobacco Use Types [...] 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 Not [...] 19 05/02/2023 05/02/2023 05/12/2023 12:1 6 AM CONSERVATION SCIENTIST COVID - 01/18/2025 01/18/2025 01/18/2025 11:1 1 AM CDT Assessment Noted Time PHQ-9 Depression Total Score: 0 03/10/20 3:00 PM CDT documented as of this encounter Care Teams Digital Media Planner Relationship Specialty Start Date End Date Srini Arevalo MD PCP - General Family Medicine 11/14/18 04/06/24 Bin Mccain, MARKET RESEARCH SENIOR PROJECT MANAGER, AVIONICS TEST TECHNICIAN #[address] [address] PCP - General Advanced Practice Nurse 04/07/24 Julio Alvarado MD Consulting Physician Obstetrics & Gynecology 03/10/19 documented as of this encounter
--- OUTSIDE RECORDS SUMMARY | 2025-05-18 16:45 | XMS_ITS | Encounter Summary ---
Author Organization [facility] Address [address] [place] [address] Phone Care Team Providers Care Mechanical Cad Drafter Name Role Phone Srini Arevalo MD Primary Care Provider Julio Alvarado MD Unavailable [phone] Bin Mccain APRN, TRASH COLLECTOR Primary Care Pr ovider Reason for Visit * Reason Comments Medication Refill Encounter Details Date Type Department Care Team (Late st Contact Info) Description 06/24/2023 Refill [facility] - Family [facility] [address] [place] [address] Srini Arevalo MD [address] [place] [address] Medication Refill Social History Tobacco [...] 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 Author My father in July. I think it would help to talk to someone. I want to learn how to live without him. Behavioral Health On track( 024 2:38 PM FINISHING AREA SUPERVISOR) Yes Maria Isabel Hickey LCSW Note: Goal/Objective: Improve coping and decrease symptoms of grief related to her father's . Anticipated Time Frame for Goal Completion: 6 months Goal Reviewed with: patient Readiness to change: Ready to change Department associated with goal: [facility]AVIOR[facility] HE[facility] Steps to [...] documented as of this encounter Care Teams Mechanical Cad Drafter Relationship Specialty Start Date End Date Srini Arevalo MD PCP - General Family Medicine 11/14/18 04/06/24 Bin Mccain, DIGITAL PROGRAM MANAGER, TRASH COLLECTOR #[address] [address] PCP - General Advanced Practice Nurse 04/07/24 Julio Alvarado MD Consulting Physician Obstetrics & Gynecology 03/10/19 documented as of this encounter
--- OUTSIDE RECORDS SUMMARY | 2025-05-18 16:45 | XMS_ITS | Encounter Summary ---
Author Organization [facility] Address [address] [place] [address] Phone Care Team Providers Care Design Maintenance Engineer Name Role Phone Srini Arevalo MD Primary Care Provider [phone] Julio Alvarado MD Unavailable [phone] Bin Mccain APRN, SKIDDER Primary Care Pr ovider Reason for Visit * Reason Comments Medication Refill Encounter Details Date Type Department Care Team (Late st Contact Info) Description 10/08/2022 Refill [facility] - Family Medicine [facility] #2 [place] [address] Srini Arevalo MD [address] [place] [address] Medication Refill Social History Tobacco [...] 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 [...] [place] 07/10/22 Office Visit Bin Mccain APRN, SKIDDER [facility] 10/31/21 Office Visit Srini Arevalo MD [facility] Showing recent visits within past 365 [...] Date Type Provider Dept 10/02/22 Office Visit Sirni Arevalo MD [facility] 07/10/22 Office Visit Bin Mccain APRN, GERMAN [facility] 10/31/21 Office Visit Srini Arevalo MD [facility] Showing recent visits within past 365 [...] Dept 10/02/22 Office Visit Srini Arevalo MD [facility] 07/10/22 Office Visit Bin Mccain APRN, GERMAN [facility] 10/31/21 Office Visit Srini Arevalo MD [facility] Showing recent visits within past 365 [...] Behavioral Health On track( 024 2:38 PM MEDICAL INSURANCE BILLER) Yes Maria Isabel Hickey LCSW Note: Goal/Objective: Improve coping and decrease symptoms of grief related to her father's . Anticipated Time Frame for Goal Completion: 6 months Goal Reviewed with: patient Readiness to change: Ready to change Department associated with goal: [facility]AVIOR[facility] HE[facility] Steps to [...] - 05/02/2023 05/02/2023 05/12/2023 12:1 6 AM MEDICAL INSURANCE BILLER COVID - 01/18/2025 01/18/2025 01/18/2025 11:1 1 AM CDT Assessment Noted Time PHQ-9 Depression Total Score: 0 09/07/19 22 12:46 PM CDT documented as of this encounter Care Teams Design Maintenance Engineer Relationship Specialty Start Date End Date Srini Arevalo MD PCP - General Family Medicine 11/14/18 04/06/24 Bin Mccain APRN, SKIDDER #[address] [address] PCP - General Advanced Practice Nurse 04/07/24 Julio Alvarado MD Consulting Physician Obstetrics & Gynecology 03/10/19 documented as of this encounter
--- OUTSIDE RECORDS SUMMARY | 2025-05-18 16:45 | XMS_ITS | Encounter Summary ---
Author Organization [facility] Address [address] [place] [address] Phone Care Team Providers Care Hand Leather Trimmer Name Role Phone Srini Arevalo MD Primary Care Provider [phone] Julio Alvarado MD Unavailable [phone] Bin Mccain APRN, MANAGER LABORATORY Primary Care Pr ovider Reason for Visit * Reason Comments Medication Refill Encounter Details Date Type Department Care Team (Late st Contact Info) Description 09/26/2021 Refill [facility] - Family Medicine - [place] [address] [place] [address] Beena Graf APRN, MANAGER LABORATORY #[address] [address] Medication Refill Social History Tobacco [...] 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 [...] 08/01/21 Office Visit Beena Graf APRN, CNP [facility] 03/08/21 Office Visit Beena Graf APRN, GERMAN [facility] Showing recent visits within past 365 days and meeting all other requirements Future Appointments Date Type Provider Dept 10/31/21 Appointment Srini Areval[facility] MD [facility] Showing future appointments within next 90 [...] 19 05/02/2023 05/02/2023 05/12/2023 12:1 6 AM TAKE AWAY WORKER COVID - 01/18/2025 01/18/2025 01/18/2025 11:1 1 AM CDT Assessment Noted Time PHQ-9 Depression Total Score: 0 09/07/19 12:46 PM CDT documented as of this encounter Care Teams Hand Leather Trimmer Relationship Specialty Start Date End Date Srini Arevalo MD PCP - General Family Medicine 11/14/18 04/06/24 Bin Mccain, TIRE TECHNICIAN, MANAGER LABORATORY #[address] [address] PCP - General Advanced Practice Nurse 04/07/24 Julio Alvarado MD Consulting Physician Obstetrics & Gynecology 03/10/19 documented as of this encounter
--- OUTSIDE RECORDS SUMMARY | 2025-05-18 16:45 | XMS_ITS | Encounter Summary ---
Author Organization [facility] Address [address] [place] [address] Phone Care Team Providers Care Die Sinker Apprentice Name Role Phone Srini Arevalo MD Primary Care Provider Julio Alvarado MD Unavailable [phone] Bin Mccain APRN, STAFF CYTOTECHNOLOGIST Primary Care Pr ovider Reason for Visit * Reason Comments Medication Refill Encounter Details Date Type Department Care Team (Late st Contact Info) Description 04/08/2023 Refill [facility] Family [facility] #2 [place] [address] Srini Arevalo MD [address] [place] [address] Medication Refill Social History Tobacco [...] Industry Job Start Date Job 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 No / Unsure 04/02/2023 1:54 PM HAT FINISHER documented as of this encounter Miscellaneous Notes [...] [place] 07/10/22 Office Visit Bin Mccain APRN, STAFF CYTOTECHNOLOGIST [facility] Showing recent visits within past 365 days [...] 03/14/2023 10 0 - 55 U/L Final FINISHER documented in this encounter Plan of Treatment Not on file documented as of this encounter Goals Goal Patient Goal Type Associated Problems Recent Progress Patient-Stated? Author My father in July. I think it would help to talk to someone. I want to learn how to live without him. Behavioral Health On track( 024 2:38 PM HAT FINISHER) Yes Maria Isabel Hickey LCSW Note: Goal/Objective: Improve coping and decrease symptoms of grief related to her father's . Anticipated Time Frame for Goal Completion: 6 months Goal Reviewed with: patient Readiness to change: Ready to change Department associated with goal: [facility] BE[facility]AVIORAL HE[facility] SERVICES Steps [...] 19 05/02/2023 05/02/2023 05/12/2023 12:1 6 AM HAT FINISHER COVID - 19 01/18/2025 01/18/2025 01/18/2025 11:1 1 AM CDT Assessment Noted Time PHQ-9 Depression Total Score: 0 09/07/19 22 12:46 PM CDT documented as of this encounter Care Teams Die Sinker Apprentice Relationship Specialty Start Date End Date Srini Arevalo MD PCP - General Family Medicine 11/14/18 04/06/24 Bin Mccain, TALENT DEVELOPMENT DIRECTOR, STAFF CYTOTECHNOLOGIST #[address] [address] PCP - General Advanced Practice Nurse 04/07/24 Julio Alvarado MD Consulting Physician Obstetrics & Gynecology 03/10/19 documented as of this encounter
--- OUTSIDE RECORDS SUMMARY | 2025-05-18 16:45 | XMS_ITS | Encounter Summary ---
Author Organization [facility] Address [address] [place] [address] Phone Care Team Providers Care Safety Lead Name Role Phone Srini Arevalo MD Primary Care Provider [phone] Julio Alvarado MD Unavailable [phone] Bin Mccain APRN, PROJECTION CAMERA OPERATOR Primary Care Pr ovider Reason for Visit * Reason Comments Medication Refill Encounter Details Date Type Department Care Team (Late st Contact Info) Description 05/08/2021 Refill [facility] [address] [place] [address] Srini Arevalo MD [address] [place] [address] Medication Refill Social History [...] Industry Job Start Date Job End Date [employer] Not on file Not on file Not on file documented as of this encounter Miscellaneous Notes * Telephone Encounter - Deidra Gibbons RN - 05/09/2021 11:23 AM CST Last [...] Dept 03/08/21 Office Visit Beena Graf APRN, PROJECTION CAMERA OPERATOR [facility] Showing recent visits within past 365 days and meeting all other requirements Future Appointments No visits were found meeting these conditions. Showing future appointments within next 90 days and meeting all other requirements ITECTURAL DESIGNER documented in this encounter Plan of Treatment [...] 19 05/02/2023 05/02/2023 05/12/2023 12:1 6 AM ARCHITECTURAL DESIGNER COVID - 19 01/18/2025 01/18/2025 01/18/2025 11:1 1 AM CDT Assessment Noted Time PHQ-9 Depression Total Score: 0 03/08/20 12:34 PM CDT documented as of this encounter Care Teams Safety Lead Relationship Specialty Start Date End Date Srini Arevalo MD PCP - General Family Medicine 11/14/18 04/06/24 Bin Mccain APRN, PROJECTION CAMERA OPERATOR #[address] [address] PCP - General Advanced Practice Nurse 04/07/24 Julio Alvarado MD Consulting Physician Obstetrics & Gynecology 03/10/19 documented as of this encounter
--- OUTSIDE RECORDS SUMMARY | 2025-05-18 16:45 | XMS_ITS | Encounter Summary ---
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 Anticipated Time Frame for Goal Completion: 6 months Goal Reviewed with: patient Readiness to change: Ready to change Department associated with goal: [facility] Steps to achieve goal: [...] 19 05/02/2023 05/02/2023 05/12/2023 12:1 6 AM TECHNICAL SALES SUPPORT MANAGER COVID - 19 01/18/2025 01/18/2025 01/18/2025 11:1 1 AM CDT Assessment Noted Time PHQ-9 Depression Total Score: 0 09/07/19 12:46 PM CDT documented as of this encounter Care Teams Print Shop Manager Relationship Specialty Start Date End Date Srini Arevalo MD PCP - General Family Medicine 11/14/18 04/06/24 Bin Mccain, PATIENT'S LIBRARIAN, PRINTED CIRCUIT DESIGNER [address] [address] PCP - General Advanced Practice Nurse 04/07/24 Julio Alvarado MD Consulting Physician Obstetrics & Gynecology 03/10/19 documented as of this encounter
--- OUTSIDE RECORDS SUMMARY | 2025-05-18 16:45 | XMS_ITS | Encounter Summary ---
Author Organization [facility] Address [address] [place] [address] Phone Care Team Providers Care Senior Boiler Operator Name Role Phone Srini Arevalo MD Primary Care Provider [phone] Julio Alvarado MD Unavailable [phone] Bin Mccain APRN, AVID EDITOR Primary Care Pr ovider Reason for Visit * Reason Comments Medication Refill Encounter Details Date Type Department Care Team (Late st Contact Info) Description 07/02/2023 Refill [facility] Family [facility] [address] [place] [address] Srini Arevalo MD [address] [place] [address] Medication Refill Social History Tobacco [...] 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 Showing future appointments within next 90 days and meeting all other requirements [facility] documented in this encounter Plan of Treatment Not on file documented as of this encounter Goals Goal Patient Goal Type Associated Problems Recent Progress Patient-Stated? Author My father in July. I think it would help to talk to someone. I want to learn how to live without him. Behavioral Health On track( 024 2:38 PM [facility]) Yes Maria Isabel Hickey LCSW Note: Goal/Objective: Improve coping and decrease symptoms of grief related to her father's . Anticipated Time Frame for Goal Completion: 6 months Goal Reviewed with: patient Readiness to change: Ready to change Department associated with goal: [facility] Steps to achieve [...] as of this encounter Care Teams Senior Boiler Operator Relationship Specialty Start Date End Date Srini Arevalo MD PCP - General Family Medicine 11/14/18 04/06/24 Bin Mccain, AUTOMOBILE ASSEMBLER, AVID EDITOR #[address] [address] PCP - General Advanced Practice Nurse 04/07/24 Julio Alvarado MD Consulting Physician Obstetrics & Gynecology 03/10/19 documented as of this encounter
--- OUTSIDE RECORDS SUMMARY | 2025-05-18 16:45 | XMS_ITS | Encounter Summary ---
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 - Srini Miller MD 1 year ago Low back pain, unspecified back pain laterality, unspecified chronicity, unspecified whether sciatica present [facility] - Srini Miller MD 1 year ago Annual visit for general adult medical examination with abnormal findings [facility] Srini Stevens MD Upcoming Appointments ELECTROTYPE MOLDER - Recent and Past Visits Recent Visits Date Type Provider Dept 02/18/20 Office Visit Cheryle Munguia PAC [facility] 12/21/19 Office Visit [facility] Showing recent visits within past 460 [...] EQUAL 150MG) [facility] Neurology: Anticonvulsants Passed - 10/11/2020 8:50 AM Passed - Valid encounter within last 12 months Past Office Visits Recent Outpatient Visits 7 months ago Recurrent pain of right knee [facility] - Cheryle Bailon PAC 9 months ago Class 3 severe obesity due to excess calories with serious comorbidity and body mass index (BMI) of 50.0 to 59.9 in adult ([facility]) [facility] Srini Stevens MD 1 year ago Low back pain, unspecified back pain laterality, unspecified chronicity, unspecified whether sciatica present [facility] Srini Stevens MD 1 year ago Annual visit for general adult medical examination with abnormal findings [facility] Srini Stevens MD Upcoming Appointments ELECTROTYPE MOLDER - Recent and Past Visits Recent Visits Date Type Provider Dept 02/18/20 Office Visit Cheryle Munguia, KELIN [facility] 12/21/19 Office Visit Srini Arevalo MD [facility] Showing recent visits within past 460 days [...] 19 05/02/2023 05/02/2023 05/12/2023 12:1 6 AM RUG SAMPLE BEVELER COVID - 19 01/18/2025 01/18/2025 01/18/2025 11:1 1 AM CDT Assessment Noted Time PHQ-9 Depression Total Score: 0 03/10/20 19 3:00 PM CDT documented as of this encounter Care Teams Manager Title Relationship Specialty Start Date End Date Srini Arevalo MD PCP - General Family Medicine 11/14/18 04/06/24 Bin Mccain APRN, SUPERVISOR BAKING [address] [address] PCP - General Advanced Practice Nurse 04/07/24 Julio Alvarado MD Consulting Physician Obstetrics & Gynecology 03/10/19 documented as of this encounter
--- OUTSIDE RECORDS SUMMARY | 2025-05-18 16:45 | XMS_ITS | Encounter Summary ---
Author Organization [facility] Address [address] [place] [address] Phone Care Team Providers Care Screen Printing Press Operator Name Role Phone Srini Arevalo MD Primary Care Provider Julio Alvarado MD Unavailable [phone] Bin Mccain APRN, WORK FROM HOME Primary Care Pr ovider Reason for Visit * Reason Comments Medication Refill Encounter Details Date Type Department Care Team (Late st Contact Info) Description 06/24/2023 Refill [facility] Family [facility] [address] [place] [address] Srini Arevalo MD [address] [place] [address] Medication Refill Social History Tobacco [...] 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 Showing recent visits within past 365 [...] [place] 10/02/22 Office Visit Srini Arevalo MD [facility] 07/10/22 Office Visit Bin Mccain APRN, CNP [facility] Showing recent visits within past 365 days and meeting all other requirements Future Appointments No visits were found meeting these conditions. Showing future appointments within next 90 days and meeting all other requirements CTOR OF LAND ACQUISITION documented in this encounter Plan of Treatment Not on file documented as of this encounter Goals Goal Patient Goal Type Associated Problems Recent Progress Patient-Stated? Author My father in July. I think it would help to talk to someone. I want to learn how to live without him. Behavioral Health On track( 024 2:38 PM DIRECTOR OF LAND ACQUISITION) Yes Maria Isabel Hickey LCSW Note: Goal/Objective: Improve coping and decrease symptoms of grief related to her father's . Anticipated Time Frame for Goal Completion: 6 months Goal Reviewed with: patient Readiness to change: Ready to change Department associated with goal: [facility] Steps to achieve goal: [...] documented as of this encounter Care Teams Screen Printing Press Operator Relationship Specialty Start Date End Date Srini Arevalo MD PCP - General Family Medicine 11/14/18 04/06/24 Bin Mccain APRN, GERMAN [address] [facility] [address] PCP - General Advanced Practice Nurse 04/07/24 Julio Alvarado MD Consulting Physician Obstetrics & Gynecology 03/10/19 documented as of this encounter
--- OUTSIDE RECORDS SUMMARY | 2025-05-18 16:45 | XMS_ITS | Encounter Summary ---
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 Not [...] months ago Recurrent pain of right knee [facility] - Cheryle Bailon PAC 8 months ago Class 3 severe obesity due to excess calories with serious comorbidity and body mass index (BMI) of 50.0 to 59.9 in adult ([facility]) [facility] Srini Stevens MD 1 year ago Low back pain, unspecified back pain laterality, unspecified chronicity, unspecified whether sciatica present [facility] - Srini Miller MD 1 year ago Annual visit for general adult medical examination with abnormal findings [facility] Srini Stevens MD Upcoming Appointments INSPECTOR BRAKE LINING - Recent and Past Visits Recent Visits Date Type Provider Dept 02/18/20 Office Visit Cheryle Munguia PAC [facility] 12/21/19 Office Visit Srini Arevalo MD [facility] Showing recent visits within past 460 [...] 19 05/02/2023 05/02/2023 05/12/2023 12:1 6 AM PUBLIC RELATIONS ANALYST COVID - 01/18/2025 01/18/2025 01/18/2025 11:1 1 AM CDT Assessment Noted Time PHQ-9 Depression Total Score: 0 03/10/20 3:00 PM CDT documented as of this encounter Care Teams Drapery Installer Relationship Specialty Start Date End Date Srini Arevalo MD PCP - General Family Medicine 11/14/18 04/06/24 Bin Mccain APRN, EDGE PLUGGER [address] [address] PCP - General Advanced Practice Nurse 04/07/24 Julio Alvarado MD Consulting Physician Obstetrics & Gynecology 03/10/19 documented as of this encounter
--- OUTSIDE RECORDS SUMMARY | 2025-05-18 16:45 | XMS_ITS | Encounter Summary ---
Author Organization [facility] Address [address] [place] [address] Phone Care Team Providers Care Multiple Coil Winder Name Role Phone Srini Arevalo MD Primary Care Provider Julio Alvarado MD Unavailable [phone] Bin Mccain APRN, DIGITAL ACCOUNT COORDINATOR Primary Care Pr ovider Reason for Visit * Reason Comments Medication Refill Encounter Details Date Type Department Care Team (Late st Contact Info) Description 05/08/2023 Refill [facility] - Family [facility] [address] [place] [address] Srini Arevalo MD [address] [place] [address] Medication Refill Social History Tobacco [...] 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 07/10/22 Office Visit Bin Mccain APRN, DIGITAL ACCOUNT COORDINATOR [facility] Showing recent visits within past 365 [...] 03/14/2023 10 0 - 55 U/L Final TER CLERK documented in this encounter Plan of Treatment Not on file documented as of this encounter Goals Goal Patient Goal Type Associated Problems Recent Progress Patient-Stated? Author My father in July. I think it would help to talk to someone. I want to learn how to live without him. Behavioral Health On track( 024 2:38 PM COUNTER CLERK) Yes Maria Isabel Hickey LCSW Note: Goal/Objective: Improve coping and decrease symptoms of grief related to her father's . Anticipated Time Frame for Goal Completion: 6 months Goal Reviewed with: patient Readiness to change: Ready to change Department associated with goal: [facility] Steps to achieve goal: [...] 19 05/02/2023 05/02/2023 05/12/2023 12:1 6 AM COUNTER CLERK COVID - 01/18/2025 01/18/2025 01/18/2025 11:1 1 AM CDT Assessment Noted Time PHQ-9 Depression Total Score: 0 09/07/19 22 12:46 PM CDT documented as of this encounter Care Teams Multiple Coil Winder Relationship Specialty Start Date End Date Srini Arevalo MD PCP - General Family Medicine 11/14/18 04/06/24 Bin Mccain, JARVIS, DIGITAL ACCOUNT COORDINATOR #[address] [address] PCP - General Advanced Practice Nurse 04/07/24 Julio Alvarado MD Consulting Physician Obstetrics & Gynecology 03/10/19 documented as of this encounter
--- OUTSIDE RECORDS SUMMARY | 2025-05-18 16:45 | XMS_ITS | Encounter Summary ---
Author Organization [facility] Address [address] [place] [address] Phone Care Team Providers Care Nanotechnology Engineering Technologist Name Role Phone Srini Arevalo MD Primary Care Provider [phone] Julio Alvarado MD Unavailable [phone] Bin Mccain APRN, BOX STACKER Primary Care Pr ovider Reason for Visit * Reason Comments Medication Refill Encounter Details Date Type Department Care Team (Late st Contact Info) Description 03/10/2021 Refill [facility] [address] [place] [address] Srini Arevalo MD [address] [place], [place] [id number] Medication Refill Social History Tobacco Use Types [...] 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 on file Not [...] order placed on 03/08/2021 12:44 PM Order [id number]: meloxicam (Mobic) 15 MG Tablet (For orders [...] Provider Dept 03/08/21 Office Visit Beena Graf, SEAMER PANTY HOSE, BOX STACKER [facility] Showing recent visits within past 365 [...] Dept 03/08/21 Office Visit Beena Graf APN, CNP [facility] Showing recent visits within past 365 days [...] days ago Injury of head, subsequent encounter [facility] - [facility] APN, GERMAN 1 year ago Recurrent pain of right knee [facility] - StrawberryCheryle Dominique PAC 1 year ago Class 3 severe obesity due to excess calories with serious comorbidity and body mass index (BMI) of50.0 to 59.9 in adult ([facility]) [facility] Srini Stevens MD 2 years ago Low back pain, unspecified back pain laterality, unspecified chronicity, unspecified whether sciatica present [facility] Srini Stevens MD 2 years ago Annual visit for general adult medical examination with abnormal findings [facility] - Family Medicine - Srini Miller MD Upcoming Appointments Future Appointments In 2 weeks Lab, [facility], [facility] BARTENDER - Recent and Past Visits Recent Visits Date Type Provider Dept 03/08/21 Office Visit Beena Graf APN, BOX STACKER [facility]18[facility]20 Office Visit [facility]yle [facility]unguia, KELIN [facility] 12/21/19 Office Visit Srini Arevalo MD [facility] Showing recent visits within past 460 days [...] 19 05/02/2023 05/02/2023 05/12/2023 12:1 6 AM MACHINE REPAIRER COVID - 19 01/18/2025 01/18/2025 01/18/2025 11:1 1 AM CDT Assessment Noted Time PHQ-9 Depression Total Score: 0 03/08/20 12:34 PM CDT documented as of this encounter Care Teams Nanotechnology Engineering Technologist Relationship Specialty Start Date End Date Srini Arevalo MD PCP - General Family Medicine 11/14/18 04/06/24 Bin Mccain APRN, BOX STACKER #[address] [address] PCP - General Advanced Practice Nurse 04/07/24 Julio Alvarado MD Consulting Physician Obstetrics & Gynecology 03/10/19 documented as of this encounter
--- OUTSIDE RECORDS SUMMARY | 2025-05-18 16:45 | XMS_ITS | Encounter Summary ---
Author Organization [facility] Address [address] [place] [address] Phone Care Team Providers Care Care Consultant Name Role Phone Srini Arevalo MD Primary Care Provider [phone] Julio Alvarado MD Unavailable [phone] Bin Mccain APRN, BIRTH ATTENDANT Primary Care Pr ovider Reason for Visit * Reason Comments Medication Refill Encounter Details Date Type Department Care Team (Late st Contact Info) Description 03/08/2023 Refill [facility] [address] [place] [address] Srini Arevalo MD [address] [place] [address] Medication Refill Social History Tobacco [...] 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 Not [...] MD [facility] 07/10/22 Office Visit Bin Mccain, MANAGER EQUITY, BIRTH ATTENDANT [facility] Showing recent visits within past 365 days and meeting all other requirements Today's Visits Date Type Provider Dept 03/08/23 Procedure Visit Srini Arevalo MD [facility] Showing today's visits and meeting all [...] Behavioral Health On track( 024 2:38 PM CREDIT CARD CONTROL CLERK) Yes Maria Isabel Hickey LCSW Note: [...] 19 05/02/2023 05/02/2023 05/12/2023 12:1 6 AM CREDIT CARD CONTROL CLERK COVID - 19 01/18/2025 01/18/2025 01/18/2025 11:1 1 AM CDT Assessment Noted Time PHQ-9 Depression Total Score: 0 09/07/19 22 12:46 PM CDT documented as of this encounter Care Teams Care Consultant Relationship Specialty Start Date End Date Srini Arevalo MD PCP - General Family Medicine 11/14/18 04/06/24 Bin Mccain APRN, BIRTH ATTENDANT #[address] [address] PCP - General Advanced Practice Nurse 04/07/24 Julio Alvarado MD Consulting Physician Obstetrics & Gynecology 03/10/19 documented as of this encounter
--- OUTSIDE RECORDS SUMMARY | 2025-05-18 16:45 | XMS_ITS | Encounter Summary ---
Author Organization [facility] Address [address] [place] [address] Phone Care Team Providers Care Winder Hand Name Role Phone Srini Arevalo MD Primary Care Provider [phone] Julio Alvarado MD Unavailable [phone] Bin Mccain APRN, TIMBER MANAGEMENT ASSISTANT Primary Care Pr ovider Reason for Visit * Reason Comments Medication Refill Encounter Details Date Type Department Care Team (Late st Contact Info) Description 04/07/2021 Refill [facility] [address] [place] [address] Srini Arevalo MD [address] [place], [place] [id number] Medication Refill Social History Tobacco Use Types [...] 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 Showing future appointments within next 90 days and meeting all other requirements EAR MEDICINE TECHNOLOGIST documented in this encounter Plan of Treatment Not on file documented as of this encounter Visit Diagnoses Diagnosis Migraine without status migrainosus, not intractable, unspecified migraine type documented in this encounter Additional Health Concerns Infection Onset Date Last Indicated Resolved Time COVID - 19 Confirmed 02/14/2022 02/14/2022 022 12:17 AM CDT COVID - 19 05/02/2023 05/02/2023 05/12/2023 12:1 6 AM NUCLEAR MEDICINE TECHNOLOGIST COVID - 19 01/18/2025 01/18/2025 01/18/2025 11:1 1 AM CDT Assessment Noted Time PHQ-9 Depression Total Score: 0 03/08/20 12:34 PM CDT documented as of this encounter Care Teams Winder Hand Relationship Specialty Start Date End Date Srini Arevalo MD PCP - General Family Medicine 11/14/18 04/06/24 Bin Mccain APRN, TIMBER MANAGEMENT ASSISTANT #[address] [address] PCP - General Advanced Practice Nurse 04/07/24 Julio Alvarado MD Consulting Physician Obstetrics & Gynecology 03/10/19 documented as of this encounter
--- OUTSIDE RECORDS SUMMARY | 2025-05-18 16:45 | XMS_ITS | Encounter Summary ---
Author Organization [facility] Address [address] [place] [address] Phone Care Team Providers Care Platform Attendant Name Role Phone Srini Arevalo MD Primary Care Provider [phone] Julio Alvarado MD Unavailable [phone] Bin Mccain APRN, KNOT TYING OPERATOR Primary Care Pr ovider Reason for Visit * Reason Comments Medication Refill Encounter Details Date Type Department Care Team (Late st Contact Info) Description 12/20/2021 [facility]ill [facility] [address] [place] [address] Srini Arevalo MD [address] [place] [address] Medication Refill Social History Tobacco [...] 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 [...] 03/08/21 Office Visit Beena Graf APRN, G[facility] Showing recent visits within [...] 19 05/02/2023 05/02/2023 05/12/2023 12:1 6 AM PAINT MAKER COVID - 01/18/2025 01/18/2025 01/18/2025 11:1 1 AM CDT Assessment Noted Time PHQ-9 Depression Total Score: 0 09/07/19 12:46 PM CDT documented as of this encounter Care Teams Platform Attendant Relationship Specialty Start Date End Date Srini Arevalo MD PCP - General Family Medicine 11/14/18 04/06/24 Bin Mccain APRN, KNOT TYING OPERATOR [address] [address] PCP - General Advanced Practice Nurse 04/07/24 Julio Alvarado MD Consulting Physician Obstetrics & Gynecology 03/10/19 documented as of this encounter
--- OUTSIDE RECORDS SUMMARY | 2025-05-18 16:45 | XMS_ITS | Encounter Summary ---
Author Organization [facility] Address [address] [place] [address] Phone Care Team Providers Care Brick Setter Operator Name Role Phone Srini Arevalo MD Primary Care Provider [phone] Julio Alvarado MD Unavailable [phone] Bin Mccain APRN, GEOLOGICAL SCIENCE TEACHER Primary Care Pr ovider Reason for Visit * Reason Comments Medication Refill Encounter Details Date Type Department Care Team (Late st Contact Info) Description 11/22/2021 Refill [facility] [address] [place] [address] Srini Arevalo MD [address] [place] [address] Medication Refill Social History Tobacco [...] 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 Not [...] 19 05/02/2023 05/02/2023 05/12/2023 12:1 6 AM 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
--- OUTSIDE RECORDS SUMMARY | 2025-05-18 16:45 | XMS_ITS | Encounter Summary ---
Author Organization [facility] Address [address] [place] [address] Phone Care Team Providers Care Manager Business Intelligence Name Role Phone Srini Arevalo MD Primary Care Provider [phone] Julio Alvarado MD Unavailable [phone] Bin Mccain APRN, REGIONAL TRANSFER LIAISON Primary Care Pr ovider Reason for Visit * Reason Comments Medication Refill Encounter Details Date Type Department Care Team (Late st Contact Info) Description 10/24/2021 Refill [facility] [address] [place] [address] Srini Arevalo MD [address] [place] [address] Medication Refill Social History Tobacco [...] 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 [...] 03/08/21 Office Visit Beena Graf APRN, GERMAN [facility] Showing recent visits within past 365 days and meeting all other requirements Future Appointments Date Type Provider Dept 10/31/21 Appointment Srini Arevalo MD [facility] Showing future appointments within next 90 [...] 19 05/02/2023 05/02/2023 05/12/2023 12:1 6 AM HULL LINE CREW MEMBER COVID - 01/18/2025 01/18/2025 01/18/2025 11:1 1 AM CDT Assessment Noted Time PHQ-9 Depression Total Score: 0 09/07/19 22 12:46 PM CDT documented as of this encounter Care Teams Manager Business Intelligence Relationship Specialty Start Date End Date Srini Arevalo MD PCP - General Family Medicine 11/14/18 04/06/24 Bin Mccain APRN, REGIONAL TRANSFER LIAISON #[address] [address] PCP - General Advanced Practice Nurse 04/07/24 Julio Alvarado MD Consulting Physician Obstetrics & Gynecology 03/10/19 documented as of this encounter
--- OUTSIDE RECORDS SUMMARY | 2025-05-18 16:45 | XMS_ITS | Encounter Summary ---
Author Organization [facility] Address [address] [place] [address] Phone Care Team Providers Care Lumber Planer Name Role Phone Srini Arevalo MD Primary Care Provider [phone] Julio Alvarado MD Unavailable [phone] Bin Mccain APRN, DONKEY ENGINE FIRER/FIREMAN Primary Care Pr ovider Reason for Visit * Reason Comments Medication Refill Encounter Details Date Type Department Care Team (Late st Contact Info) Description 12/23/2020 Refill [facility] [address] [place] [address] Srini Arevalo MD [address] [place] [address] Medication Refill Social History Tobacco [...] 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 Not on file documented as of this encounter Miscellaneous Notes * Telephone Encounter - Sehr, Deidra L, RN - 12/23/2020 2:46 PM CDT Medication [...] 19 05/02/2023 05/02/2023 05/12/2023 12:1 6 AM FORCE VARIATION EQUIPMENT TENDER COVID - 19 01/18/2025 01/18/2025 01/18/2025 11:1 1 AM CDT Assessment Noted Time PHQ-9 Depression Total Score: 0 03/10/20 19 3:00 PM CDT documented as of this encounter Care Teams Lumber Planer Relationship Specialty Start Date End Date Srini Arevalo MD PCP - General Family Medicine 11/14/18 04/06/24 Bin Mccain APRN, DONKEY ENGINE FIRER/FIREMAN #[address] [address] PCP - General Advanced Practice Nurse 04/07/24 Julio Alvarado MD Consulting Physician Obstetrics & Gynecology 03/10/19 documented as of this encounter
--- OUTSIDE RECORDS SUMMARY | 2025-05-18 16:45 | XMS_ITS | Clinical Summary ---
Author Organization [facility] Address [address] [place] [address] Phone Care Team Providers Care Technical Assistance Consultant Name Role Phone Julio Alvarado MD Unavailable [phone] Bin Mccain APRN, CPO Primary Care Pr ovider Allergies No known active allergies Medications Cholecalciferol (VITAMIN D3) 2000 units Tablet Take by mouth daily. Active Aspirin-Acetaminoph en-Caffeine (EXCEDRIN PO) Take by mouth. Active Multiple Vitamin (MULTIVITAMIN PO) Take by mouth. Active topiramate (TOPAMAX) 100 MG TabletIndications:M igraine without status migrainosus, not intractable, unspecified migraine type TAKE ONE (1) TABLET BY MOUTH TWO (2) TIMES DAILY. TAKE WITH THE 50 MG TAB TWICE DAILY 180 Tablet 3 4 Active Topiramate 50 MG Tablet TAKE ONE (1) TABLET BY MOUTH TWO (2) TIMES DAILY. TAKE EACH DOSE WITH THE 100 MG TABLET TO EQUAL 150 MG PER DOSE. 180 Tablet 3 4 Active amitriptyline (ELAVIL) 100 MG Tablet Take 1 Tablet by mouth nightly. 90 Tablet 3 5 Active citalopram (CeleXA) 40 MG TabletIndications:R eactive depression,Anxiety TAKE 1 TABLET BY MOUTH DAILY. 90 Tablet 3 5 Active tiZANidine (ZANAFLEX) 2 MG TabletIndications:L ow back pain, unspecified back pain laterality, unspecified chronicity, unspecified whether sciatica present TAKE ONE (1) TABLET BY MOUTH THREE (3) TIMES DAILY 90 Tablet 5 5 Active fluticasone (FLONASE) 50 MCG/ACT Suspension 1 [place] by Nasal route daily. Use in each nostril as directed. 16 g 5 Active ondansetron (ZOFRAN-ODT) 4 MG TABLET DISPERSIBLE Take 1 Tablet by mouth every 8 hours as needed for Nausea - 1st line. 10 Tablet 5 Active meloxicam (MOBIC) 15 MG TabletIndications:L ow back pain, unspecified back pain laterality, unspecified chronicity, unspecified whether sciatica present TAKE ONE (1) TABLET BY MOUTH DAILY. 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 20 Tablet 5 Active Active Problems Problem Noted Date Diagnosed Date Cough 01/18/2025 Morbid obesity 01/18/2025 Major depressive disorder, recurrent episode, mi ld [...] (08/02/2021): Added automatically from request for surgery [id number] History of tear of ACL (anterior cruciate [...] Encounters Date Type Department Care Team Description 04/13/2025 Refill [facility] [address] [place] [address] Bin Mccain APRN, GERMAN Medication Refill 04/08/2025 Refill [facility] [address] [place] [address] Bin Mccain APRN, GERMAN Medication Refill 02/19/2025 Refill [facility] [address] [place] [address] Bin Mccain APRN, GERMAN Medication Refill from Last 3 Months Immunizations Immunization Administration [...] Alive Sister 1 Honey Alive Sister 2 Tifafnie Alive Social History Tobacco Use Types Packs/Day Years Used Date Smoking Tobacco: Never Smokeless Tobacco: Never Tobacco Cessation:Counseling Given: Yes Alcohol Use Standard Drinks/Week Comments Yes 0 (1 standard drink = 0.6 oz pur e alcohol) Very rare [facility] Utilities Answer Date Recorded In the past 12 months has e [employer], gas, oil, or water [employer] threatened to shut off services in your [...] week 03/31/2024 How often do you attend [facility] or cheondoism services? Never 03/31/2024 Do you belong to any clubs o r organizations such as pentecostalism groups, unions, fraternal or athletic groups, or [...] Total Score - Questions 1-9 0 12/26 [facility] of Occupat ional Health - Occupational Stress [...] any time in the past 12 [facility], were you homeless or living in a halfway (including now)? 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 Not on file Last Filed Vital Signs Vital Sign Reading Time Taken Comments Blood Pressure 139/84 02/10/2025 1:52 AM CDT Pulse 108 02/09/2025 10:39 PM CDT Temperature 36.1 C (97 F) 02/09/2025 10:39 PM CDT Respiratory Rate 20 02/09/2025 10:39 PM CDT Oxygen Saturation 99% 02/09/2025 10:39 PM CDT Inhaled Oxygen Concentration - - Weight 117.9 kg (260 lb) 02/09/2025 10:39 PM CDT Height 172.7 cm (5' 8) 02/09/2025 10:39 PM CDT Body Mass Index 39.53 02/09/2025 10:39 PM CDT Plan of Treatment Health Maintenance Due Date Last Done Comments Hepatitis B Immunization (1 of 3 - 19+ 3-dose series) 10/13/1998 Mammogram 07/03/2024 07/03/2023, 11/24, 12/08/2018 Cologuard 10/13/2024 Colonoscopy 10/13/2024 Colorectal Cancer Screening 10/13/2024 Immunochemical Fecal Occult Blood 10/13/2024 Pap Smear 11/01/2024 11/01/2021 Influenza Immunization (#1) 2025 12/0 07/2023, 02/08/2023, 07/10/2022, Additional history exists Cervical Cancer Screening (CCS) 11/01/2026 HPV/Cotest 11/01/2026 11/01/2021 Td Immunization Every 10 Years (Adults With 1 Tdap) 09/07/2032 09/07/2022, 03/03/2021, 11/14/2018 Respiratory Syncytial Virus (RSV) Immunization (Adult) (1 - 1-dose 75+ series) 10/13/2054 SARS-COV-2 Immunization Discontinued 06/26/19 22, 09/16/2020, 08/19/2020 Hepatitis C Virus (HCV) Screening Completed 09/07/2022, 12/01/2021 Discussion re Starting/Frequency of Mammograms Completed 07/03/2023, 12/11/2021, 12/08/2018 Human Papillomavirus (HPV) Immunization (No Doses Required) Completed Meningococcal Immunization (ACWY) Aged Out No longer [...] him. Behavioral Health On track(2023 2:38 PM SERVICE ORDER EXPEDITER) Yes Maria Isabel Hickey LCSW Note: Goal/Objective: [...] grief. [facility] No Maria Isabel Hickey LCSW Note: Goal/Objective: Improve emotional self care and [...] Procedure Name Priority Date/Time Associated Diagnosis Comments BLAKE SCREENING BILATERAL DIGITAL W CAD W SAM Routine 07/03/2023 12:21 PM SERVICE ORDER EXPEDITER Breast cancer screening by mammogram HEPATITIS PANEL ACUTE (AHP) STAT 09/07/2022 8:08 PM CDT HUMAN PAPILLOMA VIRUS (HPV) Routine 11/01/2021 7:22 AM CDT Encounter for screening for human papillomavirus (HPV) PATHOLOGY CYTOLOGY NURSE ORTHO Routine 11/01/2021 7:22 AM CDT Encounter for gynecological examination (general) (routine) without abnormal findings from Last 3 Months or Most Recently Relevant to Health Maintenance Results * BLAKE SCREENING BILATERAL DIGITAL W CAD W SAM (07/03/2023 12:21 PM SERVICE ORDER EXPEDITER) Anatomical Region Laterality Modality breast Bilateral Mammography 07/03/2023 1:32 PM SERVICE ORDER EXPEDITER Narrative 07/04/2023 8:13 AM SERVICE ORDER EXPEDITER - BLAKE SCREENING BILATERAL DIGITAL W CAD W SAM BILATERAL DIGITAL SCREENING MAMMOGRAM 3D/2D WITH CAD WITH MEDIOLATERAL OBLIQUE CRANIOCAUDAL: 07/03/2023 The study was acquired using digital technology and interpreted from soft copy. Current study was also evaluated with AIMD version 7.2. 2D digital mammographic views, as well as 3D digital tomosynthesis were performed in the CC and MLO projections. CLINICAL: Routine screening. Patient has no complaints. No personal history of cancer. Mother with postmenopausal breast cancer, with recent diagnosis of metastatic disease. Two maternal aunts had breast cancer. COMPARISONS: Comparison is made to exams dated: 12/11/2021 and 12/08/2018 [facility]. BREAST TISSUE:There are scattered fibroglandular densities [...] exam. Electronically signed by: Christy rowan/lizeth:07/03/2023 16:07:54 Platform Mill Supervisor(s): RT Lee(R)(M), [facility] letter sent: Normal Exam Reading location: [facility] BI-RADS: 1 Negative Procedure Note Christy Matson [...] made to exams dated: 12/11/2021 and 12/08/2018 [facility]. BREAST TISSUE:There are scattered fibroglandular densities [...] exam. Electronically signed by: Christy Matson M.D. ab/penrad:07/03/2023 16:07:54 Platform Mill Supervisor(s): RT Lee(R)(M), [facility] letter sent: Normal Exam Reading location: [facility] BI-RADS: 1 Negative us Srini Arevalo MD IMG MAMMO ORDERABLES Final Resul t * Hepatitis Panel Acute (AHP) (09/07/2022 8:08 PM CDT) HEPATITIS A IGM ANTIBODY NON DETECTED NON DETECTED [facility] ARCH [id number] B 09/08/2022 4:28 PM CDT [facility] Comment: IGM Antibodies to HAV not detected. Does not exclude early acute or recovered HAV infection. HEP B CORE AB (IGM) NON DETECTED NON DETECTED [facility] ARCH [id number] B 09/08/2022 4:28 PM CDT [facility] Comment:IGM anti-HBC not det ected. Does not exclude the possibility of exposure to or infection with HBV. HEPATITIS B SURFACE ANTIGEN NON DETECTED NON DETECTED [facility] ARCH [id number] B 09/08/2022 4:28 PM CDT [facility] Comment:A nonreactive test r esult does not exclude the possibility of exposure to or infection with Hepatitis B virus. A nonreactive test result in individuals with prior exposure to hepatitis B may be due to antigen levels below the detection limit of this assay or lack of antigen reactivity to the antibodies in this assay. hepatitis C antibody 0.07 <1 S/CO [facility] ARCH [id number] B 09/08/2022 4:28 PM CDT [facility] Comment: Signal/Cutoff ratio < 0.79 is Nondetected Signal/Cutoff ratio 0.80-0.99 is Grayzone Signal/Cutoff ratio > 0.99 is Detected Supplemental assays are recommended if signal/cutoff ratio is >/=1.00. Signal/cutoff ratio result >/= 5.00 is 97% predictive of positivity for recombinant immunoblot assay (RIBA) and will be reported to the [place] [facility] Public [facility] as required. Blood Venipuncture / Unknown 09/07/2022 8:08 PM CDT 09/07/2022 8:20 PM CDT us Mele Hampton PAC HEMATOLOGY ORDERABLE S Final Result [facility] [address] [place] [address], * PATHOLOGY CYTOLOGY NURSE ORTHO (11/01/2021 7:22 AM CDT) SPECIMEN ADEQUACY Satisfactory for evaluation. Endocervical/transf ormation zone component is present. 11/28/2021 10:52 AM CDT [facility] DESCRIPTIVE DIAGNOSIS NEGATIVE FOR INTRAEPITHELIAL LESIONS OR MALIGNANCY. 11/28/2021 10:52 AM CDT [facility] at 1052 CDT HPV Reflex if ASCUS? Yes 11/28/2021 10:52 AM CDT [facility] Automated Examination This sample was not evaluated by the automated imaging and review system due to technical and/or biologic factor(s). The case was screened, reviewed, and finalized by a preschool adviser and/or pathologist. 11/28/2021 10:52 AM CDT [facility] Disclaimer The PAP smear is a [...] recommended every three years for women 21-29, Co-Testing, a PAP test in conjunction with an HPV (Human Papillomavirus) test for women ages 30-65, and no PAP or HPV testing for women under the age of 21 or older than 65 unless clinically indicated. 11/28/2021 10:52 AM CDT [facility] Other CERVIX UTERI STRUCTURE / Unknown Non-Phlebotomy Collection / Unknown 11/01/2021 7:22 AM CDT 11/01/2021 7:22 AM CDT us Srini Arevalo MD PATHOLOGY/CYTOLOGY ORDERABLES nal Result [facility] [address] [place] [id number], * HUMAN PAPILLOMA VIRUS (HPV) (11/01/2021 7:22 AM CDT) HPV OTHER HIGH RISK TYPES, PCR NEGATIVE NEGATIVE 11/02/2021 3:59 PM CDT [facility] Comment: The following Other High Risk [...] 16 NEGATIVE NEGATIVE 11/02/2021 3:59 PM CDT [facility] Comment: A negative high-risk HPV result [...] 18 NEGATIVE NEGATIVE 11/02/2021 3:59 PM CDT [facility] Comment: A negative high-risk HPV result [...] OR DIAGNOSTIC SCREENING 11/02/2021 3:59 PM CDT [facility] Other Non-Phlebotomy Collection / Unknown 11/01/2021 7:22 AM CDT 11/01/2021 7:22 AM CDT Narrative [facility] - 11/02/2021 3:59 PM CDT Performed by Real-Time Polymerase Chain Reaction (PCR) on the Brien Lucila 4800. This assay has been validated for use with post-aliquot samples from the mParticle T5000 processor. Srini Arevalo MD LAB SEND OUTS Final Result Performing Organization Address City/State/[facility] Co de Phone Number [facility] [address] [place] [address], [facility] [address] [place] [address] from Last 3 Months or Most Recently Relevant to Health Maintenance Insurance [employer] Care Teams Technical Assistance Consultant Relationship Specialty Start Date End Date Bin Mccain APRN, CPO [address] [address] PCP - General Advanced Practice Nurse 04/07/24 Julio Alvarado MD Consulting Physician Obstetrics & Gynecology 03/10/19
--- OUTSIDE RECORDS SUMMARY | 2025-05-18 16:45 | XMS_ITS | Encounter Summary ---
Author Organization [facility] Address [address] [place] [address] Phone Care Team Providers Care Food Storeroom Clerk Name Role Phone Srini Arevalo MD Primary Care Provider [phone] Julio Alvarado MD Unavailable [phone] Bin Mccain APRN, RECREATION THERAPY DIRECTOR Primary Care Pr ovider Reason for Visit * Reason Comments Medication Refill Encounter Details Date Type Department Care Team (Late st Contact Info) Description 11/07/2022 Refill [facility] [address] [place] [address] Srini Arevalo MD [address] [place] [address] Medication Refill Social History Tobacco [...] 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 Anticipated Time Frame for Goal Completion: 6 months Goal Reviewed with: patient Readiness to change: Ready to change Department associated with goal: [facility] Steps to achieve goal: [...] - 05/02/2023 05/02/2023 05/12/2023 12:1 6 AM WALLCOVERING TEXTURER COVID - 01/18/2025 01/18/2025 01/18/2025 11:1 1 AM CDT Assessment Noted Time PHQ-9 Depression Total Score: 0 09/07/19 12:46 PM CDT documented as of this encounter Care Teams Food Storeroom Clerk Relationship Specialty Start Date End Date Srini Arevalo MD PCP - General Family Medicine 11/14/18 04/06/24 Bin Mccain, SUPERVISOR PROCESS TESTING, RECREATION THERAPY DIRECTOR #[address] [address] PCP - General Advanced Practice Nurse 04/07/24 Julio Alvarado MD Consulting Physician Obstetrics & Gynecology 03/10/19 documented as of this encounter
--- OUTSIDE RECORDS SUMMARY | 2025-05-18 16:45 | XMS_ITS | Encounter Summary ---
Author Organization [facility] Address [address] [place] [address] Phone Care Team Providers Care Stringed Instrument Repairer Name Role Phone Srini Arevalo MD Primary Care Provider [phone] Julio Alvarado MD Unavailable [phone] Bin Mccain APRN, LICENSED INSURANCE SALES AGENT Primary Care Pr ovider Reason for Visit * Reason Comments Medication Refill Encounter Details Date Type Department Care Team (Late st Contact Info) Description 06/02/2021 Refill [facility] [address] [place] [address] Srini Arevalo MD [address] [place], [place] [id number] Medication Refill Social History Tobacco Use Types [...] 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 Showing future appointments within next 90 days and meeting all other requirements BUILDER documented in this encounter Plan of Treatment Not on file documented as of this encounter Visit Diagnoses Not on filedocumented in this encounter Additional Health Concerns Infection Onset Date Last Indicated Resolved Time COVID - 19 Confirmed 02/14/2022 02/14/2022 022 12:17 AM CDT COVID - 19 05/02/2023 05/02/2023 05/12/2023 12:1 6 AM HEEL BUILDER COVID - 19 01/18/2025 01/18/2025 01/18/2025 11:1 1 AM CDT Assessment Noted Time PHQ-9 Depression Total Score: 0 03/08/20 12:34 PM CDT documented as of this encounter Care Teams Stringed Instrument Repairer Relationship Specialty Start Date End Date Srini Arevalo MD PCP - General Family Medicine 11/14/18 04/06/24 Bin Mccain, GROUP WORK PROGRAM AIDE, LICENSED INSURANCE SALES AGENT [address] [place] [address] PCP - General Advanced Practice Nurse 04/07/24 Julio Alvarado MD Consulting Physician Obstetrics & Gynecology 03/10/19 documented as of this encounter
--- OUTSIDE RECORDS SUMMARY | 2025-05-18 16:45 | XMS_ITS | Encounter Summary ---
Author Organization [facility] Address [address] [place] [address] Phone Care Team Providers Care Water Attendant Name Role Phone Srini Arevalo MD Primary Care Provider [phone] Julio Alvarado MD Unavailable [phone] Bin Mccain APRN, PROGRAM MEDICAL DIRECTOR Primary Care Pr ovider Reason for Visit * Reason Comments Medication Refill Encounter Details Date Type Department Care Team (Late st Contact Info) Description 05/09/2022 Refill [facility] [address] [place] [address] Srini Arevalo MD [address] [place] [address] Medication Refill Social History Tobacco [...] 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 [...] Dept 10/31/21 Office Visit Srini Arevalo MD [facility] 09/06/21 Office Visit Jose Guadalupe Brown MD [facility] 08/07/21 Office Visit Bin Mccain APRN, CNP [facility] [place] 08/01/21 Office Visit Beena Graf APRN, [facility] [place] Showing recent visits within past 365 days [...] Range Status 08/07/2021 19 <=41 U/L Final EOLOGY PROFESSOR documented in this encounter Plan of Treatment Not on file documented as of this encounter Visit Diagnoses Diagnosis Low back pain, unspecified back pain laterality, unspecified chronicity, unspecified whether sciatica present documented in this encounter Additional Health Concerns Infection Onset Date Last Indicated Resolved Time COVID - 19 05/02/2023 05/02/2023 05/12/2023 12:1 6 AM ARCHEOLOGY PROFESSOR COVID - 19 01/18/2025 01/18/2025 01/18/2025 11:1 1 AM CDT Assessment Noted Time PHQ-9 Depression Total Score: 0 09/07/19 22 12:46 PM CDT documented as of this encounter Care Teams Water Attendant Relationship Specialty Start Date End Date Srini Arevalo MD PCP - General Family Medicine 11/14/18 04/06/24 Bin Mccain, RED CROSS WORKER, PROGRAM MEDICAL DIRECTOR #[address] [address] PCP - General Advanced Practice Nurse 04/07/24 Julio Alvarado MD Consulting Physician Obstetrics & Gynecology 03/10/19 documented as of this encounter
--- OUTSIDE RECORDS SUMMARY | 2025-05-18 16:45 | XMS_ITS | Encounter Summary ---
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 on file Not on file documented as of this encounter Miscellaneous Notes * Telephone Encounter - Gi Lr RN - 12/14/2020 3:05 PM CDT [place] last fill date 08/26/20 Medication failed [...] months ago Recurrent pain of right knee [facility] - Cheryle Bailon PAC 11 months ago Class 3 severe obesity due to excess calories with serious comorbidity and body mass index (BMI) of 50.0 to 59.9 in adult ([facility]) [facility] - Srini Miller MD 1 year ago Low back pain, unspecified back pain laterality, unspecified chronicity, unspecified whether sciatica present [facility] - Srini Miller MD 2 years ago Annual visit for general adult medical examination with abnormal findings [facility] Srini Stevens MD Upcoming Appointments FULL STACK DEVELOPER - Recent and Past Visits Recent Visits Date Type Provider Dept 02/18/20 Office Visit Cheryle Munguia PAC [facility] 12/21/19 Office Visit Srini Arevalo MD [facility] Showing recent visits within past 460 [...] 19 05/02/2023 05/02/2023 05/12/2023 12:1 6 AM CELL STRIPPER FINAL COVID - 19 01/18/2025 01/18/2025 01/18/2025 11:1 1 AM CDT Assessment Noted Time PHQ-9 Depression Total Score: 0 03/10/20 3:00 PM CDT documented as of this encounter Care Teams Parks Recreation Director Relationship Specialty Start Date End Date Srini Arevalo MD PCP - General Family Medicine 11/14/18 04/06/24 Bin Mccain APRN, SILK SOAKER [address] [address] PCP - General Advanced Practice Nurse 04/07/24 Julio Alvarado MD Consulting Physician Obstetrics & Gynecology 03/10/19 documented as of this encounter
--- OUTSIDE RECORDS SUMMARY | 2025-05-18 16:45 | XMS_ITS | Encounter Summary ---
Author Organization [facility] Address [address] [place] [address] Phone Care Team Providers Care House Decorator Name Role Phone Srini Arevalo MD Primary Care Provider [phone] Julio Alvarado MD Unavailable [phone] Bin Mccain APRN, GREEN COFFEE BLENDER Primary Care Pr ovider Reason for Visit * Reason Comments Medication Refill Encounter Details Date Type Department Care Team (Late st Contact Info) Description 01/08/2023 Refill [facility] [address] [place] [address] Srini Arevalo MD [address] [place] [address] Medication Refill Social History Tobacco [...] 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 [...] Dept 10/02/22 Office Visit Srini Arevalo MD [facility] 07/10/22 Office Visit Bin [facility]ccain [facility] Show[facility] recent visits within past 365 [...] Dept 10/02/22 Office Visit Srini Arevalo MD [facility] 07/10/22 Office Visit Bin Mccain APRN, GREEN COFFEE BLENDER [facility] Showing recent visits within past 365 [...] Behavioral Health On track( 024 2:38 PM TOBACCO CLOTH RECLAIMER) Yes Maria Isabel Hickey LCSW Note: Goal/Objective: Improve coping and decrease symptoms of grief related to her father's . Anticipated Time Frame for Goal Completion: 6 months Goal Reviewed with: patient Readiness to change: Ready to change Department associated with goal: [facility] Steps to achieve [...] 19 05/02/2023 05/02/2023 05/12/2023 12:1 6 AM TOBACCO CLOTH RECLAIMER COVID - 19 01/18/2025 01/18/2025 01/18/2025 11:1 1 AM CDT Assessment Noted Time PHQ-9 Depression Total Score: 0 09/07/19 22 12:46 PM CDT documented as of this encounter Care Teams House Decorator Relationship Specialty Start Date End Date Srini Arevalo MD PCP - General Family Medicine 11/14/18 04/06/24 Bin Mccain APRN, GREEN COFFEE BLENDER #[address] [address] PCP - General Advanced Practice Nurse 04/07/24 Julio Alvarado MD Consulting Physician Obstetrics & Gynecology 03/10/19 documented as of this encounter
--- OUTSIDE RECORDS SUMMARY | 2025-05-18 16:45 | XMS_ITS | Encounter Summary ---
Author Organization [facility] Address [address] [place] [address] Phone Care Team Providers Care Cracking Machine Operator Name Role Phone Srini Arevalo MD Primary Care Provider Julio Alvarado MD Unavailable [phone] Bin Mccain APRN, ADMISSIONS RN Primary Care Pr ovider Reason for Visit * Reason Comments Medication Refill Encounter Details Date Type Department Care Team (Late st Contact Info) Description 07/08/2021 Refill [facility] [address] [place] [address] Srini Arevalo MD [address] [place], [place] [id number] Medication Refill Social History Tobacco Use Types [...] 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 Showing future appointments within next 90 days and meeting all other requirements PPER OPAQUER documented in this encounter Plan of Treatment Not on file documented as of this encounter Visit Diagnoses Diagnosis Migraine without status migrainosus, not intractable, unspecified migraine type documented in this encounter Additional Health Concerns Infection Onset Date Last Indicated Resolved Time COVID - 19 Confirmed 02/14/2022 02/14/2022 022 12:17 AM CDT COVID - 19 05/02/2023 05/02/2023 05/12/2023 12:1 6 AM STRIPPER OPAQUER COVID - 19 01/18/2025 01/18/2025 01/18/2025 11:1 1 AM CDT Assessment Noted Time PHQ-9 Depression Total Score: 0 03/08/20 12:34 PM CDT documented as of this encounter Care Teams Cracking Machine Operator Relationship Specialty Start Date End Date Srini Arevalo MD PCP - General Family Medicine 11/14/18 04/06/24 Bin Mccain APRN, ADMISSIONS RN #[address] [address] PCP - General Advanced Practice Nurse 04/07/24 Julio Alvarado MD Consulting Physician Obstetrics & Gynecology 03/10/19 documented as of this encounter
--- OUTSIDE RECORDS SUMMARY | 2025-05-18 16:46 | XMS_ITS | Encounter Summary ---
Author Organization [facility] Address [address] [place] [address] Phone Care Team Providers Care Supervisor Of Research Name Role Phone Srini Arevalo MD Primary Care Provider Julio Alvarado MD Unavailable [phone] Bin Mccain APRN, CRUMB PACKER Primary Care Pr ovider Reason for Visit * Reason Comments Medication Refill Encounter Details Date Type Department Care Team (Late st Contact Info) Description 10/09/2023 Refill [facility] - Family Medicine [facility] [address] [place] [address] Srini Arevalo MD [address] [place] [address] Medication Refill Social History Tobacco [...] 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 Not on file documented as of this encounter Miscellaneous Notes * Telephone Encounter - Luz Elena Isaac RN - 10/10/2023 9:38 AM CDT PDMP 4--24, 5 days (#20) Medication failed the protocol, [...] Dept 03/08/23 Procedure Visit Srnii Arevalo MD [facility] 02/08/23 Office Visit [facility] Showing recent visits within past [...] Behavioral Health On track( 024 2:38 PM HYDROPULPER) Yes Maria Isabel Hickey LCSW Note: Goal/Objective: [...] as of this encounter Care Teams Supervisor Of Research Relationship Specialty Start Date End Date Srini Arevalo MD PCP - General Family Medicine 11/14/18 04/06/24 Bin Mccain, HEAD CHOPPER, CRUMB PACKER [address] [address] PCP - General Advanced Practice Nurse 04/07/24 Julio Alvarado MD Consulting Physician Obstetrics & Gynecology 03/10/19 documented as of this encounter
--- OUTSIDE RECORDS SUMMARY | 2025-05-18 16:46 | XMS_ITS | Encounter Summary ---
Author Organization [facility] Address [address] [place] [address] Phone Care Team Providers Care Digital Producer Name Role Phone Srini Arevalo MD Primary Care Provider [phone] Julio Alvarado MD Unavailable [phone] Bin Mccain APRN, MOTOR ASSEMBLY SUPERVISOR Primary Care Pr ovider Reason for Visit * Reason Comments Medication Refill Encounter Details Date Type Department Care Team (Late st Contact Info) Description 09/19/2023 Refill [facility] [address] [place] [address] Srini Arevalo MD [address] [place] [address] Medication Refill Social History Tobacco [...] 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
--- OUTSIDE RECORDS SUMMARY | 2025-05-18 16:46 | XMS_ITS | Encounter Summary ---
Author Organization [facility] Address [address] [place] [address] Phone Care Team Providers Care Plywood Layup Line Back Feeder Name Role Phone Srini Arevalo MD Primary Care Provider Julio Alvarado MD Unavailable [phone] Bin Mccain APRN, PAI GOW MANAGER Primary Care Pr ovider Reason for Visit * Reason Comments Medication Refill Encounter Details Date Type Department Care Team (Late st Contact Info) Description 03/12/2022 Refill [facility] [address] [place] [address] Srini Arevalo MD [address] [place] [address] Medication Refill Social History Tobacco [...] 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 [...] Dept 10/31/21 Office Visit Srini Arevalo MD [facility] 09/06/21 Office Visit Jose Guadalupe Brown MD [facility] 08/07/21 Office Visit Bin Mccain APRN, CNP [facility] 08/01/21 Office Visit Beena Graf APRN, [facility] Showing recent visits within past 365 [...] 19 05/02/2023 05/02/2023 05/12/2023 12:1 6 AM NETWORK PROGRAM MANAGER COVID - 19 01/18/2025 01/18/2025 01/18/2025 11:1 1 AM CDT Assessment Noted Time PHQ-9 Depression Total Score: 0 09/07/19 12:46 PM CDT documented as of this encounter Care Teams Plywood Layup Line Back Feeder Relationship Specialty Start Date End Date Srini Arevalo MD PCP - General Family Medicine 11/14/18 04/06/24 Bin Mccain APRN, PAI GOW MANAGER #[address] [address] PCP - General Advanced Practice Nurse 04/07/24 Julio Alvarado MD Consulting Physician Obstetrics & Gynecology 03/10/19 documented as of this encounter
--- OUTSIDE RECORDS SUMMARY | 2025-05-18 16:46 | XMS_ITS | Encounter Summary ---
Author Organization [facility] Address [address] [place] [address] Phone Care Team Providers Care Contract Lead Name Role Phone Srini Arevalo MD Primary Care Provider Julio Alvarado MD Unavailable [phone] Bin Mccain APRN, DIRECTIONAL DRILL OPERATOR Primary Care Pr ovider Reason for Visit * Reason Comments Medication Refill Encounter Details Date Type Department Care Team (Late st Contact Info) Description 01/17/2022 Refill [facility] - Family Medicine [facility] [address] [place] [address] Srini Arevalo MD [address] [place] [address] Medication Refill Social History Tobacco [...] 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 [...] Dept 10/31/21 Office Visit Srini Arevalo MD [facility] [place] 09/06/21 Office Visit Jose Guadalupe Brown MD [facility] 08/07/21 Office Visit Bin Mccain APRN, CNP [facility] 08/01/21 Office Visit Beena Graf APRN, CNP [facility] 03/08/21 Office Visit Beena Graf APRN, GERMAN [facility] Showing recent visits within past 365 [...] 19 05/02/2023 05/02/2023 05/12/2023 12:1 6 AM TRESTLE BUILDER COVID - 01/18/2025 01/18/2025 01/18/2025 11:1 1 AM CDT Assessment Noted Time PHQ-9 Depression Total Score: 0 09/07/19 22 12:46 PM CDT documented as of this encounter Care Teams Contract Lead Relationship Specialty Start Date End Date Srini Arevalo MD PCP - General Family Medicine 11/14/18 04/06/24 Bin Mccain APRN, DIRECTIONAL DRILL OPERATOR #[address] [address] PCP - General Advanced Practice Nurse 04/07/24 Julio Alvarado MD Consulting Physician Obstetrics & Gynecology 03/10/19 documented as of this encounter
--- OUTSIDE RECORDS SUMMARY | 2025-05-18 16:46 | XMS_ITS | Encounter Summary ---
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 Anticipated Time Frame for Goal Completion: 6 months Goal Reviewed with: patient Readiness to change: Ready to change Department associated with goal: [facility] Steps to achieve goal: [...] documented as of this encounter Care Teams Pmp Relationship Specialty Start Date End Date Srini Arevalo MD PCP - General Family Medicine 11/14/18 04/06/24 Bin Mccain APRN, FIRE ALARM MECHANIC [address] [address] PCP - General Advanced Practice Nurse 04/07/24 Julio Alvarado MD Consulting Physician Obstetrics & Gynecology 03/10/19 documented as of this encounter
--- OUTSIDE RECORDS SUMMARY | 2025-05-18 16:46 | XMS_ITS | Encounter Summary ---
Author Organization [facility] Address [address] [place] [address] Phone Care Team Providers Care Sports Coordinator Name Role Phone Srini Arevalo MD Primary Care Provider [phone] Julio Alvarado MD Unavailable [phone] Bin Mccain APRN, PHILOSOPHY FACULTY MEMBER Primary Care Pr ovider Reason for Visit * Reason Comments Medication Refill Encounter Details Date Type Department Care Team (Late st Contact Info) Description 02/14/2022 Refill [facility] Family [facility] [address] [place] [address] Srini Arevalo MD [address] [place] [address] Medication Refill Social History Tobacco [...] 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 [...] Dept 10/31/21 Office Visit Srini Arevalo MD [facility] [place] 09/06/21 Office Visit Jose Guadalupe Brown MD [facility] 08/07/21 Office Visit Bin Mccain APRN, CNP [facility] [place] 08/01/21 Office Visit Beena Graf APRN, CNP [facility] 03/08/21 Office Visit Beena Graf APRN, GERMAN [facility] [place] Showing recent visits within past 365 days [...] 19 05/02/2023 05/02/2023 05/12/2023 12:1 6 AM SAFEMAKER COVID - 19 01/18/2025 01/18/2025 01/18/2025 11:1 1 AM CDT Assessment Noted Time PHQ-9 Depression Total Score: 0 09/07/19 22 12:46 PM CDT documented as of this encounter Care Teams Sports Coordinator Relationship Specialty Start Date End Date Srini Arevalo MD PCP - General Family Medicine 11/14/18 04/06/24 Bin Mccain APRN, PHILOSOPHY FACULTY MEMBER #[address] [address] PCP - General Advanced Practice Nurse 04/07/24 Julio Alvarado MD Consulting Physician Obstetrics & Gynecology 03/10/19 documented as of this encounter
--- OUTSIDE RECORDS SUMMARY | 2025-05-18 16:46 | XMS_ITS | Encounter Summary ---
Author Organization [facility] Address [address] [place] [address] Phone Care Team Providers Care Medicaid Nurse Name Role Phone Srini Arevalo MD Primary Care Provider [phone] Julio Alvarado MD Unavailable [phone] Bin Mccain APRN, CAR SHAGGER Primary Care Pr ovider Reason for Visit * Reason Comments Medication Refill Encounter Details Date Type Department Care Team (Late st Contact Info) Description 08/29/2023 Refill [facility] [address] [place] [address] Srini Arevalo MD [address] [place] [address] Medication Refill Social History Tobacco [...] 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 Anticipated Time Frame for Goal Completion: 6 months Goal Reviewed with: patient Readiness to change: Ready to change Department associated with goal: [facility] Steps to achieve [...] documented as of this encounter Care Teams Medicaid Nurse Relationship Specialty Start Date End Date Srini Arevalo MD PCP - General Family Medicine 11/14/18 04/06/24 Bin Mccain APRN, CAR SHAGGER [address] [address] PCP - General Advanced Practice Nurse 04/07/24 Julio Alvarado MD Consulting Physician Obstetrics & Gynecology 03/10/19 documented as of this encounter
--- OUTSIDE RECORDS SUMMARY | 2025-05-18 16:46 | XMS_ITS | Encounter Summary ---
Author Organization [facility] Address [address] [place] [address] Phone Care Team Providers Care Consulting Actuary Name Role Phone Srini Arevalo MD Primary Care Provider [phone] Julio Alvarado MD Unavailable [phone] Bin Mccain APRN, WIRE SPOOLER Primary Care Pr ovider Reason for Visit * Reason Comments Medication Refill Encounter Details Date Type Department Care Team (Late st Contact Info) Description 08/22/2023 Refill [facility] [address] [place] [address] Srini Arevalo MD [address] [place] [address] Medication Refill Social History Tobacco [...] 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 Anticipated Time Frame for Goal Completion: 6 months Goal Reviewed with: patient Readiness to change: Ready to change Department associated with goal: [facility] Steps to achieve goal: [...] Date Last Indicated Resolved Time COVID - 01/18/2025 01/18/2025 01/18/2025 11:1 1 AM CDT Assessment Noted Time PHQ-9 Depression Total Score: 0 09/07/19 22 12:46 PM CDT documented as of this encounter Care Teams Consulting Actuary Relationship Specialty Start Date End Date Srini Arevalo MD PCP - General Family Medicine 11/14/18 04/06/24 Bin Mccain APRN, WIRE SPOOLER [address] [address] PCP - General Advanced Practice Nurse 04/07/24 Julio Alvarado MD Consulting Physician Obstetrics & Gynecology 03/10/19 documented as of this encounter
--- OUTSIDE RECORDS SUMMARY | 2025-05-18 16:46 | XMS_ITS | Encounter Summary ---
Author Organization [facility] Address [address] [place] [address] Phone Care Team Providers Care Aoc Plans Intelligence Officer Chief Name Role Phone Srini Arevalo MD Primary Care Provider [phone] Julio Alvarado MD Unavailable [phone] Bin Mccain APRN, INVESTMENT OFFICER Primary Care Pr ovider Reason for Visit * Reason Comments Medication Refill Encounter Details Date Type Department Care Team (Late st Contact Info) Description 07/11/2022 [facility]ill [facility] [address] [place] [address] Srini Arevalo MD [address] [place] [address] Medication Refill Social History Tobacco [...] 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 No / Unsure 07/10/2022 1:47 PM GLASS CLEANER documented as of this encounter Miscellaneous Notes * Telephone Encounter - Susan Cortes RN - 07/11/2022 11:44 AM GLASS CLEANER PDMP 06/09/22 #90 Medication failed the protocol, [...] [place] 08/01/21 Office Visit Beena Graf APRN, INVESTMENT OFFICER [facility] [place] Showing recent visits within past 365 days and meeting all other requirements Future Appointments Date Type Provider Dept 10/02/22 Appointment Srini Arevalo MD [facility] [place] Showing future appointments within next 90 days and meeting all other requirements Passed - ALT less than 90 and AST less than 55 on record in past 12 months SGOT (AST) Date Value Ref Range Status 08/07/2021 19 <=32 U/L Final SGPT (ALT) Date Value Ref Range Status 08/07/2021 19 <=41 U/L Final S CLEANER documented in this encounter Plan of Treatment Not on file documented as of this encounter Visit Diagnoses Diagnosis Low back pain, unspecified back pain laterality, unspecified chronicity, unspecified whether sciatica present documented in this encounter Additional Health Concerns Infection Onset Date Last Indicated Resolved Time COVID - 05/02/2023 05/02/2023 05/12/2023 12:1 6 AM GLASS CLEANER COVID - 01/18/2025 01/18/2025 01/18/2025 11:1 1 AM CDT Assessment Noted Time PHQ-9 Depression Total Score: 0 09/07/19 12:46 PM CDT documented as of this encounter Care Teams Aoc Plans Intelligence Officer Chief Relationship Specialty Start Date End Date Srini Arevalo MD PCP - General Family Medicine 11/14/18 04/06/24 Bin Mccain APRN, INVESTMENT OFFICER [address] [address] PCP - General Advanced Practice Nurse 04/07/24 Julio Alvarado MD Consulting Physician Obstetrics & Gynecology 03/10/19 documented as of this encounter
--- OUTSIDE RECORDS SUMMARY | 2025-05-18 16:46 | XMS_ITS | Clinical Summary ---
Author Organization [facility] Address [address] [place] [address] Care Team Providers Care Electrician Locomotive Name Role Phone Srini Arevalo MD Primary Care Provider [phone] Source Comments [facility],non-owned Affiliates and Associated Physician Practices is amultiple site organization consisting of ambulatory clinics and hospital sitesin [place], [place], [place] and [place]. This disclosure is being madepursuant to the Care Everywhere program and may not contain all information available regarding this patient. Last updated 18.[facility] Allergies No known active allergies Medications * Be aware that medications may not be up to date on this document. Alwaysverify current medications with the patient. omeprazole EC (PRILOSEC OTC) 20 MG tablet Active Vitamin D3, cholecalciferol , 50 MCG (2000 UT) tablet Take by mouth once daily Active citalopram (CELEXA) 10 MG tablet Take 10 mg by mouth once daily 03/10/2019 Active hydroCHLOROthia zide (MICROZIDE) 12.5 MG capsule 04/13/2019 Act johan indomethacin (INDOCIN) 50 MG capsule TAKE ONE CAPSULE BY MOUTH THREE TIMES DAILY 04/13/2019 Active traMADol (ULTRAM) 50 MG tablet Take 50 mg by mouth 03/10/2019 Active Active Problems No known active problems Social History Tobacco Use Types Packs/Day Years Used Date Smoking Tobacco: Never Smokeless Tobacco: Never Comments Unknown Sex and Gender Information Value Date Recorded Sex Assigned at Not on file Legal Sex Female 4:39 PM CDT Gender Identity Not on file Sexual Orientation Not on file Last Filed Vital Signs Vital Sign Reading Time Taken Comments Blood Pressure - - Pulse - - Temperature - - Respiratory Rate - - Oxygen Saturation - - Inhaled Oxygen Concentration - - Weight 147.6 kg (325 lb 4.8 oz) 05/11/2019 8:44 AM LOSS PREVENTION REPRESENTATIVE Height 172.7 cm (5' 8) 04/21/2019 9:33 AM LOSS PREVENTION REPRESENTATIVE Body Mass Index 49.46 04/21/2019 9:33 AM LOSS PREVENTION REPRESENTATIVE Plan of Treatment Health Maintenance Due Date Last Done Comments COLOGUARD (AGES 45-75) - COL ON CA SCREENING 1979 COLON MONITORING 1979 COLONOSCOPY - COLON CA SCREENING 1979 CT COLONOGRAPHY - COLON CA SCREENING 1979 Colorectal Cancer Screening 1979 FIT - COLON CA SCREENING 1979 FLEX SIG - COLON CA SCREENING 1979 LIPID TESTING 1979 HIV SCREENING 10/13/1994 HEPATITIS C SCREENING 10/09/1997 DTAP/TDAP/TD VACCINES (1 - Tdap) 10/13/1998 HEPATITIS B VACCINE (1 of 3 - 19+ 3-dose series) 10/13/1998 PAP SMEAR 10/13/2000 HPV VACCINE (1 - 3-dose SCDM series) 10/13/2006 MAMMOGRAM 12/08/2020 12/08/2018 DEPRESSION SCREENING 05/27/2024 COVID-19 VACCINE (1 - 2024-2 6 season) 2025 INFLUENZA VACCINE (#1) 2025 05/06/2019 ZOSTER VACCINE (1 of 2) 10/13/2029 HIB VACCINE Aged Out No longer eligi ble based on patient's age to complete this topic MENINGOCOCCAL (Group B) VACC INE SHARED DECISION-MAKING Aged Out No longer eligibl e based on patient's age to complete this topic MENINGOCOCCAL GROUPS A/C/Y/W VACCINE Aged Out No longer eligible b ased on patient's age to complete this topic PNEUMOCOCCAL VACCINE Aged Out No long er eligible based on patient's age to complete this topic Insurance [facility] MEDICAID - OUT OF STATE [facility] Care Teams Electrician Locomotive Relationship Specialty Start Date End Date Srini Arevalo MD PCP - General 04/21/19
--- OUTSIDE RECORDS SUMMARY | 2025-05-18 16:46 | XMS_ITS | Encounter Summary ---
Author Organization [facility] Address [address] [place] [address] Phone Care Team Providers Care Cash Controller Name Role Phone Srini Arevalo MD Primary Care Provider [phone] Julio Alvarado MD Unavailable [phone] Bin Mccain APRN, WEEKEND CAREGIVER Primary Care Pr ovider Reason for Visit * Reason Comments Medication Refill Encounter Details Date Type Department Care Team (Late st Contact Info) Description 02/20/2022 Refill [facility] - Family Medicine - [place] [address] [place] [address] Beena Graf APRN, WEEKEND CAREGIVER [address] [address] Medication Refill Social History Tobacco [...] 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 Not on file Not on file documented as of this encounter Miscellaneous Notes * Telephone Encounter - ShaiMarlysjericho Jay RN - 02/20/2022 10:46 AM CDT Medication [...] MD [facility] [place] 08/07/21 Office Visit Bin cMcain APRN, CNP [facility] [place] 08/01/21 Office Visit Beena Graf APRN, CNP [facility] [place] 03/08/21 Office Visit Beena Graf APRN, C[place] [facility] [place] Showing recent visits within past [...] 19 05/02/2023 05/02/2023 05/12/2023 12:1 6 AM FITTING SUPERVISOR COVID - 19 01/18/2025 01/18/2025 01/18/2025 11:1 1 AM CDT Assessment Noted Time PHQ-9 Depression Total Score: 0 09/07/19 22 12:46 PM CDT documented as of this encounter Care Teams Cash Controller Relationship Specialty Start Date End Date Srini Arevalo MD PCP - General Family Medicine 11/14/18 04/06/24 Bin Mccain, DEPUTY EDITOR IN CHIEF, WEEKEND CAREGIVER #[address] [address] PCP - General Advanced Practice Nurse 04/07/24 Julio Alvarado MD Consulting Physician Obstetrics & Gynecology 03/10/19 documented as of this encounter
--- OUTSIDE RECORDS SUMMARY | 2025-05-18 16:46 | XMS_ITS | Encounter Summary ---
Author Organization [facility] Address [address] [place] [address] Phone Care Team Providers Care Check Totaler Name Role Phone Srini Arevalo MD Primary Care Provider [phone] Julio Alvarado MD Unavailable [phone] Bin Mccain APRN, MONOTYPE OPERATOR Primary Care Pr ovider Reason for Visit * Reason Comments Medication Refill Encounter Details Date Type Department Care Team (Late st Contact Info) Description 04/11/2022 Refill [facility] [address] [place] [address] Srini Arevalo MD [address] [place] [address] Medication Refill Social History Tobacco [...] 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 Not [...] Visit Srini Areval[facility] MD [facility] 09/06/21 Office Visit Jose Guadalupe Brown MD [facility] 08/07/21 Office Visit Bin Mccain APRN, CNP [facility] [place] 08/01/21 Office Visit Beena Graf APRN, [facility] Showing recent visits within past 365 [...] Range Status 08/07/2021 19 <=41 U/L Final NCIAL ANALYSIS MANAGER documented in this encounter Plan of Treatment Not on file documented as of this encounter Visit Diagnoses Diagnosis Low back pain, unspecified back pain laterality, unspecified chronicity, unspecified whether sciatica present documented in this encounter Additional Health Concerns Infection Onset Date Last Indicated Resolved Time COVID - 19 05/02/2023 05/02/2023 05/12/2023 12:1 6 AM FINANCIAL ANALYSIS MANAGER COVID - 19 01/18/2025 01/18/2025 01/18/2025 11:1 1 AM CDT Assessment Noted Time PHQ-9 Depression Total Score: 0 09/07/19 22 12:46 PM CDT documented as of this encounter Care Teams Check Totaler Relationship Specialty Start Date End Date Srini Arevalo MD PCP - General Family Medicine 11/14/18 04/06/24 Bin Mccain, DRAFTER HEATING AND VENTILATING, MONOTYPE OPERATOR #[address] [address] PCP - General Advanced Practice Nurse 04/07/24 Julio Alvarado MD Consulting Physician Obstetrics & Gynecology 03/10/19 documented as of this encounter
--- OUTSIDE RECORDS SUMMARY | 2025-05-18 16:46 | XMS_ITS | Encounter Summary ---
Author Organization [facility] Address [address] [place] [address] Phone Care Team Providers Care Rubber Compounder Mixer Name Role Phone Srini Arevalo MD Primary Care Provider Julio Alvarado MD Unavailable [phone] Bin Mccain APRN, BEAD PICKER Primary Care Pr ovider Reason for Visit * Reason Comments Medication Refill Encounter Details Date Type Department Care Team (Late st Contact Info) Description 09/16/2023 Refill [facility] [address] [place] [address] Srini Arevalo MD [address] [place] [address] Medication Refill Social History Tobacco [...] 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 Anticipated Time Frame for Goal Completion: 6 months Goal Reviewed with: patient Readiness to change: Ready to change Department associated with goal: [facility] Steps to [...] documented as of this encounter Care Teams Rubber Compounder Mixer Relationship Specialty Start Date End Date Srini Arevalo MD PCP - General Family Medicine 11/14/18 04/06/24 Bin Mccain, SCHOOL ADJUSTMENT COUNSELOR, BEAD PICKER [address] [address] PCP - General Advanced Practice Nurse 04/07/24 Julio Alvarado MD Consulting Physician Obstetrics & Gynecology 03/10/19 documented as of this encounter
--- OUTSIDE RECORDS SUMMARY | 2025-05-18 16:46 | XMS_ITS | Encounter Summary ---
Author Organization [facility] Address [address] [place] [address] Phone Care Team Providers Care Manager Harbor Name Role Phone Srini Arevalo MD Primary Care Provider [phone] Julio Alvarado MD Unavailable [phone] Bin Mccain APRN, REGULATORY TECHNICIAN Primary Care Pr ovider Reason for Visit * Reason Comments Medication Refill Encounter Details Date Type Department Care Team (Late st Contact Info) Description 02/13/2022 Refill [facility] Family Medicine 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 [...] 08/01/21 Office Visit Beena Graf APRN, CNP [facility] 03/08/21 Office Visit Beena Graf APRN, CNP [facility] [place] Showing recent visits within past 365 days [...] 19 05/02/2023 05/02/2023 05/12/2023 12:1 6 AM TECHNOLOGY RECRUITER COVID - 19 01/18/2025 01/18/2025 01/18/2025 11:1 1 AM CDT Assessment Noted Time PHQ-9 Depression Total Score: 0 09/07/19 22 12:46 PM CDT documented as of this encounter Care Teams Manager Harbor Relationship Specialty Start Date End Date Srini Arevalo MD PCP - General Family Medicine 11/14/18 04/06/24 Bin Mccain APRN, REGULATORY TECHNICIAN #[address] [address] PCP - General Advanced Practice Nurse 04/07/24 Julio Alvarado MD Consulting Physician Obstetrics & Gynecology 03/10/19 documented as of this encounter
--- OUTSIDE RECORDS SUMMARY | 2025-05-18 16:46 | XMS_ITS | Encounter Summary ---
Author Organization [facility] Address [address] [place] [address] Phone Care Team Providers Care Horse Trader Name Role Phone Srini Arevalo MD Primary Care Provider [phone] Julio Alvarado MD Unavailable [phone] Bin Mccain APRN, COMMERCIAL INSTALLER Primary Care Pr ovider Reason for Visit * Reason Comments Medication Refill Encounter Details Date Type Department Care Team (Late st Contact Info) Description 01/22/2022 Refill [facility] - Family Medicine - [place] [address] [place] [address] Beena Graf APRN, COMMERCIAL INSTALLER [address] [address] Medication Refill Social History Tobacco [...] 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 Not on file Not [...] Dept 10/31/21 Office Visit Srini Arevalo MD [facility] 09/06/21 Office Visit Jose Guadalupe Brown MD [facility] 08/07/21 Office Visit Bin Mccain APRN, GERMAN [facility] [place] 08/01/21 Office Visit Beena Graf APRN, COMMERCIAL INSTALLER [facility] Showing recent visits within past 182 days [...] 19 05/02/2023 05/02/2023 05/12/2023 12:1 6 AM INFLATED BALL MOLDER COVID - 01/18/2025 01/18/2025 01/18/2025 11:1 1 AM CDT Assessment Noted Time PHQ-9 Depression Total Score: 0 09/07/19 22 12:46 PM CDT documented as of this encounter Care Teams Horse Trader Relationship Specialty Start Date End Date Srini Arevalo MD PCP - General Family Medicine 11/14/18 04/06/24 Bin Mccain APRN, COMMERCIAL INSTALLER #[address] [address] PCP - General Advanced Practice Nurse 04/07/24 Julio Alvarado MD Consulting Physician Obstetrics & Gynecology 03/10/19 documented as of this encounter
--- OUTSIDE RECORDS SUMMARY | 2025-05-18 16:46 | XMS_ITS | Encounter Summary ---
Author Organization [facility] Address [address] [place] [address] Phone Care Team Providers Care Cuff Knitter Name Role Phone Srini Arevalo MD Primary Care Provider [phone] Julio Alvarado MD Unavailable [phone] Bin Mccain APRN, OFFICE EMPLOYEE Primary Care Pr ovider Reason for Visit * Reason Comments Medication Refill Encounter Details Date Type Department Care Team (Late st Contact Info) Description 03/13/2022 Refill [facility] [address] [place] [address] Srini Arevalo MD [address] [place] [address] Medication Refill Social History Tobacco [...] 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 file Not on file documented as of this encounter Miscellaneous Notes * Telephone Encounter - Marlys Gibbonsjericho Jay RN - 03/14/2022 9:22 AM CDT Topiramate [...] MD [facility] [place] 08/07/21 Office Visit Bin Mccian APRN, CNP [facility] 08/01/21 [facility] visits within past 365 [...] [place] 08/07/21 Office Visit Bin Mccain APRN, OFFICE EMPLOYEE [facility] 08/01/21 [facility] past [...] 19 05/02/2023 05/02/2023 05/12/2023 12:1 6 AM ACO COORDINATOR COVID - 19 01/18/2025 01/18/2025 01/18/2025 11:1 1 AM CDT Assessment Noted Time PHQ-9 Depression Total Score: 0 09/07/19 12:46 PM CDT documented as of this encounter Care Teams Cuff Knitter Relationship Specialty Start Date End Date Srini Arevalo MD PCP - General Family Medicine 11/14/18 04/06/24 Bin Mccain APRN, OFFICE EMPLOYEE #[address] [address] PCP - General Advanced Practice Nurse 04/07/24 Julio Alvarado MD Consulting Physician Obstetrics & Gynecology 03/10/19 documented as of this encounter
--- OUTSIDE RECORDS SUMMARY | 2025-05-18 16:46 | XMS_ITS | Clinical Summary ---
Author Organization [facility] lt Address [address] [place] [address] Care Team Providers Care Senior Climate Advisor Name Role Phone FernandapercyRobert PT Unavailable Unavailab Srini Vital MD Primary Care Provider [phone] Carolina Escobar Unavailable [phone] Allergies No known active allergies Medications cholecalciferol (VITAMIN D3) 2,000 unit capsule one cap po daily 0 0 5 Active Additional Information Patient not taking.Reported on 07/23/2024 citalopram (CeleXA) 10 mg tablet Take 1 tablet (10 mg total) by mouth daily 30 tablet 9 Active amitriptyline (ELAVIL) 100 mg tablet Take 1 tablet (100 mg total) by mouth nightly 1 Active tiZANidine (ZANAFLEX) 2 mg tablet Take by mouth 3 (three) times a day as needed 1 Active topiramate (TOPAMAX) 100 mg tablet TAKE ONE TABLET BY MOUTH TWO TIMES A DAY (TAKE EACH DOSE WITH 50MG TABLET TO EQUAL 150MG) 1 Active albuterol HFA (PROVENTIL HFA,VENTOLIN HFA,PROAIR HFA) 90 mcg/actuation inhaler 2 Active senna-docusate (PERICOLACE) 8.6-50 mg 1-2 times daily as needed for constipation 60 tablet 1 5 Active Additional Information Patient not taking.Reported on 07/23/2024 ondansetron (ZOFRAN) 4 mg tablet Every 4-6 hours as needed 30 tablet 1 5 Active Additional Information Patient not taking.Reported on 07/23/2024 ascorbic acid (VITAMIN C) 500 mg tablet,chewable Take 1 tablet/chew tab (500 mg total) by mouth 2 (two) times a day 60 tablet/chew tab 5 Active aspirin 81 mg chewable tablet Take 1 tablet (81 mg total) by mouth 2 (two) times a day for 14 days 28 tablet 5 Active topiramate (TOPAMAX) 50 mg tablet Take 1 tablet (50 mg total) by mouth 2 (two) times a day 5 Active HYDROcodone-janet taminophen (NORCO) 5-325 mg per tabletIndicatio ns:Pain Take 1 tablet by mouth every 6 (six) hours as needed for pain 28 tablet [address] (VOLTAREN) 75 mg EC tablet TAKE 1 TABLET (75 MG TOTAL) BY MOUTH TWO (2) TIMES a DAY 60 tablet 5 Active Active Problems Problem Noted Date Diagnosed Date Acute internal derangement of knee, left 025 Loose body of left knee 06/19/2024 Primary osteoarthritis of left knee 06/19/2024 Dysphagia 07/26/2022 Assessment & Plan (07/26/2022 10:17 AM MOUNTING INSPECTOR): I am going to order an upper [...] (03/14/2020): Added automatically from request for surgery [id number] Morbid obesity with BMI of 40.0-44.9, adult [...] months. Assessment & Plan (06/06/2021 9:35 AM MOUNTING INSPECTOR): We have stressed the importance of how [...] month. Assessment & Plan (08/04/2020 9:13 AM MOUNTING INSPECTOR): The patient will continue on her current [...] month Assessment & Plan (07/07/2020 9:12 AM MOUNTING INSPECTOR): Given her good past success she would [...] management Assessment & Plan (08/04/2020 9:12 AM MOUNTING INSPECTOR): Continue current medical regimen Assessment & Plan (07/07/2020 9:10 AM MOUNTING INSPECTOR): Continue current medical regimen Migraine 12/15/2014 Overview (08/30/2016): Migraine Adiposity 07/14/2014 Overview (08/31/2016): Obesity Low back pain 07/22/2012 Overview (08/31/2016): LUMBAGO Resolved Problems Problem Noted Date Diagnosed Date Resolved Date Pre-op testing 02/02/2021 02/09/2021 Heartburn 11/28/2020 01/24/2021 Overview (11/28/2020): Added automatically from request for surgery [id number] Immunizations Immunization Administration Dates Next Due Influenza, Quadrivalent, Spl it, Preservative Free, Intramuscular 03/04/2018 Influenza, Trivalent, IM (MDV) 02/23/2013 Moderna SARS-CoV-2 Monovalent Vaccination (12+ Y RS) 09/16/2020,08/19/2020 Surgical History Surgery Date Site/Laterality Comments MENISCECTOMY 03/24/2020 Right GASTRECTOMY 02/01/2021 Gastric Sleeve Medical History Medical History Date Comments Insomnia insomnia Gastroesophageal reflux disease GERD Hx Other Medical Headache, migra ine Hypertension Hypertension Arthritis Arthritis; Comme nts: DNT 12/16/2014 - Gastric reflux Migraines Osteoarthritis Motion sickness Obesity Hiatal hernia Depression Anxiety Family History Medical History Relation Name Comments [...] drink containing alc ohol? Monthly or less 07/08/2024 Q2: How many drinks containi ng alcohol do you have on a typical day when you are drinking? 1 or 2 07/08/2024 Frequency of Binge Drinking Not on file 06/27 PHQ-2 Answer Date Recorded PHQ-2 Score 0 01/15/2019 Personal Safety Answer Date Recorded Have you ever been in or are you currently in a harmful physical or emotional relationship or is someone making you feel afraid or unsafe? Denies 07/09/2024 Comments No Sex and Gender Information Value Date Recorded Sex Assigned at Not on file Legal Sex Female 11:00 AM MOUNTING INSPECTOR Gender Identity Female 09/14/2020 10:59 AM CDT Sexual Orientation Straight 09/14/2020 10 :59 AM CDT Last Filed Vital Signs Vital Sign Reading Time Taken Comments Blood Pressure 130/70 07/09/2024 3:00 PM MOUNTING INSPECTOR Pulse 80 07/09/2024 3:00 PM MOUNTING INSPECTOR Temperature 36.2 C (97.1 F) 07/09/2024 2:00 PM MOUNTING INSPECTOR Respiratory Rate 20 07/09/2024 3:00 PM MOUNTING INSPECTOR Oxygen Saturation 95% 07/09/2024 3:00 PM MOUNTING INSPECTOR Inhaled Oxygen Concentration - - Weight 117.4 kg (258 lb 13.1 oz) 2024 10:52 AM MOUNTING INSPECTOR Height 172.7 cm (5' 8) 07/09/2024 10:5 2 AM MOUNTING INSPECTOR Body Mass Index 39.35 07/09/2024 10:52 AM MOUNTING INSPECTOR Plan of Treatment Health Maintenance Due Date Last Done Comments Cervical Cancer Screening 1979 Colon Cancer Screening-Colonoscopy 1979 Hepatitis C Screening 1979 Varicella Vaccines (1 of 2 - 13+ 2-dose series) 10/13/1992 Hepatitis B Screening 10/13/1997 Regular Well Visit/Exam 18-64 10/13/1997 HPV Vaccines (1 - 3-dose SCDM series) 10/13/2006 Depression Screening 03/20/2019 03/20/2018, 03/04/2018, 11/04/2017, Additional history exists Breast Cancer Screening-Mammogram 07/03/2024 07/03/2023, 07/03/2023, 12/11/2021, Additional history exists Covid-19 Vaccine (3 - 2024- season) 2025 09/16/2020, 08/19/2020 Influenza Vaccine (#1) 2025 , 07/10/2022, 02/18/2020, Additional history exists DTaP/Tdap/Td Vaccine (4 - Td or Tdap) 09/07/2032 09/07/2022, 03/03/2021, 11/14/2018 Pneumococcal vaccine <65 Aged Out No longer eligible based on patient's age to complete this topic Insurance [facility] Advance Directives For more information, please contact: [phone] * Full Code (Latest Code Status on File) Date Activated Date Inactivated Comments 07/31/2022 1:13 PM 07/31/2022 6:45 PM * Full Code Date Activated Date Inactivated Comments 07/31/2022 1:13 PM 07/31/2022 1:13 PM * Full Code Date Activated Date Inactivated Comments 02/01/2021 11:29 AM 02/03/2021 3:43 PM * Full Code Date Activated Date Inactivated Comments 12/20/2020 12:38 PM 12/20/2020 6:12 PM Care Teams Senior Climate Advisor Relationship Specialty Start Date End Date Srini Arevalo MD 2 [facility] [place] [address] [address] PCP - General Family Medicine 01/29/20 Robert Cano, PT Physical Therapist Physical Therapy 07/14/19 Carolina Escobar PA [address] [address] Physician Manager Engine Orthopedic Surgery 03/24/20
--- OUTSIDE RECORDS SUMMARY | 2025-05-18 16:46 | XMS_ITS | Encounter Summary ---
Author Organization [facility] Address [address] [place] [address] Phone Care Team Providers Care Sash Clamp Operator Name Role Phone Srini Arevalo MD Primary Care Provider [phone] Julio Alvarado MD Unavailable [phone] Bin Mccain APRN, SPOT MACHINE OPERATOR Primary Care Pr ovider Reason for Visit * Reason Comments Medication Refill Encounter Details Date Type Department Care Team (Late st Contact Info) Description 07/29/2023 Refill [facility] - Family Medicine [facility] [address] [place] [address] Srini Arevalo MD [address] [place] [address] Medication Refill Social History Tobacco [...] 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 Showing future appointments within next 90 days and meeting all other requirements ICE REPRESENTATIVE documented in this encounter Plan of Treatment Not on file documented as of this encounter Goals Goal Patient Goal Type Associated Problems Recent Progress Patient-Stated? Author My father in July. I think it would help to talk to someone. I want to learn how to live without him. Behavioral Health On track( 024 2:38 PM SERVICE REPRESENTATIVE) Yes Maria Isabel Hickey LCSW Note: Goal/Objective: Improve coping and decrease symptoms of grief related to her father's . Anticipated Time Frame for Goal Completion: 6 months Goal Reviewed with: patient Readiness to change: Ready to change Department associated with goal: [facility] Steps to achieve [...] documented as of this encounter Care Teams Sash Clamp Operator Relationship Specialty Start Date End Date Srini Arevalo MD PCP - General Family Medicine 11/14/18 04/06/24 Bin Mccain APRN, SPOT MACHINE OPERATOR [address] [address] PCP - General Advanced Practice Nurse 04/07/24 Julio Alvarado MD Consulting Physician Obstetrics & Gynecology 03/10/19 documented as of this encounter
--- OUTSIDE RECORDS SUMMARY | 2025-05-18 16:46 | XMS_ITS | Encounter Summary ---
Author Organization [facility] Address [address] [place] [address] Phone Care Team Providers Care Hospice Care Transitions Coordinator Name Role Phone Srini Arevalo MD Primary Care Provider [phone] Julio Alvarado MD Unavailable [phone] Bin Mccain APRN, WELDING MACHINE OPERATOR HELPER ARC Primary Care Pr ovider Reason for Visit * Reason Comments Medication Refill Encounter Details Date Type Department Care Team (Late st Contact Info) Description 08/09/2023 Refill [facility] - Family Medicine [facility] [address] [place] [address] Srini Arevalo MD [address] [place] [address] Medication Refill Social History Tobacco [...] 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 Not on file Not on file documented as of this encounter Miscellaneous Notes * Telephone Encounter - Marlys Gibbonsjericho Jay, RN - 08/09/2023 12:21 PM CDT Medication [...] [place] 10/02/22 Office Visit Srini Arevalo MD [facility] Showing recent visits [...] Behavioral Health On track( 024 2:38 PM FILM REPLACEMENT ORDERER) Yes Maria Isabel Hickey LCSW Note: Goal/Objective: [...] documented as of this encounter Care Teams Hospice Care Transitions Coordinator Relationship Specialty Start Date End Date Srini Arevalo MD PCP - General Family Medicine 11/14/18 04/06/24 Bin Mccain, VOIP NETWORK ENGINEER, WELDING MACHINE OPERATOR HELPER ARC [address] [place] [address] PCP - General Advanced Practice Nurse 04/07/24 Julio Alvarado MD Consulting Physician Obstetrics & Gynecology 03/10/19 documented as of this encounter
--- OUTSIDE RECORDS SUMMARY | 2025-05-18 16:46 | XMS_ITS | Encounter Summary ---
Author Organization [facility] Address [address] [place] [address] Phone Care Team Providers Care Gear Room Keeper Name Role Phone Srini Arevalo MD Primary Care Provider [phone] Julio Alvarado MD Unavailable [phone] Bin Mccain APRN, EYEWEAR MANUFACTURING SUPERVISOR Primary Care Pr ovider Reason for Visit * Reason Comments Medication Refill Encounter Details Date Type Department Care Team (Late st Contact Info) Description 06/22/2022 Refill [facility] - Family Medicine [facility] [address] [place] [address] Srini Arevalo MD [address] [place] [address] Medication Refill Social History Tobacco [...] 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 T LITERACY INSTRUCTOR * Telephone Encounter - Deidra Gibbons RN [...] 08/07/21 Office Visit Bin Mccain APRN, CNP [facility] 08/01/21 Office Visit Beena Graf APRN, CNP [facility] Showing recent visits within past 365 days and meeting all other requirements Future Appointments No visits were found meeting these conditions. Showing future appointments within next 90 days and meeting all other requirements T LITERACY INSTRUCTOR documented in this encounter Plan of Treatment Not on file documented as of this encounter Visit Diagnoses Diagnosis Low back pain, unspecified back pain laterality, unspecified chronicity, unspecified whether sciatica present Closed fracture of coccyx, sequela documented in this encounter Additional Health Concerns Infection Onset Date Last Indicated Resolved Time COVID - 05/02/2023 05/02/2023 05/12/2023 12:1 6 AM ADULT LITERACY INSTRUCTOR COVID - 01/18/2025 01/18/2025 01/18/2025 11:1 1 AM CDT Assessment Noted Time PHQ-9 Depression Total Score: 0 09/07/19 12:46 PM CDT documented as of this encounter Care Teams Gear Room Keeper Relationship Specialty Start Date End Date Srini Arevalo MD PCP - General Family Medicine 11/14/18 04/06/24 Bin Mccain, WIRE TECHNICIAN, EYEWEAR MANUFACTURING SUPERVISOR [address] [address] PCP - General Advanced Practice Nurse 04/07/24 Julio Alvarado MD Consulting Physician Obstetrics & Gynecology 03/10/19 documented as of this encounter
--- OUTSIDE RECORDS SUMMARY | 2025-05-18 16:46 | XMS_ITS | Encounter Summary ---
Author Organization [facility] Address [address] [place] [address] Phone Care Team Providers Care Plastic Battery Assembler Name Role Phone Srini Arevalo MD Primary Care Provider Julio Alvarado MD Unavailable [phone] Bin Mccain APRN, SERVICE TECHNICIAN COPIER Primary Care Pr ovider Reason for Visit * Reason Comments Medication Refill Encounter Details Date Type Department Care Team (Late st Contact Info) Description 07/24/2023 Refill [facility] - Family Medicine [facility] [address] [place] [address] Srini Arevalo MD [address] [place] [address] Medication Refill Social History Tobacco [...] 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 Showing recent visits within [...] 03/14/2023 10 0 - 55 U/L Final GER FREELANCE documented in this encounter Plan of Treatment Not on file documented as of this encounter Goals Goal Patient Goal Type Associated Problems Recent Progress Patient-Stated? Author My father in July. I think it would help to talk to someone. I want to learn how to live without him. Behavioral Health On track( 024 2:38 PM MANAGER FREELANCE) Yes Maria Isabel Hickey LCSW Note: Goal/Objective: Improve coping and decrease symptoms of grief related to her father's . Anticipated Time Frame for Goal Completion: 6 months Goal Reviewed with: patient Readiness to change: Ready to change Department associated with goal: [facility] Steps to [...] documented as of this encounter Care Teams Plastic Battery Assembler Relationship Specialty Start Date End Date Srini Arevalo MD PCP - General Family Medicine 11/14/18 04/06/24 Bin Mccain APRN, SERVICE TECHNICIAN COPIER [address] [address] PCP - General Advanced Practice Nurse 04/07/24 Julio Alvarado MD Consulting Physician Obstetrics & Gynecology 03/10/19 documented as of this encounter
--- OUTSIDE RECORDS SUMMARY | 2025-05-18 16:46 | XMS_ITS | Encounter Summary ---
Author Organization [facility] Address [address] [place] [address] Phone Care Team Providers Care Bath Attendant Name Role Phone Srini Arevalo MD Primary Care Provider [phone] Julio Alvarado MD Unavailable [phone] Bin Mccain APRN, ICT HELP DESK OFFICER Primary Care Pr ovider Reason for Visit * Reason Comments Medication Refill Encounter Details Date Type Department Care Team (Late st Contact Info) Description 03/06/2022 Refill [facility] - Family Medicine [facility] [address] [place] [address] Srini Arevalo MD [address] [place] [address] Medication Refill Social History Tobacco [...] 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 [...] Dept 10/31/21 Office Visit Srini Arevalo MD [facility] [place] 09/06/21 Office Visit Jose Guadalupe Brown MD [facility] [place] 08/07/21 Office Visit Bin Mccain APRN, CNP [facility] 08/01/21 Office Visit Beena Graf APRN, CNP [facility] [place] 03/08/21 Office Visit Beena Graf APRN, GERMAN [facility] [place] Showing recent visits within past 365 days [...] 19 05/02/2023 05/02/2023 05/12/2023 12:1 6 AM PREMIX OPERATOR CONCENTRATE COVID - 19 01/18/2025 01/18/2025 01/18/2025 11:1 1 AM CDT Assessment Noted Time PHQ-9 Depression Total Score: 0 09/07/19 12:46 PM CDT documented as of this encounter Care Teams Bath Attendant Relationship Specialty Start Date End Date Srini Arevalo MD PCP - General Family Medicine 11/14/18 04/06/24 Bin Mccain APRN, ICT HELP DESK OFFICER [address] [address] PCP - General Advanced Practice Nurse 04/07/24 Julio Alvarado MD Consulting Physician Obstetrics & Gynecology 03/10/19 documented as of this encounter
--- OUTSIDE RECORDS SUMMARY | 2025-05-18 16:46 | XMS_ITS | Encounter Summary ---
Author Organization [facility] Address [address] [place] [address] Phone Care Team Providers Care Creel Operator Name Role Phone Srini Arevalo MD Primary Care Provider [phone] Julio Alvarado MD Unavailable [phone] Bin Mccain APRN, FRONT END SOFTWARE ENGINEER Primary Care Pr ovider Reason for Visit * Reason Comments Medication Refill Encounter Details Date Type Department Care Team (Late st Contact Info) Description 05/14/2022 Refill [facility] - Family Medicine [facility] [address] [place] [address] Srini Arevalo MD [address] [place] [address] Medication Refill Social History Tobacco [...] 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 Showing future appointments within next 90 days and meeting all other requirements RESS SPECIALIST documented in this encounter Plan of Treatment Not on file documented as of this encounter Visit Diagnoses Not on filedocumented in this encounter Additional Health Concerns Infection Onset Date Last Indicated Resolved Time COVID - 19 05/02/2023 05/02/2023 05/12/2023 12:1 6 AM MATTRESS SPECIALIST COVID - 19 01/18/2025 01/18/2025 01/18/2025 11:1 1 AM CDT Assessment Noted Time PHQ-9 Depression Total Score: 0 09/07/19 12:46 PM CDT documented as of this encounter Care Teams Creel Operator Relationship Specialty Start Date End Date Srini Arevalo MD PCP - General Family Medicine 11/14/18 04/06/24 Bin Mccain APRN, FRONT END SOFTWARE ENGINEER [address] [address] PCP - General Advanced Practice Nurse 04/07/24 Julio Alvarado MD Consulting Physician Obstetrics & Gynecology 03/10/19 documented as of this encounter
--- OUTSIDE RECORDS SUMMARY | 2025-05-18 16:46 | XMS_ITS | Encounter Summary ---
Author Organization [facility] Address [address] [place] [address] Phone Care Team Providers Care Principal Java Developer Name Role Phone Srini Arevalo MD Primary Care Provider Julio Alvarado MD Unavailable [phone] Bin Mccain APRN, BUSINESS OFFICE COORDINATOR Primary Care Pr ovider Reason for Visit * Reason Comments Medication Refill Encounter Details Date Type Department Care Team (Late st Contact Info) Description 11/21/2023 Refill [facility] - Family [facility] [address] [place] [address] Srini Arevalo MD [address] [place] [address] Medication Refill Social History Tobacco [...] 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 Author My father in July. I think it would help to talk to someone. I want to learn how to live without him. Behavioral Health On track( 024 2:38 PM JUVENILE DETENTION OFFICER) Yes Maria Isabel Hickey LCSW Note: Goal/Objective: Improve coping and decrease symptoms of grief related to her father's . Anticipated Time Frame for Goal Completion: 6 months Goal Reviewed with: patient Readiness to change: Ready to change Department associated with goal: [facility] Steps [...] of this encounter Care Teams Principal Java Developer Relationship Specialty Start Date End Date Srini Arevalo MD PCP - General Family Medicine 11/14/18 04/06/24 Bin Mccain, AIRCRAFT NAVIGATOR, BUSINESS OFFICE COORDINATOR [address] [place] [address] PCP - General Advanced Practice Nurse 04/07/24 Julio Alvarado MD Consulting Physician Obstetrics & Gynecology 03/10/19 documented as of this encounter
--- OUTSIDE RECORDS SUMMARY | 2025-05-18 16:46 | XMS_ITS | Encounter Summary ---
Author Organization [facility] Address [address] [place] [address] Phone Care Team Providers Care Cytotechnologist/Histotechnologist Name Role Phone Srini Arevalo MD Primary Care Provider [phone] Julio Alvarado MD Unavailable [phone] Bin Mccain APRN, ASSOCIATE PROFESSOR OF COMMUNICATION Primary Care Pr ovider Reason for Visit * Reason Comments Medication Refill Encounter Details Date Type Department Care Team (Late st Contact Info) Description 02/26/2022 Refill [facility] - Family Medicine [facility] [address] [place] [address] Srini Arevalo MD [address] [place] [address] Medication Refill Social History Tobacco [...] 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 file Not [...] 10/31/21 Office Visit Srini Arevalo MD [facility] 09/06/21 Office Visit Jose Guadalupe Brown MD [facility] 08/07/21 Office Visit Bin Mccain APRN, CNP [facility] 08/01/21 Office Visit Beena Graf APRN, CNP [facility] 03/08/21 Office Visit Beena Graf APRN, [facility] Showing recent visits within past 365 [...] 19 05/02/2023 05/02/2023 05/12/2023 12:1 6 AM ACETYLENE OPERATOR COVID - 19 01/18/2025 01/18/2025 01/18/2025 11:1 1 AM CDT Assessment Noted Time PHQ-9 Depression Total Score: 0 09/07/19 12:46 PM CDT documented as of this encounter Care Teams Cytotechnologist/Histotechnologist Relationship Specialty Start Date End Date Srini Arevalo MD PCP - General Family Medicine 11/14/18 04/06/24 Bin Mccain, LOAN REVIEW MANAGER, ASSOCIATE PROFESSOR OF COMMUNICATION #[address] [address] PCP - General Advanced Practice Nurse 04/07/24 Julio Alvarado MD Consulting Physician Obstetrics & Gynecology 03/10/19 documented as of this encounter
--- OUTSIDE RECORDS SUMMARY | 2025-05-18 16:46 | XMS_ITS | Encounter Summary ---
Author Organization [facility] Address [address] [place] [address] Care Team Providers Care Aeronautical Engineer Name Role Phone Srini Arevalo MD Primary Care Provider [phone] Encounter Details Date Type Department Care Team (Late st Contact Info) Description 11/17/2019 Lab Requisition [facility] [address] [place] [id number] Rocco Ness MD Social History Tobacco Use [...] Not detected, Invalid 11/17/2019 8:52 PM CDT [facility] Microbiology SPECIMEN FROM NASOPHARYNGEAL STRUCTURE / Unknown Collection / Unknown 11/16/2019 4:30 PM CDT 11/17/2019 11:56 AM CDT Narrative [facility] - 11/17/2019 8:52 PM CDT This Real Time RT-PCR assay was developed and its performance characteristics determined by [facility]. This test has been authorized [...] the authorization is terminated or revoked sooner. us Rocco Ness MD LAB - MICROBIOLOGY ORDERABL ES Final Result [facility] [address] [place], [address] [phone] documented in this encounter Visit Diagnoses Not on filedocumented in this encounter Additional Health Concerns Infection Onset Date Last Indicated Resolved Time COVID-19 Under Investigation 11/16/2019 11/16/2019 11/17/2019 8:52 PM CDT documented as of this encounter Care Teams Aeronautical Engineer Relationship Specialty Start Date End Date Srini Arevalo MD PCP - General 04/21/19 documented as of this encounter
--- OUTSIDE RECORDS SUMMARY | 2025-05-18 16:46 | XMS_ITS | Encounter Summary ---
Author Organization [facility] Address [address] [place] [address] Phone Care Team Providers Care Radio Television Technical Director Name Role Phone Srini Areavlo MD Primary Care Provider Julio Alvarado MD Unavailable [phone] Bin Mccain APRN, LOSS PREVENTION AND SAFETY MANAGER Primary Care Pr ovider Reason for Visit * Reason Comments Medication Refill Encounter Details Date Type Department Care Team (Late st Contact Info) Description 06/07/2022 Refill [facility] - Family Medicine [facility] [address] [place] [address] Srini Arevalo MD [address] [place] [address] Medication Refill Social History Tobacco [...] 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 Showing recent visits within past [...] Range Status 08/07/2021 19 <=41 U/L Final [employer] documented in this encounter Plan of Treatment Not on file documented as of this encounter Visit Diagnoses Diagnosis Low back pain, unspecified back pain laterality, unspecified chronicity, unspecified whether sciatica present documented in this encounter Additional Health Concerns Infection Onset Date Last Indicated Resolved Time COVID - 19 05/02/2023 05/02/2023 05/12/2023 12:1 6 AM [employer] COVID - 19 01/18/2025 01/18/2025 01/18/2025 11:1 1 AM CDT Assessment Noted Time PHQ-9 Depression Total Score: 0 09/07/19 12:46 PM CDT documented as of this encounter Care Teams Radio Television Technical Director Relationship Specialty Start Date End Date Srini Arevalo MD PCP - General Family Medicine 11/14/18 04/06/24 Bin Mccain APRN, LOSS PREVENTION AND SAFETY MANAGER [address] [id number] PCP - General Advanced Practice Nurse 04/07/24 Julio Alvarado MD Consulting Physician Obstetrics & Gynecology 03/10/19 documented as of this encounter
--- NOTE | 2025-05-18 16:55 | ED.URI ---
HPI - URI/Sore Throat General Chief Complaint: Upper Respiratory Infection Stated Complaint: cough/headache/throat/ears Time Seen by Provider: 05/18/25 16:55 Source: patient and RN notes reviewed Mode of arrival: ambulatory Limitations: no limitations History of Present Illness HPI Narrative: 44-year-old female presents Express Care complaining upper respiratory for 4 weeks. Patient said she had a left over prescription of Augmentin and took 12 days worth of antibiotics 2 weeks ago without any relief of symptoms. Patient reports cough, congestion, headaches, sinus pressure, mucopurulent nasal drainage, ear fullness, and sore throat. Patient has any fevers body aches,, chills, nausea vomiting, diarrhea, chest pain, difficulty breathing or any other symptoms. Patient taking [id number] cold and flu medication relief. Related Data Home Medications ?Medication ?Instructions ?Recorded ?Confirmed ?Last Taken ?Type amitriptyline 100 mg tablet 100 mg PO DAILY 12/17/21 03/24/24 Unknown History tizanidine 2 mg tablet 2 mg PO TID 12/17/21 03/24/24 Unknown History topiramate 50 mg tablet 50 mg PO BID 12/17/21 03/24/24 Unknown History topiramate 100 mg tablet 100 mg PO DAILY 04/30/23 03/24/24 Unknown History citalopram 40 mg tablet 40 mg PO DAILY 03/24/24 03/24/24 Unknown History meloxicam 15 mg tablet 15 mg PO DAILY 03/24/24 03/24/24 Unknown History Allergies Allergy/AdvReac Type Severity Reaction Status Date / Time No Known Allergies Allergy Unknown Verified 05/18/25 17:02 Review of Systems Review of Systems: CONSTITUTIONAL: Denies fever, chills, body aches, or sweats. EYES: Denies visual changes, redness, or discharge. ENT: Positive for rhinorrhea, congestion, sinus pressure, sore throat. Negative for otalgia. CARDIOVASCULAR: Denies chest pain, palpitations, or edema. RESPIRATORY: Positive for cough. Negative for dyspnea. GASTROINTESTINAL: Denies abdominal pain, nausea, vomiting, or diarrhea. GENITOURINARY: Denies dysuria or hematuria. SKIN: Denies rash or itching. MUSCULOSKELETAL: Denies back pain, joint pain, or myalgia. NEUROLOGIC: Denies headache, numbness, or weakness. PSYCHIATRIC: Denies anxiety or depression. All other systems reviewed are negative, except as documented in HPI. [facility] Past Medical History Medical History Migraine Anxiety Surgical History Surgical History History of bariatric surgery Family History Family History Mother Breast cancer Father COPD (chronic obstructive pulmonary disease) Social History Social History Substance use: never Living arrangements: with family Gender identity (if verbalized by the patient): Female Sexual Orientation (if Verbalized by the Patient): Straight or Heterosexual Spiritual care concerns: No Comments At the time of my signature, I reviewed and agree with the nursing past medical, surgical, social, and family history. There is no relevant family history pertinent to the patient complaint. Exam Narrative: GENERAL: This is a well-nourished, well-developed adult, in no apparent distress. They are non ill-appearing, nontoxic appearing. HEAD: normocephalic, atraumatic. EYES: Sclera clear/white. Vision is grossly intact. Conjunctiva normal bilaterally. Extraocular movements intact. EARS: External ears normal, auditory canals clear and without drainage, TMs without erythema or perforation. Hearing grossly intact. NOSE: External nose normal with no obvious nasal discharge, nasal turbinates erythematous, no rhinorrhea. Maxillary and frontal sinus tenderness to palpation. THROAT: Mucous membranes moist, posterior pharynx erythematous without exudate. Uvula is midline. Exudative Postnasal drip present. NECK: Neck supple, non-tender without lymphadenopathy, masses or thyromegaly. CARDIOVASCULAR: Regular rate and rhythm without murmurs, gallops, or rubs. RESPIRATORY: Clear to auscultation. Breath sounds equal bilaterally. No wheezes, rales, or rhonchi. SKIN: warm, Dry, intact with no suspicious lesions or rash, good texture and turgor. NEURO: awake, alert, and oriented to person, place and time. There were no obvious focal neurologic abnormalities. EXTREMITIES: No joint tenderness, effusion, or edema noted. BACK: Nontender without deformity. Course Course Level of Care: Express Care Visit Vital Signs Vital signs: Vital Signs Temperature 97 F L 05/18/25 16:56 Pulse Rate 90 05/18/25 16:56 Respiratory Rate 16 05/18/25 16:56 Blood Pressure 141/94 H 05/18/25 16:56 Pulse Oximetry 99 05/18/25 16:56 Oxygen Delivery Room Air 05/18/25 16:56 Temperature 97 F L 05/18/25 16:56 Pulse Rate 90 05/18/25 16:56 Respiratory Rate 16 05/18/25 16:56 Blood Pressure 141/94 H 05/18/25 16:56 Pulse Oximetry 99 05/18/25 16:56 Oxygen Delivery Room Air 05/18/25 16:56 MDM MDM Narrative Medical decision making narrative: Patient may likely have a recurrent sinusitis. Will treat with cefdinir. Discussed supportive care. Discussed physical exam findings. Advised supportive measures and signs/symptoms to go to the ER. Pt is appropriate for outpt treatment and f/u. Differential Diagnosis Differential Diagnosis: Differential diagnostic considerations for upper respiratory infection include upper respiratory infection, croup, otitis media, sinusitis, viral infection, bronchitis, influenza, pharyngitis, strep, uvulitis. Discharge Plan Discharge Clinical Impression: Sinusitis Qualifiers: Sinusitis location: unspecified location Chronicity: acute Recurrence: recurrent Qualified Code(s): J01.91 - Acute recurrent sinusitis, unspecified Patient Disposition: Home Condition: Stable Instructions: Antibiotic Form, Sinusitis (ED) Additional Instructions: Take the antibiotics as directed and complete the course even if you start to feel better. You may use a Neti pot saline rinse 3 times a day with lukewarm distilled water Continue to take Tylenol or Motrin as needed for pain or fevers. Follow instructions on the bottle Use a humidifier or vaporizer at night. Drink plenty of water. 8-10 glasses per day. Use flonase 2 times per day for 5 days then as needed Take mucinex 2 times per day and be sure to take with 8oz of water. Follow up with Primary provider in 3-5 days Please go to the ER if he develops any difficulty breathing, chest pain, vomiting, worsening symptoms, or any other serious concerns Patient Language: Somali Prescriptions: New cefdinir 300 mg capsule 300 mg PO Q12H 10 Days Qty: 20 0RF No Action citalopram 40 mg tablet 40 mg PO DAILY meloxicam 15 mg tablet 15 mg PO DAILY topiramate 50 mg tablet 50 mg PO BID amitriptyline 100 mg tablet 100 mg PO DAILY tizanidine 2 mg tablet 2 mg PO TID topiramate 100 mg tablet 100 mg PO DAILY Follow-up/Referrals: PHYSICIAN NOT ON STAFF,NONSTAFF [Primary Care Provider] Time of Disposition: 17:13
[2025-05-18 16:56] VITALS: BP 141/94; PULSE 90; RESP 16; TEMP 36.1; O2SAT 99
== END 2025-05-18 17:25 | disposition home or self-care (01) ==
DX: J01.91 Acute recurrent sinusitis, unspecified (principal); F41.9 Anxiety disorder, unspecified
CPT/HCPCS: 99213; G0463